=== PATIENT | male | born 1940 | race Caucasian/White ===

== ENCOUNTER → 2018-04-01 08:36 | Outpatient (CLI) | payer OTHER, SELFPAY ==
--- NOTE | 2018-04-01 | DI.ECHO.S_ITS ---
[facility]---------+ [facility] +---------+ : : [address] [place] : : : : [id number] : : : : Phone: [phone]+ Echocardiogram Report + + :Name: MARY ADAN Study Date: 04/01/2018 Height: 69 in : :[facility] Exam Location: [facility] Weight: 230 lb : : Gender: Male BSA: 2.2 m2 : :: 1940 Age: 78 yrs BP: 180/100 mmHg: :Reason For Study: SOB : :Ordering Physician: Madie : :Evan Performed By: Jessica Guevara : :Referring: MADIE PIERSON A : + + Interpretation Summary The left ventricle is normal in size. The ejection fraction is estimated to be 55-60%. The right ventricle is normal in size and function. Mitral valve leaflets appear thickened with moderate calcification of tip of the both leaflets. Posterior mitral leaflet has some restricted movement. There is mild mitral stenosis. The mitral valve mean gradient is 4 mmHg. MVA by PHT 1.8 cm square. There is mild mitral regurgitation. The aortic valve is moderately calcified. The aortic valve is not well visualized. The peak aortic velocity is 2.7 m/sec. The aortic valve mean gradient is 16 mmHg. There is mild aortic stenosis. The IVC is dilated (diameter is greater than 2.1 cm) yet it collapses greater than 50% with a sniff. This suggests a right atrial pressure of 8 mm Hg. Procedure: A two-dimensional transthoracic echocardiogram with color flow and Doppler was performed. The study quality was technically difficult, image quality was adequate. Patient's primary care doctor was notified of the high blood pressure as patient had a minor headache. There is no prior echocardiogram noted for this patient. The heart rate ranged between 53-61 bpm during the study. The patient had a bundle branch block rhythm during the exam. The patient was in normal sinus rhythm during the exam. Left Ventricle: There is moderate concentric left ventricular hypertrophy. The left ventricle is normal in size. There is no thrombus. The ejection fraction is estimated to be 55-60%. Septal motion is consistent with conduction abnormality. MV E/A: 0.63 Med Peak E' Mahendra: 3.3 cm/sec E/E' med: 28.8. Right Ventricle: The right ventricle is normal in size and function. Atria: The left atrium is borderline dilated. Right atrial size is normal. There is no Doppler evidence for an interatrial shunt. Mitral Valve: There is mild to moderate mitral annular calcification. Mitral valve leaflets appear thickened with moderate calcification of tip of the both leaflets. Posterior mitral leaflet has some restricted movement. The mitral valve mean gradient is 4 mmHg. There is mild mitral stenosis. MVA by PHT1.8 cm square. There is mild mitral regurgitation. Aortic Valve: Unable to determine number of cusps. The aortic valve is moderately calcified. The aortic valve is not well visualized. The peak aortic velocity is 2.7 m/sec. The aortic valve mean gradient is 16 mmHg. There is mild aortic stenosis. No aortic regurgitation is present. Tricuspid Valve: The tricuspid valve is normal. Pulmonary artery pressures cannot be estimated because of the lack of a measurable TR jet velocity. There is trace tricuspid regurgitation. Pulmonic Valve: The pulmonic valve is not well visualized. Great Vessels: The aortic root is normal size. The ascending aorta is mildly enlarged. The aortic arch is normal in size. The pulmonary artery is not well visualized, but is probably normal size. The IVC is dilated (diameter is greater than 2.1 cm) yet it collapses greater than 50% with a sniff. This suggests a right atrial pressure of 8 mm Hg. Pericardium/ Pleura There is no pericardial effusion. There is no pleural effusion. MMode/2D Measurements & Calculations LVIDd: 4.6 cm LVOT diam: 2.0 cm LVIDs: 2.7 cm Ao root diam: 3.5 cm FS: 42.3 % asc Aorta Diam: 3.7 cm EPSS: 1.5 cm Ao Arch Diam (Prox Trans): 2.5 cm IVSd: 1.5 cm LVPWd: 1.4 cm LV fletcher. diameter/BSA (cm/m^2): 2.1 LV sys. diameter/BSA (cm/m^2): 1.2 LA A2 area: 26.4 cm2 RA long axis: 6.8 cm LA A4 area: 20.8 cm2 RA area: 16.5 cm2 LA length (vol): 6.7 cm RA vol: 34.2 ml LA vol: 69.8 ml RA : 15.6 ml/m2 LA vol index: 31.9 ml/m2 IVC diam: 2.4 cm RVD1 (basal): 2.6 cm TAPSE: 2.2 cm Doppler Measurements & Calculations Ao V2 max: 272.0 cm/sec LVOT Max Mahendra: 89.8 cm/sec Ao V2 mean: 189.6 cm/sec LV V1 max P.2 mmHg Ao max P.6 mmHg LV V1 VTI: 21.0 cm Ao mean P.4 mmHg VALENTINA(I,D): 1.1 cm2 Ao V2 VTI: 61.0 cm VALENTINA(V,D): 1.0 cm2 sev ratio: 0.35 VALENTINA indexed to BSA (cm^2/m^2): 0.49 MV E max mahendra: 93.9 cm/sec MV V2 mean: 91.1 cm/sec MV A max mahendra: 148.7 cm/sec MV mean P.8 mmHg MV E/A: 0.63 MV V2 VTI: 50.0 cm Med Peak E' Mahendra: 3.3 cm/sec E/E' med: 28.8 Lat Peak E' Mahendra: 4.8 cm/sec E/E' lat: 19.4 E/e' average: 24.1 MV dec time: 0.43 sec MVA(VTI): 1.3 cm2 Reading Physician:PM
== END ==
PROVIDERS: PCP Family Medicine; Visit Provider Family Medicine
DX: I08.0 Rheumatic disorders of both mitral and aortic valves (principal); R06.02 Shortness of breath
CPT/HCPCS: 93306

== ENCOUNTER → 2018-07-19 08:50 | Outpatient (CLI) | payer OTHER, SELFPAY ==
--- NOTE | 2018-07-19 | DI.US.S_ITS ---
PROCEDURE: US SOFT TISSUE HEAD AND NECK INDICATIONS: BONE SOFT TISSUE AND SKIN NEOPLASM TECHNIQUE: Real-time scanning was performed of the neck region of interest, with image documentation. COMPARISON: None. FINDINGS: No mass or fluid collection seen within the subcutaneous soft tissues of the posterior neck in the region of prior redness and pain. IMPRESSION: No sonographic soft tissue abnormality. Dictated by: Rambo AKHTAR Interpreted: Nancy Ervin MD on 07/19/2018 at 11:01 Approved by: Nancy Ervin M.D. on 07/19/2018 at 16:23
== END ==
PROVIDERS: PCP Family Medicine; Visit Provider Family Medicine
DX: D49.2 Neoplasm of unspecified behavior of bone, soft tissue, and skin (principal)
CPT/HCPCS: 76536

== ENCOUNTER 2018-11-10 08:26 | Day surgery (SDC) | payer OTHER, SELFPAY ==
--- NOTE | 2018-11-06 12:30 | PM.PREOP ---
Pre-operative Note Interval Note History & Physical reviewed/Exam performed by Physician: Yes Changes to H&P: No H&P completed within 30 days and has changed as indicated here:: Fasting glucose within parameters prior to cataract surgery.
--- NOTE | 2018-11-06 12:31 | PM.OP.1 ---
Operative Date/Time/Diagnoses Date of procedure: 11/10/18 Time of procedure: 09:45 Procedure & Clinicians Procedure: Preoperative diagnoses: 1. Left nuclear sclerotic and cortical cataract. 2. Diabetes with mild retinopathy. 3. Left bundle branch 4. History of TIA. 5. Diabetic. 6. Aortic valve sclerosis. 7. Prostatic hypertrophy with denial of use sympathomemetics. 8. Reactive airway disease 9. Low back pain. 10. Hypertension. Postoperative diagnoses: 1. Cataract removed by phacoemulsification with placement of posterior chamber intraocular lens. Procedure: Phacoemulsification with posterior chamber intraocular lens implant Surgeon: Anca Mathis MD Complications: None Specimen: None Implant: ZCBOO+22.0 Blood loss: None Anesthesia: Retrobulbar with monitored standby Description of procedure: Patient has multiple medical problems and presents with a complaint of decreased vision due to cataract which is affecting activities of daily living. The patient wants surgery to improve vision. He has been cleared for surgery primary care. His significant diagnoses include glaucoma suspect and background diabetic retinopathy he also has a history of hypertrophic prostatic disease. The patient was taken to the operating room and given IV sedation. A retrobulbar block insert consisting of 6 cc of 2% xylocaine without epinephrine mixed half and half with 0.5% Marcaine with 1 cc of hyaluronidase added is placed between the medial and lateral 1/3 of the inferior orbital rim. Lid akinesia is obtain with 1% xylocaine with epinephrine infiltrated along the lid margin. The eye is manually massaged for 30 sec, prepped using Betadine solution, and draped in the usual sterile fashion. Temporal approach was made, a 1 mm side-port incision was made 90? from the proposed clear corneal incision position. Phenylephrine 1.5% mixed with 1% xylocaine 0.2 cc was placed into the anterior chamber. Viscoat followed by Josi was then placed. A 2.6 mm clear incision with a 2.6 mm blade was placed. A 360 degree capsulorrhexis style capsulotomy was then performed with a cystitome needle on a [employer]on. Hydrodelineation and hydrodissection were performed. The phacoemulsification unit is introduced, and sculpting notice used to groove the central lens. It is then removed in chopping mode. Epi nucleus is removed with epinuclear mode and irrigation aspiration was used to remove the peripheral cortex. The posterior capsule is polished. The intraocular lens is selected, inspected, power confirmed, and placed in the posterior chamber. The pupil was constricted with Miostat.. The wound was stromally hydrated and tested for leaks, there was none and it was left sutureless. Vigamox 0.1 cc was placed into the anterior chamber. Kenalog 0.2 cc was placed in the superior subconjunctival space. A drop of antibiotic and was placed and the eye was patched and shielded. The patient was stable and returned to the recovery room in excellent condition. Dictated by: Anca Mathis MD Copy to: [facility]
[2018-11-10] MEDS: PROPARACAINE 0.5% OPHTH SOL 2 DROPS EYE-OP (09:02)
[2018-11-10] MEDS: CATARACT EYE COMPOUND (10 DROPS/SYRINGE) 3 DROPS EYE-OP (09:04)
[2018-11-10 09:28] VITALS: BP 139/80; PULSE 53; RESP 15; TEMP 35.9; O2SAT 94; BMI 36.9
[2018-11-10] MEDS: PHENYLEPHRINE/LIDOCAINE VIAL (OR) 0.2 ML EYE-OP (10:20)
[2018-11-10] MEDS: TRIAMCINOLONE 50 MG/5 ML VIAL INJ (10:21)
[2018-11-10] MEDS: MOXIFLOXACIN OPHTH DROPS 3 ML BOTTLE 2 DROPS INJ (10:21)
[2018-11-10] MEDS: CHONDROIDTIN/SOD HYALURONATE 1.05 ML SYRINGE INTRAOCULA (10:21)
[2018-11-10] MEDS: HYALURONATE SODIUM 10 MG/ML SYRINGE INJ (10:22)
[2018-11-10] MEDS: BALANCED SALT IRRIG SOLN NO.2 15 ML IRR (10:22)
[2018-11-10] MEDS: NEOMYCIN/POLY/DEX OPHTH OINT 1 APPLIC EYE-LEFT (10:22)
[2018-11-10] MEDS: OFLOXACIN 0.3% OPHTH 5 ML 2 DROPS EYE-LEFT (10:23)
[2018-11-10] MEDS: BALANCED SALT IRRIG SOLN NO.2 500 ML, EPINEPHrine 1 MG IRR (10:23)
[2018-11-10] MEDS: LIDOCAINE 2% 4 ML, BUPIVACAINE 0.5% (PF) 4 ML, HYALURONIDASE 150 UNIT INJ (10:24)
[2018-11-10] MEDS: LIDOCAINE 1% W/EPI INJ 20 ML INJ (10:24)
[2018-11-10 10:51] VITALS: BP 122/78; PULSE 55; RESP 15; TEMP 36.2; O2SAT 96
== END 2018-11-10 11:27 | disposition home or self-care (01) ==
PROVIDERS: PCP Family Medicine; Visit Provider Ophthalmology
DX: H25.812 Combined forms of age-related cataract, left eye (principal); E11.3299 Type 2 diabetes mellitus with mild nonproliferative diabetic retinopathy without macular edema, unspecified eye; I10 Essential (primary) hypertension; I44.7 Left bundle-branch block, unspecified
CPT/HCPCS: J0171; J2704; J3301; J3470

== ENCOUNTER 2018-11-24 08:26 | Day surgery (SDC) | payer OTHER, SELFPAY ==
--- NOTE | 2018-11-20 10:15 | PM.PREOP ---
Pre-operative Note Interval Note History & Physical reviewed/Exam performed by Physician: Yes Changes to H&P: No H&P completed within 30 days and has changed as indicated here:: Glucose 152 fasting. Inhaler used in pre-op holding area.
--- NOTE | 2018-11-20 11:01 | PM.OP.1 ---
Operative Date/Time/Diagnoses Date of procedure: 11/24/18 Time of procedure: 09:45 Procedure & Clinicians Procedure: Preoperative diagnoses: 1. Right complex nuclear sclerotic and cortical cataract. 2. Diabetes with mild diabetic retinopathy without macular edema. 3. history of TIA 4. Aortic valvular sclerosis 5. Reactive airway 6. Hypertension. 7. Poorly dilating pupil. Postoperative diagnoses: 1. Complex Cataract removed by phacoemulsification with placement of posterior chamber intraocular lens and use of Malyguin ring. Procedure: Phacoemulsification with posterior chamber intraocular lens implant Surgeon: Anca Mathis MD Complications: None Specimen: None Implant: +ZCBOO+22.5 Blood loss: None Anesthesia: Retrobulbar with monitored standby Description of procedure: Patient with multiple chronic medical problems including mild diabetic retinopathy presents with a complaint of decreased vision due to cataract which is affecting activities of daily living. The patient wants surgery to improve vision. His glucose is stable prior to cataract surgery. He has a poorly dilating pupil after multiple drops and a Malyguin ring will be required for safety. The patient was taken to the operating room and given IV sedation. A retrobulbar block consisting of 6 cc of 2% xylocaine without epinephrine mixed half and half with 0.5% Marcaine with 1 cc of hyaluronidase added is placed between the medial and lateral 1/3 of the inferior orbital rim. Lid akinesia is obtain with 1% xylocaine with epinephrine infiltrated along the lid margin. The eye is manually massaged for 30 sec, prepped using Betadine solution, and draped in the usual sterile fashion. Temporal approach was made, a 1 mm side-port incision was made 90? from the proposed clear corneal incision position. Phenylephrine 1.5% mixed with 1% xylocaine 0.2 cc was placed into the anterior chamber. Viscoat followed by Josi was then placed. A 2.6 mm clear incision with a 2.6 mm blade was placed. A 7.0 mm Maluguin ring is inspected, placed into an folder, and opened into the anterior chamber.The iris was then captured in alll four quadrants allowing in an adequate pupillary opening. A 360 degree capsulorrhexis style capsulotomy was then performed with a cystitome needle on a [employer]. Hydrodelineation and hydrodissection were performed. The phacoemulsification unit is introduced, and sculpting notice used to groove the central lens. It is then removed in chopping mode. Epi nucleus is removed with epinuclear mode and irrigation aspiration was used to remove the peripheral cortex. The posterior capsule is polished. The intraocular lens is selected, inspected, power confirmed, and placed in the posterior chamber. The pupil was constricted with Miostat.. The wound was stromally hydrated and tested for leaks, there was none and it was left sutureless. Vigamox 0.1 cc was placed into the anterior chamber. Kenalog 0.2 cc was placed in the superior subconjunctival space. A drop of antibiotic and was placed and the eye was patched and shielded. The patient was stable and returned to the recovery room in excellent condition. Dictated by: Anca Mathis MD Copy to: [facility]
[2018-11-24 08:50] VITALS: BP 146/73; PULSE 65; RESP 20; TEMP 36.4; O2SAT 93; BMI 38.0
[2018-11-24] MEDS: PROPARACAINE 0.5% OPHTH SOL 2 DROPS EYE-OP (08:50)
[2018-11-24] MEDS: CATARACT EYE COMPOUND (10 DROPS/SYRINGE) 3 DROPS EYE-OP (08:55)
--- NOTE | 2018-11-24 10:00 | SUR.OPER ---
Supine on eye stretcher, head on extension cradle secured with tape. Arms tucked at sides with blanket. Pillow under knees.
[2018-11-24] MEDS: PHENYLEPHRINE/LIDOCAINE VIAL (OR) 0.2 ML EYE-OP (10:08)
[2018-11-24] MEDS: MOXIFLOXACIN OPHTH DROPS 3 ML BOTTLE 2 DROPS INJ (10:09)
[2018-11-24] MEDS: CHONDROIDTIN/SOD HYALURONATE 1.05 ML SYRINGE INTRAOCULA (10:10)
[2018-11-24] MEDS: TRIAMCINOLONE 50 MG/5 ML VIAL INJ (10:10)
[2018-11-24] MEDS: NEOMYCIN/POLY/DEX OPHTH OINT 1 APPLIC EYE-RIGHT (10:11)
[2018-11-24] MEDS: CARBACHOL 1.5 ML VIAL INJ (10:11)
[2018-11-24] MEDS: HYALURONATE SODIUM 10 MG/ML SYRINGE INJ (10:11)
[2018-11-24] MEDS: BALANCED SALT IRRIG SOLN NO.2 15 ML IRR (10:11)
[2018-11-24] MEDS: OFLOXACIN 0.3% OPHTH 5 ML 2 DROPS EYE-RIGHT (10:12)
[2018-11-24] MEDS: BALANCED SALT IRRIG SOLN NO.2 500 ML, EPINEPHrine 1 MG IRR (10:13)
[2018-11-24] MEDS: LIDOCAINE 1% W/EPI INJ 20 ML INJ (10:13)
[2018-11-24] MEDS: LIDOCAINE 2% 4 ML, BUPIVACAINE 0.5% (PF) 4 ML, HYALURONIDASE 150 UNIT INJ (10:14)
[2018-11-24 10:45] VITALS: BP 139/66; PULSE 53; RESP 17; TEMP 36.4; O2SAT 96
--- NOTE | 2018-11-24 10:56 | SUR.PHASEII ---
pt reported will go home and take insulin per his normal schedule for diabetes management.
== END 2018-11-24 10:57 | disposition home or self-care (01) ==
PROVIDERS: PCP Family Medicine; Visit Provider Ophthalmology
PROC: (CPT 66982; principal; 2018-11-24 09:45)
DX: H25.811 Combined forms of age-related cataract, right eye (principal); E11.3291 Type 2 diabetes mellitus with mild nonproliferative diabetic retinopathy without macular edema, right eye; Z86.73 Personal history of transient ischemic attack (TIA), and cerebral infarction without residual deficits; I10 Essential (primary) hypertension; E03.9 Hypothyroidism, unspecified; J45.909 Unspecified asthma, uncomplicated
CPT/HCPCS: 66982; J0171; J2704; J3301; J3470

== ENCOUNTER → 2019-04-28 06:51 | Outpatient (CLI) | payer OTHER, SELFPAY ==
--- NOTE | 2019-04-28 | DI.MRI.S_ITS ---
PROCEDURE: MR LUMBAR SPINE WO CON INDICATIONS: Unspecified urinary incontinence TECHNIQUE: Noncontrast sagittal T1 spin echo and T2 fast echo, sagittal STIR, axial T1 and T2 fast spin echo through the lumbar spine. In cases with scoliosis, additional coronal T2 fast spin echo may be performed. COMPARISON: [facility], , L-SPINE WITHOUT CONTRAST, 09/11/2016, 12:52. FINDINGS: Image quality: Excellent. Alignment and Curvature: There is trace retrolisthesis of L2 on L3, L5 on S1. Bone Marrow: Marrow is of normal overall signal. No acute vertebral body compression fractures. Spinal Cord: Conus medullaris terminates at the L1-L2 level. Visualized cord demonstrates normal signal and size. Paraspinous Soft Tissues: No paravertebral masses. Discs: Severe desiccation is present at L2-3, L5-S1, mild/moderate throughout the remainder of the lumbar spine. L1-L2: Mild disc bulge with mild spinal stenosis. Mild right foraminal narrowing with facet and ligamentum flavum hypertrophy. No interval change. L2-L3: Mild disc bulge with moderate to severe spinal stenosis. Increased T2 signal is present posteriorly suggestive of annular fissure. There is [id number] right and mild left foraminal narrowing, slightly progressive compared to prior exam. L3-L4: Mild disc bulge with mild spinal stenosis. Mild left foraminal narrowing with facet and ligamentum flavum hypertrophy. No interval change. L4-L5: Mild disc bulge with severe spinal stenosis. Moderate to severe left and moderate right foraminal narrowing demonstrating interval progression. Facet and ligamentum flavum hypertrophy are present. L5-S1: Mild disc bulge with moderate spinal stenosis. There is severe bilateral foraminal narrowing, left greater than right with nerve root flattening. Facet and ligamentum flavum hypertrophy are present. Stable appearance compared to prior exam. IMPRESSION: 1. Multilevel degenerative changes with areas of interval progression as noted above. 2. Multilevel spinal stenosis most severe at L2-3 and L4-5 secondary to disc bulge with contributing effect of facet/ligamentum flavum arthropathy. 3. Multilevel foraminal narrowing severe at L5-S1 with nerve root flattening secondary to facet arthropathy with contributing effect of retrolisthesis. Dictated by: Nancy Ervin M.D. on 04/28/2019 at 11:32 Approved by: Nancy Ervin M.D. on 04/28/2019 at 11:43
== END ==
PROVIDERS: PCP Family Medicine; Visit Provider Family Medicine
DX: R32 Unspecified urinary incontinence (principal); M47.816 Spondylosis without myelopathy or radiculopathy, lumbar region; M48.061 Spinal stenosis, lumbar region without neurogenic claudication; M48.07 Spinal stenosis, lumbosacral region; M51.26 Other intervertebral disc displacement, lumbar region; M51.27 Other intervertebral disc displacement, lumbosacral region
CPT/HCPCS: 72148

== ENCOUNTER 2019-05-26 03:12 | Emergency (ER) | payer OTHER, SELFPAY ==
[2019-05-26 03:14] VITALS: BP 96/58; PULSE 52; RESP 10; O2SAT 92
--- NOTE | 2019-05-26 03:14 | DI.CT.S_ITS ---
PROCEDURE: CT HEAD/BRAIN WO CON INDICATIONS: Unwitnessed fall and confusion TECHNIQUE: Noncontrast 4.5 mm thick angled axial sections acquired from the foramen magnum to the vertex, with coronal and sagittal reformats. For radiation dose reduction, the following was used: automated exposure control, adjustment of mA and/or kV according to patient size. COMPARISON: None. FINDINGS: Image quality: Excellent. CSF spaces: Basal cisterns are patent. No extra-axial fluid collections. The ventricles are symmetric in size and shape. Brain: No intracranial bleeds or masses. There is cerebral volume loss for age, with resultant ventricular and sulcal prominence. There are periventricular and deep white matter chronic small vessel ischemic changes. There is intracranial internal carotid artery atherosclerosis. Skull and face: Calvarium and visualized facial bones appear intact, without suspicious lesions. Sinuses: Visualized sinuses and mastoids are clear. IMPRESSION: No acute intracranial disease process. Dictated by: Daisy Lamb MD, PhD on 05/26/2019 at 7:33 Approved by: Daisy Lamb MD, PhD on 05/26/2019 at 7:34
--- NOTE | 2019-05-26 03:14 | DI.RAD.S_ITS ---
PROCEDURE: XR CHEST 1V INDICATIONS: Reported hypoxia by EMS TECHNIQUE: One view of the chest was acquired. COMPARISON: None. FINDINGS: Surgical changes and devices: None. Lungs and pleura: Lungs are clear. No pleural effusions or pneumothorax. Mediastinum: Mediastinal contours appear normal. Heart is enlarged. Bones and chest wall: No suspicious bony lesions. Overlying soft tissues appear unremarkable. IMPRESSION: No acute cardiopulmonary disease process. Dictated by: Daisy Lamb MD, PhD on 05/26/2019 at 9:28 Approved by: Daisy Lamb MD, PhD on 05/26/2019 at 9:29
--- NOTE | 2019-05-26 03:14 | DI.CT.S_ITS ---
PROCEDURE: CT CERVICAL SPINE WO CON INDICATIONS: Unwitnessed fall with midline neck pain TECHNIQUE: Noncontrast 3 mm thick sections acquired from the skull base to the T4 level. Sagittal and coronal reformats were then constructed. For radiation dose reduction, the following was used: automated exposure control, adjustment of mA and/or kV according to patient size. COMPARISON: None. FINDINGS: Image quality: Excellent. Bones: No fractures or dislocations. Visualized superior ribs are intact. Spine degenerative disc disease and facet arthropathy. Soft tissues: Prevertebral soft tissues are normal in thickness. No paravertebral hematomas. No apical pneumothoraces. Visualized heart is enlarged. Atherosclerotic calcifications noted in the visualized left coronary vasculature. Mitral annulus calcification is noted. IMPRESSION: No fracture. No acute osseous lesion. If symptoms and/or clinical suspicion for pathology persists, evaluation with MRI may be helpful for further assessment. Dictated by: Daisy Lamb MD, PhD on 05/26/2019 at 7:55 Approved by: Daisy Lamb MD, PhD on 05/26/2019 at 7:59
--- NOTE | 2019-05-26 03:16 | ED.GENADULT ---
HPI - General Adult General Chief complaint: Diabetic Problem Stated complaint: Low Blood Sugar, GLF Time Seen by Provider: 05/26/19 03:13 Source: patient and EMS Mode of arrival: EMS Limitations: no limitations History of Present Illness HPI narrative: Patient is a 79-year-old male. He is an insulin-dependent diabetic. He EMS was called to the patient's house with the patient's . His reported that he was getting out of bed and he fell. When EMS arrived they stated that he was lying on his face. They rolled him over. They checked a blood sugar was 35. They did give him 1 amp of D50. Repeat blood glucose is were greater than 170 and then a 2nd repeat was greater than 120. He did take his insulin last evening. EMS reported that he was somewhat confused upon arrival but this did seem to improve and arrived here to the emergency department. The patient had no reports of any injuries. He did not remember the events that led him to be brought here to the emergency department. At the time of evaluation patient reports no symptoms except for neck pain. Related Data Home Medications Medication Instructions Recorded Confirmed Asmanex HFA 11/10/18 albuterol sulfate [ProAir HFA] 1 puff INHALATION INTRA-OP 11/10/18 11/24/18 allopurinol 3 tab PO 4-6XD 11/10/18 11/10/18 aspirin 81 mg PO DAILY 11/10/18 11/24/18 carvedilol 12.5 mg PO BID 11/10/18 11/24/18 fluticasone 11/10/18 furosemide 11/10/18 gabapentin 11/10/18 insulin NPH and regular human 50 unit SUBCUT BID 11/10/18 11/10/18 [Humulin 70/30 U-100 Insulin] levothyroxine 100 mcg PO DAILY 11/10/18 11/24/18 lovastatin 11/10/18 montelukast 11/10/18 potassium chloride 11/10/18 valsartan 11/10/18 Allergies Allergy/AdvReac Type Severity Reaction Status Date / Time No Known Drug Allergies Allergy Verified 11/24/18 09:08 Review of Systems Constitutional Constitutional: Denies fever(s), Denies frequent falls and Denies headache(s) Eyes Eyes: Denies change in vision ENT Ears, Nose, Mouth, and Throat: Denies headache(s) and Reports neck pain Cardiovascular Cardiovascular: Denies chest pain and Denies dyspnea Respiratory Respiratory: Denies dyspnea Gastrointestinal Gastrointestinal: Denies abdominal pain, Denies nausea and Denies vomiting Musculoskeletal Musculoskeletal: Denies myalgias, Denies arthralgias and Reports neck pain Integumentary/Breasts Skin/Breast: Denies lesions and Denies rash Neurologic Neurologic: Denies behavioral changes, Denies frequent falls and Denies headache(s) Psychiatric Psychiatric: Denies behavioral changes Hematologic/Lymphatic Hematologic/Lymphatic: Denies easy bleeding and Denies easy bruising Allergic/Immunologic Allergic/Immunologic: Denies urticaria [facility] Medical History Allergic rhinitis (Acute) Anxiety (Acute) Aortic valve sclerosis (Acute) Bilateral carpal tunnel syndrome (Acute) Chronic back pain (Acute) DDD (degenerative disc disease), cervical (Acute) DDD (degenerative disc disease), lumbar (Acute) Diabetic peripheral neuropathy (Acute) DMII (diabetes mellitus, type 2) (Acute) Dyslipidemia (Acute) Edema (Acute) Erectile dysfunction (Acute) Gouty arthropathy (Acute) Hypertension (Acute) Hypertrophy of prostate (Acute) Hypothyroidism (Acute) LBBB (left bundle branch block) (Acute) Osteoarthritis involving multiple joints on both sides of body (Acute) Peripheral neuropathy (Acute) Reactive airway disease (Acute) Renal insufficiency (Acute) Sinus arrhythmia (Acute) TIA (transient ischemic attack) (Acute) Vertigo (Acute) Social History household members: spouse Smoking Status: Unknown if ever smoked Social History household members: spouse Smoking Status: Unknown if ever smoked Exam Initial Vital Signs Initial Vital Signs: Vital Signs Pulse Rate 52 L 05/26/19 03:14 Respiratory Rate 10 L 05/26/19 03:14 Blood Pressure 96/58 L 05/26/19 03:14 Pulse Oximetry 92 05/26/19 03:14 Const General: cooperative, healthy appearing, comfortable, well developed and well groomed Orientation: alert, awake and oriented x3 HENMT Head: normal to inspection and normocephalic Eyes Pupils: PERRL Resp Effort & Inspection: normal respiratory effort Auscultation: clear to auscultation bilaterally Cardio Rate: regular rate Rhythm: regular rhythm GI Inspection: non-distended Palpation: soft Back/Spine/Pelvis Cervical Spine: No collar present, cervical spinal tenderness and No step off deformity Skin Lesions: no lesions Rashes: no rashes Neuro General: alert and awake Cognition: normal cognition Speech: speech normal Extrem General: normal to inspection and capillary refill normal Psych Appearance: grossly normal and well kempt Scores GCS [place] coma scale eye opening: Spontaneous Ce coma scale verbal response: Orientated Ce coma scale motor response: Obey commands Ce coma scale total score: 15 Nexus Score for C-Spine Focal Neurologic deficit present: No Midline spinal tenderness present: Yes Altered level of conciousness present: No Intoxication present: No Distracting Injury Present: No Nexus Criteria for C-spine: 1 Course Orders Ordered: ED Orders 05/26/19 03:14 CT cervical spine wo con Stat CT head/brain wo con Stat XR chest 1V Stat 05/26/19 03:21 Basic Metabolic Panel Stat Complete Blood Count AUTO DIFF Stat 05/26/19 03:41 EKG-12 Lead Stat Discontinued Medications Sodium Chloride (Normal Saline 0.9%) 1,000 mls @ 1,000 mls/hr IV BOLUS ONE Stop: 05/26/19 04:12 Last Infusion: 05/26/19 04:50 Dose: 0 mls/hr Documented by: Admin: 05/26/19 03:39 Dose: 1,000 mls/hr [facility] Vital Signs Vital signs: Vital Signs - 8 hr 05/26/19 03:14 05/26/19 03:50 05/26/19 05:22 Temperature 97 F L Pulse Rate 52 L 47 L 45 L Respiratory Rate 10 L 16 16 Blood Pressure 96/58 L Blood Pressure [Right Arm] 90/51 L 143/80 H Pulse Oximetry 92 94 98 05/26/19 05:48 Temperature Pulse Rate 48 L Respiratory Rate 20 Blood Pressure Blood Pressure [Right Arm] 164/125 H Pulse Oximetry 97 Medical Decision Making Medical Records Medical records reviewed: Yes I reviewed the patient's medical records. Lab Data Lab results reviewed: Yes I reviewed the patient's lab results. Result diagrams: 05/26/19 03:21 05/26/19 03:21 Labs: Lab Results 05/26/19 05/26/19 Range/Units 03:21 03:21 WBC 9.2 (4.5-11.0) X10^3/uL RBC 4.88 (4.5-5.9) X10^6/uL Hgb 16.3 (13.5-17.5) g/dL Hct 47.0 (41-53) % MCV 96.5 (80-100) fL MCH 33.4 (26-34) PG MCHC 34.6 (30-36) % RDW 13.7 (11.6-14.8) % Plt Count 134 L (150-400) X10^3/uL Neut % (Auto) 80.2 H (50-75) % Lymph % (Auto) 11.1 L (25-40) % [place] % (Auto) 6.5 (3-14) % Eos % (Auto) 1.8 L (2-4) % Baso % (Auto) 0.4 (0-2) % Neut # (Auto) 7400 H (9297-7662) /uL Lymph # (Auto) 1000 L (1293-2486) /uL [place] # (Auto) 600 (0-900) /uL Eos # (Auto) 200 (0-450) /uL Baso # (Auto) 0 (0-100) /uL Sodium 138 (137-145) mmol/L Potassium 3.7 (3.4-5.1) mmol/L Chloride 102 (98-107) mmol/L Carbon Dioxide 28 (22-32) mmol/L BUN 39 H (9-20) mg/dL Creatinine 1.40 H (0.66-1.25) mg/dL Estimated GFR 49.0 L (>60) mL/min BUN/Creatinine Ratio 27.9 H (6-22) Glucose 100 (80-110) mg/dL Calcium 8.6 (8.4-10.2) mg/dL Point of Care Testing Glucose POC 108 Urine Dip Bedside Urine Glucose Negative Bedside Urine Bilirubin - Negative Bedside Urine Ketone - Negative Urine Specific [place] 1.015 Bedside Urine Occult Blood + Bedside Urine pH 5.5 Bedside Urine Protein +/- 15 Bedside Urine Urobilinogen - Negative Bedside Urine Nitrite - Negative Bedside Urine Leukocytes - Negative Esterase Point of care testing: Point of Care Testing Glucose POC 108 Urine Dip Bedside Urine Glucose Negative Bedside Urine Bilirubin - Negative Bedside Urine Ketone - Negative Urine Specific [place] 1.015 Bedside Urine Occult Blood + Bedside Urine pH 5.5 Bedside Urine Protein +/- 15 Bedside Urine Urobilinogen - Negative Bedside Urine Nitrite - Negative Bedside Urine Leukocytes - Negative Esterase Imaging Data Chest x-ray: Attestation: I personally reviewed and interpreted this imaging study as follows: My impression: No new with thorax, no acute processes, poor inspiratory effort CT scan - head: Radiologist's impression: Preliminary read No acute intracranial abnormality Generalized cerebral atrophy and periventricular hypodensities consistent with chronic small-vessel occlusive disease. CT cervical spine: Radiologist's impression: Preliminary read Multilevel spondylitic changes of the cervical spine as detailed without acute traumatic injury ECG Data Attestation: I personally reviewed and interpreted this ECG as follows: Prior ECG tracings: not available for review Interpretation: No prior EKGs for comparison Sinus bradycardia Ventricular rate of 44 First degree AV block with a as needed oval 252 milliseconds Left axis deviation QRS 126 milliseconds QTC [address] T wave changes MDM Narrative Medical decision making narrative: Patient's head and cervical spine CT were negative for acute pathology. His blood pressure improved after fluids. His heart rate still remained in the 40s and 50s and 60s however the patient seemed to asymptomatic from this. He ambulated to the bathroom 2 separate times with a walker which is his baseline. He states that he feels fine. He did eat food. He was observed for 1.5 hours after tolerating oral intake and was maintaining his blood sugar. I do suspect that his symptoms last evening were the result of his hypoglycemia. He was here with his . Patient is not on a sliding scale. He has a fixed dose of insulin in the morning and in the evenings. It does appear that he potentially has not been taking his blood sugars often is what he should. I did discuss that this is important because he could potentially be running low causing many of his other symptoms. He has a follow-up with his primary provider next week had a regularly scheduled appointment. Patient has no complaints consistent with ACS. No complaints consistent with TIA or CVA. He has no focal neurologic deficits. No other reported discomfort or other abnormalities found on exam that would warrant other radiologic studies. Patient and his were given return precautions and follow-up instructions. They expressed understanding and agreement with plan. Discharge Plan Departure Patient Disposition: Home Clinical Impression: Hypoglycemia Instructions: DI for Hypoglycemia Activity Restrictions/Additional Instructions: I recommend that today you contact your primary provider to discuss checking her blood sugars at home and how often she would like you to do this. This is important so that she can make adjustments to your insulin. Need to make sure that your eating a balanced diet. Continue all of her other medications as directed. Return to the emergency department for any new or worsening symptoms Prescriptions: No Action carvedilol 12.5 mg Tablet 12.5 mg PO BID RF: 0 Humulin 70/30 U-100 Insulin 100 unit/mL (70-30) Suspension 50 unit SUBCUT BID RF: 0 aspirin 81 mg Tablet,Delayed Release (Dr/Ec) 81 mg PO DAILY RF: 0 levothyroxine 100 mcg Tablet 100 mcg PO DAILY RF: 0 allopurinol 3 tab PO 4-6XD RF: 0 gabapentin RF: 0 lovastatin RF: 0 valsartan RF: 0 Asmanex HFA RF: 0 ProAir HFA 90 mcg/actuation Hfa Aerosol Inhaler 1 puff INHALATION INTRA-OP RF: 0 fluticasone RF: 0 furosemide RF: 0 montelukast RF: 0 potassium chloride RF: 0 Referrals: Anamaria Gordon DO [Primary Care Provider] -
[2019-05-26 03:29] LABS: Add Manual Diff / Slide Review NO; Basophils Absolute Auto 0 /uL (0-100); Basophils Percent Auto 0.4 % (0-2); Eosinophils Absolute Auto 200 /uL (0-450); Eosinophils Percent Auto 1.8 % (2-4); Hemoglobin 16.3 g/dL (13.5-17.5); Lymphocytes Absolute Auto 1000 /uL (1100-4500); Lymphocytes Percent Auto 11.1 % (25-40); Mean Corpuscular HGB Conc 34.6 % (30-36); Mean Corpuscular Hemoglobin 33.4 PG (26-34); Mean Corpuscular Volume 96.5 fL (80-100); Monocytes Absolute Auto 600 /uL (0-900); Monocytes Percent Auto 6.5 % (3-14); Neutrophils Absolute Auto 7400 /uL (1500-7000); Neutrophils Percent Auto 80.2 % (50-75); Platelet Count 134 X10^3/uL (150-400); Red Blood Cell Count 4.88 X10^6/uL (4.5-5.9); Red Cell Distribution Width 13.7 % (11.6-14.8); White Blood Cell Count 9.2 X10^3/uL (4.5-11.0)
[2019-05-26] MEDS: SODIUM CHLORIDE 0.9% 1,000 ML 1000 ML IV (03:39)
[2019-05-26 03:40] LABS: BUN Creatinine Ratio 27.9 (6-22); Blood Urea Nitrogen 39 mg/dL (9-20); Calcium 8.6 mg/dL (8.4-10.2); Carbon Dioxide 28 mmol/L (22-32); Chloride 102 mmol/L (98-107); Glucose 100 mg/dL (80-110); HEMOLYSIS 17 (0-50); Potassium 3.7 mmol/L (3.4-5.1); Sodium 138 mmol/L (137-145)
[2019-05-26 03:50] VITALS: BP 90/51; PULSE 47; RESP 16; TEMP 36.1; O2SAT 94
[2019-05-26 05:22] VITALS: BP 143/80; PULSE 45; RESP 16; O2SAT 98
--- NOTE | 2019-05-26 05:26 | PC.NURSE ---
pt ambulated to bathroom using a walker but was unable to produce any urine
[2019-05-26 05:48] VITALS: BP 164/125; PULSE 48; RESP 20; O2SAT 97
== END 2019-05-26 06:45 | disposition home or self-care (01) ==
PROVIDERS: Emergency Provider Emergency Medicine; PCP Family Medicine
DX: E11.649 Type 2 diabetes mellitus with hypoglycemia without coma (principal)
CPT/HCPCS: 70450; 71045; 72125; 80048; 81003; 82962; 85025; 93005; 93010; 96360; 99283; 99285

== ENCOUNTER → 2019-09-01 09:07 | Outpatient (CLI) | payer OTHER, SELFPAY ==
--- NOTE | 2019-09-01 | DI.MRI.S_ITS ---
PROCEDURE: MR HEAD/BRAIN WO CON INDICATIONS: Ataxia, unspecified TECHNIQUE: Non-contrast axial T1 spin echo, axial T2 fast spin echo, sagittal and axial FLAIR, coronal T2 fast spin echo, axial gradient echo, axial diffusion and ADC through the brain. COMPARISON: [facility], CT, CT HEAD/BRAIN WO CON, 05/26/2019, 3:17. FINDINGS: Image quality: Excellent. CSF spaces: Ventricles are dilated but symmetric in size and shape. Basal cisterns are patent. No extra-axial fluid collections. Brain: No intracranial bleeds or mass effects. There is moderate cerebral volume loss for age. There are moderate periventricular and deep white matter chronic small vessel ischemic changes. Brainstem appears normal. Diffusion-weighted images show no acute ischemic insults. No chronic ischemic insults. Normal intravascular flow voids are present. Skull and face: Calvarial bone marrow is normal in signal. Orbits are normal. Sinuses: Sinuses and mastoids are clear. IMPRESSION: 1. No acute intracranial abnormalities. 2. Cerebral volume loss and chronic microvascular ischemic changes. 3. Ventricular dilation may be secondary to prominent central atrophy. The differential diagnosis is normal pressure hydrocephalus. Dictated by: Nicki Monique M.D. on 09/01/2019 at 9:54 Approved by: Nicki Monique M.D. on 09/01/2019 at 10:04
== END ==
PROVIDERS: PCP Family Medicine; Visit Provider Psychiatry & Neurology Neurology
DX: R27.0 Ataxia, unspecified (principal)
CPT/HCPCS: 70551

== ENCOUNTER 2019-12-28 14:05 | Emergency (ER) | payer OTHER, SELFPAY ==
[2019-12-28] VITALS (7 sets, daily range): BP systolic 153–202; BP diastolic 81–97; PULSE 55–76; RESP 14–20; TEMP 36.6; O2SAT 93–98
--- NOTE | 2019-12-28 14:14 | ED_ITS ---
HPI - Trauma <Rosa Maria Louis PA-C - Last Filed: 12/28/19 20:33> General Chief Complaint: Trauma Stated Complaint: Fall < 10 feet Time Seen by Provider: 12/28/19 14:17 History of Present Illness HPI narrative: Mr. Rodríguez is a 79-year-old alert male presenting to the emergency department brought in by EMS, activated modified trauma as he is a fall from 10-12 feet. He is not on blood thinners, however he does take aspirin daily. He was in his shop today up on a 10 ft ladder getting parts for his car that he was working on, when he was coming down the ladder he fell, hitting the cement floor. He does not remember exactly what happened, but thinks it was ?a mechanical fall and he did not feel lightheaded or dizzy or palpitations prior to falling, however he does not remember the fall itself. He remembers waking up on the floor and feeling dizzy for about 5 minutes after falling?. He believes he was a few runs down from the top of the 10 ft ladder with his feet at about 6 ft high at the point when he fell. He has no complaint of pain at this time. Per his he was up on about a 12 ft high ledge in the shop, and he ?should not have gone up there because he has chronic issues with mobility she states she almost called 911 in order to get him down off a ledge, however he told her he was okay and would be able to come back down the ladder. She was watching him when he steps down on to 1 of the top 2 rungs and slipped and fell. She states she spoke with him immediately afterwards, he did not lose consciousness, and seemed that he was mentating normally to her at that time as well as currently in the emergency department. She also states that he has mild pressure hydrocephalus, which affects his mobility as well as his mentation slightly, he was due to get drainage done, however this has been postponed due to concerns related to coronavirus. Per EMS report he had some difficulty remembering the event. He is diabetic but denies any other medical history. He states he took all of his medicines today. He denies chest pain, shortness of breath, recent fevers, recent illness, head pain, neck pain, back pain, abdominal pain, or any other injury. Related Data Home Medications Medication Instructions Recorded Confirmed Vishnux HFA 11/10/18 albuterol sulfate [ProAir HFA] 1 puff INHALATION INTRA-OP 11/10/18 11/24/18 allopurinol 3 tab PO 4-6XD 11/10/18 11/10/18 aspirin 81 mg PO DAILY 11/10/18 11/24/18 carvedilol 12.5 mg PO BID 11/10/18 11/24/18 fluticasone 11/10/18 furosemide 11/10/18 gabapentin 11/10/18 insulin NPH and regular human 50 unit SUBCUT BID 11/10/18 11/10/18 [Humulin 70/30 U-100 Insulin] levothyroxine 100 mcg PO DAILY 11/10/18 11/24/18 lovastatin 11/10/18 montelukast 11/10/18 potassium chloride 11/10/18 valsartan 11/10/18 Allergies Allergy/AdvReac Type Severity Reaction Status Date / Time No Known Drug Allergies Allergy Verified 11/24/18 09:08 Review of Systems <Rosa Maria Louis PA-C - Last Filed: 12/28/19 20:33> Review of Systems Narrative: GENERAL: Denies chills, fatigue, malaise, fever, sweats. HEENT: Denies sinus pain, ear pain, sore throat, difficulty swallowing, dizziness. RESPIRATORY: Denies dyspnea, cough, wheezing, hemoptysis, sputum. CARDIOVASCULAR: Denies chest pain, palpitations, orthopnea, edema, GASTROINTESTINAL: Denies nausea, vomiting, abdominal pain, diarrhea, constipation, melena. : Denies dysuria, frequency, incontinence, hematuria, urinary retention. MUSCULOSKELETAL: denies weakness, joint pain, or bony pain SKIN: Denies rash, skin lesions, or other NEUROLOGIC: Denies weakness, headache, numbness, change in speech, confusion, seizures, has some chronic co. PSYCHIATRIC: No concerning psychosocial issues. 12 point review of systems is negative except for those stated above Patient History <Rosa Maria Louis PA-C - Last Filed: 12/28/19 20:33> Social History household members: spouse Smoking Status: Unknown if ever smoked Smoking Status: Unknown if ever smoked alcohol intake frequency: 0-2 drinks per day Substance Use Type: does not use Exam <TORRI Albert Last Filed: 12/28/19 20:33> Narrative Exam Narrative: GENERAL: 79 year old patient appears stated age. Obese, well- developed patient, in mild distress due to presence of C-collar. HEAD: Normocephalic. There are 2 less than 1 cm extremely superficial is EYES: Pupils equal round and reactive. Extraocular motions intact. No scleral icterus. No injection or drainage. ENT: Nose without bleeding, purulent drainage. Throat without erythema, tonsillar hypertrophy or exudate. Airway patent. NECK: Trachea midline. Non tender CARDIOVASCULAR: Regular rate and rhythm without murmurs, gallops, or rubs. RESPIRATORY: Clear to auscultation. Breath sounds equal bilaterally. No wheezes, rales, or rhonchi. GASTROINTESTINAL: Abdomen soft, non-tender, nondistended. EXTREMITIES: No edema or joint tenderness. On secondary exam after ambulation he has left ankle pain/pain at the dorsum of his foot. Severe diabetic neuropathy and reduced sensation of bilateral feet. BACK: Nontender without deformity or crepitance. No flank tenderness. NEURO: AOx3. SKIN: No rash or erythema of visible areas. There are multiple superficial abrasions of the right arm, including the right wrist and right elbow. Initial Vital Signs Initial Vital Signs: Vital Signs Temperature 97.9 F 12/28/19 14:11 Pulse Rate 76 12/28/19 14:11 Respiratory Rate 16 12/28/19 14:11 Blood Pressure 174/97 H 12/28/19 14:11 Pulse Oximetry 98 12/28/19 14:11 <Garrett Almeida DO - Last Filed: 01/03/20 19:01> Initial Vital Signs Initial Vital Signs: Vital Signs Temperature 97.9 F 12/28/19 14:11 Pulse Rate 76 12/28/19 14:11 Respiratory Rate 16 12/28/19 14:11 Blood Pressure 174/97 H 12/28/19 14:11 Pulse Oximetry 98 12/28/19 14:11 Course <TORRI Albert Last Filed: 12/28/19 20:33> Course Course Narrative: After reviewing C-spine CT, and reassessing the patient he is still pain-free and negative for fracture, removed cervical collar. Orders Ordered: Discontinued Medications Bacitracin (Bacitracin) 2 applic TOP NOW ONE Stop: 12/28/19 19:28 Last Admin: 12/28/19 19:34 Dose: 2 applic Documented by: PEYTON Bacitracin (Bacitracin) 1 applic TOP NOW ONE Stop: 12/28/19 19:29 Diphtheria/Tetanus/Acell Pertussis (Adacel) 0.5 ml IM .ONCE ONE Stop: 12/28/19 14:15 Last Admin: 12/28/19 16:20 Dose: 0.5 ml Documented by: DAILY Reevaluation(s) Reevaluation #1: Re-evaluated the patient and he still is not having any pain, updated him on the imaging we have back so far including chest x-ray and C-spine imaging, removed his cervical collar, no pain with ROM of c-spine. Time: 15:12 Reevaluation #2: Re-evaluated the patient and discussed his scalp. He is still feeling well has no pain or any other complaints. His scalp injury is extremely superficial and will not require suturing or Dermabond Time: 16:16 Reevaluation #3: Had planned to discharge patient after ambulation test, however initially he was having difficulty standing up straight and walking. Tried again a few minutes later and he was able to ambulate with a walker successfully, however then began complaining of left foot pain after ambulating to the bathroom and back about 30 ft distance. After re-examining him, decision was made to get x-rays of his left foot and ankle due to his neuropathy and reduced sensation he has difficulty isolating pain and it is possible he has an occult fracture. I also discussed this patient with Dr. Almeida, attending physician is concerned that initially he was not going to be able to ambulate well. Time: 17:18 Additional Reevaluation(s): And reviewed the x-rays of the left foot and ankle, and agree with the reads, there is no apparent fracture. Plan to have him follow-up with his PCP regarding his mild foot/ankle pain if it continues to persist. Vital Signs Vital signs: Vital Signs - 8 hr 12/28/19 14:11 12/28/19 14:38 12/28/19 14:41 Temperature 97.9 F Pulse Rate 76 55 L 72 Respiratory Rate 16 16 14 Blood Pressure 174/97 H 202/83 H Blood Pressure [Left Arm] 202/83 H Pulse Oximetry 98 94 12/28/19 15:18 12/28/19 16:45 12/28/19 18:22 Temperature Pulse Rate 55 L 62 57 L Respiratory Rate 15 18 20 Blood Pressure Blood Pressure [Left Arm] 153/92 H 176/81 H 177/82 H Pulse Oximetry 95 93 97 12/28/19 19:53 Temperature Pulse Rate 57 L Respiratory Rate Blood Pressure 170/82 H Blood Pressure [Left Arm] Pulse Oximetry 96 <Garrett Almeida DO - Last Filed: 01/03/20 19:01> Orders Ordered: Discontinued Medications Bacitracin (Bacitracin) 2 applic TOP NOW ONE Stop: 12/28/19 19:28 Last Admin: 12/28/19 19:34 Dose: 2 applic Documented by: PEYTON Bacitracin (Bacitracin) 1 applic TOP NOW ONE Stop: 12/28/19 19:29 Diphtheria/Tetanus/Acell Pertussis (Adacel) 0.5 ml IM .ONCE ONE Stop: 12/28/19 14:15 Last Admin: 12/28/19 16:20 Dose: 0.5 ml Documented by: DAILY Vital Signs Vital signs: Vital Signs - 8 hr 12/28/19 14:11 12/28/19 14:38 12/28/19 14:41 Temperature 97.9 F Pulse Rate 76 55 L 72 Respiratory Rate 16 16 14 Blood Pressure 174/97 H 202/83 H Blood Pressure [Left Arm] 202/83 H Pulse Oximetry 98 94 12/28/19 15:18 12/28/19 16:45 12/28/19 18:22 Temperature Pulse Rate 55 L 62 57 L Respiratory Rate 15 18 20 Blood Pressure Blood Pressure [Left Arm] 153/92 H 176/81 H 177/82 H Pulse Oximetry 95 93 97 12/28/19 19:53 Temperature Pulse Rate 57 L Respiratory Rate Blood Pressure 170/82 H Blood Pressure [Left Arm] Pulse Oximetry 96 MDM - Trauma <Rosa Maria Louis PA-C - Last Filed: 12/28/19 20:33> Differential Diagnosis Differential diagnosis: Likely other (fall, head injury, head bleed, ankle fracture, ankle sprain or strain, cardiac event, syncope, TIA) Medical Records Attestation: I reviewed the patient's medical records. Lab Data Result diagrams: 12/28/19 14:32 12/28/19 14:32 Labs: Lab Results 12/28/19 12/28/19 12/28/19 Range/Units 14:32 14:32 14:32 WBC 10.0 (4.5-11.0) X10^3/uL RBC 5.20 (4.5-5.9) X10^6/uL Hgb 17.2 (13.5-17.5) g/dL Hct 50.5 (41-53) % MCV 97.0 (80-100) fL MCH 33.1 (26-34) PG MCHC 34.1 (30-36) % RDW 14.2 (11.6-14.8) % Plt Count 145 L (150-400) X10^3/uL Neut % (Auto) 72.0 (50-75) % Lymph % (Auto) 15.2 L (25-40) % Lewis % (Auto) 8.2 (3-14) % Eos % (Auto) 3.8 (2-4) % Baso % (Auto) 0.8 (0-2) % Neut # (Auto) 7200 H (4259-4626) /uL Lymph # (Auto) 1500 (1673-7707) /uL Lewis # (Auto) 800 (0-900) /uL Eos # (Auto) 400 (0-450) /uL Baso # (Auto) 100 (0-100) /uL PT 14.1 H (10.1-12.7) SECONDS INR 1.2 (0.9-1.3) APTT 38 H (26.4-36.2) SECONDS Sodium 139 (137-145) mmol/L Potassium 4.0 (3.4-5.1) mmol/L Chloride 105 (98-107) mmol/L Carbon Dioxide 27 (22-32) mmol/L BUN 29 H (9-20) mg/dL Creatinine 1.15 (0.66-1.25) mg/dL Estimated GFR > 60.0 (>60) mL/min BUN/Creatinine Ratio 25.2 H (6-22) Glucose 116 H (80-110) mg/dL Calcium 9.3 (8.4-10.2) mg/dL Total Bilirubin 0.7 (0.2-1.3) mg/dL AST 26 (17-59) IU/L ALT 17 (<50) IU/L Alkaline Phosphatase 83 (38-126) U/L Total Creatine Kinase 69 (55-170) U/L CK-MB (CK-2) TNP CK-MB (CK-2) Rel Index TNP Troponin I < 0.012 (0.01-0.034) ng/mL Total Protein 7.9 (6.3-8.2) g/dL Albumin 4.1 (3.5-5.0) g/dL Globulin 3.8 (1.7-4.1) g/dL Albumin/Globulin Ratio 1.1 (1.0-2.8) Blood Type Antibody Screen 12/28/19 Range/Units 14:32 WBC (4.5-11.0) X10^3/uL RBC (4.5-5.9) X10^6/uL Hgb (13.5-17.5) g/dL Hct (41-53) % MCV (80-100) fL MCH (26-34) PG MCHC (30-36) % RDW (11.6-14.8) % Plt Count (150-400) X10^3/uL Neut % (Auto) (50-75) % Lymph % (Auto) (25-40) % Lewis % (Auto) (3-14) % Eos % (Auto) (2-4) % Baso % (Auto) (0-2) % Neut # (Auto) (3667-8334) /uL Lymph # (Auto) (6942-7452) /uL Lewis # (Auto) (0-900) /uL Eos # (Auto) (0-450) /uL Baso # (Auto) (0-100) /uL PT (10.1-12.7) SECONDS INR (0.9-1.3) APTT (26.4-36.2) SECONDS Sodium (137-145) mmol/L Potassium (3.4-5.1) mmol/L Chloride (98-107) mmol/L Carbon Dioxide (22-32) mmol/L BUN (9-20) mg/dL Creatinine (0.66-1.25) mg/dL Estimated GFR (>60) mL/min BUN/Creatinine Ratio (6-22) Glucose (80-110) mg/dL Calcium (8.4-10.2) mg/dL Total Bilirubin (0.2-1.3) mg/dL AST (17-59) IU/L ALT (<50) IU/L Alkaline Phosphatase (38-126) U/L Total Creatine Kinase (55-170) U/L CK-MB (CK-2) CK-MB (CK-2) Rel Index Troponin I (0.01-0.034) ng/mL Total Protein (6.3-8.2) g/dL Albumin (3.5-5.0) g/dL Globulin (1.7-4.1) g/dL Albumin/Globulin Ratio (1.0-2.8) Blood Type A Negative Antibody Screen Negative Point of Care Testing Glucose POC 77 Imaging Data xr ch: My Impression: I have reviewed the chest xray and agree with the interpretation Radiologist's Impression: Chart Viewer Diagnostics DATE TYPE STATUS AUTHOR Hx 12/28/19 14:26 Conner Sampson 12/28/19 14:14 12/28/19 14:14 09/01/19 00:00 Sharon Monique 05/26/19 03:14 Daisy Lamb 05/26/19 03:14 Daisy Lamb 05/26/19 03:14 Daisy Lamb 04/28/19 00:00 Nancy Ervin 07/19/18 00:00 Nancy Ervin 04/01/18 00:00 Abdon Slater Antwon Rodríguez Alec 79, M0 1940 [facility], [facility] ED R02 113kg Trauma Search Chart No Data to Display No Data to Display Today 14:38 MarcosAntwon Michael 79 M [address] [address] XRay Report Signed Patient: Antwon Rodríguez LMR#: [id number] : 1Acct:[id number] Age/Sex: 79 / MDate of Service: 12/28/19 Loc: ED Accession Number: [id number] Procedure: XR chest 1V Ordering Provider: Rosa Maria Louis P.A-C PROCEDURE: XR CHEST 1V INDICATIONS: fall 10-12 feet TECHNIQUE: One view of the chest was acquired. COMPARISON: [facility], CR, XR CHEST 1V, 05/26/2019, 3:47. FINDINGS: Surgical changes and devices: None. Lungs and pleura: Lungs are clear considering reduced inspiratory volume bilaterally. No pleural effusions or pneumothorax. Mediastinum: Mediastinal contours appear normal. Heart size is normal. Bones and chest wall: No suspicious bony lesions. Overlying soft tissues appear unremarkable. IMPRESSION: No trauma found. Reduced inspiratory volume. Dictated by: Conner Sampson M.D. on 12/28/2019 at 14:51 Approved by: Conner Sampson M.D. on 12/28/2019 at 14:52 CT scan neck: My Impression: I have reviewed the imaging in the impression and agree with the radiologist's impression. Radiologist's Impression: Chart Viewer Diagnostics DATE TYPE STATUS AUTHOR Hx 12/28/19 14:26 Conner Sampson 12/28/19 14:14 Call,Gilles 12/28/19 14:14 Call,Gilles 09/01/19 00:00 Sharon Monique 05/26/19 03:14 Daisy Lamb 05/26/19 03:14 Daisy Lamb 05/26/19 03:14 Daisy Lamb 04/28/19 00:00 Nancy Ervin 07/19/18 00:00 Nancy Ervin 04/01/18 00:00 Abdon Slater Antwon Rodríguez 79, M0 1940 [facility], [facility] ED R02 83.915kg Trauma Search Chart No Data to Display No Data to Display Today 15:18 Antwon Rodríguez 79 M 1940 Date Report Status Dictated By Dictated 12/28/19 14:14 Signed CallGilles 12/28/19 05/26/19 03:14 Signed Daisy Lamb 05/26/19 Antwon Rodríguez 79 M [address] [address] [address] Scan Report Signed Patient: Antwon Rodríguez LMR#: [id number] : 1940cct:[id number] Age/Sex: 79 / MDate of Service: 12/28/19 Loc: ED Accession Number: [id number] Procedure: CT cervical spine wo con Ordering Provider: Rosa Maria Louis P.A-C PROCEDURE: CT CERVICAL SPINE WO CON INDICATIONS: fall from 10-12 ft TECHNIQUE: Noncontrast 3 mm thick sections acquired from the skull base to the T4 level. Sagittal and coronal reformats were then constructed. For radiation dose reduction, the following was used: automated exposure control, adjustment of mA and/or kV according to patient size. COMPARISON: [facility], CT, CT CERVICAL SPINE WO CON, 05/26/2019, 3:17. FINDINGS: Image quality: Excellent. Bones: No fractures or dislocations. Visualized superior ribs are intact. Moderate degenerative change in the cervical spine, unchanged. Soft tissues: Prevertebral soft tissues are normal in thickness. No paravertebral hematomas. No apical pneumothoraces. IMPRESSION: No acute osseous abnormality. Moderate degenerative change in the cervical spine. If symptoms and/or clinical suspicion for pathology persists, evaluation with MRI may be helpful for further evaluation. Dictated by: Gilles Lindo M.D. on 12/28/2019 at 15:04 Approved by: Gilles Lindo M.D. on 12/28/2019 at 15:07 CT scan - head: My Impression: I have reviewed the imaging and agree with the radiologist's interpretation. Radiologist's Impression: Chart Viewer Diagnostics DATE TYPE STATUS AUTHOR Makayla 12/28/19 14:26 Conner Sampson 12/28/19 14:14 Gilles Lindo 12/28/19 14:14 Gilles Lindo 09/01/19 00:00 Sharon Monique 05/26/19 03:14 Daisy Lamb 05/26/19 03:14 Daisy Lamb 05/26/19 03:14 Daisy Lamb 04/28/19 00:00 Nancy Ervin 07/19/18 00:00 Nancy Ervin 04/01/18 00:00 Abdon Slater Larry L 79, M0 1940 [facility], [facility] ED R02 83.915kg Trauma Search Chart No Data to Display No Data to Display Today 15:18 Antwon Rodríguez M [address] [address] [address] Scan Report Signed Patient: Antwon Rodríguez LMR#: [id number] : 1940cct:[id number] Age/Sex: 79 / MDate of Service: 12/28/19 Loc: ED Accession Number: [id number] Procedure: CT head/brain wo con Ordering Provider: Rosa Maria Louis P.A-C PROCEDURE: CT HEAD/BRAIN WO CON INDICATIONS: fall 10-12 feet TECHNIQUE: Noncontrast 4.5 mm thick angled axial sections acquired from the foramen magnum to the vertex, with coronal and sagittal reformats. For radiation dose reduction, the following was used: automated exposure control, adjustment of mA and/or kV according to patient size. COMPARISON: [facility], CT, CT HEAD/BRAIN WO CON, 05/26/2019, 3:17. FINDINGS: Image quality: Excellent. CSF spaces: Basal cisterns are patent. No extra-axial fluid collections. Ventricles are unchanged. Ex vaco dilation of the left lateral ventricle posterior horn, unchanged. Brain: No midline shift. No intracranial masses or hemorrhage. Small area of hypodensity in the left basal ganglia, (2/). This could represent the sequelae of prior lacunar infarct. Otherwise, no area of hypodensity in a large vascular distribution to suggest acute infarction. Periventricular hypodensity consistent with chronic microvascular ischemic change. Skull and face: The small left scalp hematoma, (11/05). No underlying fracture. Sinuses: Visualized sinuses and mastoids are clear. IMPRESSION: 1. No acute intracranial hematoma. 2. Small left scalp hematoma. No fracture. 3. Prior left basal ganglia lacunar infarct. Chronic microvascular ischemic disease. Dictated by: Gilles Lindo M.D. on 12/28/2019 at 14:58 Approved by: Gilles Lindo M.D. on 12/28/2019 at 15:04 Extremity x-ray #1: My Impression: I personally reviewed this x-ray and agree with the radiologist's interpretation. Radiologist's Impression: Chart Viewer Diagnostics DATE TYPE STATUS AUTHOR Makayla 12/28/19 17:27 Ant Spencer 12/28/19 17:27 Ant Spencer 12/28/19 14:26 Conner Sampson 12/28/19 14:14 Call,Gilles 12/28/19 14:14 Call,Gilles 09/01/19 00:00 Sharon Monique 05/26/19 03:14 Zainab,Daisy 05/26/19 03:14 Zainab,Daisy 05/26/19 03:14 Zainab,Daisy 04/28/19 00:00 Ervin,Nancy 07/19/18 00:00 Ervin,Nancy 04/01/18 00:00 Abdon Slater Larry L 79, M0 1940 [facility], [facility] ED R02 83.915kg Trauma Search Chart No Data to Display ONSET Today 16:45 Antwon Rodríguez 79 M [address] [address] XRay Report Signed Patient: Antwon Rodríguez LMR#: [id number] : 1940cct:[id number] Age/Sex: 79 / MDate of Service: 12/28/19 Loc: ED Accession Number: [id number] Procedure: XR ankle LT 2V Ordering Provider: Rosa Maria Louis P.A-C PROCEDURE: XR ANKLE LT 2V INDICATIONS: fall, left foot pain w/ambulation TECHNIQUE: 2 views of the ankle were acquired. COMPARISON: [facility], , XR FOOT LT 2V, 12/28/2019, 17:26. FINDINGS: Bones: No definite fractures or dislocations. There is mild tibiotalar joint degeneration. Ankle mortise is normally aligned. No suspicious bony lesions. Soft tissues: There is a small tibiotalar joint effusion. Achilles tendon appears intact. IMPRESSION: 1. No definite fracture or dislocation. 2. Small tibiotalar joint effusion. Dictated by: Ant Spencer M.D. on 12/28/2019 at 17:43 Approved by: Ant Spencer M.D. on 12/28/2019 at 17:51 Extremity x-ray #2: My Impression: I personally reviewed this x-ray and agree with radiologist's interpretation. Radiologist's Impression: Chart Viewer Diagnostics DATE TYPE STATUS AUTHOR Hx 12/28/19 17:27 SpencerAnt 12/28/19 17:27 SpencerAnt 12/28/19 14:26 Adrián,Conner 12/28/19 14:14 Call,Gilles 12/28/19 14:14 Call,Gilles 09/01/19 00:00 Sharon Monique 05/26/19 03:14 Zainab,Daisy 05/26/19 03:14 Zainab,Daisy 05/26/19 03:14 Zainab,Daisy 04/28/19 00:00 Ervin,Nancy 07/19/18 00:00 Ervin,Nancy 04/01/18 00:00 Abdon Slater Larry L 79, M0 1940 [facility], [facility] ED R02 83.915kg Trauma Search Chart No Data to Display ONSET Today 16:45 Antwon Rodríguez 79 M 1940 [place] [address] XRay Report Signed Patient: Antwon Rodríguez LMR#: [id number] : 1940cct:[id number] Age/Sex: 79 / MDate of Service: 12/28/19 Loc: ED Accession Number: [id number] Procedure: XR foot LT 2V Ordering Provider: Rosa Maria Louis P.A-C PROCEDURE: XR FOOT LT 2V INDICATIONS: fall, left foot pain TECHNIQUE: 2 views of the foot were acquired. COMPARISON: [facility], , XR ANKLE LT 2V, 12/28/2019, 17:24. FINDINGS: Bones: No definite fractures or dislocations. There is mild to moderate degeneration of the 1st metatarsophalangeal joint. No suspicious bony lesions. Soft tissues: There is a small tibiotalar joint effusion. Achilles tendon appears intact. IMPRESSION: 1. No definite fracture or dislocation. Dictated by: Ant Spencer M.D. on 12/28/2019 at 17:52 Approved by: Ant Spencer M.D. on 12/28/2019 at 17:52 ECG Data Attestation: I personally reviewed and interpreted this ECG as follows: Interpretation: Sinus bradycardia 54 beats per minute P.r. interval 223 milliseconds QRS duration 112 milliseconds, left axis deviation EKG was reviewed by attending Dr. Almeida immediately after was obtained. MDM Narrative Medical decision making narrative: This is a well-appearing 79-year-old diabetic who presents to the emergency department via ambulance after sustaining an 8-10 foot fall from a ladder in his shop onto a concrete floor, hitting his right side, back and his head. Fall was witnessed by his . He did not lose con sciousness, did not have a change in mental status per his , and had no complaints of any injuries except some minor abrasions on his right arm as well as very superficial laceration to his scalp, and some left ankle and foot pain. Non-con CT of head and neck were obtained and were negative for acute process or fracture. Chest x-ray was also negative for acute pulmonary or cardiac process. X-rays of foot and ankle did not show evidence of an acute fracture. Labs as above. Though he has some mild cognitive difficulty, per his this is normal for him and there is no change to his mentation. He also has some chronic difficulty with mobility, and was able to ambulate well with a walker prior to discharge. While no significant injury was found on exam or by imaging, the patient is diabetic with chronic neuropathy and reduced sensation of his extremities particularly his lower legs. He also per his has a history of hydrocephalus, in the mechanism at least by height was significant of his fall today. The patient and were advised regarding emergency return precautions and careful at home monitoring for any new symptoms. They were advised to follow-up with his PCP in the next 2 days. I discussed this patient's case multiple times with Dr. Almeida, attending physician in the emergency department, prior to discharge. <Garrett Almeida, DO - Last Filed: 01/03/20 19:01> Lab Data Labs: Lab Results 12/28/19 12/28/19 12/28/19 Range/Units 14:32 14:32 14:32 WBC 10.0 (4.5-11.0) X10^3/uL RBC 5.20 (4.5-5.9) X10^6/uL Hgb 17.2 (13.5-17.5) g/dL Hct 50.5 (41-53) % MCV 97.0 (80-100) fL MCH 33.1 (26-34) PG MCHC 34.1 (30-36) % RDW 14.2 (11.6-14.8) % Plt Count 145 L (150-400) X10^3/uL Neut % (Auto) 72.0 (50-75) % Lymph % (Auto) 15.2 L (25-40) % Lewis % (Auto) 8.2 (3-14) % Eos % (Auto) 3.8 (2-4) % Baso % (Auto) 0.8 (0-2) % Neut # (Auto) 7200 H (9561-3399) /uL Lymph # (Auto) 1500 (2051-0927) /uL Lewis # (Auto) 800 (0-900) /uL Eos # (Auto) 400 (0-450) /uL Baso # (Auto) 100 (0-100) /uL PT 14.1 H (10.1-12.7) SECONDS INR 1.2 (0.9-1.3) APTT 38 H (26.4-36.2) SECONDS Sodium 139 (137-145) mmol/L Potassium 4.0 (3.4-5.1) mmol/L Chloride 105 (98-107) mmol/L Carbon Dioxide 27 (22-32) mmol/L BUN 29 H (9-20) mg/dL Creatinine 1.15 (0.66-1.25) mg/dL Estimated GFR > 60.0 (>60) mL/min BUN/Creatinine Ratio 25.2 H (6-22) Glucose 116 H (80-110) mg/dL Calcium 9.3 (8.4-10.2) mg/dL Total Bilirubin 0.7 (0.2-1.3) mg/dL AST 26 (17-59) IU/L ALT 17 (<50) IU/L Alkaline Phosphatase 83 (38-126) U/L Total Creatine Kinase 69 (55-170) U/L CK-MB (CK-2) TNP CK-MB (CK-2) Rel Index TNP Troponin I < 0.012 (0.01-0.034) ng/mL Total Protein 7.9 (6.3-8.2) g/dL Albumin 4.1 (3.5-5.0) g/dL Globulin 3.8 (1.7-4.1) g/dL Albumin/Globulin Ratio 1.1 (1.0-2.8) Blood Type Antibody Screen 12/28/19 Range/Units 14:32 WBC (4.5-11.0) X10^3/uL RBC (4.5-5.9) X10^6/uL Hgb (13.5-17.5) g/dL Hct (41-53) % MCV (80-100) fL MCH (26-34) PG MCHC (30-36) % RDW (11.6-14.8) % Plt Count (150-400) X10^3/uL Neut % (Auto) (50-75) % Lymph % (Auto) (25-40) % Lewis % (Auto) (3-14) % Eos % (Auto) (2-4) % Baso % (Auto) (0-2) % Neut # (Auto) (4268-6871) /uL Lymph # (Auto) (4143-9474) /uL Lewis # (Auto) (0-900) /uL Eos # (Auto) (0-450) /uL Baso # (Auto) (0-100) /uL PT (10.1-12.7) SECONDS INR (0.9-1.3) APTT (26.4-36.2) SECONDS Sodium (137-145) mmol/L Potassium (3.4-5.1) mmol/L Chloride (98-107) mmol/L Carbon Dioxide (22-32) mmol/L BUN (9-20) mg/dL Creatinine (0.66-1.25) mg/dL Estimated GFR (>60) mL/min BUN/Creatinine Ratio (6-22) Glucose (80-110) mg/dL Calcium (8.4-10.2) mg/dL Total Bilirubin (0.2-1.3) mg/dL AST (17-59) IU/L ALT (<50) IU/L Alkaline Phosphatase (38-126) U/L Total Creatine Kinase (55-170) U/L CK-MB (CK-2) CK-MB (CK-2) Rel Index Troponin I (0.01-0.034) ng/mL Total Protein (6.3-8.2) g/dL Albumin (3.5-5.0) g/dL Globulin (1.7-4.1) g/dL Albumin/Globulin Ratio (1.0-2.8) Blood Type A Negative Antibody Screen Negative Point of Care Testing Glucose POC 77 Discharge Plan Departure Patient Disposition: Home Clinical Impression: Fall (on) (from) other stairs and steps, initial encounter Superficial laceration of scalp Qualifiers: Encounter type: initial encounter Qualified Code(s): S01.01XA - Laceration without foreign body of scalp, initial encounter Left ankle pain Qualifiers: Chronicity: acute Qualified Code(s): M25.572 - Pain in left ankle and joints of left foot Abrasion of multiple sites of right upper arm Qualifiers: Encounter type: initial encounter Qualified Code(s): S40.811A - Abrasion of right upper arm, initial encounter Discharge Date/Time: 12/28/19 19:56 Instructions: DI for Trauma, How To Perform RICE (Rest, Ice, Compress, Elevate), How to Prevent Falls Activity Restrictions/Additional Instructions: There is no evidence of an emergent or life threatening illness at this time, but follow up with your doctor in 1-2 days is recommended nonetheless to continue to rule out serious underlying causes of your symptoms. Please call the office for an appointment. Please return to the Emergency Department for any worsening or persistent symptoms. Please take medications as directed. It is very important that you follow-up with your PCP in the next 2-3 days. While no acute injuries were found with imaging and on your exam today, and the labs that were checked where okay, you did sustain a significant fall, and sometimes injuries can present later. Please have your family monitor you for change in symptoms including change in your mental status, change in your ability to ambulate. The x-rays of your foot and ankle did not show evidence of an acute fracture, he may have a strain or sprain an you can rice that based on the instructions provided. Also pay close attention to whether you have any new symptoms that are unusual for you, including headaches, visual changes, shortness of breath, chest pain, increased difficulty ambulating or finding your thoughts, any abdominal pain, or anything else that is of concern to you, you should seek medical care immediately. A copy of this chart has been shared with your primary care provider, and they will be able to review your labs from today as well as your imaging. Please continue your home medications as prescribed. Prescriptions: No Action carvedilol 12.5 mg Tablet 12.5 mg PO BID RF: 0 Humulin 70/30 U-100 Insulin 100 unit/mL (70-30) Suspension 50 unit SUBCUT BID RF: 0 aspirin 81 mg Tablet,Delayed Release (Dr/Ec) 81 mg PO DAILY RF: 0 levothyroxine 100 mcg Tablet 100 mcg PO DAILY RF: 0 allopurinol 3 tab PO 4-6XD RF: 0 gabapentin RF: 0 lovastatin RF: 0 valsartan RF: 0 Asmanex HFA RF: 0 ProAir HFA 90 mcg/actuation Hfa Aerosol Inhaler 1 puff INHALATION INTRA-OP RF: 0 fluticasone RF: 0 furosemide RF: 0 montelukast RF: 0 potassium chloride RF: 0 Referrals: Anamaria Gordon DO [Primary Care Provider] - <Garrett Almeida DO - Last Filed: 01/03/20 19:01> Cosign ED Attending Cosignature Attestation: Dr Almeida Co-Sign Statement: I was available for consultation during this patient's emergency department visit. This chart is signed by myself for administrative purposes only. I did not have direct contact with this patient during this visit. They were seen independently by the APC.
--- NOTE | 2019-12-28 14:26 | DI.RAD.S_ITS ---
PROCEDURE: XR CHEST 1V INDICATIONS: fall 10-12 feet TECHNIQUE: One view of the chest was acquired. COMPARISON: [facility], CR, XR CHEST 1V, 05/26/2019, 3:47. FINDINGS: Surgical changes and devices: None. Lungs and pleura: Lungs are clear considering reduced inspiratory volume bilaterally. No pleural effusions or pneumothorax. Mediastinum: Mediastinal contours appear normal. Heart size is normal. Bones and chest wall: No suspicious bony lesions. Overlying soft tissues appear unremarkable. IMPRESSION: No trauma found. Reduced inspiratory volume. Dictated by: Conner Sampson M.D. on 12/28/2019 at 14:51 Approved by: Conner Sampson M.D. on 12/28/2019 at 14:52
[2019-12-28 14:36] LABS: Add Manual Diff / Slide Review NO; Basophils Absolute Auto 100 /uL (0-100); Basophils Percent Auto 0.8 % (0-2); Eosinophils Absolute Auto 400 /uL (0-450); Eosinophils Percent Auto 3.8 % (2-4); Hematocrit 50.5 % (41-53); Hemoglobin 17.2 g/dL (13.5-17.5); Lymphocytes Absolute Auto 1500 /uL (1100-4500); Lymphocytes Percent Auto 15.2 % (25-40); Mean Corpuscular HGB Conc 34.1 % (30-36); Mean Corpuscular Hemoglobin 33.1 PG (26-34); Monocytes Absolute Auto 800 /uL (0-900); Monocytes Percent Auto 8.2 % (3-14); Neutrophils Absolute Auto 7200 /uL (1500-7000); Platelet Count 145 X10^3/uL (150-400); Red Cell Distribution Width 14.2 % (11.6-14.8)
[2019-12-28 14:44] LABS: INR 1.2 (0.9-1.3); Prothrombin Time 14.1 SECONDS (10.1-12.7)
[2019-12-28 14:47] LABS: PTT Partial Thromboplastin Tim 38 SECONDS (26.4-36.2)
[2019-12-28 14:49] LABS: Alanine Aminotransferase 17 IU/L (<50); Albumin 4.1 g/dL (3.5-5.0); Albumin Globulin Ratio 1.1 (1.0-2.8); Alkaline Phosphatase 83 U/L (38-126); Aspartate Aminotransferase 26 IU/L (17-59); BUN Creatinine Ratio 25.2 (6-22); Bilirubin Total 0.7 mg/dL (0.2-1.3); Blood Urea Nitrogen 29 mg/dL (9-20); Calcium 9.3 mg/dL (8.4-10.2); Carbon Dioxide 27 mmol/L (22-32); Chloride 105 mmol/L (98-107); Creatine Kinase 69 U/L (55-170); Estimated Glomerular Filt Rate > 60.0 mL/min (>60); Globulin 3.8 g/dL (1.7-4.1); Glucose 116 mg/dL (80-110); HEMOLYSIS < 15 (0-50); Sodium 139 mmol/L (137-145); Total Protein 7.9 g/dL (6.3-8.2)
[2019-12-28 15:01] LABS: Troponin I < 0.012 ng/mL (0.01-0.034)
[2019-12-28] MEDS: TET,DIPH,PERTUSS(ACELL),VAC/PF 0.5 ML SYRINGE IM (16:20)
--- NOTE | 2019-12-28 17:27 | DI.RAD.S_ITS ---
PROCEDURE: XR FOOT LT 2V INDICATIONS: fall, left foot pain TECHNIQUE: 2 views of the foot were acquired. COMPARISON: [facility], CR, XR ANKLE LT 2V, 12/28/2019, 17:24. FINDINGS: Bones: No definite fractures or dislocations. There is mild to moderate degeneration of the 1st metatarsophalangeal joint. No suspicious bony lesions. Soft tissues: There is a small tibiotalar joint effusion. Achilles tendon appears intact. IMPRESSION: 1. No definite fracture or dislocation. Dictated by: Ant Spencer M.D. on 12/28/2019 at 17:52 Approved by: Ant Spencer M.D. on 12/28/2019 at 17:52
--- NOTE | 2019-12-28 17:27 | DI.RAD.S_ITS ---
PROCEDURE: XR ANKLE LT 2V INDICATIONS: fall, left foot pain w/ambulation TECHNIQUE: 2 views of the ankle were acquired. COMPARISON: [facility], CR, XR FOOT LT 2V, 12/28/2019, 17:26. FINDINGS: Bones: No definite fractures or dislocations. There is mild tibiotalar joint degeneration. Ankle mortise is normally aligned. No suspicious bony lesions. Soft tissues: There is a small tibiotalar joint effusion. Achilles tendon appears intact. IMPRESSION: 1. No definite fracture or dislocation. 2. Small tibiotalar joint effusion. Dictated by: Ant Spencer M.D. on 12/28/2019 at 17:43 Approved by: Ant Spencer M.D. on 12/28/2019 at 17:51
[2019-12-28] MEDS: BACITRACIN OINT 0.9 GM PCKT 2 APPLIC TOP (19:34)
== END 2019-12-28 19:56 | disposition home or self-care (01) ==
PROVIDERS: Emergency Provider Student in an Organized Health Care Education/Training Program; PCP Family Medicine
DX: S01.01XA Laceration without foreign body of scalp, initial encounter (principal); M25.572 Pain in left ankle and joints of left foot; S40.811A Abrasion of right upper arm, initial encounter; W11.XXXA Fall on and from ladder, initial encounter; W17.89XA Other fall from one level to another, initial encounter; Z23 Encounter for immunization; Z79.82 Long term (current) use of aspirin
CPT/HCPCS: 36415; 70450; 71045; 72125; 73600; 73620; 80053; 82550; 82962; 84484; 85025; 85610; 85730; 86850; 86900; 86901; 90471; 93005; 99284; 90715

== ENCOUNTER → 2020-07-03 08:00 | Outpatient (CLI) | payer OTHER, SELFPAY ==
--- NOTE | 2020-07-03 | DI.CT.S_ITS ---
PROCEDURE: CT HEAD/BRAIN WO CON INDICATIONS: (Idiopathic) normal pressure hydrocephalus TECHNIQUE: Noncontrast 4.5 mm thick angled axial sections acquired from the foramen magnum to the vertex, with coronal and sagittal reformats. For radiation dose reduction, the following was used: automated exposure control, adjustment of mA and/or kV according to patient size. COMPARISON: [facility], CT, CT HEAD/BRAIN WO CON, 12/28/2019, 14:36. [facility], CT, CT HEAD/BRAIN WO CON, 05/26/2019, 3:17. FINDINGS: Image quality: Excellent. CSF spaces: Basal cisterns are patent. No extra-axial fluid collections. The ventricles are symmetric in size and shape. Brain: No intracranial bleeds or masses. A newly positioned right frontal ventriculostomy catheter traverses to the midline at the foramen of [place] and the degree of ventriculomegaly previously present has slightly improved. There is cerebral volume loss for age, with resultant ventricular and sulcal prominence. There are periventricular and deep white matter chronic small vessel ischemic changes. There is intracranial internal carotid artery atherosclerosis. Skull and face: Calvarium and visualized facial bones appear intact, without suspicious lesions. Sinuses: Visualized sinuses and mastoids are clear. IMPRESSION: Ventriculostomy catheter in position, slight improvement in ventriculomegaly after catheter placement. No acute disease. Dictated by: Conner Sampson M.D. on 07/03/2020 at 9:00 Approved by: Conner Sampson M.D. on 07/03/2020 at 9:02
== END ==
PROVIDERS: PCP Family Medicine; Referring Provider Family Medicine; Visit Provider Family Medicine
DX: G91.2 (Idiopathic) normal pressure hydrocephalus (principal); I65.29 Occlusion and stenosis of unspecified carotid artery; Z98.2 Presence of cerebrospinal fluid drainage device
CPT/HCPCS: 70450

== ENCOUNTER → 2022-02-25 15:30 | Outpatient (CLI) | payer MEDICARE, SELFPAY ==
--- NOTE | 2022-02-25 | DI.CT.S_ITS ---
PROCEDURE: CT HEAD/BRAIN WO CON INDICATIONS: (Idiopathic) normal pressure hydrocephalus TECHNIQUE: Noncontrast 4.5 mm thick angled axial sections acquired from the foramen magnum to the vertex, with coronal and sagittal reformats. For radiation dose reduction, the following was used: automated exposure control, adjustment of mA and/or kV according to patient size. COMPARISON: [facility], CT, CT HEAD/BRAIN WO CON, 07/03/2020, 8:09. FINDINGS: Image quality: Excellent. CSF spaces: Basal cisterns are patent. No extra-axial fluid collections. Right frontal DISEASE [employer]OL INSPECTOR shunt catheter is stable compared to the prior exam. The ventricles are stable in size and shape. Brain: No intracranial bleeds or masses. There is cerebral volume loss for age, with resultant ventricular and sulcal prominence. There are periventricular and deep white matter chronic small vessel ischemic changes. There is intracranial internal carotid artery atherosclerosis. Skull and face: Calvarium and visualized facial bones appear intact, without suspicious lesions. Sinuses: Visualized sinuses and mastoids are clear. IMPRESSION: Stable examination compared to July 03, 2020. Right frontal DISEASE CONTROL INSPECTOR shunt catheter is stable in position. Dictated by: Daisy Lamb MD, PhD on 02/26/2022 at 12:33 Approved by: Daisy Lamb MD, PhD on 02/26/2022 at 12:34
== END ==
PROVIDERS: PCP Family Medicine; Referring Provider Neurological Surgery; Visit Provider Neurological Surgery
DX: G91.2 (Idiopathic) normal pressure hydrocephalus (principal)
CPT/HCPCS: 70450

== ENCOUNTER 2022-09-15 09:26 | Inpatient (IN) | payer OTHER, SELFPAY ==
[2022-09-15] VITALS (47 sets, daily range): BP systolic 121–194; BP diastolic 64–119; PULSE 48–98; RESP 10–28; TEMP 36.9; O2SAT 88–99; BMI 34.0
--- NOTE | 2022-09-15 09:31 | DI.RAD.S_ITS ---
PROCEDURE: XR ANKLE LT 2V INDICATIONS: Fall/injury/deformity TECHNIQUE: 3 views of the ankle were acquired. COMPARISON: [facility], CR, XR ANKLE LT 2V, 12/28/2019, 17:24. FINDINGS/IMPRESSION: 1. Complete fracture-dislocation of the ankle with fractures of the medial and lateral malleoli with suspected posterior malleolus fracture also. 2. Complete medial dislocation of the tibia on the talus. 3. No definite talar dome fracture. Dictated by: Herberth Banerjee M.D. on 09/15/2022 at 10:16 Approved by: Herberth Banerjee M.D. on 09/15/2022 at 10:17
--- NOTE | 2022-09-15 09:31 | ED.LOWEXIN ---
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 Patient was on a walker and was turning and lost his balance, has pain to the left ankle with deformity. EMS states patient received 100 mcg of fentanyl prior to arrival. He is awake alert oriented x4. Currently patient is awake alert oriented self and date of and event. Pain is controlled. Pillow splint removed. There is tenting of the skin at the medial malleolus.. Pedal pulse is palpable in the left foot. Light touch intact to foot and toes. NPO since last night Related Data Home Medications Medication Instructions Recorded Confirmed allopurinol 100 mg tablet 200 mg PO DAILY 09/16/22 09/16/22 carvedilol 6.25 mg tablet 6.25 mg PO BID 09/16/22 09/16/22 furosemide 40 mg tablet 80 mg PO DAILY 09/16/22 09/16/22 gabapentin 300 mg capsule 300 mg PO TID 09/16/22 09/16/22 insulin human U-100 NPH-regulr See Rx Instructions .Route .COMPLEX 09/16/22 09/20/22 70-30 mix 100 unit/mL subcutaneous susp (Humulin 70/30 U-100 Insulin) levothyroxine 100 mcg tablet 100 mcg PO DAILY 09/16/22 09/16/22 loperamide 2 mg tablet 2 mg PO QID PRN Diarrhea 09/16/22 09/16/22 lovastatin 20 mg tablet 20 mg PO QPM 09/16/22 09/16/22 montelukast 10 mg tablet 10 mg PO DAILY 09/16/22 09/16/22 potassium chloride 10 mEq 10 meq PO DAILY 09/16/22 09/16/22 tablet,extended release telmisartan 80 mg tablet 80 mg PO DAILY 09/16/22 09/16/22 Previous Rx's Medication Instructions Recorded acetaminophen 325 mg tablet 650 mg PO Q6H PRN Fever/Mild Pain 09/23/22 (1-3) #60 tabs aspirin 81 mg tablet,delayed 81 mg PO BID #60 tabs 09/23/22 release Allergies Allergy/AdvReac Type Severity Reaction Status Date / Time No Known Drug Allergies Allergy Verified 11/24/18 09:08 Review of Systems <Kingsley Garrison MD - Last Filed: 09/24/22 22:16> Review of Systems Narrative: GENERAL: negative chills, fatigue, malaise, fever, sweats. HEENT: negative sinus pain, ear pain, sore throat RESPIRATORY: negative dyspnea, cough CARDIOVASCULAR: negative chest pain, palpitations GASTROINTESTINAL: negative nausea, vomiting, abdominal pain : negative dysuria, frequency, hematuria MUSCULOSKELETAL: Positive muscle or bony pain SKIN: negative rash, skin lesions NEUROLOGIC: negative weakness, numbness ROS Unobtainable: All systems reviewed & are unremarkable except as noted in HPI and below Patient History <Kingsley Garrison MD - Last Filed: 09/24/22 22:16> Medical History Allergic rhinitis Anxiety Aortic valve sclerosis Bilateral carpal tunnel syndrome Chronic back pain DDD (degenerative disc disease), cervical DDD (degenerative disc disease), lumbar DMII (diabetes mellitus, type 2) Dyslipidemia Erectile dysfunction Gouty arthropathy Hypertension Hypertrophy of prostate Hypothyroidism LBBB (left bundle branch block) Normal pressure hydrocephalus Osteoarthritis involving multiple joints on both sides of body Reactive airway disease Renal insufficiency Sinus arrhythmia TIA (transient ischemic attack) Vertigo Surgical History S/P ESCAPEMENT MATCHER shunt Social History household members: spouse Smoking Status: Unknown if ever smoked Smoking Status: Unknown if ever smoked alcohol intake frequency: 0-2 drinks per day Substance Use Type: does not use Exam <Kingsley Garrison MD - Last Filed: 09/24/22 22:16> Narrative Exam Narrative: GENERAL: in no distress, not toxic not dyspneic HEAD: Normocephalic. Nontender head and scalp and face. No skin injury seen. EYES: Pupils equal round No scleral icterus. ENT: Mucous membranes moist. NECK: Trachea midline. CARDIOVASCULAR: Regular rate and rhythm without murmurs RESPIRATORY: Clear to auscultation. Breath sounds equal bilaterally. No wheezes, rales, or rhonchi. GASTROINTESTINAL: Abdomen soft, non-tender EXTREMITIES: Examination left lower extremity. Nontender proximal tib-fib. Foot is warm and soft and pink with palpable pedal pulse. Brisk cap refills. There is limited range of motion at the left ankle due to pain and swelling. There is bruising/tenting the skin at the medial malleolus. Otherwise skin is intact. NEURO: AOx4. SKIN: Warm and dry PSYCH: Not anxious, is cooperative Initial Vital Signs Initial Vital Signs: Vital Signs Pulse Rate 56 L 09/15/22 09:29 Blood Pressure 172/79 H 09/15/22 09:29 Pulse Oximetry 94 09/15/22 09:29 <Sallie Cervantes DO - Last Filed: 09/16/22 06:30> Initial Vital Signs Initial Vital Signs: Vital Signs Pulse Rate 56 L 09/15/22 09:29 Blood Pressure 172/79 H 09/15/22 09:29 Pulse Oximetry 94 09/15/22 09:29 <Radha Diaz MD - Last Filed: 09/21/22 18:50> Initial Vital Signs Initial Vital Signs: Vital Signs Pulse Rate 56 L 09/15/22 09:29 Blood Pressure 172/79 H 09/15/22 09:29 Pulse Oximetry 94 09/15/22 09:29 <Garrett Almeida DO - Last Filed: 09/17/22 21:53> Initial Vital Signs Initial Vital Signs: Vital Signs Pulse Rate 56 L 09/15/22 09:29 Blood Pressure 172/79 H 09/15/22 09:29 Pulse Oximetry 94 09/15/22 09:29 <Roly Llanos MD - Last Filed: 09/17/22 09:00> Initial Vital Signs Initial Vital Signs: Vital Signs Pulse Rate 56 L 09/15/22 09:29 Blood Pressure 172/79 H 09/15/22 09:29 Pulse Oximetry 94 09/15/22 09:29 Procedures <Kingsley Garrison MD - Last Filed: 09/24/22 22:16> Orthopedic Splinting/Casting Injury #1: Time of procedure: 11:31 Side: left Lower Extremity Injury Location: ankle Lower Extremity Immobilizer: posterior splint and stirrup splint Other Orthopedic Equipment: crutches Post splinting neuro exam: no change and other (Patient has baseline neuropathy which is not new. Does have some sensation still, is able to wiggle his toes) Post splinting vascular exam: other (Has baseline chronic perfusion problems. This is not new. Foot color is not new. Slightly cyanotic appearing which is similar to the right foot.) Placed by: Provider Course <Kingsley Garrison MD - Last Filed: 09/24/22 22:16> Orders Ordered: Discontinued Medications Acetaminophen (Acetaminophen 325 Mg Tablet) 650 mg PO Q6H PRN PRN Reason: Fever/Mild Pain (1-3) Last Admin: 09/21/22 12:44 Dose: 650 mg Documented By: GARY Hydrocodone Bitart/Acetaminophen (Hydrocodone/Acet 5/325 Tablet) 1 tab PO NOW ONE Stop: 09/15/22 12:46 Last Admin: 09/15/22 13:08 Dose: 1 tab Documented By: TERRIE Hydrocodone Bitart/Acetaminophen (Hydrocodone/Acet 5/325 Tablet) 1 tab PO Q4HR PRN PRN Reason: Pain, Moderate (4-6) Last Admin: 09/20/22 20:55 Dose: 1 tab Documented By: Admin: 09/17/22 14:25 Dose: 1 tab Documented By: HAL Hydrocodone Bitart/Acetaminophen (Hydrocodone/Acet 5/325 Tablet) 1 tab PO PACUNOW PRN PRN Reason: Mild or moderate pain Albuterol/Ipratropium (Albuterol/Ipratropium 3 Ml Ampul) 3 ml INH [id number] [facility] Last Admin: 09/23/22 07:29 Dose: 3 ml Documented By: Admin: 09/23/22 03:49 Dose: Not Given Documented By: Admin: 09/22/22 12:56 Dose: 3 ml Documented By: Admin: 09/22/22 07:33 Dose: Not Given Documented By: Admin: 09/21/22 19:20 Dose: Not Given Documented By: Admin: 09/21/22 13:13 Dose: Not Given Documented By: Admin: 09/21/22 07:45 Dose: 3 ml Documented By: Admin: 09/20/22 22:21 Dose: Not Given Documented By: Admin: 09/20/22 13:53 Dose: Not Given Documented By: Admin: 09/20/22 08:08 Dose: Not Given Documented By: Admin: 09/20/22 06:31 Dose: Not Given Documented By: Admin: 09/19/22 13:00 Dose: Not Given Documented By: Admin: 09/19/22 07:45 Dose: 3 ml Documented By: Admin: 09/18/22 20:32 Dose: 3 ml Documented By: Admin: 09/18/22 13:47 Dose: 3 ml Documented By: Admin: 09/18/22 08:32 Dose: 3 ml Documented By: Admin: 09/17/22 19:24 Dose: 3 ml Documented By: Admin: 09/17/22 14:13 Dose: Not Given Documented By: Admin: 09/17/22 07:53 Dose: 3 ml Documented By: Admin: 09/16/22 19:22 Dose: Not Given Documented By: BELLA(2) Admin: 09/16/22 13:18 Dose: Not Given Documented By: BELLA(2) Admin: 09/16/22 08:21 Dose: 3 ml Documented By: BELLA(2) Allopurinol (Allopurinol 100 Mg Tablet) 200 mg PO DAILY [facility] Last Admin: 09/17/22 07:59 Dose: 200 mg Documented By: Admin: 09/16/22 08:34 Dose: 200 mg Documented By: OMAYRA Allopurinol (Allopurinol 100 Mg Tablet) 200 mg PO DAILY [facility] Last Admin: 09/23/22 09:42 Dose: 200 mg Documented By: Admin: 09/22/22 08:47 Dose: 200 mg Documented By: Admin: 09/21/22 08:44 Dose: 200 mg Documented By: Admin: 09/20/22 09:23 Dose: 200 mg Documented By: EPI Aspirin (Aspirin Ec 81 Mg Tablet) 81 mg PO BID [facility] Last Admin: 09/23/22 09:42 Dose: 81 mg Documented By: Admin: 09/22/22 20:19 Dose: 81 mg Documented By: (2) Admin: 09/22/22 08:47 Dose: 81 mg Documented By: Admin: 09/21/22 23:05 Dose: 81 mg Documented By: Admin: 09/21/22 08:44 Dose: 81 mg Documented By: Admin: 09/20/22 20:56 Dose: 81 mg Documented By: Admin: 09/20/22 10:41 Dose: 81 mg Documented By: EPI Atorvastatin Calcium (Atorvastatin 20 Mg Tablet) 20 mg PO BEDTIME [facility] Last Admin: 09/18/22 21:17 Dose: 20 mg Documented By: Admin: 09/17/22 22:23 Dose: 20 mg Documented By: Admin: 09/16/22 21:02 Dose: 20 mg Documented By: DEVORA Atorvastatin Calcium (Atorvastatin 20 Mg Tablet) 10 mg PO BEDTIME [facility] Last Admin: 09/22/22 20:19 Dose: 10 mg Documented By: (2) Admin: 09/21/22 23:05 Dose: 10 mg Documented By: Admin: 09/20/22 20:56 Dose: 10 mg Documented By: Admin: 09/19/22 20:53 Dose: 10 mg Documented By: Bupivacaine HCl/Epinephrine Bitart (Bupivacaine 0.5% W/ Epi (Pf) 30 Ml Vial) 30 ml INJ NOW ONE Stop: 09/19/22 15:45 Last Admin: 09/19/22 15:44 Dose: 30 ml Documented By: BRIANNA Carvedilol (Carvedilol 3.125 Mg Tablet) 6.25 mg PO BID [facility] Last Admin: 09/17/22 07:59 Dose: 6.25 mg Documented By: Admin: 09/16/22 21:01 Dose: 6.25 mg Documented By: Admin: 09/16/22 08:35 Dose: 6.25 mg Documented By: OMAYRA Carvedilol (Carvedilol 3.125 Mg Tablet) 6.25 mg PO BID [facility] Last Admin: 09/23/22 09:41 Dose: 6.25 mg Documented By: Admin: 09/22/22 20:18 Dose: 6.25 mg Documented By: (2) Admin: 09/22/22 08:59 Dose: 6.25 mg Documented By: Admin: 09/21/22 23:05 Dose: 6.25 mg Documented By: Admin: 09/21/22 08:44 Dose: 6.25 mg Documented By: Admin: 09/20/22 20:56 Dose: 6.25 mg Documented By: Admin: 09/20/22 09:24 Dose: 6.25 mg Documented By: Admin: 09/19/22 20:54 Dose: 6.25 mg Documented By: Dextrose (Dextrose 50 % In Water 25 Gm/50 Ml Syringe) 25 gm IV PRN PRN PRN Reason: Hypoglycemia Diazepam (Diazepam 5 Mg Tablet) 5 mg PO NOW ONE Stop: 09/15/22 13:43 Last Admin: 09/15/22 13:47 Dose: 5 mg Documented By: TERRIE Enoxaparin Sodium (Enoxaparin 40 Mg/0.4 Ml Syringe) 40 mg SUBCUT DAILY [facility] Last Admin: 09/23/22 09:37 Dose: 40 mg Documented By: Admin: 09/22/22 12:17 Dose: 40 mg Documented By: SHAHAB Fentanyl (Fentanyl 100 Mcg/2 Ml Inj) 50 mcg IV NOW ONE Stop: 09/15/22 10:45 Last Admin: 09/15/22 11:01 Dose: 50 mcg Documented By: TERRIE Fentanyl (Fentanyl 100 Mcg/2 Ml Inj) 0 mcg IV Q5MIN PRN PRN Reason: Pain, Severe (7-10) Fentanyl (Fentanyl 100 Mcg/2 Ml Inj) 0 mcg IV Q5M PRN PRN Reason: Pain, Moderate (4-6) Fentanyl (Fentanyl 100 Mcg/2 Ml Inj) 0 mcg IV Q5M PRN PRN Reason: Pain, Severe (7-10) Furosemide (Furosemide 40 Mg Tablet) 80 mg PO DAILY [facility] Last Admin: 09/17/22 07:59 Dose: 80 mg Documented By: Admin: 09/16/22 08:37 Dose: 80 mg Documented By: OMAYRA Furosemide (Furosemide 40 Mg Tablet) 80 mg PO DAILY [facility] Last Admin: 09/23/22 09:42 Dose: 80 mg Documented By: Admin: 09/22/22 08:47 Dose: 80 mg Documented By: Admin: 09/21/22 08:45 Dose: 80 mg Documented By: Admin: 09/20/22 09:24 Dose: 80 mg Documented By: EPI Gabapentin (Gabapentin 300 Mg Capsule) 300 mg PO TID [facility] Last Admin: 09/17/22 14:25 Dose: 300 mg Documented By: Admin: 09/17/22 07:59 Dose: 300 mg Documented By: Admin: 09/16/22 21:01 Dose: 300 mg Documented By: Admin: 09/16/22 14:33 Dose: 300 mg Documented By: Admin: 09/16/22 08:40 Dose: 300 mg Documented By: OMAYRA Gabapentin (Gabapentin 300 Mg Capsule) 300 mg PO TID [facility] Last Admin: 09/23/22 09:42 Dose: 300 mg Documented By: Admin: 09/22/22 20:19 Dose: 300 mg Documented By: (2) Admin: 09/22/22 15:55 Dose: 300 mg Documented By: Admin: 09/22/22 08:47 Dose: 300 mg Documented By: Admin: 09/21/22 23:05 Dose: 300 mg Documented By: Admin: 09/21/22 14:14 Dose: 300 mg Documented By: Admin: 09/21/22 08:44 Dose: 300 mg Documented By: Admin: 09/20/22 20:56 Dose: 300 mg Documented By: Admin: 09/20/22 14:34 Dose: 300 mg Documented By: Admin: 09/20/22 09:24 Dose: 300 mg Documented By: Admin: 09/19/22 20:54 Dose: 300 mg Documented By: Heparin Sodium (Porcine) (Heparin 5,000 Unit/Ml Vial) 5,000 unit SUBCUT BID [facility] Last Admin: 09/18/22 11:00 Dose: 5,000 unit Documented By: Admin: 09/18/22 01:41 Dose: 5,000 unit Documented By: Hydromorphone HCl (Hydromorphone 0.5 Mg Inj) 0.5 mg IV Q4H PRN PRN Reason: Pain, Moderate (4-6) Last Admin: 09/20/22 05:43 Dose: 0.5 mg Documented By: Admin: 09/20/22 00:28 Dose: 0.5 mg Documented By: Admin: 09/19/22 10:00 Dose: 0.5 mg Documented By: Admin: 09/18/22 21:17 Dose: 0.5 mg Documented By: Admin: 09/18/22 13:25 Dose: 0.5 mg Documented By: Admin: 09/18/22 09:04 Dose: 0.5 mg Documented By: Admin: 09/18/22 02:15 Dose: 0.5 mg Documented By: Sodium Chloride (Normal Saline 0.9%) 1,000 mls @ 1,000 mls/hr IV BOLUS ONE Stop: 09/17/22 13:51 Last Infusion: 09/17/22 15:54 Dose: 0 mls/hr Documented By: Infusion: 09/17/22 14:15 Dose: 125 mls/hr Documented By: Admin: 09/17/22 13:17 Dose: 1,000 mls/hr Documented By: HAL Sodium Chloride (Normal Saline 0.9%) 1,000 mls @ 1,000 mls/hr IV BOLUS ONE Stop: 09/17/22 13:52 Last Admin: 09/17/22 14:17 Dose: Not Given Documented By: HAL Ceftriaxone Sodium 1,000 mg/ (Sodium Chloride) 100 mls @ 200 mls/hr IV NOW ONE Stop: 09/17/22 14:57 Last Infusion: 09/17/22 16:16 Dose: 0 mls/hr Documented By: Admin: 09/17/22 15:38 Dose: 200 mls/hr Documented By: HAL Lactated Ringer's (Lactated Ringers) 1,000 mls @ 1,000 mls/hr IV BOLUS ONE Stop: 09/17/22 16:43 Last Infusion: 09/17/22 17:27 Dose: 0 mls/hr Documented By: Admin: 09/17/22 15:54 Dose: 1,000 mls/hr Documented By: HAL Piperacillin Sod/Tazobactam (Sod 4.5 gm/ Sodium Chloride) 100 mls @ 200 mls/hr IV NOW ONE Stop: 09/17/22 18:48 Last Infusion: 09/17/22 19:55 Dose: 0 mls/hr Documented By: Admin: 09/17/22 19:22 Dose: 200 mls/hr Documented By: HAL Piperacillin Sod/Tazobactam (Sod 3.375 gm/ Sodium Chloride) 100 mls @ 25 mls/hr IV Q8H [facility] Last Infusion: 09/20/22 08:09 Dose: 25 mls/hr Documented By: Admin: 09/20/22 03:12 Dose: 25 mls/hr Documented By: Infusion: 09/19/22 22:46 Dose: 25 mls/hr Documented By: Admin: 09/19/22 18:46 Dose: 25 mls/hr Documented By: Infusion: 09/19/22 14:29 Dose: 25 mls/hr Documented By: Admin: 09/19/22 10:29 Dose: 25 mls/hr Documented By: Infusion: 09/19/22 07:34 Dose: 25 mls/hr Documented By: Admin: 09/19/22 03:34 Dose: 25 mls/hr Documented By: Infusion: 09/18/22 22:33 Dose: 25 mls/hr Documented By: Admin: 09/18/22 18:33 Dose: 25 mls/hr Documented By: Infusion: 09/18/22 16:00 Dose: 25 mls/hr Documented By: Admin: 09/18/22 12:00 Dose: 25 mls/hr Documented By: Infusion: 09/18/22 06:57 Dose: 25 mls/hr Documented By: Admin: 09/18/22 02:57 Dose: 25 mls/hr Documented By: Tranexamic Acid 1,000 mg/ (Sodium Chloride) 100 mls @ 200 mls/hr IV NOW ONE Stop: 09/19/22 15:47 Last Admin: 09/19/22 15:18 Dose: 200 mls/hr Documented By: ARNULFO Insulin Glargine (Insulin Glargine 100 Unit/Ml 3ml Pen) 10 unit SUBCUT BID [facility] Last Admin: 09/18/22 09:17 Dose: 10 unit Documented By: ADELE Co-signed By: JAVI Admin: 09/17/22 22:19 Dose: 10 unit Documented By: GC Co-signed By: OW Admin: 09/17/22 08:15 Dose: 10 unit Documented By: KM Co-signed By: RLS Admin: 09/16/22 20:53 Dose: 10 unit Documented By: OW Co-signed By: SB Insulin Glargine (Insulin Glargine 100 Unit/Ml 3ml Pen) 15 unit SUBCUT BID [facility] Last Admin: 09/19/22 10:00 Dose: Not Given Documented By: Admin: 09/18/22 21:22 Dose: 15 unit Documented By: Co-signed By: CB Insulin Glargine (Insulin Glargine 100 Unit/Ml 3ml Pen) 20 unit SUBCUT BID [facility] Last Admin: 09/23/22 09:49 Dose: 20 unit Documented By: EM Co-signed By: ADELE Admin: 09/22/22 20:22 Dose: 20 unit Documented By: (2) Co-signed By: LOU Admin: 09/22/22 08:45 Dose: 20 unit Documented By: BR Co-signed By: CLP Admin: 09/21/22 23:05 Dose: 20 unit Documented By: MEDHAT Co-signed By: GABRIEL Admin: 09/21/22 08:35 Dose: 20 unit Documented By: GARY Co-signed By: JORGE Admin: 09/20/22 20:59 Dose: 20 unit Documented By: Co-signed By: THERON Admin: 09/20/22 09:21 Dose: 20 unit Documented By: EPI Co-signed By: GARY Admin: 09/19/22 21:01 Dose: 20 unit Documented By: Co-signed By: ISRAEL Admin: 09/19/22 11:52 Dose: 20 unit Documented By: ADELE Co-signed By: VIDYA Insulin Human Isoph/Insulin Regular (Insulin Nph/Reg 70-30 100 Unit/Ml 3ml Vial) 10 unit SUBCUT BID TITUS Last Admin: 09/19/22 22:35 Dose: Not Given Documented By: Insulin Human Lispro (Insulin Lispro 100 Unit/Ml 3ml Vial) 0 unit SUBCUT ACHS [facility]; Protocol Last Admin: 09/19/22 11:45 Dose: Not Given Documented By: Admin: 09/19/22 08:41 Dose: 3 unit Documented By: ADELE Co-signed By: JAVI Admin: 09/18/22 21:22 Dose: 3 unit Documented By: Co-signed By: UDAY Admin: 09/18/22 18:29 Dose: 7 unit Documented By: ADELE Co-signed By: JAVI Admin: 09/18/22 12:12 Dose: 3 unit Documented By: ADELE Co-signed By: JAVI Admin: 09/18/22 09:17 Dose: 3 unit Documented By: ADELE Co-signed By: JAVI Admin: 09/17/22 21:26 Dose: 5 unit Documented By: GC Co-signed By: RB Admin: 09/17/22 16:39 Dose: 3 unit Documented By: HAL Co-signed By: CESAR Admin: 09/17/22 12:15 Dose: 5 unit Documented By: HAL Co-signed By: KB Admin: 09/17/22 08:16 Dose: 3 unit Documented By: KM Co-signed By: OMAYRA Admin: 09/16/22 20:49 Dose: 3 unit Documented By: OW Co-signed By: FÉLIX Admin: 09/16/22 16:51 Dose: 8 unit Documented By: RB Co-signed By: JULIETH Admin: 09/16/22 12:29 Dose: 8 unit Documented By: ZE Co-signed By: JULIETH Admin: 09/16/22 08:23 Dose: 5 unit Documented By: OMAYRA Co-signed By: MLM Insulin Human Lispro (Insulin Lispro 100 Unit/Ml 3ml Vial) 0 unit SUBCUT ACHS [facility]; Protocol Last Admin: 09/23/22 09:50 Dose: 4 unit Documented By: EM Co-signed By: ADELE Admin: 09/22/22 20:20 Dose: 2 unit Documented By: (2) Co-signed By: LOU Admin: 09/22/22 17:27 Dose: 4 unit Documented By: SHAHAB Co-signed By: CLP Admin: 09/22/22 12:17 Dose: 2 unit Documented By: BR Co-signed By: CLP Admin: 09/22/22 08:41 Dose: 2 unit Documented By: BR Co-signed By: CLP Admin: 09/21/22 23:05 Dose: 2 unit Documented By: MEDHAT Co-signed By: GABRIEL Admin: 09/21/22 16:35 Dose: 2 unit Documented By: GARY Co-signed By: (3) Admin: 09/21/22 11:22 Dose: 2 unit Documented By: GARY Co-signed By: JORGE Admin: 09/21/22 08:37 Dose: 2 unit Documented By: GARY Co-signed By: JORGE Admin: 09/20/22 20:58 Dose: 2 unit Documented By: Co-signed By: THERON Admin: 09/20/22 17:27 Dose: 4 unit Documented By: EPI Co-signed By: GARY Admin: 09/20/22 12:54 Dose: 10 unit Documented By: BT Co-signed By: BRANT Admin: 09/20/22 08:54 Dose: 7 unit Documented By: BT Co-signed By: GARY Admin: 09/19/22 21:00 Dose: 5 unit Documented By: Co-signed By: JT Admin: 09/19/22 18:44 Dose: 7 unit Documented By: ADELE Co-signed By: JAVI Insulin Human Lispro (Insulin Lispro 100 Unit/Ml 3ml Vial) 5 unit SUBCUT AC [facility] Last Admin: 09/23/22 09:50 Dose: 5 unit Documented By: EM Co-signed By: ADELE Admin: 09/22/22 17:27 Dose: 5 unit Documented By: SHAHAB Co-signed By: CLP Admin: 09/22/22 12:17 Dose: 5 unit Documented By: BR Co-signed By: CLP Admin: 09/22/22 08:41 Dose: 5 unit Documented By: SHAHAB Co-signed By: CLP Admin: 09/21/22 16:35 Dose: 5 unit Documented By: GARY Co-signed By: (3) Admin: 09/21/22 11:22 Dose: 5 unit Documented By: GARY Co-signed By: JORGE Admin: 09/21/22 08:37 Dose: 5 unit Documented By: GARY Co-signed By: JORGE Admin: 09/20/22 17:27 Dose: 5 unit Documented By: PEI Co-signed By: GARY Admin: 09/20/22 12:54 Dose: 5 unit Documented By: EPI Co-signed By: BRANT Levothyroxine Sodium (Levothyroxine 100 Mcg Tablet) 100 mcg PO DAILY@0600 [facility] Last Admin: 09/19/22 05:40 Dose: 100 mcg Documented By: Admin: 09/18/22 06:15 Dose: Not Given Documented By: Admin: 09/17/22 05:45 Dose: 100 mcg Documented By: FÉLIX Levothyroxine Sodium (Levothyroxine 100 Mcg Tablet) 100 mcg PO DAILY@0600 [facility] Last Admin: 09/23/22 09:43 Dose: Not Given Documented By: Admin: 09/22/22 06:45 Dose: Not Given Documented By: Admin: 09/21/22 05:07 Dose: 100 mcg Documented By: Admin: 09/20/22 05:58 Dose: 100 mcg Documented By: Lisinopril (Lisinopril 20 Mg Tablet) 40 mg PO DAILY [facility] Last Admin: 09/17/22 08:00 Dose: 40 mg Documented By: HAL Loperamide HCl (Loperamide 2 Mg Capsule) 2 mg PO QID PRN PRN Reason: Diarrhea Losartan Potassium (Losartan 50 Mg Tablet) 100 mg PO DAILY [facility] Last Admin: 09/23/22 09:38 Dose: 100 mg Documented By: Admin: 09/22/22 08:59 Dose: 100 mg Documented By: Admin: 09/21/22 08:44 Dose: 100 mg Documented By: Admin: 09/20/22 09:23 Dose: 100 mg Documented By: BT Montelukast Sodium (Montelukast 10 Mg Tablet) 10 mg PO DAILY [facility] Last Admin: 09/23/22 09:41 Dose: 10 mg Documented By: Admin: 09/22/22 08:47 Dose: 10 mg Documented By: Admin: 09/21/22 08:44 Dose: 10 mg Documented By: Admin: 09/20/22 09:24 Dose: 10 mg Documented By: Admin: 09/19/22 08:43 Dose: 10 mg Documented By: Admin: 09/18/22 09:05 Dose: 10 mg Documented By: ADELE Morphine Sulfate (Morphine 4 Mg/Ml Inj) 4 mg IV Q4HR [facility] Last Admin: 09/15/22 17:58 Dose: Not Given Documented By: FLMary Ann Morphine Sulfate (Morphine 4 Mg/Ml Inj) 4 mg IV Q4H PRN PRN Reason: Pain, Moderate (4-6) Last Admin: 09/16/22 16:33 Dose: 4 mg Documented By: Admin: 09/15/22 18:02 Dose: 4 mg Documented By: TERRIE Naloxone HCl (Naloxone 0.4 Mg/Ml Vial) 0.2 mg IV Q2MIN PRN PRN Reason: Opiate Reversal Naloxone HCl (Naloxone 0.4 Mg/Ml Vial) 0.2 mg IV Q2MIN PRN PRN Reason: Opiate Reversal Ondansetron HCl (Ondansetron 4 Mg/2 Ml Inj) 4 mg IV Q8HR PRN PRN Reason: Nausea And Vomiting Last Admin: 09/20/22 20:56 Dose: 4 mg Documented By: Admin: 09/20/22 00:28 Dose: 4 mg Documented By: Pantoprazole Sodium (Pantoprazole 40 Mg Vial) 40 mg IV NOW ONE Stop: 09/16/22 05:38 Last Admin: 09/16/22 05:47 Dose: 40 mg Documented By: FÉLIX Potassium Chloride ([facility]assium Chlor[facility] 10 Meq Tab) [facility] Admin: 09/17/22 07:58 Dose: 10 meq Documented By: Admin: 09/16/22 08:34 Dose: 10 meq Documented By: OMAYRA Potassium Chloride (Potassium Chloride 10 Meq Tab) 10 meq PO DAILY [facility] Last Admin: 09/23/22 09:41 Dose: 10 meq Documented By: Admin: 09/22/22 08:47 Dose: 10 meq Documented By: Admin: 09/21/22 08:44 Dose: 10 meq Documented By: Admin: 09/20/22 09:24 Dose: 10 meq Documented By: BT Vital Signs Vital signs: Vital Signs - 8 hr 09/17/22 14:00 09/17/22 14:00 09/17/22 14:15 Pulse Rate 71 70 Respiratory Rate 27 H 21 Blood Pressure 111/55 L Pulse Oximetry 98 96 Oxygen Delivery Method Oxygen Flow Rate Fraction of Inspired Oxygen 09/17/22 14:30 09/17/22 14:38 09/17/22 14:38 Pulse Rate 78 74 Respiratory Rate 20 22 Blood Pressure 100/70 Pulse Oximetry 94 94 Oxygen Delivery Method Oxygen Flow Rate Fraction of Inspired Oxygen 09/17/22 14:45 09/17/22 15:00 09/17/22 15:01 Pulse Rate 73 71 Respiratory Rate 28 H 21 Blood Pressure 92/56 L Pulse Oximetry 93 92 Oxygen Delivery Method Oxygen Flow Rate Fraction of Inspired Oxygen 09/17/22 15:01 09/17/22 15:15 09/17/22 15:30 Pulse Rate 72 70 Respiratory Rate 21 21 Blood Pressure 88/49 L Pulse Oximetry 91 92 Oxygen Delivery Method Nasal Cannula Oxygen Flow Rate 2 Fraction of Inspired Oxygen 09/17/22 15:30 09/17/22 15:33 09/17/22 15:33 Pulse Rate 68 69 Respiratory Rate 20 22 Blood Pressure 89/53 L Pulse Oximetry 91 92 Oxygen Delivery Method Nasal Cannula Oxygen Flow Rate 2 Fraction of Inspired Oxygen 09/17/22 15:40 09/17/22 15:40 09/17/22 15:45 Pulse Rate 67 68 Respiratory Rate 19 18 Blood Pressure 100/56 L Pulse Oximetry 93 95 Oxygen Delivery Method Oxygen Flow Rate Fraction of Inspired Oxygen 09/17/22 15:50 09/17/22 15:50 09/17/22 16:00 Pulse Rate 68 68 Respiratory Rate 35 H 21 Blood Pressure 93/55 L Pulse Oximetry 93 96 Oxygen Delivery Method Oxygen Flow Rate Fraction of Inspired Oxygen 09/17/22 16:01 09/17/22 16:01 09/17/22 16:10 Pulse Rate 68 Respiratory Rate 21 Blood Pressure 109/57 L 116/66 Pulse Oximetry 96 Oxygen Delivery Method Oxygen Flow Rate Fraction of Inspired Oxygen 09/17/22 16:10 09/17/22 16:15 09/17/22 16:20 Pulse Rate 69 69 71 Respiratory Rate 22 18 21 Blood Pressure Pulse Oximetry 96 97 97 Oxygen Delivery Method Oxygen Flow Rate Fraction of Inspired Oxygen 09/17/22 16:20 09/17/22 16:30 09/17/22 16:30 Pulse Rate 70 Respiratory Rate 20 Blood Pressure 128/77 123/59 L Pulse Oximetry 97 Oxygen Delivery Method Oxygen Flow Rate Fraction of Inspired Oxygen 09/17/22 16:40 09/17/22 16:40 09/17/22 16:45 Pulse Rate 70 69 Respiratory Rate 26 H 34 H Blood Pressure 118/61 Pulse Oximetry 99 97 Oxygen Delivery Method Oxygen Flow Rate Fraction of Inspired Oxygen 09/17/22 16:50 09/17/22 16:50 09/17/22 17:00 Pulse Rate 70 Respiratory Rate 32 H Blood Pressure 115/55 L 118/58 L Pulse Oximetry 96 Oxygen Delivery Method Oxygen Flow Rate Fraction of Inspired Oxygen 09/17/22 17:00 09/17/22 17:10 09/17/22 17:10 Pulse Rate 71 72 Respiratory Rate 30 H 26 H Blood Pressure 121/58 L Pulse Oximetry 91 96 Oxygen Delivery Method Oxygen Flow Rate Fraction of Inspired Oxygen 09/17/22 17:15 09/17/22 17:20 09/17/22 17:20 Pulse Rate 71 72 Respiratory Rate 27 H 33 H Blood Pressure 107/55 L Pulse Oximetry 96 95 Oxygen Delivery Method Oxygen Flow Rate Fraction of Inspired Oxygen 09/17/22 17:30 09/17/22 17:30 09/17/22 17:40 Pulse Rate 72 Respiratory Rate 35 H Blood Pressure 95/54 L 104/54 L Pulse Oximetry 93 Oxygen Delivery Method Oxygen Flow Rate Fraction of Inspired Oxygen 09/17/22 17:40 09/17/22 17:45 09/17/22 17:50 Pulse Rate 70 71 75 Respiratory Rate 22 24 17 Blood Pressure Pulse Oximetry 96 94 96 Oxygen Delivery Method Nasal Cannula Oxygen Flow Rate 2 Fraction of Inspired Oxygen 09/17/22 17:50 09/17/22 18:00 09/17/22 18:01 Pulse Rate 74 Respiratory Rate 21 Blood Pressure 115/62 134/66 Pulse Oximetry 96 Oxygen Delivery Method Oxygen Flow Rate Fraction of Inspired Oxygen 09/17/22 18:01 09/17/22 18:10 09/17/22 18:10 Pulse Rate 73 72 Respiratory Rate 17 17 Blood Pressure 123/59 L Pulse Oximetry 97 98 Oxygen Delivery Method Oxygen Flow Rate Fraction of Inspired Oxygen 09/17/22 18:15 09/17/22 18:21 09/17/22 18:21 Pulse Rate 71 73 Respiratory Rate 17 22 Blood Pressure 118/69 Pulse Oximetry 97 96 Oxygen Delivery Method Oxygen Flow Rate Fraction of Inspired Oxygen 09/17/22 18:30 09/17/22 18:31 09/17/22 18:31 Pulse Rate 73 73 Respiratory Rate 20 27 H Blood Pressure 120/78 Pulse Oximetry 95 95 Oxygen Delivery Method Oxygen Flow Rate Fraction of Inspired Oxygen 09/17/22 18:40 09/17/22 18:40 09/17/22 18:45 Pulse Rate 69 70 Respiratory Rate 19 18 Blood Pressure 121/60 Pulse Oximetry 95 96 Oxygen Delivery Method Oxygen Flow Rate Fraction of Inspired Oxygen 09/17/22 19:24 09/17/22 18:50 09/17/22 18:50 Pulse Rate 78 70 Respiratory Rate 16 20 Blood Pressure 109/54 L Pulse Oximetry 95 96 Oxygen Delivery Method Oxygen Flow Rate 2 Fraction of Inspired Oxygen 28 09/17/22 19:00 09/17/22 19:01 09/17/22 19:01 Pulse Rate 71 69 Respiratory Rate 18 17 Blood Pressure 132/58 L Pulse Oximetry 97 97 Oxygen Delivery Method Oxygen Flow Rate Fraction of Inspired Oxygen 09/17/22 19:10 09/17/22 19:10 09/17/22 19:15 Pulse Rate 71 73 Respiratory Rate 18 18 Blood Pressure 102/42 L Pulse Oximetry 95 95 Oxygen Delivery Method Oxygen Flow Rate Fraction of Inspired Oxygen 09/17/22 19:20 09/17/22 19:20 Pulse Rate 69 Respiratory Rate 19 Blood Pressure 106/55 L Pulse Oximetry 95 Oxygen Delivery Method Oxygen Flow Rate Fraction of Inspired Oxygen <Sallie Cervantes, DO - Last Filed: 09/16/22 06:30> Orders Ordered: Discontinued Medications Acetaminophen (Acetaminophen 325 Mg Tablet) 650 mg PO Q6H PRN PRN Reason: Fever/Mild Pain (1-3) Last Admin: 09/21/22 12:44 Dose: 650 mg Documented By: GARY Hydrocodone Bitart/Acetaminophen (Hydrocodone/Acet 5/325 Tablet) 1 tab PO NOW ONE Stop: 09/15/22 12:46 Last Admin: 09/15/22 13:08 Dose: 1 tab Documented By: TERRIE Hydrocodone Bitart/Acetaminophen (Hydrocodone/Acet 5/325 Tablet) 1 tab PO Q4HR PRN PRN Reason: Pain, Moderate (4-6) Last Admin: 09/20/22 20:55 Dose: 1 tab Documented By: Admin: 09/17/22 14:25 Dose: 1 tab Documented By: HAL Hydrocodone Bitart/Acetaminophen (Hydrocodone/Acet 5/325 Tablet) 1 tab PO PACUNOW PRN PRN Reason: Mild or moderate pain Albuterol/Ipratropium (Albuterol/Ipratropium 3 Ml Ampul) 3 ml INH [id number] [facility] Last Admin: 09/23/22 07:29 Dose: 3 ml Documented By: Admin: 09/23/22 03:49 Dose: Not Given Documented By: Admin: 09/22/22 12:56 Dose: 3 ml Documented By: Admin: 09/22/22 07:33 Dose: Not Given Documented By: Admin: 09/21/22 19:20 Dose: Not Given Documented By: Admin: 09/21/22 13:13 Dose: Not Given Documented By: Admin: 09/21/22 07:45 Dose: 3 ml Documented By: Admin: 09/20/22 22:21 Dose: Not Given Documented By: Admin: 09/20/22 13:53 Dose: Not Given Documented By: Admin: 09/20/22 08:08 Dose: Not Given Documented By: Admin: 09/20/22 06:31 Dose: Not Given Documented By: Admin: 09/19/22 13:00 Dose: Not Given Documented By: Admin: 09/19/22 07:45 Dose: 3 ml Documented By: Admin: 09/18/22 20:32 Dose: 3 ml Documented By: Admin: 09/18/22 13:47 Dose: 3 ml Documented By: Admin: 09/18/22 08:32 Dose: 3 ml Documented By: Admin: 09/17/22 19:24 Dose: 3 ml Documented By: Admin: 09/17/22 14:13 Dose: Not Given Documented By: Admin: 09/17/22 07:53 Dose: 3 ml Documented By: Admin: 09/16/22 19:22 Dose: Not Given Documented By: BELLA(2) Admin: 09/16/22 13:18 Dose: Not Given Documented By: BELLA(2) Admin: 09/16/22 08:21 Dose: 3 ml Documented By: BELLA(2) Allopurinol (Allopurinol 100 Mg Tablet) 200 mg PO DAILY [facility] Last Admin: 09/17/22 07:59 Dose: 200 mg Documented By: Admin: 09/16/22 08:34 Dose: 200 mg Documented By: OMAYRA Allopurinol (Allopurinol 100 Mg Tablet) 200 mg PO DAILY [facility] Last Admin: 09/23/22 09:42 Dose: 200 mg Documented By: Admin: 09/22/22 08:47 Dose: 200 mg Documented By: Admin: 09/21/22 08:44 Dose: 200 mg Documented By: Admin: 09/20/22 09:23 Dose: 200 mg Documented By: EPI Aspirin (Aspirin Ec 81 Mg Tablet) 81 mg PO BID [facility] Last Admin: 09/23/22 09:42 Dose: 81 mg Documented By: Admin: 09/22/22 20:19 Dose: 81 mg Documented By: (2) Admin: 09/22/22 08:47 Dose: 81 mg Documented By: Admin: 09/21/22 23:05 Dose: 81 mg Documented By: Admin: 09/21/22 08:44 Dose: 81 mg Documented By: Admin: 09/20/22 20:56 Dose: 81 mg Documented By: Admin: 09/20/22 10:41 Dose: 81 mg Documented By: EPI Atorvastatin Calcium (Atorvastatin 20 Mg Tablet) 20 mg PO BEDTIME [facility] Last Admin: 09/18/22 21:17 Dose: 20 mg Documented By: Admin: 09/17/22 22:23 Dose: 20 mg Documented By: Admin: 09/16/22 21:02 Dose: 20 mg Documented By: DEVORA Atorvastatin Calcium (Atorvastatin 20 Mg Tablet) 10 mg PO BEDTIME [facility] Last Admin: 09/22/22 20:19 Dose: 10 mg Documented By: (2) Admin: 09/21/22 23:05 Dose: 10 mg Documented By: Admin: 09/20/22 20:56 Dose: 10 mg Documented By: Admin: 09/19/22 20:53 Dose: 10 mg Documented By: Bupivacaine HCl/Epinephrine Bitart (Bupivacaine 0.5% W/ Epi (Pf) 30 Ml Vial) 30 ml INJ NOW ONE Stop: 09/19/22 15:45 Last Admin: 09/19/22 15:44 Dose: 30 ml Documented By: BRIANNA Carvedilol (Carvedilol 3.125 Mg Tablet) 6.25 mg PO BID [facility] Last Admin: 09/17/22 07:59 Dose: 6.25 mg Documented By: Admin: 09/16/22 21:01 Dose: 6.25 mg Documented By: Admin: 09/16/22 08:35 Dose: 6.25 mg Documented By: OMAYRA Carvedilol (Carvedilol 3.125 Mg Tablet) 6.25 mg PO BID [facility] Last Admin: 09/23/22 09:41 Dose: 6.25 mg Documented By: Admin: 09/22/22 20:18 Dose: 6.25 mg Documented By: (2) Admin: 09/22/22 08:59 Dose: 6.25 mg Documented By: Admin: 09/21/22 23:05 Dose: 6.25 mg Documented By: Admin: 09/21/22 08:44 Dose: 6.25 mg Documented By: Admin: 09/20/22 20:56 Dose: 6.25 mg Documented By: Admin: 09/20/22 09:24 Dose: 6.25 mg Documented By: Admin: 09/19/22 20:54 Dose: 6.25 mg Documented By: Dextrose (Dextrose 50 % In Water 25 Gm/50 Ml Syringe) 25 gm IV PRN PRN PRN Reason: Hypoglycemia Diazepam (Diazepam 5 Mg Tablet) 5 mg PO NOW ONE Stop: 09/15/22 13:43 Last Admin: 09/15/22 13:47 Dose: 5 mg Documented By: TERRIE Enoxaparin Sodium (Enoxaparin 40 Mg/0.4 Ml Syringe) 40 mg SUBCUT DAILY [facility] Last Admin: 09/23/22 09:37 Dose: 40 mg Documented By: Admin: 09/22/22 12:17 Dose: 40 mg Documented By: SHAHAB Fentanyl (Fentanyl 100 Mcg/2 Ml Inj) 50 mcg IV NOW ONE Stop: 09/15/22 10:45 Last Admin: 09/15/22 11:01 Dose: 50 mcg Documented By: TERRIE Fentanyl (Fentanyl 100 Mcg/2 Ml Inj) 0 mcg IV Q5MIN PRN PRN Reason: Pain, Severe (7-10) Fentanyl (Fentanyl 100 Mcg/2 Ml Inj) 0 mcg IV Q5M PRN PRN Reason: Pain, Moderate (4-6) Fentanyl (Fentanyl 100 Mcg/2 Ml Inj) 0 mcg IV Q5M PRN PRN Reason: Pain, Severe (7-10) Furosemide (Furosemide 40 Mg Tablet) 80 mg PO DAILY [facility] Last Admin: 09/17/22 07:59 Dose: 80 mg Documented By: Admin: 09/16/22 08:37 Dose: 80 mg Documented By: OMAYRA Furosemide (Furosemide 40 Mg Tablet) 80 mg PO DAILY [facility] Last Admin: 09/23/22 09:42 Dose: 80 mg Documented By: Admin: 09/22/22 08:47 Dose: 80 mg Documented By: Admin: 09/21/22 08:45 Dose: 80 mg Documented By: Admin: 09/20/22 09:24 Dose: 80 mg Documented By: EPI Gabapentin (Gabapentin 300 Mg Capsule) 300 mg PO TID [facility] Last Admin: 09/17/22 14:25 Dose: 300 mg Documented By: Admin: 09/17/22 07:59 Dose: 300 mg Documented By: Admin: 09/16/22 21:01 Dose: 300 mg Documented By: Admin: 09/16/22 14:33 Dose: 300 mg Documented By: Admin: 09/16/22 08:40 Dose: 300 mg Documented By: OMAYRA Gabapentin (Gabapentin 300 Mg Capsule) 300 mg PO TID [facility] Last Admin: 09/23/22 09:42 Dose: 300 mg Documented By: Admin: 09/22/22 20:19 Dose: 300 mg Documented By: MS(2) Admin: 09/22/22 15:55 Dose: 300 mg Documented By: Admin: 09/22/22 08:47 Dose: 300 mg Documented By: Admin: 09/21/22 23:05 Dose: 300 mg Documented By: Admin: 09/21/22 14:14 Dose: 300 mg Documented By: Admin: 09/21/22 08:44 Dose: 300 mg Documented By: Admin: 09/20/22 20:56 Dose: 300 mg Documented By: Admin: 09/20/22 14:34 Dose: 300 mg Documented By: Admin: 09/20/22 09:24 Dose: 300 mg Documented By: Admin: 09/19/22 20:54 Dose: 300 mg Documented By: Heparin Sodium (Porcine) (Heparin 5,000 Unit/Ml Vial) 5,000 unit SUBCUT BID [facility] Last Admin: 09/18/22 11:00 Dose: 5,000 unit Documented By: Admin: 09/18/22 01:41 Dose: 5,000 unit Documented By: Hydromorphone HCl (Hydromorphone 0.5 Mg Inj) 0.5 mg IV Q4H PRN PRN Reason: Pain, Moderate (4-6) Last Admin: 09/20/22 05:43 Dose: 0.5 mg Documented By: Admin: 09/20/22 00:28 Dose: 0.5 mg Documented By: Admin: 09/19/22 10:00 Dose: 0.5 mg Documented By: Admin: 09/18/22 21:17 Dose: 0.5 mg Documented By: Admin: 09/18/22 13:25 Dose: 0.5 mg Documented By: Admin: 09/18/22 09:04 Dose: 0.5 mg Documented By: Admin: 09/18/22 02:15 Dose: 0.5 mg Documented By: Sodium Chloride (Normal Saline 0.9%) 1,000 mls @ 1,000 mls/hr IV BOLUS ONE Stop: 09/17/22 13:51 Last Infusion: 09/17/22 15:54 Dose: 0 mls/hr Documented By: Infusion: 09/17/22 14:15 Dose: 125 mls/hr Documented By: Admin: 09/17/22 13:17 Dose: 1,000 mls/hr Documented By: HAL Sodium Chloride (Normal Saline 0.9%) 1,000 mls @ 1,000 mls/hr IV BOLUS ONE Stop: 09/17/22 13:52 Last Admin: 09/17/22 14:17 Dose: Not Given Documented By: HAL Ceftriaxone Sodium 1,000 mg/ (Sodium Chloride) 100 mls @ 200 mls/hr IV NOW ONE Stop: 09/17/22 14:57 Last Infusion: 09/17/22 16:16 Dose: 0 mls/hr Documented By: Admin: 09/17/22 15:38 Dose: 200 mls/hr Documented By: HAL Lactated Ringer's (Lactated Ringers) 1,000 mls @ 1,000 mls/hr IV BOLUS ONE Stop: 09/17/22 16:43 Last Infusion: 09/17/22 17:27 Dose: 0 mls/hr Documented By: Admin: 09/17/22 15:54 Dose: 1,000 mls/hr Documented By: HAL Piperacillin Sod/Tazobactam (Sod 4.5 gm/ Sodium Chloride) 100 mls @ 200 mls/hr IV NOW ONE Stop: 09/17/22 18:48 Last Infusion: 09/17/22 19:55 Dose: 0 mls/hr Documented By: Admin: 09/17/22 19:22 Dose: 200 mls/hr Documented By: HAL Piperacillin Sod/Tazobactam (Sod 3.375 gm/ Sodium Chloride) 100 mls @ 25 mls/hr IV Q8H [facility] Last Infusion: 09/20/22 08:09 Dose: 25 mls/hr Documented By: Admin: 09/20/22 03:12 Dose: 25 mls/hr Documented By: Infusion: 09/19/22 22:46 Dose: 25 mls/hr Documented By: Admin: 09/19/22 18:46 Dose: 25 mls/hr Documented By: Infusion: 09/19/22 14:29 Dose: 25 mls/hr Documented By: Admin: 09/19/22 10:29 Dose: 25 mls/hr Documented By: Infusion: 09/19/22 07:34 Dose: 25 mls/hr Documented By: Admin: 09/19/22 03:34 Dose: 25 mls/hr Documented By: Infusion: 09/18/22 22:33 Dose: 25 mls/hr Documented By: Admin: 09/18/22 18:33 Dose: 25 mls/hr Documented By: Infusion: 09/18/22 16:00 Dose: 25 mls/hr Documented By: Admin: 09/18/22 12:00 Dose: 25 mls/hr Documented By: Infusion: 09/18/22 06:57 Dose: 25 mls/hr Documented By: Admin: 09/18/22 02:57 Dose: 25 mls/hr Documented By: Tranexamic Acid 1,000 mg/ (Sodium Chloride) 100 mls @ 200 mls/hr IV NOW ONE Stop: 09/19/22 15:47 Last Admin: 09/19/22 15:18 Dose: 200 mls/hr Documented By: ARNULFO Insulin Glargine (Insulin Glargine 100 Unit/Ml 3ml Pen) 10 unit SUBCUT BID [facility] Last Admin: 09/18/22 09:17 Dose: 10 unit Documented By: ADELE Co-signed By: JAVI Admin: 09/17/22 22:19 Dose: 10 unit Documented By: GC Co-signed By: OW Admin: 09/17/22 08:15 Dose: 10 unit Documented By: KM Co-signed By: RLS Admin: 09/16/22 20:53 Dose: 10 unit Documented By: OW Co-signed By: SB Insulin Glargine (Insulin Glargine 100 Unit/Ml 3ml Pen) 15 unit SUBCUT BID [facility] Last Admin: 09/19/22 10:00 Dose: Not Given Documented By: Admin: 09/18/22 21:22 Dose: 15 unit Documented By: Co-signed By: CB Insulin Glargine (Insulin Glargine 100 Unit/Ml 3ml Pen) 20 unit SUBCUT BID [facility] Last Admin: 09/23/22 09:49 Dose: 20 unit Documented By: EM Co-signed By: ADELE Admin: 09/22/22 20:22 Dose: 20 unit Documented By: (2) Co-signed By: TLS Admin: 09/22/22 08:45 Dose: 20 unit Documented By: BR Co-signed By: CLP Admin: 09/21/22 23:05 Dose: 20 unit Documented By: MEDHAT Co-signed By: LM Admin: 09/21/22 08:35 Dose: 20 unit Documented By: GARY Co-signed By: JORGE Admin: 09/20/22 20:59 Dose: 20 unit Documented By: Co-signed By: THERON Admin: 09/20/22 09:21 Dose: 20 unit Documented By: EPI Co-signed By: GARY Admin: 09/19/22 21:01 Dose: 20 unit Documented By: Co-signed By: ISRAEL Admin: 09/19/22 11:52 Dose: 20 unit Documented By: ADELE Co-signed By: VIDYA Insulin Human Isoph/Insulin Regular (Insulin Nph/Reg 70-30 100 Unit/Ml 3ml Vial) 10 unit SUBCUT BID TITUS Last Admin: 09/19/22 22:35 Dose: Not Given Documented By: Insulin Human Lispro (Insulin Lispro 100 Unit/Ml 3ml Vial) 0 unit SUBCUT ACHS [facility]; Protocol Last Admin: 09/19/22 11:45 Dose: Not Given Documented By: Admin: 09/19/22 08:41 Dose: 3 unit Documented By: ADELE Co-signed By: JAVI Admin: 09/18/22 21:22 Dose: 3 unit Documented By: Co-signed By: UDAY Admin: 09/18/22 18:29 Dose: 7 unit Documented By: ADELE Co-signed By: JAVI Admin: 09/18/22 12:12 Dose: 3 unit Documented By: ADELE Co-signed By: JAVI Admin: 09/18/22 09:17 Dose: 3 unit Documented By: ADELE Co-signed By: JAVI Admin: 09/17/22 21:26 Dose: 5 unit Documented By: VASU Co-signed By: RB Admin: 09/17/22 16:39 Dose: 3 unit Documented By: HAL Co-signed By: CESAR Admin: 09/17/22 12:15 Dose: 5 unit Documented By: HAL Co-signed By: SOSA Admin: 09/17/22 08:16 Dose: 3 unit Documented By: HAL Co-signed By: OMAYRA Admin: 09/16/22 20:49 Dose: 3 unit Documented By: BRYCE Co-signed By: FÉLIX Admin: 09/16/22 16:51 Dose: 8 unit Documented By: RB Co-signed By: JULIETH Admin: 09/16/22 12:29 Dose: 8 unit Documented By: ZE Co-signed By: JULIETH Admin: 09/16/22 08:23 Dose: 5 unit Documented By: RLS Co-signed By: MLM Insulin Human Lispro (Insulin Lispro 100 Unit/Ml 3ml Vial) 0 unit SUBCUT ACHS TITUS; Protocol Last Admin: 09/23/22 09:50 Dose: 4 unit Documented By: EM Co-signed By: ADELE Admin: 09/22/22 20:20 Dose: 2 unit Documented By: (2) Co-signed By: LOU Admin: 09/22/22 17:27 Dose: 4 unit Documented By: SHAHAB Co-signed By: CLP Admin: 09/22/22 12:17 Dose: 2 unit Documented By: BR Co-signed By: CLP Admin: 09/22/22 08:41 Dose: 2 unit Documented By: SHAHAB Co-signed By: CLP Admin: 09/21/22 23:05 Dose: 2 unit Documented By: MEDHAT Co-signed By: GABRIEL Admin: 09/21/22 16:35 Dose: 2 unit Documented By: GARY Co-signed By: (3) Admin: 09/21/22 11:22 Dose: 2 unit Documented By: GARY Co-signed By: JORGE Admin: 09/21/22 08:37 Dose: 2 unit Documented By: GARY Co-signed By: JORGE Admin: 09/20/22 20:58 Dose: 2 unit Documented By: Co-signed By: THERON Admin: 09/20/22 17:27 Dose: 4 unit Documented By: EPI Co-signed By: GARY Admin: 09/20/22 12:54 Dose: 10 unit Documented By: BT Co-signed By: CLL Admin: 09/20/22 08:54 Dose: 7 unit Documented By: EPI Co-signed By: GARY Admin: 09/19/22 21:00 Dose: 5 unit Documented By: MS Co-signed By: ISRAEL Admin: 09/19/22 18:44 Dose: 7 unit Documented By: ADELE Co-signed By: JAVI Insulin Human Lispro (Insulin Lispro 100 Unit/Ml 3ml Vial) 5 unit SUBCUT AC [facility] Last Admin: 09/23/22 09:50 Dose: 5 unit Documented By: EM Co-signed By: ADELE Admin: 09/22/22 17:27 Dose: 5 unit Documented By: SHAHAB Co-signed By: CLP Admin: 09/22/22 12:17 Dose: 5 unit Documented By: SHAHAB Co-signed By: BRANDI Admin: 09/22/22 08:41 Dose: 5 unit Documented By: SHAHAB Co-signed By: BRANDI Admin: 09/21/22 16:35 Dose: 5 unit Documented By: GARY Co-signed By: (3) Admin: 09/21/22 11:22 Dose: 5 unit Documented By: GARY Co-signed By: JORGE Admin: 09/21/22 08:37 Dose: 5 unit Documented By: GARY Co-signed By: JORGE Admin: 09/20/22 17:27 Dose: 5 unit Documented By: EPI Co-signed By: GARY Admin: 09/20/22 12:54 Dose: 5 unit Documented By: EPI Co-signed By: BRANT Levothyroxine Sodium (Levothyroxine 100 Mcg Tablet) 100 mcg PO DAILY@0600 [facility] Last Admin: 09/19/22 05:40 Dose: 100 mcg Documented By: Admin: 09/18/22 06:15 Dose: Not Given Documented By: Admin: 09/17/22 05:45 Dose: 100 mcg Documented By: FÉLIX Levothyroxine Sodium (Levothyroxine 100 Mcg Tablet) 100 mcg PO DAILY@0600 [facility] Last Admin: 09/23/22 09:43 Dose: Not Given Documented By: Admin: 09/22/22 06:45 Dose: Not Given Documented By: Admin: 09/21/22 05:07 Dose: 100 mcg Documented By: Admin: 09/20/22 05:58 Dose: 100 mcg Documented By: Lisinopril (Lisinopril 20 Mg Tablet) 40 mg PO DAILY [facility] Last Admin: 09/17/22 08:00 Dose: 40 mg Documented By: HAL Loperamide HCl (Loperamide 2 Mg Capsule) 2 mg PO QID PRN PRN Reason: Diarrhea Losartan Potassium (Losartan 50 Mg Tablet) 100 mg PO DAILY [facility] Last Admin: 09/23/22 09:38 Dose: 100 mg Documented By: Admin: 09/22/22 08:59 Dose: 100 mg Documented By: Admin: 09/21/22 08:44 Dose: 100 mg Documented By: Admin: 09/20/22 09:23 Dose: 100 mg Documented By: BT Montelukast Sodium (Montelukast 10 Mg Tablet) 10 mg PO DAILY [facility] Last Admin: 09/23/22 09:41 Dose: 10 mg Documented By: Admin: 09/22/22 08:47 Dose: 10 mg Documented By: Admin: 09/21/22 08:44 Dose: 10 mg Documented By: Admin: 09/20/22 09:24 Dose: 10 mg Documented By: Admin: 09/19/22 08:43 Dose: 10 mg Documented By: Admin: 09/18/22 09:05 Dose: 10 mg Documented By: ADELE Morphine Sulfate (Morphine 4 Mg/Ml Inj) 4 mg IV Q4HR [facility] Last Admin: 09/15/22 17:58 Dose: Not Given Documented By: FLMary Ann Morphine Sulfate (Morphine 4 Mg/Ml Inj) 4 mg IV Q4H PRN PRN Reason: Pain, Moderate (4-6) Last Admin: 09/16/22 16:33 Dose: 4 mg Documented By: Admin: 09/15/22 18:02 Dose: 4 mg Documented By: TERRIE Naloxone HCl (Naloxone 0.4 Mg/Ml Vial) 0.2 mg IV Q2MIN PRN PRN Reason: Opiate Reversal Naloxone HCl (Naloxone 0.4 Mg/Ml Vial) 0.2 mg IV Q2MIN PRN PRN Reason: Opiate Reversal Ondansetron HCl (Ondansetron 4 Mg/2 Ml Inj) 4 mg IV Q8HR PRN PRN Reason: Nausea And Vomiting Last Admin: 09/20/22 20:56 Dose: 4 mg Documented By: Admin: 09/20/22 00:28 Dose: 4 mg Documented By: Pantoprazole Sodium (Pantoprazole 40 Mg Vial) 40 mg IV NOW ONE Stop: 09/16/22 05:38 Last Admin: 09/16/22 05:47 Dose: 40 mg Documented By: FÉLIX Potassium Chlor[facility] ([facility] 10 [facility]eq Tab[facility] Admin: 09/17/22 07:58 Dose: 10 meq Documented By: Admin: 09/16/22 08:34 Dose: 10 meq Documented By: OMAYRA Potassium Chloride (Potassium Chloride 10 Meq Tab) 10 meq PO DAILY [facility] Last Admin: 09/23/22 09:41 Dose: 10 meq Documented By: Admin: 09/22/22 08:47 Dose: 10 meq Documented By: Admin: 09/21/22 08:44 Dose: 10 meq Documented By: Admin: 09/20/22 09:24 Dose: 10 meq Documented By: BT Vital Signs Vital signs: Vital Signs - 8 hr 09/17/22 14:00 09/17/22 14:00 09/17/22 14:15 Pulse Rate 71 70 Respiratory Rate 27 H 21 Blood Pressure 111/55 L Pulse Oximetry 98 96 Oxygen Delivery Method Oxygen Flow Rate Fraction of Inspired Oxygen 09/17/22 14:30 09/17/22 14:38 09/17/22 14:38 Pulse Rate 78 74 Respiratory Rate 20 22 Blood Pressure 100/70 Pulse Oximetry 94 94 Oxygen Delivery Method Oxygen Flow Rate Fraction of Inspired Oxygen 09/17/22 14:45 09/17/22 15:00 09/17/22 15:01 Pulse Rate 73 71 Respiratory Rate 28 H 21 Blood Pressure 92/56 L Pulse Oximetry 93 92 Oxygen Delivery Method Oxygen Flow Rate Fraction of Inspired Oxygen 09/17/22 15:01 09/17/22 15:15 09/17/22 15:30 Pulse Rate 72 70 Respiratory Rate 21 21 Blood Pressure 88/49 L Pulse Oximetry 91 92 Oxygen Delivery Method Nasal Cannula Oxygen Flow Rate 2 Fraction of Inspired Oxygen 09/17/22 15:30 09/17/22 15:33 09/17/22 15:33 Pulse Rate 68 69 Respiratory Rate 20 22 Blood Pressure 89/53 L Pulse Oximetry 91 92 Oxygen Delivery Method Nasal Cannula Oxygen Flow Rate 2 Fraction of Inspired Oxygen 09/17/22 15:40 09/17/22 15:40 09/17/22 15:45 Pulse Rate 67 68 Respiratory Rate 19 18 Blood Pressure 100/56 L Pulse Oximetry 93 95 Oxygen Delivery Method Oxygen Flow Rate Fraction of Inspired Oxygen 09/17/22 15:50 09/17/22 15:50 09/17/22 16:00 Pulse Rate 68 68 Respiratory Rate 35 H 21 Blood Pressure 93/55 L Pulse Oximetry 93 96 Oxygen Delivery Method Oxygen Flow Rate Fraction of Inspired Oxygen 09/17/22 16:01 09/17/22 16:01 09/17/22 16:10 Pulse Rate 68 Respiratory Rate 21 Blood Pressure 109/57 L 116/66 Pulse Oximetry 96 Oxygen Delivery Method Oxygen Flow Rate Fraction of Inspired Oxygen 09/17/22 16:10 09/17/22 16:15 09/17/22 16:20 Pulse Rate 69 69 71 Respiratory Rate 22 18 21 Blood Pressure Pulse Oximetry 96 97 97 Oxygen Delivery Method Oxygen Flow Rate Fraction of Inspired Oxygen 09/17/22 16:20 09/17/22 16:30 09/17/22 16:30 Pulse Rate 70 Respiratory Rate 20 Blood Pressure 128/77 123/59 L Pulse Oximetry 97 Oxygen Delivery Method Oxygen Flow Rate Fraction of Inspired Oxygen 09/17/22 16:40 09/17/22 16:40 09/17/22 16:45 Pulse Rate 70 69 Respiratory Rate 26 H 34 H Blood Pressure 118/61 Pulse Oximetry 99 97 Oxygen Delivery Method Oxygen Flow Rate Fraction of Inspired Oxygen 09/17/22 16:50 09/17/22 16:50 09/17/22 17:00 Pulse Rate 70 Respiratory Rate 32 H Blood Pressure 115/55 L 118/58 L Pulse Oximetry 96 Oxygen Delivery Method Oxygen Flow Rate Fraction of Inspired Oxygen 09/17/22 17:00 09/17/22 17:10 09/17/22 17:10 Pulse Rate 71 72 Respiratory Rate 30 H 26 H Blood Pressure 121/58 L Pulse Oximetry 91 96 Oxygen Delivery Method Oxygen Flow Rate Fraction of Inspired Oxygen 09/17/22 17:15 09/17/22 17:20 09/17/22 17:20 Pulse Rate 71 72 Respiratory Rate 27 H 33 H Blood Pressure 107/55 L Pulse Oximetry 96 95 Oxygen Delivery Method Oxygen Flow Rate Fraction of Inspired Oxygen 09/17/22 17:30 09/17/22 17:30 09/17/22 17:40 Pulse Rate 72 Respiratory Rate 35 H Blood Pressure 95/54 L 104/54 L Pulse Oximetry 93 Oxygen Delivery Method Oxygen Flow Rate Fraction of Inspired Oxygen 09/17/22 17:40 09/17/22 17:45 09/17/22 17:50 Pulse Rate 70 71 75 Respiratory Rate 22 24 17 Blood Pressure Pulse Oximetry 96 94 96 Oxygen Delivery Method Nasal Cannula Oxygen Flow Rate 2 Fraction of Inspired Oxygen 09/17/22 17:50 09/17/22 18:00 09/17/22 18:01 Pulse Rate 74 Respiratory Rate 21 Blood Pressure 115/62 134/66 Pulse Oximetry 96 Oxygen Delivery Method Oxygen Flow Rate Fraction of Inspired Oxygen 09/17/22 18:01 09/17/22 18:10 09/17/22 18:10 Pulse Rate 73 72 Respiratory Rate 17 17 Blood Pressure 123/59 L Pulse Oximetry 97 98 Oxygen Delivery Method Oxygen Flow Rate Fraction of Inspired Oxygen 09/17/22 18:15 09/17/22 18:21 09/17/22 18:21 Pulse Rate 71 73 Respiratory Rate 17 22 Blood Pressure 118/69 Pulse Oximetry 97 96 Oxygen Delivery Method Oxygen Flow Rate Fraction of Inspired Oxygen 09/17/22 18:30 09/17/22 18:31 09/17/22 18:31 Pulse Rate 73 73 Respiratory Rate 20 27 H Blood Pressure 120/78 Pulse Oximetry 95 95 Oxygen Delivery Method Oxygen Flow Rate Fraction of Inspired Oxygen 09/17/22 18:40 09/17/22 18:40 09/17/22 18:45 Pulse Rate 69 70 Respiratory Rate 19 18 Blood Pressure 121/60 Pulse Oximetry 95 96 Oxygen Delivery Method Oxygen Flow Rate Fraction of Inspired Oxygen 09/17/22 19:24 09/17/22 18:50 09/17/22 18:50 Pulse Rate 78 70 Respiratory Rate 16 20 Blood Pressure 109/54 L Pulse Oximetry 95 96 Oxygen Delivery Method Oxygen Flow Rate 2 Fraction of Inspired Oxygen 28 09/17/22 19:00 09/17/22 19:01 09/17/22 19:01 Pulse Rate 71 69 Respiratory Rate 18 17 Blood Pressure 132/58 L Pulse Oximetry 97 97 Oxygen Delivery Method Oxygen Flow Rate Fraction of Inspired Oxygen 09/17/22 19:10 09/17/22 19:10 09/17/22 19:15 Pulse Rate 71 73 Respiratory Rate 18 18 Blood Pressure 102/42 L Pulse Oximetry 95 95 Oxygen Delivery Method Oxygen Flow Rate Fraction of Inspired Oxygen 09/17/22 19:20 09/17/22 19:20 Pulse Rate 69 Respiratory Rate 19 Blood Pressure 106/55 L Pulse Oximetry 95 Oxygen Delivery Method Oxygen Flow Rate Fraction of Inspired Oxygen <Radha Diaz MD - Last Filed: 09/21/22 18:50> Orders Ordered: Discontinued Medications Acetaminophen (Acetaminophen 325 Mg Tablet) 650 mg PO Q6H PRN PRN Reason: Fever/Mild Pain (1-3) Last Admin: 09/21/22 12:44 Dose: 650 mg Documented By: GARY Hydrocodone Bitart/Acetaminophen (Hydrocodone/Acet 5/325 Tablet) 1 tab PO NOW ONE Stop: 09/15/22 12:46 Last Admin: 09/15/22 13:08 Dose: 1 tab Documented By: TERRIE Hydrocodone Bitart/Acetaminophen (Hydrocodone/Acet 5/325 Tablet) 1 tab PO Q4HR PRN PRN Reason: Pain, Moderate (4-6) Last Admin: 09/20/22 20:55 Dose: 1 tab Documented By: Admin: 09/17/22 14:25 Dose: 1 tab Documented By: HAL Hydrocodone Bitart/Acetaminophen (Hydrocodone/Acet 5/325 Tablet) 1 tab PO PACUNOW PRN PRN Reason: Mild or moderate pain Albuterol/Ipratropium (Albuterol/Ipratropium 3 Ml Ampul) 3 ml INH [id number] TITUS Last Admin: 09/23/22 07:29 Dose: 3 ml Documented By: Admin: 09/23/22 03:49 Dose: Not Given Documented By: Admin: 09/22/22 12:56 Dose: 3 ml Documented By: Admin: 09/22/22 07:33 Dose: Not Given Documented By: Admin: 09/21/22 19:20 Dose: Not Given Documented By: Admin: 09/21/22 13:13 Dose: Not Given Documented By: Admin: 09/21/22 07:45 Dose: 3 ml Documented By: Admin: 09/20/22 22:21 Dose: Not Given Documented By: Admin: 09/20/22 13:53 Dose: Not Given Documented By: Admin: 09/20/22 08:08 Dose: Not Given Documented By: Admin: 09/20/22 06:31 Dose: Not Given Documented By: Admin: 09/19/22 13:00 Dose: Not Given Documented By: Admin: 09/19/22 07:45 Dose: 3 ml Documented By: Admin: 09/18/22 20:32 Dose: 3 ml Documented By: Admin: 09/18/22 13:47 Dose: 3 ml Documented By: Admin: 09/18/22 08:32 Dose: 3 ml Documented By: Admin: 09/17/22 19:24 Dose: 3 ml Documented By: Admin: 09/17/22 14:13 Dose: Not Given Documented By: Admin: 09/17/22 07:53 Dose: 3 ml Documented By: Admin: 09/16/22 19:22 Dose: Not Given Documented By: BELLA(2) Admin: 09/16/22 13:18 Dose: Not Given Documented By: BELLA(2) Admin: 09/16/22 08:21 Dose: 3 ml Documented By: BELLA(2) Allopurinol (Allopurinol 100 Mg Tablet) 200 mg PO DAILY [facility] Last Admin: 09/17/22 07:59 Dose: 200 mg Documented By: Admin: 09/16/22 08:34 Dose: 200 mg Documented By: OMAYRA Allopurinol (Allopurinol 100 Mg Tablet) 200 mg PO DAILY [facility] Last Admin: 09/23/22 09:42 Dose: 200 mg Documented By: Admin: 09/22/22 08:47 Dose: 200 mg Documented By: Admin: 09/21/22 08:44 Dose: 200 mg Documented By: Admin: 09/20/22 09:23 Dose: 200 mg Documented By: EPI Aspirin (Aspirin Ec 81 Mg Tablet) 81 mg PO BID [facility] Last Admin: 09/23/22 09:42 Dose: 81 mg Documented By: Admin: 09/22/22 20:19 Dose: 81 mg Documented By: BERTIN2) Admin: 09/22/22 08:47 Dose: 81 mg Documented By: Admin: 09/21/22 23:05 Dose: 81 mg Documented By: Admin: 09/21/22 08:44 Dose: 81 mg Documented By: Admin: 09/20/22 20:56 Dose: 81 mg Documented By: Admin: 09/20/22 10:41 Dose: 81 mg Documented By: EPI Atorvastatin Calcium (Atorvastatin 20 Mg Tablet) 20 mg PO BEDTIME [facility] Last Admin: 09/18/22 21:17 Dose: 20 mg Documented By: Admin: 09/17/22 22:23 Dose: 20 mg Documented By: Admin: 09/16/22 21:02 Dose: 20 mg Documented By: DEVORA Atorvastatin Calcium (Atorvastatin 20 Mg Tablet) 10 mg PO BEDTIME [facility] Last Admin: 09/22/22 20:19 Dose: 10 mg Documented By: (2) Admin: 09/21/22 23:05 Dose: 10 mg Documented By: Admin: 09/20/22 20:56 Dose: 10 mg Documented By: Admin: 09/19/22 20:53 Dose: 10 mg Documented By: Bupivacaine HCl/Epinephrine Bitart (Bupivacaine 0.5% W/ Epi (Pf) 30 Ml Vial) 30 ml INJ NOW ONE Stop: 09/19/22 15:45 Last Admin: 09/19/22 15:44 Dose: 30 ml Documented By: BRIANNA Carvedilol (Carvedilol 3.125 Mg Tablet) 6.25 mg PO BID [facility] Last Admin: 09/17/22 07:59 Dose: 6.25 mg Documented By: Admin: 09/16/22 21:01 Dose: 6.25 mg Documented By: Admin: 09/16/22 08:35 Dose: 6.25 mg Documented By: OMAYRA Carvedilol (Carvedilol 3.125 Mg Tablet) 6.25 mg PO BID [facility] Last Admin: 09/23/22 09:41 Dose: 6.25 mg Documented By: Admin: 09/22/22 20:18 Dose: 6.25 mg Documented By: (2) Admin: 09/22/22 08:59 Dose: 6.25 mg Documented By: Admin: 09/21/22 23:05 Dose: 6.25 mg Documented By: Admin: 09/21/22 08:44 Dose: 6.25 mg Documented By: Admin: 09/20/22 20:56 Dose: 6.25 mg Documented By: Admin: 09/20/22 09:24 Dose: 6.25 mg Documented By: Admin: 09/19/22 20:54 Dose: 6.25 mg Documented By: Dextrose (Dextrose 50 % In Water 25 Gm/50 Ml Syringe) 25 gm IV PRN PRN PRN Reason: Hypoglycemia Diazepam (Diazepam 5 Mg Tablet) 5 mg PO NOW ONE Stop: 09/15/22 13:43 Last Admin: 09/15/22 13:47 Dose: 5 mg Documented By: TERRIE Enoxaparin Sodium (Enoxaparin 40 Mg/0.4 Ml Syringe) 40 mg SUBCUT DAILY [facility] Last Admin: 09/23/22 09:37 Dose: 40 mg Documented By: Admin: 09/22/22 12:17 Dose: 40 mg Documented By: SHAHAB Fentanyl (Fentanyl 100 Mcg/2 Ml Inj) 50 mcg IV NOW ONE Stop: 09/15/22 10:45 Last Admin: 09/15/22 11:01 Dose: 50 mcg Documented By: TERRIE Fentanyl (Fentanyl 100 Mcg/2 Ml Inj) 0 mcg IV Q5MIN PRN PRN Reason: Pain, Severe (7-10) Fentanyl (Fentanyl 100 Mcg/2 Ml Inj) 0 mcg IV Q5M PRN PRN Reason: Pain, Moderate (4-6) Fentanyl (Fentanyl 100 Mcg/2 Ml Inj) 0 mcg IV Q5M PRN PRN Reason: Pain, Severe (7-10) Furosemide (Furosemide 40 Mg Tablet) 80 mg PO DAILY [facility] Last Admin: 09/17/22 07:59 Dose: 80 mg Documented By: Admin: 09/16/22 08:37 Dose: 80 mg Documented By: OMAYRA Furosemide (Furosemide 40 Mg Tablet) 80 mg PO DAILY [facility] Last Admin: 09/23/22 09:42 Dose: 80 mg Documented By: Admin: 09/22/22 08:47 Dose: 80 mg Documented By: Admin: 09/21/22 08:45 Dose: 80 mg Documented By: Admin: 09/20/22 09:24 Dose: 80 mg Documented By: EPI Gabapentin (Gabapentin 300 Mg Capsule) 300 mg PO TID [facility] Last Admin: 09/17/22 14:25 Dose: 300 mg Documented By: Admin: 09/17/22 07:59 Dose: 300 mg Documented By: Admin: 09/16/22 21:01 Dose: 300 mg Documented By: Admin: 09/16/22 14:33 Dose: 300 mg Documented By: Admin: 09/16/22 08:40 Dose: 300 mg Documented By: OMAYRA Gabapentin (Gabapentin 300 Mg Capsule) 300 mg PO TID [facility] Last Admin: 09/23/22 09:42 Dose: 300 mg Documented By: Admin: 09/22/22 20:19 Dose: 300 mg Documented By: (2) Admin: 09/22/22 15:55 Dose: 300 mg Documented By: Admin: 09/22/22 08:47 Dose: 300 mg Documented By: Admin: 09/21/22 23:05 Dose: 300 mg Documented By: Admin: 09/21/22 14:14 Dose: 300 mg Documented By: Admin: 09/21/22 08:44 Dose: 300 mg Documented By: Admin: 09/20/22 20:56 Dose: 300 mg Documented By: Admin: 09/20/22 14:34 Dose: 300 mg Documented By: Admin: 09/20/22 09:24 Dose: 300 mg Documented By: Admin: 09/19/22 20:54 Dose: 300 mg Documented By: Heparin Sodium (Porcine) (Heparin 5,000 Unit/Ml Vial) 5,000 unit SUBCUT BID TITUS Last Admin: 09/18/22 11:00 Dose: 5,000 unit Documented By: Admin: 09/18/22 01:41 Dose: 5,000 unit Documented By: Hydromorphone HCl (Hydromorphone 0.5 Mg Inj) 0.5 mg IV Q4H PRN PRN Reason: Pain, Moderate (4-6) Last Admin: 09/20/22 05:43 Dose: 0.5 mg Documented By: Admin: 09/20/22 00:28 Dose: 0.5 mg Documented By: Admin: 09/19/22 10:00 Dose: 0.5 mg Documented By: Admin: 09/18/22 21:17 Dose: 0.5 mg Documented By: Admin: 09/18/22 13:25 Dose: 0.5 mg Documented By: Admin: 09/18/22 09:04 Dose: 0.5 mg Documented By: Admin: 09/18/22 02:15 Dose: 0.5 mg Documented By: Sodium Chloride (Normal Saline 0.9%) 1,000 mls @ 1,000 mls/hr IV BOLUS ONE Stop: 09/17/22 13:51 Last Infusion: 09/17/22 15:54 Dose: 0 mls/hr Documented By: Infusion: 09/17/22 14:15 Dose: 125 mls/hr Documented By: Admin: 09/17/22 13:17 Dose: 1,000 mls/hr Documented By: HAL Sodium Chloride (Normal Saline 0.9%) 1,000 mls @ 1,000 mls/hr IV BOLUS ONE Stop: 09/17/22 13:52 Last Admin: 09/17/22 14:17 Dose: Not Given Documented By: HAL Ceftriaxone Sodium 1,000 mg/ (Sodium Chloride) 100 mls @ 200 mls/hr IV NOW ONE Stop: 09/17/22 14:57 Last Infusion: 09/17/22 16:16 Dose: 0 mls/hr Documented By: Admin: 09/17/22 15:38 Dose: 200 mls/hr Documented By: HAL Lactated Ringer's (Lactated Ringers) 1,000 mls @ 1,000 mls/hr IV BOLUS ONE Stop: 09/17/22 16:43 Last Infusion: 09/17/22 17:27 Dose: 0 mls/hr Documented By: Admin: 09/17/22 15:54 Dose: 1,000 mls/hr Documented By: HAL Piperacillin Sod/Tazobactam (Sod 4.5 gm/ Sodium Chloride) 100 mls @ 200 mls/hr IV NOW ONE Stop: 09/17/22 18:48 Last Infusion: 09/17/22 19:55 Dose: 0 mls/hr Documented By: Admin: 09/17/22 19:22 Dose: 200 mls/hr Documented By: HAL Piperacillin Sod/Tazobactam (Sod 3.375 gm/ Sodium Chloride) 100 mls @ 25 mls/hr IV Q8H TITUS Last Infusion: 09/20/22 08:09 Dose: 25 mls/hr Documented By: Admin: 09/20/22 03:12 Dose: 25 mls/hr Documented By: Infusion: 09/19/22 22:46 Dose: 25 mls/hr Documented By: Admin: 09/19/22 18:46 Dose: 25 mls/hr Documented By: Infusion: 09/19/22 14:29 Dose: 25 mls/hr Documented By: Admin: 09/19/22 10:29 Dose: 25 mls/hr Documented By: Infusion: 09/19/22 07:34 Dose: 25 mls/hr Documented By: Admin: 09/19/22 03:34 Dose: 25 mls/hr Documented By: Infusion: 09/18/22 22:33 Dose: 25 mls/hr Documented By: Admin: 09/18/22 18:33 Dose: 25 mls/hr Documented By: Infusion: 09/18/22 16:00 Dose: 25 mls/hr Documented By: Admin: 09/18/22 12:00 Dose: 25 mls/hr Documented By: Infusion: 09/18/22 06:57 Dose: 25 mls/hr Documented By: Admin: 09/18/22 02:57 Dose: 25 mls/hr Documented By: Tranexamic Acid 1,000 mg/ (Sodium Chloride) 100 mls @ 200 mls/hr IV NOW ONE Stop: 09/19/22 15:47 Last Admin: 09/19/22 15:18 Dose: 200 mls/hr Documented By: ARNULFO Insulin Glargine (Insulin Glargine 100 Unit/Ml 3ml Pen) 10 unit SUBCUT BID [facility] Last Admin: 09/18/22 09:17 Dose: 10 unit Documented By: ADELE Co-signed By: JAVI Admin: 09/17/22 22:19 Dose: 10 unit Documented By: GC Co-signed By: OW Admin: 09/17/22 08:15 Dose: 10 unit Documented By: KM Co-signed By: OMAYRA Admin: 09/16/22 20:53 Dose: 10 unit Documented By: OW Co-signed By: SB Insulin Glargine (Insulin Glargine 100 Unit/Ml 3ml Pen) 15 unit SUBCUT BID [facility] Last Admin: 09/19/22 10:00 Dose: Not Given Documented By: Admin: 09/18/22 21:22 Dose: 15 unit Documented By: MS Co-signed By: CB Insulin Glargine (Insulin Glargine 100 Unit/Ml 3ml Pen) 20 unit SUBCUT BID [facility] Admin: 09/23/22 09:49 Dose: 20 unit Documented By: EM Co-signed By: ADELE Admin: 09/22/22 20:22 Dose: 20 unit Documented By: MS(2) Co-signed By: TLS Admin: 09/22/22 08:45 Dose: 20 unit Documented By: BR Co-signed By: CLP Admin: 09/21/22 23:05 Dose: 20 unit Documented By: MEDHAT Co-signed By: GABRIEL Admin: 09/21/22 08:35 Dose: 20 unit Documented By: GARY Co-signed By: JORGE Admin: 09/20/22 20:59 Dose: 20 unit Documented By: MS Co-signed By: THERON Admin: 09/20/22 09:21 Dose: 20 unit Documented By: BT Co-signed By: GARY Admin: 09/19/22 21:01 Dose: 20 unit Documented By: Co-signed By: ISRAEL Admin: 09/19/22 11:52 Dose: 20 unit Documented By: ADELE Co-signed By: VIDYA Insulin Human Isoph/Insulin Regular (Insulin Nph/Reg 70-30 100 Unit/Ml 3ml Vial) 10 unit SUBCUT BID [facility] Last Admin: 09/19/22 22:35 Dose: Not Given Documented By: MS Insulin Human Lispro (Insulin Lispro 100 Unit/Ml 3ml Vial) 0 unit SUBCUT ACHS [facility]; Protocol Last Admin: 09/19/22 11:45 Dose: Not Given Documented By: Admin: 09/19/22 08:41 Dose: 3 unit Documented By: ADELE Co-signed By: JAVI Admin: 09/18/22 21:22 Dose: 3 unit Documented By: Co-signed By: UDAY Admin: 09/18/22 18:29 Dose: 7 unit Documented By: ADELE Co-signed By: JAVI Admin: 09/18/22 12:12 Dose: 3 unit Documented By: ADELE Co-signed By: JAVI Admin: 09/18/22 09:17 Dose: 3 unit Documented By: ADELE Co-signed By: JAVI Admin: 09/17/22 21:26 Dose: 5 unit Documented By: GC Co-signed By: RB Admin: 09/17/22 16:39 Dose: 3 unit Documented By: HAL Co-signed By: CESAR Admin: 09/17/22 12:15 Dose: 5 unit Documented By: KM Co-signed By: KB Admin: 09/17/22 08:16 Dose: 3 unit Documented By: KM Co-signed By: OMAYRA Admin: 09/16/22 20:49 Dose: 3 unit Documented By: OW Co-signed By: FÉLIX Admin: 09/16/22 16:51 Dose: 8 unit Documented By: RB Co-signed By: JULIETH Admin: 09/16/22 12:29 Dose: 8 unit Documented By: ZE Co-signed By: JULIETH Admin: 09/16/22 08:23 Dose: 5 unit Documented By: OMAYRA Co-signed By: MLM Insulin Human Lispro (Insulin Lispro 100 Unit/Ml 3ml Vial) 0 unit SUBCUT ACHS TITUS; Protocol Last Admin: 09/23/22 09:50 Dose: 4 unit Documented By: EM Co-signed By: ADELE Admin: 09/22/22 20:20 Dose: 2 unit Documented By: MS(2) Co-signed By: TLS Admin: 09/22/22 17:27 Dose: 4 unit Documented By: SHAHAB Co-signed By: CLP Admin: 09/22/22 12:17 Dose: 2 unit Documented By: BR Co-signed By: CLP Admin: 09/22/22 08:41 Dose: 2 unit Documented By: BR Co-signed By: CLP Admin: 09/21/22 23:05 Dose: 2 unit Documented By: MEDHAT Co-signed By: GABRIEL Admin: 09/21/22 16:35 Dose: 2 unit Documented By: GARY Co-signed By: (3) Admin: 09/21/22 11:22 Dose: 2 unit Documented By: GARY Co-signed By: JORGE Admin: 09/21/22 08:37 Dose: 2 unit Documented By: GARY Co-signed By: LDFrances Admin: 09/20/22 20:58 Dose: 2 unit Documented By: Co-signed By: THERON Admin: 09/20/22 17:27 Dose: 4 unit Documented By: EPI Co-signed By: GARY Admin: 09/20/22 12:54 Dose: 10 unit Documented By: BT Co-signed By: BRANT Admin: 09/20/22 08:54 Dose: 7 unit Documented By: EPI Co-signed By: GARY Admin: 09/19/22 21:00 Dose: 5 unit Documented By: MS Co-signed By: ISRAEL Admin: 09/19/22 18:44 Dose: 7 unit Documented By: ADELE Co-signed By: JAVI Insulin Human Lispro (Insulin Lispro 100 Unit/Ml 3ml Vial) 5 unit SUBCUT AC TITUS Last Admin: 09/23/22 09:50 Dose: 5 unit Documented By: EM Co-signed By: EJ Admin: 09/22/22 17:27 Dose: 5 unit Documented By: SHAHAB Co-signed By: CLP Admin: 09/22/22 12:17 Dose: 5 unit Documented By: SHAHAB Co-signed By: CLP Admin: 09/22/22 08:41 Dose: 5 unit Documented By: SHAHAB Co-signed By: CLP Admin: 09/21/22 16:35 Dose: 5 unit Documented By: GARY Co-signed By: (3) Admin: 09/21/22 11:22 Dose: 5 unit Documented By: GARY Co-signed By: JORGE Admin: 09/21/22 08:37 Dose: 5 unit Documented By: GARY Co-signed By: JORGE Admin: 09/20/22 17:27 Dose: 5 unit Documented By: EPI Co-signed By: GARY Admin: 09/20/22 12:54 Dose: 5 unit Documented By: EPI Co-signed By: CLL Levothyroxine Sodium (Levothyroxine 100 Mcg Tablet) 100 mcg PO DAILY@0600 [facility] Last Admin: 09/19/22 05:40 Dose: 100 mcg Documented By: Admin: 09/18/22 06:15 Dose: Not Given Documented By: Admin: 09/17/22 05:45 Dose: 100 mcg Documented By: FÉLIX Levothyroxine Sodium (Levothyroxine 100 Mcg Tablet) 100 mcg PO DAILY@0600 [facility] Last Admin: 09/23/22 09:43 Dose: Not Given Documented By: Admin: 09/22/22 06:45 Dose: Not Given Documented By: Admin: 09/21/22 05:07 Dose: 100 mcg Documented By: Admin: 09/20/22 05:58 Dose: 100 mcg Documented By: Lisinopril (Lisinopril 20 Mg Tablet) 40 mg PO DAILY [facility] Last Admin: 09/17/22 08:00 Dose: 40 mg Documented By: HAL Loperamide HCl (Loperamide 2 Mg Capsule) 2 mg PO QID PRN PRN Reason: Diarrhea Losartan Potassium (Losartan 50 Mg Tablet) 100 mg PO DAILY [facility] Last Admin: 09/23/22 09:38 Dose: 100 mg Documented By: Admin: 09/22/22 08:59 Dose: 100 mg Documented By: Admin: 09/21/22 08:44 Dose: 100 mg Documented By: Admin: 09/20/22 09:23 Dose: 100 mg Documented By: EPI Montelukast Sodium (Montelukast 10 Mg Tablet) 10 mg PO DAILY [facility] Last Admin: 09/23/22 09:41 Dose: 10 mg Documented By: Admin: 09/22/22 08:47 Dose: 10 mg Documented By: Admin: 09/21/22 08:44 Dose: 10 mg Documented By: Admin: 09/20/22 09:24 Dose: 10 mg Documented By: Admin: 09/19/22 08:43 Dose: 10 mg Documented By: Admin: 09/18/22 09:05 Dose: 10 mg Documented By: ADELE Morphine Sulfate (Morphine 4 Mg/Ml Inj) 4 mg IV Q4HR [facility] Last Admin: 09/15/22 17:58 Dose: Not Given Documented By: FLH Morphine Sulfate (Morphine 4 Mg/Ml Inj) 4 mg IV Q4H PRN PRN Reason: Pain, Moderate (4-6) Last Admin: 09/16/22 16:33 Dose: 4 mg Documented By: Admin: 09/15/22 18:02 Dose: 4 mg Documented By: TERRIE Naloxone HCl (Naloxone 0.4 Mg/Ml Vial) 0.2 mg IV Q2MIN PRN PRN Reason: Opiate Reversal Naloxone HCl (Naloxone 0.4 Mg/Ml Vial) 0.2 mg IV Q2MIN PRN PRN Reason: Opiate Reversal Ondansetron HCl (Ondansetron 4 Mg/2 Ml Inj) 4 mg IV Q8HR PRN PRN Reason: Nausea And Vomiting Last Admin: 09/20/22 20:56 Dose: 4 mg Documented By: Admin: 09/20/22 00:28 Dose: 4 mg Documented By: Pantoprazole Sodium (Pantoprazole 40 Mg Vial) 40 mg IV NOW ONE Stop: 09/16/22 05:38 Last Admin: 09/16/22 05:47 Dose: 40 mg Documented By: FÉLIX Potassium Chloride (Potassium Chloride 10 Meq Tab) [facility] Admin: 09/17/22 07:58 Dose: 10 meq Documented By: Admin: 09/16/22 08:34 Dose: 10 meq Documented By: OMAYRA Potassium Chloride (Potassium Chloride 10 Meq Tab) 10 meq PO DAILY [facility] Last Admin: 09/23/22 09:41 Dose: 10 meq Documented By: Admin: 09/22/22 08:47 Dose: 10 meq Documented By: Admin: 09/21/22 08:44 Dose: 10 meq Documented By: Admin: 09/20/22 09:24 Dose: 10 meq Documented By: EPI Vital Signs Vital signs: Vital Signs - 8 hr 09/17/22 14:00 09/17/22 14:00 09/17/22 14:15 Pulse Rate 71 70 Respiratory Rate 27 H 21 Blood Pressure 111/55 L Pulse Oximetry 98 96 Oxygen Delivery Method Oxygen Flow Rate Fraction of Inspired Oxygen 09/17/22 14:30 09/17/22 14:38 09/17/22 14:38 Pulse Rate 78 74 Respiratory Rate 20 22 Blood Pressure 100/70 Pulse Oximetry 94 94 Oxygen Delivery Method Oxygen Flow Rate Fraction of Inspired Oxygen 09/17/22 14:45 09/17/22 15:00 09/17/22 15:01 Pulse Rate 73 71 Respiratory Rate 28 H 21 Blood Pressure 92/56 L Pulse Oximetry 93 92 Oxygen Delivery Method Oxygen Flow Rate Fraction of Inspired Oxygen 09/17/22 15:01 09/17/22 15:15 09/17/22 15:30 Pulse Rate 72 70 Respiratory Rate 21 21 Blood Pressure 88/49 L Pulse Oximetry 91 92 Oxygen Delivery Method Nasal Cannula Oxygen Flow Rate 2 Fraction of Inspired Oxygen 09/17/22 15:30 09/17/22 15:33 09/17/22 15:33 Pulse Rate 68 69 Respiratory Rate 20 22 Blood Pressure 89/53 L Pulse Oximetry 91 92 Oxygen Delivery Method Nasal Cannula Oxygen Flow Rate 2 Fraction of Inspired Oxygen 09/17/22 15:40 09/17/22 15:40 09/17/22 15:45 Pulse Rate 67 68 Respiratory Rate 19 18 Blood Pressure 100/56 L Pulse Oximetry 93 95 Oxygen Delivery Method Oxygen Flow Rate Fraction of Inspired Oxygen 09/17/22 15:50 09/17/22 15:50 09/17/22 16:00 Pulse Rate 68 68 Respiratory Rate 35 H 21 Blood Pressure 93/55 L Pulse Oximetry 93 96 Oxygen Delivery Method Oxygen Flow Rate Fraction of Inspired Oxygen 09/17/22 16:01 09/17/22 16:01 09/17/22 16:10 Pulse Rate 68 Respiratory Rate 21 Blood Pressure 109/57 L 116/66 Pulse Oximetry 96 Oxygen Delivery Method Oxygen Flow Rate Fraction of Inspired Oxygen 09/17/22 16:10 09/17/22 16:15 09/17/22 16:20 Pulse Rate 69 69 71 Respiratory Rate 22 18 21 Blood Pressure Pulse Oximetry 96 97 97 Oxygen Delivery Method Oxygen Flow Rate Fraction of Inspired Oxygen 09/17/22 16:20 09/17/22 16:30 09/17/22 16:30 Pulse Rate 70 Respiratory Rate 20 Blood Pressure 128/77 123/59 L Pulse Oximetry 97 Oxygen Delivery Method Oxygen Flow Rate Fraction of Inspired Oxygen 09/17/22 16:40 09/17/22 16:40 09/17/22 16:45 Pulse Rate 70 69 Respiratory Rate 26 H 34 H Blood Pressure 118/61 Pulse Oximetry 99 97 Oxygen Delivery Method Oxygen Flow Rate Fraction of Inspired Oxygen 09/17/22 16:50 09/17/22 16:50 09/17/22 17:00 Pulse Rate 70 Respiratory Rate 32 H Blood Pressure 115/55 L 118/58 L Pulse Oximetry 96 Oxygen Delivery Method Oxygen Flow Rate Fraction of Inspired Oxygen 09/17/22 17:00 09/17/22 17:10 09/17/22 17:10 Pulse Rate 71 72 Respiratory Rate 30 H 26 H Blood Pressure 121/58 L Pulse Oximetry 91 96 Oxygen Delivery Method Oxygen Flow Rate Fraction of Inspired Oxygen 09/17/22 17:15 09/17/22 17:20 09/17/22 17:20 Pulse Rate 71 72 Respiratory Rate 27 H 33 H Blood Pressure 107/55 L Pulse Oximetry 96 95 Oxygen Delivery Method Oxygen Flow Rate Fraction of Inspired Oxygen 09/17/22 17:30 09/17/22 17:30 09/17/22 17:40 Pulse Rate 72 Respiratory Rate 35 H Blood Pressure 95/54 L 104/54 L Pulse Oximetry 93 Oxygen Delivery Method Oxygen Flow Rate Fraction of Inspired Oxygen 09/17/22 17:40 09/17/22 17:45 09/17/22 17:50 Pulse Rate 70 71 75 Respiratory Rate 22 24 17 Blood Pressure Pulse Oximetry 96 94 96 Oxygen Delivery Method Nasal Cannula Oxygen Flow Rate 2 Fraction of Inspired Oxygen 09/17/22 17:50 09/17/22 18:00 09/17/22 18:01 Pulse Rate 74 Respiratory Rate 21 Blood Pressure 115/62 134/66 Pulse Oximetry 96 Oxygen Delivery Method Oxygen Flow Rate Fraction of Inspired Oxygen 09/17/22 18:01 09/17/22 18:10 09/17/22 18:10 Pulse Rate 73 72 Respiratory Rate 17 17 Blood Pressure 123/59 L Pulse Oximetry 97 98 Oxygen Delivery Method Oxygen Flow Rate Fraction of Inspired Oxygen 09/17/22 18:15 09/17/22 18:21 09/17/22 18:21 Pulse Rate 71 73 Respiratory Rate 17 22 Blood Pressure 118/69 Pulse Oximetry 97 96 Oxygen Delivery Method Oxygen Flow Rate Fraction of Inspired Oxygen 09/17/22 18:30 09/17/22 18:31 09/17/22 18:31 Pulse Rate 73 73 Respiratory Rate 20 27 H Blood Pressure 120/78 Pulse Oximetry 95 95 Oxygen Delivery Method Oxygen Flow Rate Fraction of Inspired Oxygen 09/17/22 18:40 09/17/22 18:40 09/17/22 18:45 Pulse Rate 69 70 Respiratory Rate 19 18 Blood Pressure 121/60 Pulse Oximetry 95 96 Oxygen Delivery Method Oxygen Flow Rate Fraction of Inspired Oxygen 09/17/22 19:24 09/17/22 18:50 09/17/22 18:50 Pulse Rate 78 70 Respiratory Rate 16 20 Blood Pressure 109/54 L Pulse Oximetry 95 96 Oxygen Delivery Method Oxygen Flow Rate 2 Fraction of Inspired Oxygen 28 09/17/22 19:00 09/17/22 19:01 09/17/22 19:01 Pulse Rate 71 69 Respiratory Rate 18 17 Blood Pressure 132/58 L Pulse Oximetry 97 97 Oxygen Delivery Method Oxygen Flow Rate Fraction of Inspired Oxygen 09/17/22 19:10 09/17/22 19:10 09/17/22 19:15 Pulse Rate 71 73 Respiratory Rate 18 18 Blood Pressure 102/42 L Pulse Oximetry 95 95 Oxygen Delivery Method Oxygen Flow Rate Fraction of Inspired Oxygen 09/17/22 19:20 09/17/22 19:20 Pulse Rate 69 Respiratory Rate 19 Blood Pressure 106/55 L Pulse Oximetry 95 Oxygen Delivery Method Oxygen Flow Rate Fraction of Inspired Oxygen <Garrett Almeida DO - Last Filed: 09/17/22 21:53> Orders Ordered: Discontinued Medications Acetaminophen (Acetaminophen 325 Mg Tablet) 650 mg PO Q6H PRN PRN Reason: Fever/Mild Pain (1-3) Last Admin: 09/21/22 12:44 Dose: 650 mg Documented By: GARY Hydrocodone Bitart/Acetaminophen (Hydrocodone/Acet 5/325 Tablet) 1 tab PO NOW ONE Stop: 09/15/22 12:46 Last Admin: 09/15/22 13:08 Dose: 1 tab Documented By: TERRIE Hydrocodone Bitart/Acetaminophen (Hydrocodone/Acet 5/325 Tablet) 1 tab PO Q4HR PRN PRN Reason: Pain, Moderate (4-6) Last Admin: 09/20/22 20:55 Dose: 1 tab Documented By: Admin: 09/17/22 14:25 Dose: 1 tab Documented By: HAL Hydrocodone Bitart/Acetaminophen (Hydrocodone/Acet 5/325 Tablet) 1 tab PO PACUNOW PRN PRN Reason: Mild or moderate pain Albuterol/Ipratropium (Albuterol/Ipratropium 3 Ml Ampul) 3 ml INH [id number] [facility] Last Admin: 09/23/22 07:29 Dose: 3 ml Documented By: Admin: 09/23/22 03:49 Dose: Not Given Documented By: Admin: 09/22/22 12:56 Dose: 3 ml Documented By: Admin: 09/22/22 07:33 Dose: Not Given Documented By: Admin: 09/21/22 19:20 Dose: Not Given Documented By: Admin: 09/21/22 13:13 Dose: Not Given Documented By: Admin: 09/21/22 07:45 Dose: 3 ml Documented By: Admin: 09/20/22 22:21 Dose: Not Given Documented By: Admin: 09/20/22 13:53 Dose: Not Given Documented By: Admin: 09/20/22 08:08 Dose: Not Given Documented By: Admin: 09/20/22 06:31 Dose: Not Given Documented By: Admin: 09/19/22 13:00 Dose: Not Given Documented By: Admin: 09/19/22 07:45 Dose: 3 ml Documented By: Admin: 09/18/22 20:32 Dose: 3 ml Documented By: Admin: 09/18/22 13:47 Dose: 3 ml Documented By: Admin: 09/18/22 08:32 Dose: 3 ml Documented By: Admin: 09/17/22 19:24 Dose: 3 ml Documented By: Admin: 09/17/22 14:13 Dose: Not Given Documented By: Admin: 09/17/22 07:53 Dose: 3 ml Documented By: Admin: 09/16/22 19:22 Dose: Not Given Documented By: BELLA(2) Admin: 09/16/22 13:18 Dose: Not Given Documented By: BELLA(2) Admin: 09/16/22 08:21 Dose: 3 ml Documented By: BELLA(2) Allopurinol (Allopurinol 100 Mg Tablet) 200 mg PO DAILY [facility] Admin: 09/17/22 07:59 Dose: 200 mg Documented By: Admin: 09/16/22 08:34 Dose: 200 mg Documented By: OMAYRA Allopurinol (Allopurinol 100 Mg Tablet) 200 mg PO DAILY [facility] Last Admin: 09/23/22 09:42 Dose: 200 mg Documented By: Admin: 09/22/22 08:47 Dose: 200 mg Documented By: Admin: 09/21/22 08:44 Dose: 200 mg Documented By: Admin: 09/20/22 09:23 Dose: 200 mg Documented By: EPI Aspirin (Aspirin Ec 81 Mg Tablet) 81 mg PO BID [facility] Last Admin: 09/23/22 09:42 Dose: 81 mg Documented By: Admin: 09/22/22 20:19 Dose: 81 mg Documented By: BERTIN2) Admin: 09/22/22 08:47 Dose: 81 mg Documented By: Admin: 09/21/22 23:05 Dose: 81 mg Documented By: Admin: 09/21/22 08:44 Dose: 81 mg Documented By: Admin: 09/20/22 20:56 Dose: 81 mg Documented By: Admin: 09/20/22 10:41 Dose: 81 mg Documented By: EPI Atorvastatin Calcium (Atorvastatin 20 Mg Tablet) 20 mg PO BEDTIME [facility] Last Admin: 09/18/22 21:17 Dose: 20 mg Documented By: Admin: 09/17/22 22:23 Dose: 20 mg Documented By: Admin: 09/16/22 21:02 Dose: 20 mg Documented By: DEVORA Atorvastatin Calcium (Atorvastatin 20 Mg Tablet) 10 mg PO BEDTIME [facility] Last Admin: 09/22/22 20:19 Dose: 10 mg Documented By: (2) Admin: 09/21/22 23:05 Dose: 10 mg Documented By: Admin: 09/20/22 20:56 Dose: 10 mg Documented By: Admin: 09/19/22 20:53 Dose: 10 mg Documented By: Bupivacaine HCl/Epinephrine Bitart (Bupivacaine 0.5% W/ Epi (Pf) 30 Ml Vial) 30 ml INJ NOW ONE Stop: 09/19/22 15:45 Last Admin: 09/19/22 15:44 Dose: 30 ml Documented By: BRIANNA Carvedilol (Carvedilol 3.125 Mg Tablet) 6.25 mg PO BID [facility] Last Admin: 09/17/22 07:59 Dose: 6.25 mg Documented By: Admin: 09/16/22 21:01 Dose: 6.25 mg Documented By: Admin: 09/16/22 08:35 Dose: 6.25 mg Documented By: OMAYRA Carvedilol (Carvedilol 3.125 Mg Tablet) 6.25 mg PO BID [facility] Last Admin: 09/23/22 09:41 Dose: 6.25 mg Documented By: Admin: 09/22/22 20:18 Dose: 6.25 mg Documented By: (2) Admin: 09/22/22 08:59 Dose: 6.25 mg Documented By: Admin: 09/21/22 23:05 Dose: 6.25 mg Documented By: Admin: 09/21/22 08:44 Dose: 6.25 mg Documented By: Admin: 09/20/22 20:56 Dose: 6.25 mg Documented By: Admin: 09/20/22 09:24 Dose: 6.25 mg Documented By: Admin: 09/19/22 20:54 Dose: 6.25 mg Documented By: Dextrose (Dextrose 50 % In Water 25 Gm/50 Ml Syringe) 25 gm IV PRN PRN PRN Reason: Hypoglycemia Diazepam (Diazepam 5 Mg Tablet) 5 mg PO NOW ONE Stop: 09/15/22 13:43 Last Admin: 09/15/22 13:47 Dose: 5 mg Documented By: TERRIE Enoxaparin Sodium (Enoxaparin 40 Mg/0.4 Ml Syringe) 40 mg SUBCUT DAILY [facility] Last Admin: 09/23/22 09:37 Dose: 40 mg Documented By: Admin: 09/22/22 12:17 Dose: 40 mg Documented By: SHAHAB Fentanyl (Fentanyl 100 Mcg/2 Ml Inj) 50 mcg IV NOW ONE Stop: 09/15/22 10:45 Last Admin: 09/15/22 11:01 Dose: 50 mcg Documented By: TERRIE Fentanyl (Fentanyl 100 Mcg/2 Ml Inj) 0 mcg IV Q5MIN PRN PRN Reason: Pain, Severe (7-10) Fentanyl (Fentanyl 100 Mcg/2 Ml Inj) 0 mcg IV Q5M PRN PRN Reason: Pain, Moderate (4-6) Fentanyl (Fentanyl 100 Mcg/2 Ml Inj) 0 mcg IV Q5M PRN PRN Reason: Pain, Severe (7-10) Furosemide (Furosemide 40 Mg Tablet) 80 mg PO DAILY [facility] Last Admin: 09/17/22 07:59 Dose: 80 mg Documented By: Admin: 09/16/22 08:37 Dose: 80 mg Documented By: OMAYRA Furosemide (Furosemide 40 Mg Tablet) 80 mg PO DAILY [facility] Last Admin: 09/23/22 09:42 Dose: 80 mg Documented By: Admin: 09/22/22 08:47 Dose: 80 mg Documented By: Admin: 09/21/22 08:45 Dose: 80 mg Documented By: Admin: 09/20/22 09:24 Dose: 80 mg Documented By: EPI Gabapentin (Gabapentin 300 Mg Capsule) 300 mg PO TID [facility] Last Admin: 09/17/22 14:25 Dose: 300 mg Documented By: Admin: 09/17/22 07:59 Dose: 300 mg Documented By: Admin: 09/16/22 21:01 Dose: 300 mg Documented By: Admin: 09/16/22 14:33 Dose: 300 mg Documented By: Admin: 09/16/22 08:40 Dose: 300 mg Documented By: OMAYRA Gabapentin (Gabapentin 300 Mg Capsule) 300 mg PO TID [facility] Last Admin: 09/23/22 09:42 Dose: 300 mg Documented By: Admin: 09/22/22 20:19 Dose: 300 mg Documented By: (2) Admin: 09/22/22 15:55 Dose: 300 mg Documented By: Admin: 09/22/22 08:47 Dose: 300 mg Documented By: Admin: 09/21/22 23:05 Dose: 300 mg Documented By: Admin: 09/21/22 14:14 Dose: 300 mg Documented By: Admin: 09/21/22 08:44 Dose: 300 mg Documented By: Admin: 09/20/22 20:56 Dose: 300 mg Documented By: Admin: 09/20/22 14:34 Dose: 300 mg Documented By: Admin: 09/20/22 09:24 Dose: 300 mg Documented By: Admin: 09/19/22 20:54 Dose: 300 mg Documented By: Heparin Sodium (Porcine) (Heparin 5,000 Unit/Ml Vial) 5,000 unit SUBCUT BID [facility] Last Admin: 09/18/22 11:00 Dose: 5,000 unit Documented By: Admin: 09/18/22 01:41 Dose: 5,000 unit Documented By: Hydromorphone HCl (Hydromorphone 0.5 Mg Inj) 0.5 mg IV Q4H PRN PRN Reason: Pain, Moderate (4-6) Last Admin: 09/20/22 05:43 Dose: 0.5 mg Documented By: Admin: 09/20/22 00:28 Dose: 0.5 mg Documented By: Admin: 09/19/22 10:00 Dose: 0.5 mg Documented By: Admin: 09/18/22 21:17 Dose: 0.5 mg Documented By: Admin: 09/18/22 13:25 Dose: 0.5 mg Documented By: Admin: 09/18/22 09:04 Dose: 0.5 mg Documented By: Admin: 09/18/22 02:15 Dose: 0.5 mg Documented By: Sodium Chloride (Normal Saline 0.9%) 1,000 mls @ 1,000 mls/hr IV BOLUS ONE Stop: 09/17/22 13:51 Last Infusion: 09/17/22 15:54 Dose: 0 mls/hr Documented By: Infusion: 09/17/22 14:15 Dose: 125 mls/hr Documented By: Admin: 09/17/22 13:17 Dose: 1,000 mls/hr Documented By: HAL Sodium Chloride (Normal Saline 0.9%) 1,000 mls @ 1,000 mls/hr IV BOLUS ONE Stop: 09/17/22 13:52 Last Admin: 09/17/22 14:17 Dose: Not Given Documented By: HAL Ceftriaxone Sodium 1,000 mg/ (Sodium Chloride) 100 mls @ 200 mls/hr IV NOW ONE Stop: 09/17/22 14:57 Last Infusion: 09/17/22 16:16 Dose: 0 mls/hr Documented By: Admin: 09/17/22 15:38 Dose: 200 mls/hr Documented By: HAL Lactated Ringer's (Lactated Ringers) 1,000 mls @ 1,000 mls/hr IV BOLUS ONE Stop: 09/17/22 16:43 Last Infusion: 09/17/22 17:27 Dose: 0 mls/hr Documented By: Admin: 09/17/22 15:54 Dose: 1,000 mls/hr Documented By: HAL Piperacillin Sod/Tazobactam (Sod 4.5 gm/ Sodium Chloride) 100 mls @ 200 mls/hr IV NOW ONE Stop: 09/17/22 18:48 Last Infusion: 09/17/22 19:55 Dose: 0 mls/hr Documented By: Admin: 09/17/22 19:22 Dose: 200 mls/hr Documented By: HAL Piperacillin Sod/Tazobactam (Sod 3.375 gm/ Sodium Chloride) 100 mls @ 25 mls/hr IV Q8H TITUS Last Infusion: 09/20/22 08:09 Dose: 25 mls/hr Documented By: Admin: 09/20/22 03:12 Dose: 25 mls/hr Documented By: Infusion: 09/19/22 22:46 Dose: 25 mls/hr Documented By: Admin: 09/19/22 18:46 Dose: 25 mls/hr Documented By: Infusion: 09/19/22 14:29 Dose: 25 mls/hr Documented By: Admin: 09/19/22 10:29 Dose: 25 mls/hr Documented By: Infusion: 09/19/22 07:34 Dose: 25 mls/hr Documented By: Admin: 09/19/22 03:34 Dose: 25 mls/hr Documented By: Infusion: 09/18/22 22:33 Dose: 25 mls/hr Documented By: Admin: 09/18/22 18:33 Dose: 25 mls/hr Documented By: Infusion: 09/18/22 16:00 Dose: 25 mls/hr Documented By: Admin: 09/18/22 12:00 Dose: 25 mls/hr Documented By: Infusion: 09/18/22 06:57 Dose: 25 mls/hr Documented By: Admin: 09/18/22 02:57 Dose: 25 mls/hr Documented By: Tranexamic Acid 1,000 mg/ (Sodium Chloride) 100 mls @ 200 mls/hr IV NOW ONE Stop: 09/19/22 15:47 Last Admin: 09/19/22 15:18 Dose: 200 mls/hr Documented By: ARNULFO Insulin Glargine (Insulin Glargine 100 Unit/Ml 3ml Pen) 10 unit SUBCUT BID [facility] Last Admin: 09/18/22 09:17 Dose: 10 unit Documented By: ADELE Co-signed By: JAVI Admin: 09/17/22 22:19 Dose: 10 unit Documented By: GC Co-signed By: OW Admin: 09/17/22 08:15 Dose: 10 unit Documented By: KM Co-signed By: OMAYRA Admin: 09/16/22 20:53 Dose: 10 unit Documented By: OW Co-signed By: SB Insulin Glargine (Insulin Glargine 100 Unit/Ml 3ml Pen) 15 unit SUBCUT BID [facility] Last Admin: 09/19/22 10:00 Dose: Not Given Documented By: Admin: 09/18/22 21:22 Dose: 15 unit Documented By: MS Co-signed By: CB Insulin Glargine (Insulin Glargine 100 Unit/Ml 3ml Pen) 20 unit SUBCUT BID [facility] Last Admin: 09/23/22 09:49 Dose: 20 unit Documented By: EM Co-signed By: ADELE Admin: 09/22/22 20:22 Dose: 20 unit Documented By: MS(2) Co-signed By: TLS Admin: 09/22/22 08:45 Dose: 20 unit Documented By: BR Co-signed By: BRANDI Admin: 09/21/22 23:05 Dose: 20 unit Documented By: MEDHAT Co-signed By: GABRIEL Admin: 09/21/22 08:35 Dose: 20 unit Documented By: GARY Co-signed By: JORGE Admin: 09/20/22 20:59 Dose: 20 unit Documented By: Co-signed By: THERON Admin: 09/20/22 09:21 Dose: 20 unit Documented By: BT Co-signed By: GARY Admin: 09/19/22 21:01 Dose: 20 unit Documented By: Co-signed By: ISRAEL Admin: 09/19/22 11:52 Dose: 20 unit Documented By: ADELE Co-signed By: VIDYA Insulin Human Isoph/Insulin Regular (Insulin Nph/Reg 70-30 100 Unit/Ml 3ml Vial) 10 unit SUBCUT BID [facility] Last Admin: 09/19/22 22:35 Dose: Not Given Documented By: Insulin Human Lispro (Insulin Lispro 100 Unit/Ml 3ml Vial) 0 unit SUBCUT ACHS [facility]; Protocol Last Admin: 09/19/22 11:45 Dose: Not Given Documented By: Admin: 09/19/22 08:41 Dose: 3 unit Documented By: ADELE Co-signed By: JAVI Admin: 09/18/22 21:22 Dose: 3 unit Documented By: MS Co-signed By: UDAY Admin: 09/18/22 18:29 Dose: 7 unit Documented By: ADELE Co-signed By: JAVI Admin: 09/18/22 12:12 Dose: 3 unit Documented By: ADELE Co-signed By: JAVI Admin: 09/18/22 09:17 Dose: 3 unit Documented By: ADELE Co-signed By: JAVI Admin: 09/17/22 21:26 Dose: 5 unit Documented By: GC Co-signed By: DEVORA Admin: 09/17/22 16:39 Dose: 3 unit Documented By: HAL Co-signed By: CESAR Admin: 09/17/22 12:15 Dose: 5 unit Documented By: KM Co-signed By: SOSA Admin: 09/17/22 08:16 Dose: 3 unit Documented By: HAL Co-signed By: OMAYRA Admin: 09/16/22 20:49 Dose: 3 unit Documented By: OW Co-signed By: FÉLIX Admin: 09/16/22 16:51 Dose: 8 unit Documented By: RB Co-signed By: JULIETH Admin: 09/16/22 12:29 Dose: 8 unit Documented By: ZE Co-signed By: JULIETH Admin: 09/16/22 08:23 Dose: 5 unit Documented By: OMAYRA Co-signed By: MLM Insulin Human Lispro (Insulin Lispro 100 Unit/Ml 3ml Vial) 0 unit SUBCUT [facility]; Protocol Last Admin: 09/23/22 09:50 Dose: 4 unit Documented By: EM Co-signed By: ADELE Admin: 09/22/22 20:20 Dose: 2 unit Documented By: MS(2) Co-signed By: TLS Admin: 09/22/22 17:27 Dose: 4 unit Documented By: SHAHAB Co-signed By: CLP Admin: 09/22/22 12:17 Dose: 2 unit Documented By: BR Co-signed By: CLP Admin: 09/22/22 08:41 Dose: 2 unit Documented By: BR Co-signed By: CLP Admin: 09/21/22 23:05 Dose: 2 unit Documented By: MEDHAT Co-signed By: GABRIEL Admin: 09/21/22 16:35 Dose: 2 unit Documented By: GARY Co-signed By: MS(3) Admin: 09/21/22 11:22 Dose: 2 unit Documented By: GARY Co-signed By: JORGE Admin: 09/21/22 08:37 Dose: 2 unit Documented By: GARY Co-signed By: JORGE Admin: 09/20/22 20:58 Dose: 2 unit Documented By: Co-signed By: THERON Admin: 09/20/22 17:27 Dose: 4 unit Documented By: EPI Co-signed By: GARY Admin: 09/20/22 12:54 Dose: 10 unit Documented By: EPI Co-signed By: BRANT Admin: 09/20/22 08:54 Dose: 7 unit Documented By: EPI Co-signed By: GARY Admin: 09/19/22 21:00 Dose: 5 unit Documented By: Co-signed By: ISRAEL Admin: 09/19/22 18:44 Dose: 7 unit Documented By: ADELE Co-signed By: JAVI Insulin Human Lispro (Insulin Lispro 100 Unit/Ml 3ml Vial) 5 unit SUBCUT AC TITUS Last Admin: 09/23/22 09:50 Dose: 5 unit Documented By: EM Co-signed By: ADELE Admin: 09/22/22 17:27 Dose: 5 unit Documented By: SHAHAB Co-signed By: BRANDI Admin: 09/22/22 12:17 Dose: 5 unit Documented By: SHAHAB Co-signed By: BRANDI Admin: 09/22/22 08:41 Dose: 5 unit Documented By: SHAHAB Co-signed By: BRANDI Admin: 09/21/22 16:35 Dose: 5 unit Documented By: GARY Co-signed By: (3) Admin: 09/21/22 11:22 Dose: 5 unit Documented By: GARY Co-signed By: JORGE Admin: 09/21/22 08:37 Dose: 5 unit Documented By: GARY Co-signed By: JORGE Admin: 09/20/22 17:27 Dose: 5 unit Documented By: EPI Co-signed By: GARY Admin: 09/20/22 12:54 Dose: 5 unit Documented By: EPI Co-signed By: BRANT Levothyroxine Sodium (Levothyroxine 100 Mcg Tablet) 100 mcg PO DAILY@0600 [facility] Last Admin: 09/19/22 05:40 Dose: 100 mcg Documented By: Admin: 09/18/22 06:15 Dose: Not Given Documented By: Admin: 09/17/22 05:45 Dose: 100 mcg Documented By: FÉLIX Levothyroxine Sodium (Levothyroxine 100 Mcg Tablet) 100 mcg PO DAILY@0600 [facility] Last Admin: 09/23/22 09:43 Dose: Not Given Documented By: Admin: 09/22/22 06:45 Dose: Not Given Documented By: Admin: 09/21/22 05:07 Dose: 100 mcg Documented By: Admin: 09/20/22 05:58 Dose: 100 mcg Documented By: Lisinopril (Lisinopril 20 Mg Tablet) 40 mg PO DAILY [facility] Last Admin: 09/17/22 08:00 Dose: 40 mg Documented By: HAL Loperamide HCl (Loperamide 2 Mg Capsule) 2 mg PO QID PRN PRN Reason: Diarrhea Losartan Potassium (Losartan 50 Mg Tablet) 100 mg PO DAILY [facility] Last Admin: 09/23/22 09:38 Dose: 100 mg Documented By: Admin: 09/22/22 08:59 Dose: 100 mg Documented By: Admin: 09/21/22 08:44 Dose: 100 mg Documented By: Admin: 09/20/22 09:23 Dose: 100 mg Documented By: EPI Montelukast Sodium (Montelukast 10 Mg Tablet) 10 mg PO DAILY [facility] Last Admin: 09/23/22 09:41 Dose: 10 mg Documented By: Admin: 09/22/22 08:47 Dose: 10 mg Documented By: Admin: 09/21/22 08:44 Dose: 10 mg Documented By: Admin: 09/20/22 09:24 Dose: 10 mg Documented By: Admin: 09/19/22 08:43 Dose: 10 mg Documented By: Admin: 09/18/22 09:05 Dose: 10 mg Documented By: ADELE Morphine Sulfate (Morphine 4 Mg/Ml Inj) 4 mg IV Q4HR [facility] Last Admin: 09/15/22 17:58 Dose: Not Given Documented By: FLMary Ann Morphine Sulfate (Morphine 4 Mg/Ml Inj) 4 mg IV Q4H PRN PRN Reason: Pain, Moderate (4-6) Last Admin: 09/16/22 16:33 Dose: 4 mg Documented By: Admin: 09/15/22 18:02 Dose: 4 mg Documented By: TERRIE Naloxone HCl (Naloxone 0.4 Mg/Ml Vial) 0.2 mg IV Q2MIN PRN PRN Reason: Opiate Reversal Naloxone HCl (Naloxone 0.4 Mg/Ml Vial) 0.2 mg IV Q2MIN PRN PRN Reason: Opiate Reversal Ondansetron HCl (Ondansetron 4 Mg/2 Ml Inj) 4 mg IV Q8HR PRN PRN Reason: Nausea And Vomiting Last Admin: 09/20/22 20:56 Dose: 4 mg Documented By: Admin: 09/20/22 00:28 Dose: 4 mg Documented By: Pantoprazole Sodium (Pantoprazole 40 Mg Vial) 40 mg IV NOW ONE Stop: 09/16/22 05:38 Last Admin: 09/16/22 05:47 Dose: 40 mg Documented By: FÉLIX Pot[facility] ([facility] 10 [facility]eq Tab) [facility] Admin: 09/17/22 07:58 Dose: 10 meq Documented By: Admin: 09/16/22 08:34 Dose: 10 meq Documented By: OMAYRA Potassium Chloride (Potassium Chloride 10 Meq Tab) 10 meq PO DAILY [facility] Last Admin: 09/23/22 09:41 Dose: 10 meq Documented By: Admin: 09/22/22 08:47 Dose: 10 meq Documented By: Admin: 09/21/22 08:44 Dose: 10 meq Documented By: Admin: 09/20/22 09:24 Dose: 10 meq Documented By: BT Vital Signs Vital signs: Vital Signs - 8 hr 09/17/22 14:00 09/17/22 14:00 09/17/22 14:15 Pulse Rate 71 70 Respiratory Rate 27 H 21 Blood Pressure 111/55 L Pulse Oximetry 98 96 Oxygen Delivery Method Oxygen Flow Rate Fraction of Inspired Oxygen 09/17/22 14:30 09/17/22 14:38 09/17/22 14:38 Pulse Rate 78 74 Respiratory Rate 20 22 Blood Pressure 100/70 Pulse Oximetry 94 94 Oxygen Delivery Method Oxygen Flow Rate Fraction of Inspired Oxygen 09/17/22 14:45 09/17/22 15:00 09/17/22 15:01 Pulse Rate 73 71 Respiratory Rate 28 H 21 Blood Pressure 92/56 L Pulse Oximetry 93 92 Oxygen Delivery Method Oxygen Flow Rate Fraction of Inspired Oxygen 09/17/22 15:01 09/17/22 15:15 09/17/22 15:30 Pulse Rate 72 70 Respiratory Rate 21 21 Blood Pressure 88/49 L Pulse Oximetry 91 92 Oxygen Delivery Method Nasal Cannula Oxygen Flow Rate 2 Fraction of Inspired Oxygen 09/17/22 15:30 09/17/22 15:33 09/17/22 15:33 Pulse Rate 68 69 Respiratory Rate 20 22 Blood Pressure 89/53 L Pulse Oximetry 91 92 Oxygen Delivery Method Nasal Cannula Oxygen Flow Rate 2 Fraction of Inspired Oxygen 09/17/22 15:40 09/17/22 15:40 09/17/22 15:45 Pulse Rate 67 68 Respiratory Rate 19 18 Blood Pressure 100/56 L Pulse Oximetry 93 95 Oxygen Delivery Method Oxygen Flow Rate Fraction of Inspired Oxygen 09/17/22 15:50 09/17/22 15:50 09/17/22 16:00 Pulse Rate 68 68 Respiratory Rate 35 H 21 Blood Pressure 93/55 L Pulse Oximetry 93 96 Oxygen Delivery Method Oxygen Flow Rate Fraction of Inspired Oxygen 09/17/22 16:01 09/17/22 16:01 09/17/22 16:10 Pulse Rate 68 Respiratory Rate 21 Blood Pressure 109/57 L 116/66 Pulse Oximetry 96 Oxygen Delivery Method Oxygen Flow Rate Fraction of Inspired Oxygen 09/17/22 16:10 09/17/22 16:15 09/17/22 16:20 Pulse Rate 69 69 71 Respiratory Rate 22 18 21 Blood Pressure Pulse Oximetry 96 97 97 Oxygen Delivery Method Oxygen Flow Rate Fraction of Inspired Oxygen 09/17/22 16:20 09/17/22 16:30 09/17/22 16:30 Pulse Rate 70 Respiratory Rate 20 Blood Pressure 128/77 123/59 L Pulse Oximetry 97 Oxygen Delivery Method Oxygen Flow Rate Fraction of Inspired Oxygen 09/17/22 16:40 09/17/22 16:40 09/17/22 16:45 Pulse Rate 70 69 Respiratory Rate 26 H 34 H Blood Pressure 118/61 Pulse Oximetry 99 97 Oxygen Delivery Method Oxygen Flow Rate Fraction of Inspired Oxygen 09/17/22 16:50 09/17/22 16:50 09/17/22 17:00 Pulse Rate 70 Respiratory Rate 32 H Blood Pressure 115/55 L 118/58 L Pulse Oximetry 96 Oxygen Delivery Method Oxygen Flow Rate Fraction of Inspired Oxygen 09/17/22 17:00 09/17/22 17:10 09/17/22 17:10 Pulse Rate 71 72 Respiratory Rate 30 H 26 H Blood Pressure 121/58 L Pulse Oximetry 91 96 Oxygen Delivery Method Oxygen Flow Rate Fraction of Inspired Oxygen 09/17/22 17:15 09/17/22 17:20 09/17/22 17:20 Pulse Rate 71 72 Respiratory Rate 27 H 33 H Blood Pressure 107/55 L Pulse Oximetry 96 95 Oxygen Delivery Method Oxygen Flow Rate Fraction of Inspired Oxygen 09/17/22 17:30 09/17/22 17:30 09/17/22 17:40 Pulse Rate 72 Respiratory Rate 35 H Blood Pressure 95/54 L 104/54 L Pulse Oximetry 93 Oxygen Delivery Method Oxygen Flow Rate Fraction of Inspired Oxygen 09/17/22 17:40 09/17/22 17:45 09/17/22 17:50 Pulse Rate 70 71 75 Respiratory Rate 22 24 17 Blood Pressure Pulse Oximetry 96 94 96 Oxygen Delivery Method Nasal Cannula Oxygen Flow Rate 2 Fraction of Inspired Oxygen 09/17/22 17:50 09/17/22 18:00 09/17/22 18:01 Pulse Rate 74 Respiratory Rate 21 Blood Pressure 115/62 134/66 Pulse Oximetry 96 Oxygen Delivery Method Oxygen Flow Rate Fraction of Inspired Oxygen 09/17/22 18:01 09/17/22 18:10 09/17/22 18:10 Pulse Rate 73 72 Respiratory Rate 17 17 Blood Pressure 123/59 L Pulse Oximetry 97 98 Oxygen Delivery Method Oxygen Flow Rate Fraction of Inspired Oxygen 09/17/22 18:15 09/17/22 18:21 09/17/22 18:21 Pulse Rate 71 73 Respiratory Rate 17 22 Blood Pressure 118/69 Pulse Oximetry 97 96 Oxygen Delivery Method Oxygen Flow Rate Fraction of Inspired Oxygen 09/17/22 18:30 09/17/22 18:31 09/17/22 18:31 Pulse Rate 73 73 Respiratory Rate 20 27 H Blood Pressure 120/78 Pulse Oximetry 95 95 Oxygen Delivery Method Oxygen Flow Rate Fraction of Inspired Oxygen 09/17/22 18:40 09/17/22 18:40 09/17/22 18:45 Pulse Rate 69 70 Respiratory Rate 19 18 Blood Pressure 121/60 Pulse Oximetry 95 96 Oxygen Delivery Method Oxygen Flow Rate Fraction of Inspired Oxygen 09/17/22 19:24 09/17/22 18:50 01/04/23 18:50 Pulse Rate 78 70 Respiratory Rate 16 20 Blood Pressure 109/54 L Pulse Oximetry 95 96 Oxygen Delivery Method Oxygen Flow Rate 2 Fraction of Inspired Oxygen 28 09/17/22 19:00 09/17/22 19:01 09/17/22 19:01 Pulse Rate 71 69 Respiratory Rate 18 17 Blood Pressure 132/58 L Pulse Oximetry 97 97 Oxygen Delivery Method Oxygen Flow Rate Fraction of Inspired Oxygen 09/17/22 19:10 09/17/22 19:10 09/17/22 19:15 Pulse Rate 71 73 Respiratory Rate 18 18 Blood Pressure 102/42 L Pulse Oximetry 95 95 Oxygen Delivery Method Oxygen Flow Rate Fraction of Inspired Oxygen 09/17/22 19:20 09/17/22 19:20 Pulse Rate 69 Respiratory Rate 19 Blood Pressure 106/55 L Pulse Oximetry 95 Oxygen Delivery Method Oxygen Flow Rate Fraction of Inspired Oxygen <Roly Llanos MD - Last Filed: 09/17/22 09:00> Orders Ordered: Discontinued Medications Acetaminophen (Acetaminophen 325 Mg Tablet) 650 mg PO Q6H PRN PRN Reason: Fever/Mild Pain (1-3) Last Admin: 09/21/22 12:44 Dose: 650 mg Documented By: GARY Hydrocodone Bitart/Acetaminophen (Hydrocodone/Acet 5/325 Tablet) 1 tab PO NOW ONE Stop: 09/15/22 12:46 Last Admin: 09/15/22 13:08 Dose: 1 tab Documented By: TERRIE Hydrocodone Bitart/Acetaminophen (Hydrocodone/Acet 5/325 Tablet) 1 tab PO Q4HR PRN PRN Reason: Pain, Moderate (4-6) Last Admin: 09/20/22 20:55 Dose: 1 tab Documented By: Admin: 09/17/22 14:25 Dose: 1 tab Documented By: HAL Hydrocodone Bitart/Acetaminophen (Hydrocodone/Acet 5/325 Tablet) 1 tab PO PACUNOW PRN PRN Reason: Mild or moderate pain Albuterol/Ipratropium (Albuterol/Ipratropium 3 Ml Ampul) 3 ml INH [id number] TITUS Last Admin: 09/23/22 07:29 Dose: 3 ml Documented By: Admin: 09/23/22 03:49 Dose: Not Given Documented By: ZReginaldo Admin: 09/22/22 12:56 Dose: 3 ml Documented By: Admin: 09/22/22 07:33 Dose: Not Given Documented By: Admin: 09/21/22 19:20 Dose: Not Given Documented By: Admin: 09/21/22 13:13 Dose: Not Given Documented By: Admin: 09/21/22 07:45 Dose: 3 ml Documented By: Admin: 09/20/22 22:21 Dose: Not Given Documented By: Admin: 09/20/22 13:53 Dose: Not Given Documented By: Admin: 09/20/22 08:08 Dose: Not Given Documented By: Admin: 09/20/22 06:31 Dose: Not Given Documented By: Admin: 09/19/22 13:00 Dose: Not Given Documented By: Admin: 09/19/22 07:45 Dose: 3 ml Documented By: Admin: 09/18/22 20:32 Dose: 3 ml Documented By: Admin: 09/18/22 13:47 Dose: 3 ml Documented By: Admin: 09/18/22 08:32 Dose: 3 ml Documented By: Admin: 09/17/22 19:24 Dose: 3 ml Documented By: Admin: 09/17/22 14:13 Dose: Not Given Documented By: Admin: 09/17/22 07:53 Dose: 3 ml Documented By: Admin: 09/16/22 19:22 Dose: Not Given Documented By: BELLA(2) Admin: 09/16/22 13:18 Dose: Not Given Documented By: BELLA(2) Admin: 09/16/22 08:21 Dose: 3 ml Documented By: BELLA(2) Allopurinol (Allopurinol 100 Mg Tablet) 200 mg PO DAILY [facility] Last Admin: 09/17/22 07:59 Dose: 200 mg Documented By: Admin: 09/16/22 08:34 Dose: 200 mg Documented By: OMAYRA Allopurinol (Allopurinol 100 Mg Tablet) 200 mg PO DAILY [facility] Last Admin: 09/23/22 09:42 Dose: 200 mg Documented By: Admin: 09/22/22 08:47 Dose: 200 mg Documented By: Admin: 09/21/22 08:44 Dose: 200 mg Documented By: Admin: 09/20/22 09:23 Dose: 200 mg Documented By: EPI Aspirin (Aspirin Ec 81 Mg Tablet) 81 mg PO BID [facility] Last Admin: 09/23/22 09:42 Dose: 81 mg Documented By: Admin: 09/22/22 20:19 Dose: 81 mg Documented By: (2) Admin: 09/22/22 08:47 Dose: 81 mg Documented By: Admin: 09/21/22 23:05 Dose: 81 mg Documented By: Admin: 09/21/22 08:44 Dose: 81 mg Documented By: Admin: 09/20/22 20:56 Dose: 81 mg Documented By: Admin: 09/20/22 10:41 Dose: 81 mg Documented By: EPI Atorvastatin Calcium (Atorvastatin 20 Mg Tablet) 20 mg PO BEDTIME [facility] Last Admin: 09/18/22 21:17 Dose: 20 mg Documented By: Admin: 09/17/22 22:23 Dose: 20 mg Documented By: Admin: 09/16/22 21:02 Dose: 20 mg Documented By: RB Atorvastatin Calcium (Atorvastatin 20 Mg Tablet) 10 mg PO BEDTIME [facility] Last Admin: 09/22/22 20:19 Dose: 10 mg Documented By: (2) Admin: 09/21/22 23:05 Dose: 10 mg Documented By: Admin: 09/20/22 20:56 Dose: 10 mg Documented By: Admin: 09/19/22 20:53 Dose: 10 mg Documented By: Bupivacaine HCl/Epinephrine Bitart (Bupivacaine 0.5% W/ Epi (Pf) 30 Ml Vial) 30 ml INJ NOW ONE Stop: 09/19/22 15:45 Last Admin: 09/19/22 15:44 Dose: 30 ml Documented By: BRIANNA Carvedilol (Carvedilol 3.125 Mg Tablet) 6.25 mg PO BID [facility] Last Admin: 09/17/22 07:59 Dose: 6.25 mg Documented By: Admin: 09/16/22 21:01 Dose: 6.25 mg Documented By: Admin: 09/16/22 08:35 Dose: 6.25 mg Documented By: OMAYRA Carvedilol (Carvedilol 3.125 Mg Tablet) 6.25 mg PO BID [facility] Last Admin: 09/23/22 09:41 Dose: 6.25 mg Documented By: Admin: 09/22/22 20:18 Dose: 6.25 mg Documented By: (2) Admin: 09/22/22 08:59 Dose: 6.25 mg Documented By: Admin: 09/21/22 23:05 Dose: 6.25 mg Documented By: Admin: 09/21/22 08:44 Dose: 6.25 mg Documented By: Admin: 09/20/22 20:56 Dose: 6.25 mg Documented By: Admin: 09/20/22 09:24 Dose: 6.25 mg Documented By: Admin: 09/19/22 20:54 Dose: 6.25 mg Documented By: Dextrose (Dextrose 50 % In Water 25 Gm/50 Ml Syringe) 25 gm IV PRN PRN PRN Reason: Hypoglycemia Diazepam (Diazepam 5 Mg Tablet) 5 mg PO NOW ONE Stop: 09/15/22 13:43 Last Admin: 09/15/22 13:47 Dose: 5 mg Documented By: TERRIE Enoxaparin Sodium (Enoxaparin 40 Mg/0.4 Ml Syringe) 40 mg SUBCUT DAILY [facility] Last Admin: 09/23/22 09:37 Dose: 40 mg Documented By: Admin: 09/22/22 12:17 Dose: 40 mg Documented By: SHAHAB Fentanyl (Fentanyl 100 Mcg/2 Ml Inj) 50 mcg IV NOW ONE Stop: 09/15/22 10:45 Last Admin: 09/15/22 11:01 Dose: 50 mcg Documented By: TERRIE Fentanyl (Fentanyl 100 Mcg/2 Ml Inj) 0 mcg IV Q5MIN PRN PRN Reason: Pain, Severe (7-10) Fentanyl (Fentanyl 100 Mcg/2 Ml Inj) 0 mcg IV Q5M PRN PRN Reason: Pain, Moderate (4-6) Fentanyl (Fentanyl 100 Mcg/2 Ml Inj) 0 mcg IV Q5M PRN PRN Reason: Pain, Severe (7-10) Furosemide (Furosemide 40 Mg Tablet) 80 mg PO DAILY [facility] Last Admin: 09/17/22 07:59 Dose: 80 mg Documented By: Admin: 09/16/22 08:37 Dose: 80 mg Documented By: OMAYRA Furosemide (Furosemide 40 Mg Tablet) 80 mg PO DAILY [facility] Last Admin: 09/23/22 09:42 Dose: 80 mg Documented By: Admin: 09/22/22 08:47 Dose: 80 mg Documented By: Admin: 09/21/22 08:45 Dose: 80 mg Documented By: Admin: 09/20/22 09:24 Dose: 80 mg Documented By: EPI Gabapentin (Gabapentin 300 Mg Capsule) 300 mg PO TID [facility] Last Admin: 09/17/22 14:25 Dose: 300 mg Documented By: Admin: 09/17/22 07:59 Dose: 300 mg Documented By: Admin: 09/16/22 21:01 Dose: 300 mg Documented By: Admin: 09/16/22 14:33 Dose: 300 mg Documented By: Admin: 09/16/22 08:40 Dose: 300 mg Documented By: OMAYRA Gabapentin (Gabapentin 300 Mg Capsule) 300 mg PO TID [facility] Last Admin: 09/23/22 09:42 Dose: 300 mg Documented By: Admin: 09/22/22 20:19 Dose: 300 mg Documented By: (2) Admin: 09/22/22 15:55 Dose: 300 mg Documented By: Admin: 09/22/22 08:47 Dose: 300 mg Documented By: Admin: 09/21/22 23:05 Dose: 300 mg Documented By: Admin: 09/21/22 14:14 Dose: 300 mg Documented By: Admin: 09/21/22 08:44 Dose: 300 mg Documented By: Admin: 09/20/22 20:56 Dose: 300 mg Documented By: Admin: 09/20/22 14:34 Dose: 300 mg Documented By: Admin: 09/20/22 09:24 Dose: 300 mg Documented By: Admin: 09/19/22 20:54 Dose: 300 mg Documented By: Heparin Sodium (Porcine) (Heparin 5,000 Unit/Ml Vial) 5,000 unit SUBCUT BID [facility] Last Admin: 09/18/22 11:00 Dose: 5,000 unit Documented By: Admin: 09/18/22 01:41 Dose: 5,000 unit Documented By: Hydromorphone HCl (Hydromorphone 0.5 Mg Inj) 0.5 mg IV Q4H PRN PRN Reason: Pain, Moderate (4-6) Last Admin: 09/20/22 05:43 Dose: 0.5 mg Documented By: Admin: 09/20/22 00:28 Dose: 0.5 mg Documented By: Admin: 09/19/22 10:00 Dose: 0.5 mg Documented By: Admin: 09/18/22 21:17 Dose: 0.5 mg Documented By: Admin: 09/18/22 13:25 Dose: 0.5 mg Documented By: Admin: 09/18/22 09:04 Dose: 0.5 mg Documented By: Admin: 09/18/22 02:15 Dose: 0.5 mg Documented By: Sodium Chloride (Normal Saline 0.9%) 1,000 mls @ 1,000 mls/hr IV BOLUS ONE Stop: 09/17/22 13:51 Last Infusion: 09/17/22 15:54 Dose: 0 mls/hr Documented By: Infusion: 09/17/22 14:15 Dose: 125 mls/hr Documented By: Admin: 09/17/22 13:17 Dose: 1,000 mls/hr Documented By: HAL Sodium Chloride (Normal Saline 0.9%) 1,000 mls @ 1,000 mls/hr IV BOLUS ONE Stop: 09/17/22 13:52 Last Admin: 09/17/22 14:17 Dose: Not Given Documented By: HAL Ceftriaxone Sodium 1,000 mg/ (Sodium Chloride) 100 mls @ 200 mls/hr IV NOW ONE Stop: 09/17/22 14:57 Last Infusion: 09/17/22 16:16 Dose: 0 mls/hr Documented By: Admin: 09/17/22 15:38 Dose: 200 mls/hr Documented By: HAL Lactated Ringer's (Lactated Ringers) 1,000 mls @ 1,000 mls/hr IV BOLUS ONE Stop: 09/17/22 16:43 Last Infusion: 09/17/22 17:27 Dose: 0 mls/hr Documented By: Admin: 09/17/22 15:54 Dose: 1,000 mls/hr Documented By: HAL Piperacillin Sod/Tazobactam (Sod 4.5 gm/ Sodium Chloride) 100 mls @ 200 mls/hr IV NOW ONE Stop: 09/17/22 18:48 Last Infusion: 09/17/22 19:55 Dose: 0 mls/hr Documented By: Admin: 09/17/22 19:22 Dose: 200 mls/hr Documented By: HAL Piperacillin Sod/Tazobactam (Sod 3.375 gm/ Sodium Chloride) 100 mls @ 25 mls/hr IV Q8H [facility] Last Infusion: 09/20/22 08:09 Dose: 25 mls/hr Documented By: Admin: 09/20/22 03:12 Dose: 25 mls/hr Documented By: Infusion: 09/19/22 22:46 Dose: 25 mls/hr Documented By: Admin: 09/19/22 18:46 Dose: 25 mls/hr Documented By: Infusion: 09/19/22 14:29 Dose: 25 mls/hr Documented By: Admin: 09/19/22 10:29 Dose: 25 mls/hr Documented By: Infusion: 09/19/22 07:34 Dose: 25 mls/hr Documented By: Admin: 09/19/22 03:34 Dose: 25 mls/hr Documented By: Infusion: 09/18/22 22:33 Dose: 25 mls/hr Documented By: Admin: 09/18/22 18:33 Dose: 25 mls/hr Documented By: Infusion: 09/18/22 16:00 Dose: 25 mls/hr Documented By: Admin: 09/18/22 12:00 Dose: 25 mls/hr Documented By: Infusion: 09/18/22 06:57 Dose: 25 mls/hr Documented By: Admin: 09/18/22 02:57 Dose: 25 mls/hr Documented By: Tranexamic Acid 1,000 mg/ (Sodium Chloride) 100 mls @ 200 mls/hr IV NOW ONE Stop: 09/19/22 15:47 Last Admin: 09/19/22 15:18 Dose: 200 mls/hr Documented By: ARNULFO Insulin Glargine (Insulin Glargine 100 Unit/Ml 3ml Pen) 10 unit SUBCUT BID [facility] Last Admin: 09/18/22 09:17 Dose: 10 unit Documented By: ADELE Co-signed By: JAVI Admin: 09/17/22 22:19 Dose: 10 unit Documented By: VASU Co-signed By: OW Admin: 09/17/22 08:15 Dose: 10 unit Documented By: HAL Co-signed By: OMAYRA Admin: 09/16/22 20:53 Dose: 10 unit Documented By: OW Co-signed By: SB Insulin Glargine (Insulin Glargine 100 Unit/Ml 3ml Pen) 15 unit SUBCUT BID [facility] Last Admin: 09/19/22 10:00 Dose: Not Given Documented By: Admin: 09/18/22 21:22 Dose: 15 unit Documented By: MS Co-signed By: UDAY Insulin Glargine (Insulin Glargine 100 Unit/Ml 3ml Pen) 20 unit SUBCUT BID [facility] Last Admin: 09/23/22 09:49 Dose: 20 unit Documented By: EM Co-signed By: ADELE Admin: 09/22/22 20:22 Dose: 20 unit Documented By: (2) Co-signed By: TLS Admin: 09/22/22 08:45 Dose: 20 unit Documented By: BR Co-signed By: CLP Admin: 09/21/22 23:05 Dose: 20 unit Documented By: MEDHAT Co-signed By: GABRIEL Admin: 09/21/22 08:35 Dose: 20 unit Documented By: GARY Co-signed By: JORGE Admin: 09/20/22 20:59 Dose: 20 unit Documented By: Co-signed By: THERON Admin: 09/20/22 09:21 Dose: 20 unit Documented By: BT Co-signed By: GARY Admin: 09/19/22 21:01 Dose: 20 unit Documented By: MS Co-signed By: ISRAEL Admin: 09/19/22 11:52 Dose: 20 unit Documented By: ADELE Co-signed By: VIDYA Insulin Human Isoph/Insulin Regular (Insulin Nph/Reg 70-30 100 Unit/Ml 3ml Vial) 10 unit SUBCUT BID [facility] Last Admin: 09/19/22 22:35 Dose: Not Given Documented By: Insulin Human Lispro (Insulin Lispro 100 Unit/Ml 3ml Vial) 0 unit SUBCUT ACHS [facility]; Protocol Last Admin: 09/19/22 11:45 Dose: Not Given Documented By: Admin: 09/19/22 08:41 Dose: 3 unit Documented By: ADELE Co-signed By: JAVI Admin: 09/18/22 21:22 Dose: 3 unit Documented By: Co-signed By: UDAY Admin: 09/18/22 18:29 Dose: 7 unit Documented By: ADELE Co-signed By: JAVI Admin: 09/18/22 12:12 Dose: 3 unit Documented By: ADELE Co-signed By: JAVI Admin: 09/18/22 09:17 Dose: 3 unit Documented By: ADELE Co-signed By: JAVI Admin: 09/17/22 21:26 Dose: 5 unit Documented By: VASU Co-signed By: RB Admin: 09/17/22 16:39 Dose: 3 unit Documented By: HAL Co-signed By: CESAR Admin: 09/17/22 12:15 Dose: 5 unit Documented By: HAL Co-signed By: SOSA Admin: 09/17/22 08:16 Dose: 3 unit Documented By: HAL Co-signed By: OMAYRA Admin: 09/16/22 20:49 Dose: 3 unit Documented By: BRYCE Co-signed By: FÉLIX Admin: 09/16/22 16:51 Dose: 8 unit Documented By: RB Co-signed By: JULIETH Admin: 09/16/22 12:29 Dose: 8 unit Documented By: ZE Co-signed By: JULIETH Admin: 09/16/22 08:23 Dose: 5 unit Documented By: OMAYRA Co-signed By: MLM Insulin Human Lispro (Insulin Lispro 100 Unit/Ml 3ml Vial) 0 unit SUBCUT [facility]; Protocol Last Admin: 09/23/22 09:50 Dose: 4 unit Documented By: EM Co-signed By: ADELE Admin: 09/22/22 20:20 Dose: 2 unit Documented By: MS(2) Co-signed By: TLS Admin: 09/22/22 17:27 Dose: 4 unit Documented By: SHAHAB Co-signed By: CLP Admin: 09/22/22 12:17 Dose: 2 unit Documented By: BR Co-signed By: CLP Admin: 09/22/22 08:41 Dose: 2 unit Documented By: BR Co-signed By: CLP Admin: 09/21/22 23:05 Dose: 2 unit Documented By: MEDHAT Co-signed By: GABRIEL Admin: 09/21/22 16:35 Dose: 2 unit Documented By: GARY Co-signed By: (3) Admin: 09/21/22 11:22 Dose: 2 unit Documented By: GARY Co-signed By: LDFrances Admin: 09/21/22 08:37 Dose: 2 unit Documented By: GARY Co-signed By: LDV Admin: 09/20/22 20:58 Dose: 2 unit Documented By: Co-signed By: THERON Admin: 09/20/22 17:27 Dose: 4 unit Documented By: EPI Co-signed By: GARY Admin: 09/20/22 12:54 Dose: 10 unit Documented By: EPI Co-signed By: BRANT Admin: 09/20/22 08:54 Dose: 7 unit Documented By: EPI Co-signed By: GARY Admin: 09/19/22 21:00 Dose: 5 unit Documented By: Co-signed By: ISRAEL Admin: 09/19/22 18:44 Dose: 7 unit Documented By: ADELE Co-signed By: JAVI Insulin Human Lispro (Insulin Lispro 100 Unit/Ml 3ml Vial) 5 unit SUBCUT [facility] Last Admin: 09/23/22 09:50 Dose: 5 unit Documented By: EM Co-signed By: ADELE Admin: 09/22/22 17:27 Dose: 5 unit Documented By: SHAHAB Co-signed By: BRANDI Admin: 09/22/22 12:17 Dose: 5 unit Documented By: SHAHAB Co-signed By: CLP Admin: 09/22/22 08:41 Dose: 5 unit Documented By: SHAHAB Co-signed By: CLP Admin: 09/21/22 16:35 Dose: 5 unit Documented By: GARY Co-signed By: (3) Admin: 09/21/22 11:22 Dose: 5 unit Documented By: GARY Co-signed By: JORGE Admin: 09/21/22 08:37 Dose: 5 unit Documented By: GARY Co-signed By: JORGE Admin: 09/20/22 17:27 Dose: 5 unit Documented By: EPI Co-signed By: GARY Admin: 09/20/22 12:54 Dose: 5 unit Documented By: EPI Co-signed By: BRANT Levothyroxine Sodium (Levothyroxine 100 Mcg Tablet) 100 mcg PO DAILY@0600 [facility] Last Admin: 09/19/22 05:40 Dose: 100 mcg Documented By: Admin: 09/18/22 06:15 Dose: Not Given Documented By: Admin: 09/17/22 05:45 Dose: 100 mcg Documented By: FÉLIX Levothyroxine Sodium (Levothyroxine 100 Mcg Tablet) 100 mcg PO DAILY@0600 [facility] Last Admin: 09/23/22 09:43 Dose: Not Given Documented By: Admin: 09/22/22 06:45 Dose: Not Given Documented By: Admin: 09/21/22 05:07 Dose: 100 mcg Documented By: Admin: 09/20/22 05:58 Dose: 100 mcg Documented By: Lisinopril (Lisinopril 20 Mg Tablet) 40 mg PO DAILY [facility] Last Admin: 09/17/22 08:00 Dose: 40 mg Documented By: HAL Loperamide HCl (Loperamide 2 Mg Capsule) 2 mg PO QID PRN PRN Reason: Diarrhea Losartan Potassium (Losartan 50 Mg Tablet) 100 mg PO DAILY [facility] Last Admin: 09/23/22 09:38 Dose: 100 mg Documented By: Admin: 09/22/22 08:59 Dose: 100 mg Documented By: Admin: 09/21/22 08:44 Dose: 100 mg Documented By: Admin: 09/20/22 09:23 Dose: 100 mg Documented By: EPI Montelukast Sodium (Montelukast 10 Mg Tablet) 10 mg PO DAILY [facility] Last Admin: 09/23/22 09:41 Dose: 10 mg Documented By: Admin: 09/22/22 08:47 Dose: 10 mg Documented By: Admin: 09/21/22 08:44 Dose: 10 mg Documented By: Admin: 09/20/22 09:24 Dose: 10 mg Documented By: Admin: 09/19/22 08:43 Dose: 10 mg Documented By: Admin: 09/18/22 09:05 Dose: 10 mg Documented By: ADELE Morphine Sulfate (Morphine 4 Mg/Ml Inj) 4 mg IV Q4HR [facility] Last Admin: 09/15/22 17:58 Dose: Not Given Documented By: SARI Morphine Sulfate (Morphine 4 Mg/Ml Inj) 4 mg IV Q4H PRN PRN Reason: Pain, Moderate (4-6) Last Admin: 09/16/22 16:33 Dose: 4 mg Documented By: Admin: 09/15/22 18:02 Dose: 4 mg Documented By: TERRIE Naloxone HCl (Naloxone 0.4 Mg/Ml Vial) 0.2 mg IV Q2MIN PRN PRN Reason: Opiate Reversal Naloxone HCl (Naloxone 0.4 Mg/Ml Vial) 0.2 mg IV Q2MIN PRN PRN Reason: Opiate Reversal Ondansetron HCl (Ondansetron 4 Mg/2 Ml Inj) 4 mg IV Q8HR PRN PRN Reason: Nausea And Vomiting Last Admin: 09/20/22 20:56 Dose: 4 mg Documented By: Admin: 09/20/22 00:28 Dose: 4 mg Documented By: Pantoprazole Sodium (Pantoprazole 40 Mg Vial) 40 mg IV NOW ONE Stop: 09/16/22 05:38 Last Admin: 09/16/22 05:47 Dose: 40 mg Documented By: FÉILX Pot[facility] ([facility] 10 [facility]eq [facility] Admin: 09/17/22 07:58 Dose: 10 meq Documented By: Admin: 09/16/22 08:34 Dose: 10 meq Documented By: OMAYRA Potassium Chloride (Potassium Chloride 10 Meq Tab) 10 meq PO DAILY [facility] Last Admin: 09/23/22 09:41 Dose: 10 meq Documented By: Admin: 09/22/22 08:47 Dose: 10 meq Documented By: Admin: 09/21/22 08:44 Dose: 10 meq Documented By: Admin: 09/20/22 09:24 Dose: 10 meq Documented By: BT Vital Signs Vital signs: Vital Signs - 8 hr 09/17/22 14:00 09/17/22 14:00 09/17/22 14:15 Pulse Rate 71 70 Respiratory Rate 27 H 21 Blood Pressure 111/55 L Pulse Oximetry 98 96 Oxygen Delivery Method Oxygen Flow Rate Fraction of Inspired Oxygen 09/17/22 14:30 09/17/22 14:38 09/17/22 14:38 Pulse Rate 78 74 Respiratory Rate 20 22 Blood Pressure 100/70 Pulse Oximetry 94 94 Oxygen Delivery Method Oxygen Flow Rate Fraction of Inspired Oxygen 09/17/22 14:45 09/17/22 15:00 09/17/22 15:01 Pulse Rate 73 71 Respiratory Rate 28 H 21 Blood Pressure 92/56 L Pulse Oximetry 93 92 Oxygen Delivery Method Oxygen Flow Rate Fraction of Inspired Oxygen 09/17/22 15:01 09/17/22 15:15 09/17/22 15:30 Pulse Rate 72 70 Respiratory Rate 21 21 Blood Pressure 88/49 L Pulse Oximetry 91 92 Oxygen Delivery Method Nasal Cannula Oxygen Flow Rate 2 Fraction of Inspired Oxygen 09/17/22 15:30 09/17/22 15:33 09/17/22 15:33 Pulse Rate 68 69 Respiratory Rate 20 22 Blood Pressure 89/53 L Pulse Oximetry 91 92 Oxygen Delivery Method Nasal Cannula Oxygen Flow Rate 2 Fraction of Inspired Oxygen 09/17/22 15:40 09/17/22 15:40 09/17/22 15:45 Pulse Rate 67 68 Respiratory Rate 19 18 Blood Pressure 100/56 L Pulse Oximetry 93 95 Oxygen Delivery Method Oxygen Flow Rate Fraction of Inspired Oxygen 09/17/22 15:50 09/17/22 15:50 09/17/22 16:00 Pulse Rate 68 68 Respiratory Rate 35 H 21 Blood Pressure 93/55 L Pulse Oximetry 93 96 Oxygen Delivery Method Oxygen Flow Rate Fraction of Inspired Oxygen 09/17/22 16:01 09/17/22 16:01 09/17/22 16:10 Pulse Rate 68 Respiratory Rate 21 Blood Pressure 109/57 L 116/66 Pulse Oximetry 96 Oxygen Delivery Method Oxygen Flow Rate Fraction of Inspired Oxygen 09/17/22 16:10 09/17/22 16:15 09/17/22 16:20 Pulse Rate 69 69 71 Respiratory Rate 22 18 21 Blood Pressure Pulse Oximetry 96 97 97 Oxygen Delivery Method Oxygen Flow Rate Fraction of Inspired Oxygen 09/17/22 16:20 09/17/22 16:30 09/17/22 16:30 Pulse Rate 70 Respiratory Rate 20 Blood Pressure 128/77 123/59 L Pulse Oximetry 97 Oxygen Delivery Method Oxygen Flow Rate Fraction of Inspired Oxygen 09/17/22 16:40 09/17/22 16:40 09/17/22 16:45 Pulse Rate 70 69 Respiratory Rate 26 H 34 H Blood Pressure 118/61 Pulse Oximetry 99 97 Oxygen Delivery Method Oxygen Flow Rate Fraction of Inspired Oxygen 09/17/22 16:50 09/17/22 16:50 09/17/22 17:00 Pulse Rate 70 Respiratory Rate 32 H Blood Pressure 115/55 L 118/58 L Pulse Oximetry 96 Oxygen Delivery Method Oxygen Flow Rate Fraction of Inspired Oxygen 09/17/22 17:00 09/17/22 17:10 09/17/22 17:10 Pulse Rate 71 72 Respiratory Rate 30 H 26 H Blood Pressure 121/58 L Pulse Oximetry 91 96 Oxygen Delivery Method Oxygen Flow Rate Fraction of Inspired Oxygen 09/17/22 17:15 09/17/22 17:20 09/17/22 17:20 Pulse Rate 71 72 Respiratory Rate 27 H 33 H Blood Pressure 107/55 L Pulse Oximetry 96 95 Oxygen Delivery Method Oxygen Flow Rate Fraction of Inspired Oxygen 09/17/22 17:30 09/17/22 17:30 09/17/22 17:40 Pulse Rate 72 Respiratory Rate 35 H Blood Pressure 95/54 L 104/54 L Pulse Oximetry 93 Oxygen Delivery Method Oxygen Flow Rate Fraction of Inspired Oxygen 09/17/22 17:40 09/17/22 17:45 09/17/22 17:50 Pulse Rate 70 71 75 Respiratory Rate 22 24 17 Blood Pressure Pulse Oximetry 96 94 96 Oxygen Delivery Method Nasal Cannula Oxygen Flow Rate 2 Fraction of Inspired Oxygen 09/17/22 17:50 09/17/22 18:00 09/17/22 18:01 Pulse Rate 74 Respiratory Rate 21 Blood Pressure 115/62 134/66 Pulse Oximetry 96 Oxygen Delivery Method Oxygen Flow Rate Fraction of Inspired Oxygen 09/17/22 18:01 09/17/22 18:10 09/17/22 18:10 Pulse Rate 73 72 Respiratory Rate 17 17 Blood Pressure 123/59 L Pulse Oximetry 97 98 Oxygen Delivery Method Oxygen Flow Rate Fraction of Inspired Oxygen 09/17/22 18:15 09/17/22 18:21 09/17/22 18:21 Pulse Rate 71 73 Respiratory Rate 17 22 Blood Pressure 118/69 Pulse Oximetry 97 96 Oxygen Delivery Method Oxygen Flow Rate Fraction of Inspired Oxygen 09/17/22 18:30 09/17/22 18:31 09/17/22 18:31 Pulse Rate 73 73 Respiratory Rate 20 27 H Blood Pressure 120/78 Pulse Oximetry 95 95 Oxygen Delivery Method Oxygen Flow Rate Fraction of Inspired Oxygen 09/17/22 18:40 09/17/22 18:40 09/17/22 18:45 Pulse Rate 69 70 Respiratory Rate 19 18 Blood Pressure 121/60 Pulse Oximetry 95 96 Oxygen Delivery Method Oxygen Flow Rate Fraction of Inspired Oxygen 09/17/22 19:24 09/17/22 18:50 09/17/22 18:50 Pulse Rate 78 70 Respiratory Rate 16 20 Blood Pressure 109/54 L Pulse Oximetry 95 96 Oxygen Delivery Method Oxygen Flow Rate 2 Fraction of Inspired Oxygen 28 09/17/22 19:00 09/17/22 19:01 09/17/22 19:01 Pulse Rate 71 69 Respiratory Rate 18 17 Blood Pressure 132/58 L Pulse Oximetry 97 97 Oxygen Delivery Method Oxygen Flow Rate Fraction of Inspired Oxygen 09/17/22 19:10 09/17/22 19:10 09/17/22 19:15 Pulse Rate 71 73 Respiratory Rate 18 18 Blood Pressure 102/42 L Pulse Oximetry 95 95 Oxygen Delivery Method Oxygen Flow Rate Fraction of Inspired Oxygen 09/17/22 19:20 09/17/22 19:20 Pulse Rate 69 Respiratory Rate 19 Blood Pressure 106/55 L Pulse Oximetry 95 Oxygen Delivery Method Oxygen Flow Rate Fraction of Inspired Oxygen MDM - Extremity Injury (Lower) <Kingsley Garrison MD - Last Filed: 09/24/22 22:16> Differential Diagnosis Differential diagnosis: Likely ankle sprain and strain and ankle fracture Lab Data Result diagrams: 09/21/22 07:02 09/21/22 06:40 Labs: Lab Results 09/15/22 09/15/22 09/15/22 Range/Units 09:33 10:20 10:20 WBC 10.4 (4.5-11.0) X10^3/uL RBC 4.78 (4.5-5.9) X10^6/uL Hgb 15.6 (13.5-17.5) g/dL Hct 47.0 (41-53) % MCV 98.3 (80-100) fL MCH 32.7 (26-34) PG MCHC 33.2 (30-36) % RDW 14.2 (11.6-14.8) % Plt Count 126 L (150-400) X10^3/uL Neut % (Auto) 72.7 (50-75) % Lymph % (Auto) 14.2 L (25-40) % Ward % (Auto) 7.6 (3-14) % Eos % (Auto) 5.0 H (2-4) % Baso % (Auto) 0.5 (0-2) % Neut # (Auto) 7500 H (8940-2267) /uL Lymph # (Auto) 1500 (5618-3590) /uL Ward # (Auto) 800 (0-900) /uL Eos # (Auto) 500 H (0-450) /uL Baso # (Auto) 100 (0-100) /uL PT 13.1 H (10.1-12.7) SECONDS INR 1.1 (0.9-1.3) APTT 36 (26-36) SECONDS Sodium (137-145) mmol/L Potassium (3.4-5.1) mmol/L Chloride (98-107) mmol/L Carbon Dioxide (22-32) mmol/L BUN (9-20) mg/dL Creatinine (0.66-1.25) mg/dL Estimated GFR (>60) mL/min BUN/Creatinine Ratio (6-22) Glucose (80-110) mg/dL Hemoglobin A1c (4.0-6.0) % Lactate (0.7-2.1) mmol/L Calcium (8.4-10.2) mg/dL Total Bilirubin (0.2-1.3) mg/dL AST (17-59) IU/L ALT (<50) IU/L Alkaline Phosphatase (38-126) U/L Total Creatine Kinase (55-170) U/L CK-MB (CK-2) (<2.37) ng/mL CK-MB (CK-2) Rel Index (1.5-5.0) % Troponin I (0.01-0.034) ng/mL NT-Pro-B Natriuret Pep (<450) pg/mL Total Protein (6.3-8.2) g/dL Albumin (3.5-5.0) g/dL Globulin (1.7-4.1) g/dL Albumin/Globulin Ratio (1.0-2.8) Lipase (23-300) U/L Procalcitonin (<0.5) ng/mL TSH (0.47-4.68) uIU/mL Urine Color Urine Appearance Urine pH (4.5-8.0) Ur Specific [place] (1.000-1.035) Urine Protein (Negative) Urine Glucose (UA) (Negative) g/dL Urine Ketones (NEGATIVE) Urine Occult Blood (Negative) Urine Nitrate (Negative) Urine Bilirubin (NEGATIVE) Urine Urobilinogen (0.2) E.U./dL Ur Leukocyte Esterase (NEGATIVE) Urine RBC (0-5/HPF) Urine WBC (0-5/HPF) Ur Squamous Epith Cells (0-5/HPF) Urine Bacteria (None) Hyaline Casts (None) Ur Culture Indicated? A. baumannii (PCR) (Not Detect) Lindsey albicans (PCR) (Not Detect) C. glabrata (PCR) (Not Detect) C. krusei (PCR) (Not Detect) C. parapsilosis (PCR) (Not Detect) C. tropicalis (PCR) (Not Detect) SARS-CoV-2 (PCR) Negative (Negative) Enterobacteriac sp PCR (Not Detect) E. cloacae complex PCR (Not Detect) Enterococcus sp PCR (Not Detect) E. coli (PCR) (Not Detect) H. influenzae (PCR) (Not Detect) Influenza A (RT-PCR) (NEGATIVE) Influenza B (RT-PCR) (NEGATIVE) Klebsiella oxytoca PCR (Not Detect) Klebsiella pneumoniae (Not Detect) List. monocytogenes PCR (Not Detect) N. meningitidis (PCR) (Not Detect) Proteus species (PCR) (Not Detect) RSV (PCR) (Negative) Serratia marcescens PCR (Not Detect) Staphylococcus sp PCR (Not Detect) Staph aureus (PCR) (Not Detect) mecA-Methicil Res Gene Streptococcus sp PCR (Not Detect) Group A Strep (PCR) (Not Detect) Strep agalactiae (PCR) (Not Detect) Strep pneumoniae (PCR) (Not Detect) P. aeruginosa (PCR) (Not Detect) John Paul/B-Vanco Res Genes KPC-Carbap Res Gene PCR 09/15/22 09/15/22 09/15/22 Range/Units 10:20 10:20 10:20 WBC (4.5-11.0) X10^3/uL RBC (4.5-5.9) X10^6/uL Hgb (13.5-17.5) g/dL Hct (41-53) % MCV (80-100) fL MCH (26-34) PG MCHC (30-36) % RDW (11.6-14.8) % Plt Count (150-400) X10^3/uL Neut % (Auto) (50-75) % Lymph % (Auto) (25-40) % Ward % (Auto) (3-14) % Eos % (Auto) (2-4) % Baso % (Auto) (0-2) % Neut # (Auto) (2357-3774) /uL Lymph # (Auto) (9236-6004) /uL Ward # (Auto) (0-900) /uL Eos # (Auto) (0-450) /uL Baso # (Auto) (0-100) /uL PT (10.1-12.7) SECONDS INR (0.9-1.3) APTT (26-36) SECONDS Sodium 139 (137-145) mmol/L Potassium 4.7 (3.4-5.1) mmol/L Chloride 100 (98-107) mmol/L Carbon Dioxide 32 (22-32) mmol/L BUN 46 H (9-20) mg/dL Creatinine 1.37 H (0.66-1.25) mg/dL Estimated GFR 52 L (>60) mL/min BUN/Creatinine Ratio 33.6 H (6-22) Glucose 204 H (80-110) mg/dL Hemoglobin A1c 8.3 H (4.0-6.0) % Lactate (0.7-2.1) mmol/L Calcium 8.8 (8.4-10.2) mg/dL Total Bilirubin 1.0 (0.2-1.3) mg/dL AST 24 (17-59) IU/L ALT 22 (<50) IU/L Alkaline Phosphatase 94 (38-126) U/L Total Creatine Kinase (55-170) U/L CK-MB (CK-2) (<2.37) ng/mL CK-MB (CK-2) Rel Index (1.5-5.0) % Troponin I (0.01-0.034) ng/mL NT-Pro-B Natriuret Pep (<450) pg/mL Total Protein 7.9 (6.3-8.2) g/dL Albumin 3.7 (3.5-5.0) g/dL Globulin 4.2 H (1.7-4.1) g/dL Albumin/Globulin Ratio 0.9 L (1.0-2.8) Lipase (23-300) U/L Procalcitonin (<0.5) ng/mL TSH 4.49 (0.47-4.68) uIU/mL Urine Color Urine Appearance Urine pH (4.5-8.0) Ur Specific [place] (1.000-1.035) Urine Protein (Negative) Urine Glucose (UA) (Negative) g/dL Urine Ketones (NEGATIVE) Urine Occult Blood (Negative) Urine Nitrate (Negative) Urine Bilirubin (NEGATIVE) Urine Urobilinogen (0.2) E.U./dL Ur Leukocyte Esterase (NEGATIVE) Urine RBC (0-5/HPF) Urine WBC (0-5/HPF) Ur Squamous Epith Cells (0-5/HPF) Urine Bacteria (None) Hyaline Casts (None) Ur Culture Indicated? A. baumannii (PCR) (Not Detect) Lindsey albicans (PCR) (Not Detect) C. glabrata (PCR) (Not Detect) C. krusei (PCR) (Not Detect) C. parapsilosis (PCR) (Not Detect) C. tropicalis (PCR) (Not Detect) SARS-CoV-2 (PCR) (Negative) Enterobacteriac sp PCR (Not Detect) E. cloacae complex PCR (Not Detect) Enterococcus sp PCR (Not Detect) E. coli (PCR) (Not Detect) H. influenzae (PCR) (Not Detect) Influenza A (RT-PCR) (NEGATIVE) Influenza B (RT-PCR) (NEGATIVE) Klebsiella oxytoca PCR (Not Detect) Klebsiella pneumoniae (Not Detect) List. monocytogenes PCR (Not Detect) N. meningitidis (PCR) (Not Detect) Proteus species (PCR) (Not Detect) RSV (PCR) (Negative) Serratia marcescens PCR (Not Detect) Staphylococcus sp PCR (Not Detect) Staph aureus (PCR) (Not Detect) mecA-Methicil Res Gene Streptococcus sp PCR (Not Detect) Group A Strep (PCR) (Not Detect) Strep agalactiae (PCR) (Not Detect) Strep pneumoniae (PCR) (Not Detect) P. aeruginosa (PCR) (Not Detect) John [place]/B-Vanco Res Genes KPC-Carbap Res Gene PCR 09/17/22 09/17/22 09/17/22 Range/Units 12:53 13:00 13:35 WBC 13.3 H (4.5-11.0) X10^3/uL RBC 4.16 L (4.5-5.9) X10^6/uL Hgb 13.6 (13.5-17.5) g/dL Hct 41.4 (41-53) % MCV 99.6 (80-100) fL MCH 32.7 (26-34) PG MCHC 32.8 (30-36) % RDW 14.4 (11.6-14.8) % Plt Count 119 L (150-400) X10^3/uL Neut % (Auto) 75.2 H (50-75) % Lymph % (Auto) 14.3 L (25-40) % Ward % (Auto) 9.1 (3-14) % Eos % (Auto) 0.9 L (2-4) % Baso % (Auto) 0.5 (0-2) % Neut # (Auto) 28570 H (3928-3900) /uL Lymph # (Auto) 1900 (5301-3961) /uL Ward # (Auto) 1200 H (0-900) /uL Eos # (Auto) 100 (0-450) /uL Baso # (Auto) 100 (0-100) /uL PT (10.1-12.7) SECONDS INR (0.9-1.3) APTT (26-36) SECONDS Sodium (137-145) mmol/L Potassium (3.4-5.1) mmol/L Chloride (98-107) mmol/L Carbon Dioxide (22-32) mmol/L BUN (9-20) mg/dL Creatinine (0.66-1.25) mg/dL Estimated GFR (>60) mL/min BUN/Creatinine Ratio (6-22) Glucose (80-110) mg/dL Hemoglobin A1c (4.0-6.0) % Lactate (0.7-2.1) mmol/L Calcium (8.4-10.2) mg/dL Total Bilirubin (0.2-1.3) mg/dL AST (17-59) IU/L ALT (<50) IU/L Alkaline Phosphatase (38-126) U/L Total Creatine Kinase 289 H (55-170) U/L CK-MB (CK-2) 0.63 (<2.37) ng/mL CK-MB (CK-2) Rel Index 0.2 L (1.5-5.0) % Troponin I < 0.012 (0.01-0.034) ng/mL NT-Pro-B Natriuret Pep 284 (<450) pg/mL Total Protein (6.3-8.2) g/dL Albumin (3.5-5.0) g/dL Globulin (1.7-4.1) g/dL Albumin/Globulin Ratio (1.0-2.8) Lipase (23-300) U/L Procalcitonin (<0.5) ng/mL TSH (0.47-4.68) uIU/mL Urine Color Urine Appearance Urine pH (4.5-8.0) Ur Specific [place] (1.000-1.035) Urine Protein (Negative) Urine Glucose (UA) (Negative) g/dL Urine Ketones (NEGATIVE) Urine Occult Blood (Negative) Urine Nitrate (Negative) Urine Bilirubin (NEGATIVE) Urine Urobilinogen (0.2) E.U./dL Ur Leukocyte Esterase (NEGATIVE) Urine RBC (0-5/HPF) Urine WBC (0-5/HPF) Ur Squamous Epith Cells (0-5/HPF) Urine Bacteria (None) Hyaline Casts (None) Ur Culture Indicated? A. baumannii (PCR) (Not Detect) Lindsey albicans (PCR) (Not Detect) C. glabrata (PCR) (Not Detect) C. krusei (PCR) (Not Detect) C. parapsilosis (PCR) (Not Detect) C. tropicalis (PCR) (Not Detect) SARS-CoV-2 (PCR) Negative (Negative) Enterobacteriac sp PCR (Not Detect) E. cloacae complex PCR (Not Detect) Enterococcus sp PCR (Not Detect) E. coli (PCR) (Not Detect) H. influenzae (PCR) (Not Detect) Influenza A (RT-PCR) Flu a negative (NEGATIVE) Influenza B (RT-PCR) Flu b negative (NEGATIVE) Klebsiella oxytoca PCR (Not Detect) Klebsiella pneumoniae (Not Detect) List. monocytogenes PCR (Not Detect) N. meningitidis (PCR) (Not Detect) Proteus species (PCR) (Not Detect) RSV (PCR) Negative (Negative) Serratia marcescens PCR (Not Detect) Staphylococcus sp PCR (Not Detect) Staph aureus (PCR) (Not Detect) mecA-Methicil Res Gene Streptococcus sp PCR (Not Detect) Group A Strep (PCR) (Not Detect) Strep agalactiae (PCR) (Not Detect) Strep pneumoniae (PCR) (Not Detect) P. aeruginosa (PCR) (Not Detect) John [place]/B-Vanco Res Genes KPC-Carbap Res Gene PCR 09/17/22 09/17/22 09/17/22 Range/Units 13:35 13:35 13:35 WBC (4.5-11.0) X10^3/uL RBC (4.5-5.9) X10^6/uL Hgb (13.5-17.5) g/dL Hct (41-53) % MCV (80-100) fL MCH (26-34) PG MCHC (30-36) % RDW (11.6-14.8) % Plt Count (150-400) X10^3/uL Neut % (Auto) (50-75) % Lymph % (Auto) (25-40) % Ward % (Auto) (3-14) % Eos % (Auto) (2-4) % Baso % (Auto) (0-2) % Neut # (Auto) (9211-8403) /uL Lymph # (Auto) (3144-6907) /uL Ward # (Auto) (0-900) /uL Eos # (Auto) (0-450) /uL Baso # (Auto) (0-100) /uL PT 15.4 H (10.1-12.7) SECONDS INR 1.3 (0.9-1.3) APTT 34 (26-36) SECONDS Sodium 139 (137-145) mmol/L Potassium 4.5 (3.4-5.1) mmol/L Chloride 101 (98-107) mmol/L Carbon Dioxide 30 (22-32) mmol/L BUN 59 H (9-20) mg/dL Creatinine 2.49 H (0.66-1.25) mg/dL Estimated GFR 25 L (>60) mL/min BUN/Creatinine Ratio 23.7 H (6-22) Glucose 250 H (80-110) mg/dL Hemoglobin A1c (4.0-6.0) % Lactate 2.1 (0.7-2.1) mmol/L Calcium 8.4 (8.4-10.2) mg/dL Total Bilirubin 1.2 (0.2-1.3) mg/dL AST 22 (17-59) IU/L ALT 19 (<50) IU/L Alkaline Phosphatase 73 (38-126) U/L Total Creatine Kinase (55-170) U/L CK-MB (CK-2) (<2.37) ng/mL CK-MB (CK-2) Rel Index (1.5-5.0) % Troponin I (0.01-0.034) ng/mL NT-Pro-B Natriuret Pep (<450) pg/mL Total Protein 7.2 (6.3-8.2) g/dL Albumin 3.4 L (3.5-5.0) g/dL Globulin 3.8 (1.7-4.1) g/dL Albumin/Globulin Ratio 0.9 L (1.0-2.8) Lipase 31 (23-300) U/L Procalcitonin 0.58 H (<0.5) ng/mL TSH (0.47-4.68) uIU/mL Urine Color Urine Appearance Urine pH (4.5-8.0) Ur Specific [place] (1.000-1.035) Urine Protein (Negative) Urine Glucose (UA) (Negative) g/dL Urine Ketones (NEGATIVE) Urine Occult Blood (Negative) Urine Nitrate (Negative) Urine Bilirubin (NEGATIVE) Urine Urobilinogen (0.2) E.U./dL Ur Leukocyte Esterase (NEGATIVE) Urine RBC (0-5/HPF) Urine WBC (0-5/HPF) Ur Squamous Epith Cells (0-5/HPF) Urine Bacteria (None) Hyaline Casts (None) Ur Culture Indicated? A. baumannii (PCR) (Not Detect) Lindsey albicans (PCR) (Not Detect) C. glabrata (PCR) (Not Detect) C. krusei (PCR) (Not Detect) C. parapsilosis (PCR) (Not Detect) C. tropicalis (PCR) (Not Detect) SARS-CoV-2 (PCR) (Negative) Enterobacteriac sp PCR (Not Detect) E. cloacae complex PCR (Not Detect) Enterococcus sp PCR (Not Detect) E. coli (PCR) (Not Detect) H. influenzae (PCR) (Not Detect) Influenza A (RT-PCR) (NEGATIVE) Influenza B (RT-PCR) (NEGATIVE) Klebsiella oxytoca PCR (Not Detect) Klebsiella pneumoniae (Not Detect) List. monocytogenes PCR (Not Detect) N. meningitidis (PCR) (Not Detect) Proteus species (PCR) (Not Detect) RSV (PCR) (Negative) Serratia marcescens PCR (Not Detect) Staphylococcus sp PCR (Not Detect) Staph aureus (PCR) (Not Detect) mecA-Methicil Res Gene Streptococcus sp PCR (Not Detect) Group A Strep (PCR) (Not Detect) Strep agalactiae (PCR) (Not Detect) Strep pneumoniae (PCR) (Not Detect) P. aeruginosa (PCR) (Not Detect) John [place]/B-Vanco Res Genes KPC-Carbap Res Gene PCR 09/17/22 09/17/22 09/17/22 Range/Units 14:16 14:53 18:00 WBC (4.5-11.0) X10^3/uL RBC (4.5-5.9) X10^6/uL Hgb (13.5-17.5) g/dL Hct (41-53) % MCV (80-100) fL MCH (26-34) PG MCHC (30-36) % RDW (11.6-14.8) % Plt Count (150-400) X10^3/uL Neut % (Auto) (50-75) % Lymph % (Auto) (25-40) % Ward % (Auto) (3-14) % Eos % (Auto) (2-4) % Baso % (Auto) (0-2) % Neut # (Auto) (3750-8261) /uL Lymph # (Auto) (2124-2818) /uL Ward # (Auto) (0-900) /uL Eos # (Auto) (0-450) /uL Baso # (Auto) (0-100) /uL PT (10.1-12.7) SECONDS INR (0.9-1.3) APTT (26-36) SECONDS Sodium (137-145) mmol/L Potassium (3.4-5.1) mmol/L Chloride (98-107) mmol/L Carbon Dioxide (22-32) mmol/L BUN (9-20) mg/dL Creatinine (0.66-1.25) mg/dL Estimated GFR (>60) mL/min BUN/Creatinine Ratio (6-22) Glucose (80-110) mg/dL Hemoglobin A1c (4.0-6.0) % Lactate 1.5 (0.7-2.1) mmol/L Calcium (8.4-10.2) mg/dL Total Bilirubin (0.2-1.3) mg/dL AST (17-59) IU/L ALT (<50) IU/L Alkaline Phosphatase (38-126) U/L Total Creatine Kinase (55-170) U/L CK-MB (CK-2) (<2.37) ng/mL CK-MB (CK-2) Rel Index (1.5-5.0) % Troponin I (0.01-0.034) ng/mL NT-Pro-B Natriuret Pep (<450) pg/mL Total Protein (6.3-8.2) g/dL Albumin (3.5-5.0) g/dL Globulin (1.7-4.1) g/dL Albumin/Globulin Ratio (1.0-2.8) Lipase (23-300) U/L Procalcitonin (<0.5) ng/mL TSH (0.47-4.68) uIU/mL Urine Color Yellow Urine Appearance Clear Urine pH 5.0 (4.5-8.0) Ur Specific [place] 1.020 (1.000-1.035) Urine Protein Negative (Negative) Urine Glucose (UA) Negative (Negative) g/dL Urine Ketones Negative (NEGATIVE) Urine Occult Blood 3+ H (Negative) Urine Nitrate Negative (Negative) Urine Bilirubin Negative (NEGATIVE) Urine Urobilinogen 0.2 (0.2) E.U./dL Ur Leukocyte Esterase 1+ H (NEGATIVE) Urine RBC 5-10/hpf H (0-5/HPF) Urine WBC 1-5/hpf (0-5/HPF) Ur Squamous Epith Cells 1-5 /hpf (0-5/HPF) Urine Bacteria None seen (None) Hyaline Casts 5-10/lpf (None) Ur Culture Indicated? Specimen cultured A. baumannii (PCR) Not detected (Not Detect) Lindsey albicans (PCR) Not detected (Not Detect) C. glabrata (PCR) Not detected (Not Detect) C. krusei (PCR) Not detected (Not Detect) C. parapsilosis (PCR) Not detected (Not Detect) C. tropicalis (PCR) Not detected (Not Detect) SARS-CoV-2 (PCR) (Negative) Enterobacteriac sp PCR Not detected (Not Detect) E. cloacae complex PCR Not detected (Not Detect) Enterococcus sp PCR Not detected (Not Detect) E. coli (PCR) Not detected (Not Detect) H. influenzae (PCR) Not detected (Not Detect) Influenza A (RT-PCR) (NEGATIVE) Influenza B (RT-PCR) (NEGATIVE) Klebsiella oxytoca PCR Not detected (Not Detect) Klebsiella pneumoniae Not detected (Not Detect) List. monocytogenes PCR Not detected (Not Detect) N. meningitidis (PCR) Not detected (Not Detect) Proteus species (PCR) Not detected (Not Detect) RSV (PCR) (Negative) Serratia marcescens PCR Not detected (Not Detect) Staphylococcus sp PCR Not detected (Not Detect) Staph aureus (PCR) Not detected (Not Detect) mecA-Methicil Res Gene TNP Streptococcus sp PCR Not detected (Not Detect) Group A Strep (PCR) Not detected (Not Detect) Strep agalactiae (PCR) Not detected (Not Detect) Strep pneumoniae (PCR) Not detected (Not Detect) P. aeruginosa (PCR) Not detected (Not Detect) John [place]/B-Vanco Res Genes TNP KPC-Carbap Res Gene PCR TNP Point of Care Testing Glucose POC 193 Urine Dip Bedside Urine Glucose 1000 mg/dl Bedside Urine Bilirubin - Negative Bedside Urine Ketone - Negative Urine Specific [place] 1.015 Bedside Urine Occult Blood +++ Bedside Urine pH 5.5 Bedside Urine Protein - Negative Bedside Urine Urobilinogen - Negative Bedside Urine Nitrite - Negative Bedside Urine Leukocytes - Negative Esterase Imaging Data Extremity x-ray #1: Radiologist's Impression: [address] [address] XRay Report Signed Patient: Antwon Rodríguez MR#: [id number] : 1940 Acct:[id number] Age/Sex: 82 / M Date of Service: 09/15/22 Loc: ED Accession Number: [id number] ?? Procedure: XR ankle LT 2V Ordering Provider: Kingsley Garrison MD PROCEDURE:? XR ANKLE LT 2V ? INDICATIONS:? Fall/injury/deformity ? TECHNIQUE:? 3 views of the ankle were acquired.? ? COMPARISON:? [facility], CR, XR ANKLE LT 2V, 12/28/2019, 17:24. ? FINDINGS/IMPRESSION:? ? 1. Complete fracture-dislocation of the ankle with fractures of the medial and lateral malleoli with suspected posterior malleolus fracture also. 2. Complete medial dislocation of the tibia on the talus.? 3. No definite talar dome fracture. ? Dictated by: Herberth Banerjee M.D. on 09/15/2022 at 10:16 ? ? Approved by: Herberth Banerjee M.D. on 09/15/2022 at 10:17 ? Extremity x-ray #2: Radiologist's Impression: [address] [address] XRay Report Signed Patient: Antwon Rodríguez MR#: [id number] : 1940 Acct:[id number] Age/Sex: 82 / M Date of Service: 09/15/22 Loc: ED Accession Number: [id number] ?? Procedure: XR ankle LT 2V Ordering Provider: Kingsley Garrison MD PROCEDURE:? XR ANKLE LT 2V ? INDICATIONS:? post reduction ? TECHNIQUE:? 3 views of the ankle were acquired.? ? COMPARISON:? [facility], CR, XR ANKLE LT 2V, 09/15/2022, 9:45. ? FINDINGS/IMPRESSION:? ? 1. Successful interval tibiotalar reduction. 2. Trimalleolar fractures. ? ? Dictated by: Herberth Banerjee M.D. on 09/15/2022 at 11:29 ? ? Approved by: Herberth Banerjee M.D. on 09/15/2022 at 11:30 ? 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 Patient was on a walker and was turning and lost his balance, has pain to the left ankle with deformity. EMS states patient received 100 mcg of fentanyl prior to arrival. He is awake alert oriented x4. Currently patient is awake alert oriented self and date of and event. Pain is controlled. Pillow splint removed. There is tenting of the skin at the medial malleolus.. Pedal pulse is palpable in the left foot. Light touch intact to foot and toes. NPO since last night Patient does have concerning presentation of left ankle injury/pain. Differential diagnosis includes but not limited to ankle fracture/ankle dislocation/vascular compromise. There is tenting of the medial malleolus. Stat x-ray ordered the ankle ordered, may need immediate reduction of the ankle, however pedal pulse is palpable and brisk cap refills is reassuring. Patient may need immediate procedural sedation with closed reduction. 10:27 a.m.. I spoke with , she is on her way here. He does have history of dementia. Uses a walker however she states he was not using his walker this morning, he turned the corner around the bedroom and twisted his ankle and fell. Is not on blood thinners other than baby aspirin. She does give verbal consent over the phone for procedural sedation and closed reduction of the right ankle. Patient is groggy from the fentanyl that was given to him this morning. Risks and benefits reviewed with . Urgently needed due to dislocation at presentation. However we do have respiratory therapy and equipment and monitoring and medications at bedside for procedure. Risk but not limited of airway compromise/vascular compromise reviewed with . Benefits of proper reduction for neurovascular protection of the foot and ankle. 10:36 a.m.. Patient being transferred into room 2 in order to have more space, respiratory therapy has been contacted. Orthopedics has been contacted as well. 10:[address] Vicente, orthopedics. He does not feel the x-ray shows dislocation but angulation, he instructs patient to be properly reduced and then placed in a posterior splint and discharge home and follow up in the office this week. 11:06 a.m.. Patient did not require procedural sedation. Patient tolerated reduction very well with 50 mcg of fentanyl IV. Patient has severe neuropathy but still had pain after EMS 100 mcg had worn off. Splint applied and post reduction films done. 12:[address] Vicente, he has reviewed postreduction film and patient can be discharged home and follow up in the office. Appropriate for discharge home. I have reviewed imaging, blood work was for possible preop if patient required surgery. I have reviewed with patient and family/ and agree for follow up with Dr. Vicente whom I spoke with as well for continued care and follow-up. Pain is controlled at time of discharge. At this time I do not feel patient needs opiate pain medication as splint has reduced patient's pain significantly. Patient has neuropathy as well. The toes were exposed for review with regarding any discoloration worsening to return. Return precautions reviewed with her and patient. They desire discharge home. 12:45 p.m.. Spoke with . We will need social work in physical therapy evaluation now. Patient requires transferring in and out of bed and to the bathroom at home even before injury today. Patient is nonweightbearing. Patient may need home health care versus senior living facility/rehabilitation Patient has failed physical therapy evaluation, unable to bear weight as to unstable as well for discharge home to be on a walker or crutches. Social work also involved in patient care to find rehab/sniff placement. 6:[address] Cervantes, social work will continue looking for placement tomorrow. Otherwise at this time orthopedics has indicated no surgery at this time. Pain medication schedule has been placed. <Sallie Cervantes, DO - Last Filed: 09/16/22 06:30> Lab Data Labs: Lab Results 09/15/22 09/15/22 09/15/22 Range/Units 09:33 10:20 10:20 WBC 10.4 (4.5-11.0) X10^3/uL RBC 4.78 (4.5-5.9) X10^6/uL Hgb 15.6 (13.5-17.5) g/dL Hct 47.0 (41-53) % MCV 98.3 (80-100) fL MCH 32.7 (26-34) PG MCHC 33.2 (30-36) % RDW 14.2 (11.6-14.8) % Plt Count 126 L (150-400) X10^3/uL Neut % (Auto) 72.7 (50-75) % Lymph % (Auto) 14.2 L (25-40) % Ward % (Auto) 7.6 (3-14) % Eos % (Auto) 5.0 H (2-4) % Baso % (Auto) 0.5 (0-2) % Neut # (Auto) 7500 H (4165-7340) /uL Lymph # (Auto) 1500 (2197-6879) /uL Ward # (Auto) 800 (0-900) /uL Eos # (Auto) 500 H (0-450) /uL Baso # (Auto) 100 (0-100) /uL PT 13.1 H (10.1-12.7) SECONDS INR 1.1 (0.9-1.3) APTT 36 (26-36) SECONDS Sodium (137-145) mmol/L Potassium (3.4-5.1) mmol/L Chloride (98-107) mmol/L Carbon Dioxide (22-32) mmol/L BUN (9-20) mg/dL Creatinine (0.66-1.25) mg/dL Estimated GFR (>60) mL/min BUN/Creatinine Ratio (6-22) Glucose (80-110) mg/dL Hemoglobin A1c (4.0-6.0) % Lactate (0.7-2.1) mmol/L Calcium (8.4-10.2) mg/dL Total Bilirubin (0.2-1.3) mg/dL AST (17-59) IU/L ALT (<50) IU/L Alkaline Phosphatase (38-126) U/L Total Creatine Kinase (55-170) U/L CK-MB (CK-2) (<2.37) ng/mL CK-MB (CK-2) Rel Index (1.5-5.0) % Troponin I (0.01-0.034) ng/mL NT-Pro-B Natriuret Pep (<450) pg/mL Total Protein (6.3-8.2) g/dL Albumin (3.5-5.0) g/dL Globulin (1.7-4.1) g/dL Albumin/Globulin Ratio (1.0-2.8) Lipase (23-300) U/L Procalcitonin (<0.5) ng/mL TSH (0.47-4.68) uIU/mL Urine Color Urine Appearance Urine pH (4.5-8.0) Ur Specific [place] (1.000-1.035) Urine Protein (Negative) Urine Glucose (UA) (Negative) g/dL Urine Ketones (NEGATIVE) Urine Occult Blood (Negative) Urine Nitrate (Negative) Urine Bilirubin (NEGATIVE) Urine Urobilinogen (0.2) E.U./dL Ur Leukocyte Esterase (NEGATIVE) Urine RBC (0-5/HPF) Urine WBC (0-5/HPF) Ur Squamous Epith Cells (0-5/HPF) Urine Bacteria (None) Hyaline Casts (None) Ur Culture Indicated? A. baumannii (PCR) (Not Detect) Lindsey albicans (PCR) (Not Detect) C. glabrata (PCR) (Not Detect) C. krusei (PCR) (Not Detect) C. parapsilosis (PCR) (Not Detect) C. tropicalis (PCR) (Not Detect) SARS-CoV-2 (PCR) Negative (Negative) Enterobacteriac sp PCR (Not Detect) E. cloacae complex PCR (Not Detect) Enterococcus sp PCR (Not Detect) E. coli (PCR) (Not Detect) H. influenzae (PCR) (Not Detect) Influenza A (RT-PCR) (NEGATIVE) Influenza B (RT-PCR) (NEGATIVE) Klebsiella oxytoca PCR (Not Detect) Klebsiella pneumoniae (Not Detect) List. monocytogenes PCR (Not Detect) N. meningitidis (PCR) (Not Detect) Proteus species (PCR) (Not Detect) RSV (PCR) (Negative) Serratia marcescens PCR (Not Detect) Staphylococcus sp PCR (Not Detect) Staph aureus (PCR) (Not Detect) mecA-Methicil Res Gene Streptococcus sp PCR (Not Detect) Group A Strep (PCR) (Not Detect) Strep agalactiae (PCR) (Not Detect) Strep pneumoniae (PCR) (Not Detect) P. aeruginosa (PCR) (Not Detect) John Paul/B-Vanco Res Genes KPC-Carbap Res Gene PCR 09/15/22 09/15/22 09/15/22 Range/Units 10:20 10:20 10:20 WBC (4.5-11.0) X10^3/uL RBC (4.5-5.9) X10^6/uL Hgb (13.5-17.5) g/dL Hct (41-53) % MCV (80-100) fL MCH (26-34) PG MCHC (30-36) % RDW (11.6-14.8) % Plt Count (150-400) X10^3/uL Neut % (Auto) (50-75) % Lymph % (Auto) (25-40) % Ward % (Auto) (3-14) % Eos % (Auto) (2-4) % Baso % (Auto) (0-2) % Neut # (Auto) (7004-0403) /uL Lymph # (Auto) (3690-4680) /uL Ward # (Auto) (0-900) /uL Eos # (Auto) (0-450) /uL Baso # (Auto) (0-100) /uL PT (10.1-12.7) SECONDS INR (0.9-1.3) APTT (26-36) SECONDS Sodium 139 (137-145) mmol/L Potassium 4.7 (3.4-5.1) mmol/L Chloride 100 (98-107) mmol/L Carbon Dioxide 32 (22-32) mmol/L BUN 46 H (9-20) mg/dL Creatinine 1.37 H (0.66-1.25) mg/dL Estimated GFR 52 L (>60) mL/min BUN/Creatinine Ratio 33.6 H (6-22) Glucose 204 H (80-110) mg/dL Hemoglobin A1c 8.3 H (4.0-6.0) % Lactate (0.7-2.1) mmol/L Calcium 8.8 (8.4-10.2) mg/dL Total Bilirubin 1.0 (0.2-1.3) mg/dL AST 24 (17-59) IU/L ALT 22 (<50) IU/L Alkaline Phosphatase 94 (38-126) U/L Total Creatine Kinase (55-170) U/L CK-MB (CK-2) (<2.37) ng/mL CK-MB (CK-2) Rel Index (1.5-5.0) % Troponin I (0.01-0.034) ng/mL NT-Pro-B Natriuret Pep (<450) pg/mL Total Protein 7.9 (6.3-8.2) g/dL Albumin 3.7 (3.5-5.0) g/dL Globulin 4.2 H (1.7-4.1) g/dL Albumin/Globulin Ratio 0.9 L (1.0-2.8) Lipase (23-300) U/L Procalcitonin (<0.5) ng/mL TSH 4.49 (0.47-4.68) uIU/mL Urine Color Urine Appearance Urine pH (4.5-8.0) Ur Specific [place] (1.000-1.035) Urine Protein (Negative) Urine Glucose (UA) (Negative) g/dL Urine Ketones (NEGATIVE) Urine Occult Blood (Negative) Urine Nitrate (Negative) Urine Bilirubin (NEGATIVE) Urine Urobilinogen (0.2) E.U./dL Ur Leukocyte Esterase (NEGATIVE) Urine RBC (0-5/HPF) Urine WBC (0-5/HPF) Ur Squamous Epith Cells (0-5/HPF) Urine Bacteria (None) Hyaline Casts (None) Ur Culture Indicated? A. baumannii (PCR) (Not Detect) Lindsey albicans (PCR) (Not Detect) C. glabrata (PCR) (Not Detect) C. krusei (PCR) (Not Detect) C. parapsilosis (PCR) (Not Detect) C. tropicalis (PCR) (Not Detect) SARS-CoV-2 (PCR) (Negative) Enterobacteriac sp PCR (Not Detect) E. cloacae complex PCR (Not Detect) Enterococcus sp PCR (Not Detect) E. coli (PCR) (Not Detect) H. influenzae (PCR) (Not Detect) Influenza A (RT-PCR) (NEGATIVE) Influenza B (RT-PCR) (NEGATIVE) Klebsiella oxytoca PCR (Not Detect) Klebsiella pneumoniae (Not Detect) List. monocytogenes PCR (Not Detect) N. meningitidis (PCR) (Not Detect) Proteus species (PCR) (Not Detect) RSV (PCR) (Negative) Serratia marcescens PCR (Not Detect) Staphylococcus sp PCR (Not Detect) Staph aureus (PCR) (Not Detect) mecA-Methicil Res Gene Streptococcus sp PCR (Not Detect) Group A Strep (PCR) (Not Detect) Strep agalactiae (PCR) (Not Detect) Strep pneumoniae (PCR) (Not Detect) P. aeruginosa (PCR) (Not Detect) John Paul/B-Vanco Res Genes KPC-Carbap Res Gene PCR 09/17/22 09/17/22 09/17/22 Range/Units 12:53 13:00 13:35 WBC 13.3 H (4.5-11.0) X10^3/uL RBC 4.16 L (4.5-5.9) X10^6/uL Hgb 13.6 (13.5-17.5) g/dL Hct 41.4 (41-53) % MCV 99.6 (80-100) fL MCH 32.7 (26-34) PG MCHC 32.8 (30-36) % RDW 14.4 (11.6-14.8) % Plt Count 119 L (150-400) X10^3/uL Neut % (Auto) 75.2 H (50-75) % Lymph % (Auto) 14.3 L (25-40) % Ward % (Auto) 9.1 (3-14) % Eos % (Auto) 0.9 L (2-4) % Baso % (Auto) 0.5 (0-2) % Neut # (Auto) 98863 H (0928-7308) /uL Lymph # (Auto) 1900 (6800-6280) /uL Ward # (Auto) 1200 H (0-900) /uL Eos # (Auto) 100 (0-450) /uL Baso # (Auto) 100 (0-100) /uL PT (10.1-12.7) SECONDS INR (0.9-1.3) APTT (26-36) SECONDS Sodium (137-145) mmol/L Potassium (3.4-5.1) mmol/L Chloride (98-107) mmol/L Carbon Dioxide (22-32) mmol/L BUN (9-20) mg/dL Creatinine (0.66-1.25) mg/dL Estimated GFR (>60) mL/min BUN/Creatinine Ratio (6-22) Glucose (80-110) mg/dL Hemoglobin A1c (4.0-6.0) % Lactate (0.7-2.1) mmol/L Calcium (8.4-10.2) mg/dL Total Bilirubin (0.2-1.3) mg/dL AST (17-59) IU/L ALT (<50) IU/L Alkaline Phosphatase (38-126) U/L Total Creatine Kinase 289 H (55-170) U/L CK-MB (CK-2) 0.63 (<2.37) ng/mL CK-MB (CK-2) Rel Index 0.2 L (1.5-5.0) % Troponin I < 0.012 (0.01-0.034) ng/mL NT-Pro-B Natriuret Pep 284 (<450) pg/mL Total Protein (6.3-8.2) g/dL Albumin (3.5-5.0) g/dL Globulin (1.7-4.1) g/dL Albumin/Globulin Ratio (1.0-2.8) Lipase (23-300) U/L Procalcitonin (<0.5) ng/mL TSH (0.47-4.68) uIU/mL Urine Color Urine Appearance Urine pH (4.5-8.0) Ur Specific [place] (1.000-1.035) Urine Protein (Negative) Urine Glucose (UA) (Negative) g/dL Urine Ketones (NEGATIVE) Urine Occult Blood (Negative) Urine Nitrate (Negative) Urine Bilirubin (NEGATIVE) Urine Urobilinogen (0.2) E.U./dL Ur Leukocyte Esterase (NEGATIVE) Urine RBC (0-5/HPF) Urine WBC (0-5/HPF) Ur Squamous Epith Cells (0-5/HPF) Urine Bacteria (None) Hyaline Casts (None) Ur Culture Indicated? A. baumannii (PCR) (Not Detect) Lindsey albicans (PCR) (Not Detect) C. glabrata (PCR) (Not Detect) C. krusei (PCR) (Not Detect) C. parapsilosis (PCR) (Not Detect) C. tropicalis (PCR) (Not Detect) SARS-CoV-2 (PCR) Negative (Negative) Enterobacteriac sp PCR (Not Detect) E. cloacae complex PCR (Not Detect) Enterococcus sp PCR (Not Detect) E. coli (PCR) (Not Detect) H. influenzae (PCR) (Not Detect) Influenza A (RT-PCR) Flu a negative (NEGATIVE) Influenza B (RT-PCR) Flu b negative (NEGATIVE) Klebsiella oxytoca PCR (Not Detect) Klebsiella pneumoniae (Not Detect) List. monocytogenes PCR (Not Detect) N. meningitidis (PCR) (Not Detect) Proteus species (PCR) (Not Detect) RSV (PCR) Negative (Negative) Serratia marcescens PCR (Not Detect) Staphylococcus sp PCR (Not Detect) Staph aureus (PCR) (Not Detect) mecA-Methicil Res Gene Streptococcus sp PCR (Not Detect) Group A Strep (PCR) (Not Detect) Strep agalactiae (PCR) (Not Detect) Strep pneumoniae (PCR) (Not Detect) P. aeruginosa (PCR) (Not Detect) John Paul/B-Vanco Res Genes KPC-Carbap Res Gene PCR 09/17/22 09/17/22 09/17/22 Range/Units 13:35 13:35 13:35 WBC (4.5-11.0) X10^3/uL RBC (4.5-5.9) X10^6/uL Hgb (13.5-17.5) g/dL Hct (41-53) % MCV (80-100) fL MCH (26-34) PG MCHC (30-36) % RDW (11.6-14.8) % Plt Count (150-400) X10^3/uL Neut % (Auto) (50-75) % Lymph % (Auto) (25-40) % Ward % (Auto) (3-14) % Eos % (Auto) (2-4) % Baso % (Auto) (0-2) % Neut # (Auto) (5729-2257) /uL Lymph # (Auto) (0172-5708) /uL Ward # (Auto) (0-900) /uL Eos # (Auto) (0-450) /uL Baso # (Auto) (0-100) /uL PT 15.4 H (10.1-12.7) SECONDS INR 1.3 (0.9-1.3) APTT 34 (26-36) SECONDS Sodium 139 (137-145) mmol/L Potassium 4.5 (3.4-5.1) mmol/L Chloride 101 (98-107) mmol/L Carbon Dioxide 30 (22-32) mmol/L BUN 59 H (9-20) mg/dL Creatinine 2.49 H (0.66-1.25) mg/dL Estimated GFR 25 L (>60) mL/min BUN/Creatinine Ratio 23.7 H (6-22) Glucose 250 H (80-110) mg/dL Hemoglobin A1c (4.0-6.0) % Lactate 2.1 (0.7-2.1) mmol/L Calcium 8.4 (8.4-10.2) mg/dL Total Bilirubin 1.2 (0.2-1.3) mg/dL AST 22 (17-59) IU/L ALT 19 (<50) IU/L Alkaline Phosphatase 73 (38-126) U/L Total Creatine Kinase (55-170) U/L CK-MB (CK-2) (<2.37) ng/mL CK-MB (CK-2) Rel Index (1.5-5.0) % Troponin I (0.01-0.034) ng/mL NT-Pro-B Natriuret Pep (<450) pg/mL Total Protein 7.2 (6.3-8.2) g/dL Albumin 3.4 L (3.5-5.0) g/dL Globulin 3.8 (1.7-4.1) g/dL Albumin/Globulin Ratio 0.9 L (1.0-2.8) Lipase 31 (23-300) U/L Procalcitonin 0.58 H (<0.5) ng/mL TSH (0.47-4.68) uIU/mL Urine Color Urine Appearance Urine pH (4.5-8.0) Ur Specific [place] (1.000-1.035) Urine Protein (Negative) Urine Glucose (UA) (Negative) g/dL Urine Ketones (NEGATIVE) Urine Occult Blood (Negative) Urine Nitrate (Negative) Urine Bilirubin (NEGATIVE) Urine Urobilinogen (0.2) E.U./dL Ur Leukocyte Esterase (NEGATIVE) Urine RBC (0-5/HPF) Urine WBC (0-5/HPF) Ur Squamous Epith Cells (0-5/HPF) Urine Bacteria (None) Hyaline Casts (None) Ur Culture Indicated? A. baumannii (PCR) (Not Detect) Lindsey albicans (PCR) (Not Detect) C. glabrata (PCR) (Not Detect) C. krusei (PCR) (Not Detect) C. parapsilosis (PCR) (Not Detect) C. tropicalis (PCR) (Not Detect) SARS-CoV-2 (PCR) (Negative) Enterobacteriac sp PCR (Not Detect) E. cloacae complex PCR (Not Detect) Enterococcus sp PCR (Not Detect) E. coli (PCR) (Not Detect) H. influenzae (PCR) (Not Detect) Influenza A (RT-PCR) (NEGATIVE) Influenza B (RT-PCR) (NEGATIVE) Klebsiella oxytoca PCR (Not Detect) Klebsiella pneumoniae (Not Detect) List. monocytogenes PCR (Not Detect) N. meningitidis (PCR) (Not Detect) Proteus species (PCR) (Not Detect) RSV (PCR) (Negative) Serratia marcescens PCR (Not Detect) Staphylococcus sp PCR (Not Detect) Staph aureus (PCR) (Not Detect) mecA-Methicil Res Gene Streptococcus sp PCR (Not Detect) Group A Strep (PCR) (Not Detect) Strep agalactiae (PCR) (Not Detect) Strep pneumoniae (PCR) (Not Detect) P. aeruginosa (PCR) (Not Detect) John Paul/B-Vanco Res Genes KPC-Carbap Res Gene PCR 09/17/22 09/17/22 09/17/22 Range/Units 14:16 14:53 18:00 WBC (4.5-11.0) X10^3/uL RBC (4.5-5.9) X10^6/uL Hgb (13.5-17.5) g/dL Hct (41-53) % MCV (80-100) fL MCH (26-34) PG MCHC (30-36) % RDW (11.6-14.8) % Plt Count (150-400) X10^3/uL Neut % (Auto) (50-75) % Lymph % (Auto) (25-40) % Ward % (Auto) (3-14) % Eos % (Auto) (2-4) % Baso % (Auto) (0-2) % Neut # (Auto) (7506-4461) /uL Lymph # (Auto) (2042-3360) /uL Ward # (Auto) (0-900) /uL Eos # (Auto) (0-450) /uL Baso # (Auto) (0-100) /uL PT (10.1-12.7) SECONDS INR (0.9-1.3) APTT (26-36) SECONDS Sodium (137-145) mmol/L Potassium (3.4-5.1) mmol/L Chloride (98-107) mmol/L Carbon Dioxide (22-32) mmol/L BUN (9-20) mg/dL Creatinine (0.66-1.25) mg/dL Estimated GFR (>60) mL/min BUN/Creatinine Ratio (6-22) Glucose (80-110) mg/dL Hemoglobin A1c (4.0-6.0) % Lactate 1.5 (0.7-2.1) mmol/L Calcium (8.4-10.2) mg/dL Total Bilirubin (0.2-1.3) mg/dL AST (17-59) IU/L ALT (<50) IU/L Alkaline Phosphatase (38-126) U/L Total Creatine Kinase (55-170) U/L CK-MB (CK-2) (<2.37) ng/mL CK-MB (CK-2) Rel Index (1.5-5.0) % Troponin I (0.01-0.034) ng/mL NT-Pro-B Natriuret Pep (<450) pg/mL Total Protein (6.3-8.2) g/dL Albumin (3.5-5.0) g/dL Globulin (1.7-4.1) g/dL Albumin/Globulin Ratio (1.0-2.8) Lipase (23-300) U/L Procalcitonin (<0.5) ng/mL TSH (0.47-4.68) uIU/mL Urine Color Yellow Urine Appearance Clear Urine pH 5.0 (4.5-8.0) Ur Specific [place] 1.020 (1.000-1.035) Urine Protein Negative (Negative) Urine Glucose (UA) Negative (Negative) g/dL Urine Ketones Negative (NEGATIVE) Urine Occult Blood 3+ H (Negative) Urine Nitrate Negative (Negative) Urine Bilirubin Negative (NEGATIVE) Urine Urobilinogen 0.2 (0.2) E.U./dL Ur Leukocyte Esterase 1+ H (NEGATIVE) Urine RBC 5-10/hpf H (0-5/HPF) Urine WBC 1-5/hpf (0-5/HPF) Ur Squamous Epith Cells 1-5 /hpf (0-5/HPF) Urine Bacteria None seen (None) Hyaline Casts 5-10/lpf (None) Ur Culture Indicated? Specimen cultured A. baumannii (PCR) Not detected (Not Detect) Lindsey albicans (PCR) Not detected (Not Detect) C. glabrata (PCR) Not detected (Not Detect) C. krusei (PCR) Not detected (Not Detect) C. parapsilosis (PCR) Not detected (Not Detect) C. tropicalis (PCR) Not detected (Not Detect) SARS-CoV-2 (PCR) (Negative) Enterobacteriac sp PCR Not detected (Not Detect) E. cloacae complex PCR Not detected (Not Detect) Enterococcus sp PCR Not detected (Not Detect) E. coli (PCR) Not detected (Not Detect) H. influenzae (PCR) Not detected (Not Detect) Influenza A (RT-PCR) (NEGATIVE) Influenza B (RT-PCR) (NEGATIVE) Klebsiella oxytoca PCR Not detected (Not Detect) Klebsiella pneumoniae Not detected (Not Detect) List. monocytogenes PCR Not detected (Not Detect) N. meningitidis (PCR) Not detected (Not Detect) Proteus species (PCR) Not detected (Not Detect) RSV (PCR) (Negative) Serratia marcescens PCR Not detected (Not Detect) Staphylococcus sp PCR Not detected (Not Detect) Staph aureus (PCR) Not detected (Not Detect) mecA-Methicil Res Gene TNP Streptococcus sp PCR Not detected (Not Detect) Group A Strep (PCR) Not detected (Not Detect) Strep agalactiae (PCR) Not detected (Not Detect) Strep pneumoniae (PCR) Not detected (Not Detect) P. 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 Patient was on a walker and was turning and lost his balance, has pain to the left ankle with deformity. EMS states patient received 100 mcg of fentanyl prior to arrival. He is awake alert oriented x4. Currently patient is awake alert oriented self and date of and event. Pain is controlled. Pillow splint removed. There is tenting of the skin at the medial malleolus.. Pedal pulse is palpable in the left foot. Light touch intact to foot and toes. NPO since last night Patient does have concerning presentation of left ankle injury/pain. Differential diagnosis includes but not limited to ankle fracture/ankle dislocation/vascular compromise. There is tenting of the medial malleolus. Stat x-ray ordered the ankle ordered, may need immediate reduction of the ankle, however pedal pulse is palpable and brisk cap refills is reassuring. Patient may need immediate procedural sedation with closed reduction. 10:27 a.m.. I spoke with , she is on her way here. He does have history of dementia. Uses a walker however she states he was not using his walker this morning, he turned the corner around the bedroom and twisted his ankle and fell. Is not on blood thinners other than baby aspirin. She does give verbal consent over the phone for procedural sedation and closed reduction of the right ankle. Patient is groggy from the fentanyl that was given to him this morning. Risks and benefits reviewed with . Urgently needed due to dislocation at presentation. However we do have respiratory therapy and equipment and monitoring and medications at bedside for procedure. Risk but not limited of airway compromise/vascular compromise reviewed with . Benefits of proper reduction for neurovascular protection of the foot and ankle. 10:36 a.m.. Patient being transferred into room 2 in order to have more space, respiratory therapy has been contacted. Orthopedics has been contacted as well. 10:[address] Vicente, orthopedics. He does not feel the x-ray shows dislocation but angulation, he instructs patient to be properly reduced and then placed in a posterior splint and discharge home and follow up in the office this week. 11:06 a.m.. Patient did not require procedural sedation. Patient tolerated reduction very well with 50 mcg of fentanyl IV. Patient has severe neuropathy but still had pain after EMS 100 mcg had worn off. Splint applied and post reduction films done. 12:[address] Vicente, he has reviewed postreduction film and patient can be discharged home and follow up in the office. Appropriate for discharge home. I have reviewed imaging, blood work was for possible preop if patient required surgery. I have reviewed with patient and family/ and agree for follow up with Dr. Vicente whom I spoke with as well for continued care and follow-up. Pain is controlled at time of discharge. At this time I do not feel patient needs opiate pain medication as splint has reduced patient's pain significantly. Patient has neuropathy as well. The toes were exposed for review with regarding any discoloration worsening to return. Return precautions reviewed with her and patient. They desire discharge home. 12:45 p.m.. Spoke with . We will need social work in physical therapy evaluation now. Patient requires transferring in and out of bed and to the bathroom at home even before injury today. Patient is nonweightbearing. Patient may need home health care versus senior living facility/rehabilitation Patient has failed physical therapy evaluation, unable to bear weight as to unstable as well for discharge home to be on a walker or crutches. Social work also involved in patient care to find rehab/sniff placement. 6:[address] Cervantes, social work will continue looking for placement tomorrow. Otherwise at this time orthopedics has indicated no surgery at this time. Pain medication schedule has been placed. 09/16/21 Helen: Patient signed out to myself by Dr. Garrison, ankle fracture possibly requiring surgical repair but not plan to emergently in the next 24 hours. Patient case was discussed with social work as they are seeking home health care versus senior living facility. Patient has appears to be baseline renal function, glucose was 204 initially was elevated 300 range did not have his evening medications will cover with sliding scale. Platelets are 126, otherwise normal hemoglobin. Patient is COVID negative. Patient had reduction by Dr. Garrison in the department. Attempting to obtain home med list with doses to order home meds. Patient signed out to Dr. Diaz while awaiting possible placement. <Radha Diaz MD - Last Filed: 09/21/22 18:50> Lab Data Labs: Lab Results 09/15/22 09/15/22 09/15/22 Range/Units 09:33 10:20 10:20 WBC 10.4 (4.5-11.0) X10^3/uL RBC 4.78 (4.5-5.9) X10^6/uL Hgb 15.6 (13.5-17.5) g/dL Hct 47.0 (41-53) % MCV 98.3 (80-100) fL MCH 32.7 (26-34) PG MCHC 33.2 (30-36) % RDW 14.2 (11.6-14.8) % Plt Count 126 L (150-400) X10^3/uL Neut % (Auto) 72.7 (50-75) % Lymph % (Auto) 14.2 L (25-40) % Ward % (Auto) 7.6 (3-14) % Eos % (Auto) 5.0 H (2-4) % Baso % (Auto) 0.5 (0-2) % Neut # (Auto) 7500 H (8393-9942) /uL Lymph # (Auto) 1500 (0599-9636) /uL Ward # (Auto) 800 (0-900) /uL Eos # (Auto) 500 H (0-450) /uL Baso # (Auto) 100 (0-100) /uL PT 13.1 H (10.1-12.7) SECONDS INR 1.1 (0.9-1.3) APTT 36 (26-36) SECONDS Sodium (137-145) mmol/L Potassium (3.4-5.1) mmol/L Chloride (98-107) mmol/L Carbon Dioxide (22-32) mmol/L BUN (9-20) mg/dL Creatinine (0.66-1.25) mg/dL Estimated GFR (>60) mL/min BUN/Creatinine Ratio (6-22) Glucose (80-110) mg/dL Hemoglobin A1c (4.0-6.0) % Lactate (0.7-2.1) mmol/L Calcium (8.4-10.2) mg/dL Total Bilirubin (0.2-1.3) mg/dL AST (17-59) IU/L ALT (<50) IU/L Alkaline Phosphatase (38-126) U/L Total Creatine Kinase (55-170) U/L CK-MB (CK-2) (<2.37) ng/mL CK-MB (CK-2) Rel Index (1.5-5.0) % Troponin I (0.01-0.034) ng/mL NT-Pro-B Natriuret Pep (<450) pg/mL Total Protein (6.3-8.2) g/dL Albumin (3.5-5.0) g/dL Globulin (1.7-4.1) g/dL Albumin/Globulin Ratio (1.0-2.8) Lipase (23-300) U/L Procalcitonin (<0.5) ng/mL TSH (0.47-4.68) uIU/mL Urine Color Urine Appearance Urine pH (4.5-8.0) Ur Specific [place] (1.000-1.035) Urine Protein (Negative) Urine Glucose (UA) (Negative) g/dL Urine Ketones (NEGATIVE) Urine Occult Blood (Negative) Urine Nitrate (Negative) Urine Bilirubin (NEGATIVE) Urine Urobilinogen (0.2) E.U./dL Ur Leukocyte Esterase (NEGATIVE) Urine RBC (0-5/HPF) Urine WBC (0-5/HPF) Ur Squamous Epith Cells (0-5/HPF) Urine Bacteria (None) Hyaline Casts (None) Ur Culture Indicated? A. baumannii (PCR) (Not Detect) Lindsey albicans (PCR) (Not Detect) C. glabrata (PCR) (Not Detect) C. krusei (PCR) (Not Detect) C. parapsilosis (PCR) (Not Detect) C. tropicalis (PCR) (Not Detect) SARS-CoV-2 (PCR) Negative (Negative) Enterobacteriac sp PCR (Not Detect) E. cloacae complex PCR (Not Detect) Enterococcus sp PCR (Not Detect) E. coli (PCR) (Not Detect) H. influenzae (PCR) (Not Detect) Influenza A (RT-PCR) (NEGATIVE) Influenza B (RT-PCR) (NEGATIVE) Klebsiella oxytoca PCR (Not Detect) Klebsiella pneumoniae (Not Detect) List. monocytogenes PCR (Not Detect) N. meningitidis (PCR) (Not Detect) Proteus species (PCR) (Not Detect) RSV (PCR) (Negative) Serratia marcescens PCR (Not Detect) Staphylococcus sp PCR (Not Detect) Staph aureus (PCR) (Not Detect) mecA-Methicil Res Gene Streptococcus sp PCR (Not Detect) Group A Strep (PCR) (Not Detect) Strep agalactiae (PCR) (Not Detect) Strep pneumoniae (PCR) (Not Detect) P. aeruginosa (PCR) (Not Detect) John [place]/B-Vanco Res Genes KPC-Carbap Res Gene PCR 09/15/22 09/15/22 09/15/22 Range/Units 10:20 10:20 10:20 WBC (4.5-11.0) X10^3/uL RBC (4.5-5.9) X10^6/uL Hgb (13.5-17.5) g/dL Hct (41-53) % MCV (80-100) fL MCH (26-34) PG MCHC (30-36) % RDW (11.6-14.8) % Plt Count (150-400) X10^3/uL Neut % (Auto) (50-75) % Lymph % (Auto) (25-40) % Ward % (Auto) (3-14) % Eos % (Auto) (2-4) % Baso % (Auto) (0-2) % Neut # (Auto) (6041-9379) /uL Lymph # (Auto) (6107-1693) /uL Ward # (Auto) (0-900) /uL Eos # (Auto) (0-450) /uL Baso # (Auto) (0-100) /uL PT (10.1-12.7) SECONDS INR (0.9-1.3) APTT (26-36) SECONDS Sodium 139 (137-145) mmol/L Potassium 4.7 (3.4-5.1) mmol/L Chloride 100 (98-107) mmol/L Carbon Dioxide 32 (22-32) mmol/L BUN 46 H (9-20) mg/dL Creatinine 1.37 H (0.66-1.25) mg/dL Estimated GFR 52 L (>60) mL/min BUN/Creatinine Ratio 33.6 H (6-22) Glucose 204 H (80-110) mg/dL Hemoglobin A1c 8.3 H (4.0-6.0) % Lactate (0.7-2.1) mmol/L Calcium 8.8 (8.4-10.2) mg/dL Total Bilirubin 1.0 (0.2-1.3) mg/dL AST 24 (17-59) IU/L ALT 22 (<50) IU/L Alkaline Phosphatase 94 (38-126) U/L Total Creatine Kinase (55-170) U/L CK-MB (CK-2) (<2.37) ng/mL CK-MB (CK-2) Rel Index (1.5-5.0) % Troponin I (0.01-0.034) ng/mL NT-Pro-B Natriuret Pep (<450) pg/mL Total Protein 7.9 (6.3-8.2) g/dL Albumin 3.7 (3.5-5.0) g/dL Globulin 4.2 H (1.7-4.1) g/dL Albumin/Globulin Ratio 0.9 L (1.0-2.8) Lipase (23-300) U/L Procalcitonin (<0.5) ng/mL TSH 4.49 (0.47-4.68) uIU/mL Urine Color Urine Appearance Urine pH (4.5-8.0) Ur Specific [place] (1.000-1.035) Urine Protein (Negative) Urine Glucose (UA) (Negative) g/dL Urine Ketones (NEGATIVE) Urine Occult Blood (Negative) Urine Nitrate (Negative) Urine Bilirubin (NEGATIVE) Urine Urobilinogen (0.2) E.U./dL Ur Leukocyte Esterase (NEGATIVE) Urine RBC (0-5/HPF) Urine WBC (0-5/HPF) Ur Squamous Epith Cells (0-5/HPF) Urine Bacteria (None) Hyaline Casts (None) Ur Culture Indicated? A. baumannii (PCR) (Not Detect) Lindsey albicans (PCR) (Not Detect) C. glabrata (PCR) (Not Detect) C. krusei (PCR) (Not Detect) C. parapsilosis (PCR) (Not Detect) C. tropicalis (PCR) (Not Detect) SARS-CoV-2 (PCR) (Negative) Enterobacteriac sp PCR (Not Detect) E. cloacae complex PCR (Not Detect) Enterococcus sp PCR (Not Detect) E. coli (PCR) (Not Detect) H. influenzae (PCR) (Not Detect) Influenza A (RT-PCR) (NEGATIVE) Influenza B (RT-PCR) (NEGATIVE) Klebsiella oxytoca PCR (Not Detect) Klebsiella pneumoniae (Not Detect) List. monocytogenes PCR (Not Detect) N. meningitidis (PCR) (Not Detect) Proteus species (PCR) (Not Detect) RSV (PCR) (Negative) Serratia marcescens PCR (Not Detect) Staphylococcus sp PCR (Not Detect) Staph aureus (PCR) (Not Detect) mecA-Methicil Res Gene Streptococcus sp PCR (Not Detect) Group A Strep (PCR) (Not Detect) Strep agalactiae (PCR) (Not Detect) Strep pneumoniae (PCR) (Not Detect) P. aeruginosa (PCR) (Not Detect) [place]/B-Vanco Res Genes KPC-Carbap Res Gene PCR 09/17/22 09/17/22 09/17/22 Range/Units 12:53 13:00 13:35 WBC 13.3 H (4.5-11.0) X10^3/uL RBC 4.16 L (4.5-5.9) X10^6/uL Hgb 13.6 (13.5-17.5) g/dL Hct 41.4 (41-53) % MCV 99.6 (80-100) fL MCH 32.7 (26-34) PG MCHC 32.8 (30-36) % RDW 14.4 (11.6-14.8) % Plt Count 119 L (150-400) X10^3/uL Neut % (Auto) 75.2 H (50-75) % Lymph % (Auto) 14.3 L (25-40) % Ward % (Auto) 9.1 (3-14) % Eos % (Auto) 0.9 L (2-4) % Baso % (Auto) 0.5 (0-2) % Neut # (Auto) 15077 H (9846-4416) /uL Lymph # (Auto) 1900 (5572-9677) /uL Ward # (Auto) 1200 H (0-900) /uL Eos # (Auto) 100 (0-450) /uL Baso # (Auto) 100 (0-100) /uL PT (10.1-12.7) SECONDS INR (0.9-1.3) APTT (26-36) SECONDS Sodium (137-145) mmol/L Potassium (3.4-5.1) mmol/L Chloride (98-107) mmol/L Carbon Dioxide (22-32) mmol/L BUN (9-20) mg/dL Creatinine (0.66-1.25) mg/dL Estimated GFR (>60) mL/min BUN/Creatinine Ratio (6-22) Glucose (80-110) mg/dL Hemoglobin A1c (4.0-6.0) % Lactate (0.7-2.1) mmol/L Calcium (8.4-10.2) mg/dL Total Bilirubin (0.2-1.3) mg/dL AST (17-59) IU/L ALT (<50) IU/L Alkaline Phosphatase (38-126) U/L Total Creatine Kinase 289 H (55-170) U/L CK-MB (CK-2) 0.63 (<2.37) ng/mL CK-MB (CK-2) Rel Index 0.2 L (1.5-5.0) % Troponin I < 0.012 (0.01-0.034) ng/mL NT-Pro-B Natriuret Pep 284 (<450) pg/mL Total Protein (6.3-8.2) g/dL Albumin (3.5-5.0) g/dL Globulin (1.7-4.1) g/dL Albumin/Globulin Ratio (1.0-2.8) Lipase (23-300) U/L Procalcitonin (<0.5) ng/mL TSH (0.47-4.68) uIU/mL Urine Color Urine Appearance Urine pH (4.5-8.0) Ur Specific [place] (1.000-1.035) Urine Protein (Negative) Urine Glucose (UA) (Negative) g/dL Urine Ketones (NEGATIVE) Urine Occult Blood (Negative) Urine Nitrate (Negative) Urine Bilirubin (NEGATIVE) Urine Urobilinogen (0.2) E.U./dL Ur Leukocyte Esterase (NEGATIVE) Urine RBC (0-5/HPF) Urine WBC (0-5/HPF) Ur Squamous Epith Cells (0-5/HPF) Urine Bacteria (None) Hyaline Casts (None) Ur Culture Indicated? A. baumannii (PCR) (Not Detect) Lindsey albicans (PCR) (Not Detect) C. glabrata (PCR) (Not Detect) C. krusei (PCR) (Not Detect) C. parapsilosis (PCR) (Not Detect) C. tropicalis (PCR) (Not Detect) SARS-CoV-2 (PCR) Negative (Negative) Enterobacteriac sp PCR (Not Detect) E. cloacae complex PCR (Not Detect) Enterococcus sp PCR (Not Detect) E. coli (PCR) (Not Detect) H. influenzae (PCR) (Not Detect) Influenza A (RT-PCR) Flu a negative (NEGATIVE) Influenza B (RT-PCR) Flu b negative (NEGATIVE) Klebsiella oxytoca PCR (Not Detect) Klebsiella pneumoniae (Not Detect) List. monocytogenes PCR (Not Detect) N. meningitidis (PCR) (Not Detect) Proteus species (PCR) (Not Detect) RSV (PCR) Negative (Negative) Serratia marcescens PCR (Not Detect) Staphylococcus sp PCR (Not Detect) Staph aureus (PCR) (Not Detect) mecA-Methicil Res Gene Streptococcus sp PCR (Not Detect) Group A Strep (PCR) (Not Detect) Strep agalactiae (PCR) (Not Detect) Strep pneumoniae (PCR) (Not Detect) P. aeruginosa (PCR) (Not Detect) John Paul/B-Vanco Res Genes KPC-Carbap Res Gene PCR 09/17/22 09/17/22 09/17/22 Range/Units 13:35 13:35 13:35 WBC (4.5-11.0) X10^3/uL RBC (4.5-5.9) X10^6/uL Hgb (13.5-17.5) g/dL Hct (41-53) % MCV (80-100) fL MCH (26-34) PG MCHC (30-36) % RDW (11.6-14.8) % Plt Count (150-400) X10^3/uL Neut % (Auto) (50-75) % Lymph % (Auto) (25-40) % Ward % (Auto) (3-14) % Eos % (Auto) (2-4) % Baso % (Auto) (0-2) % Neut # (Auto) (5593-4714) /uL Lymph # (Auto) (7617-4882) /uL Ward # (Auto) (0-900) /uL Eos # (Auto) (0-450) /uL Baso # (Auto) (0-100) /uL PT 15.4 H (10.1-12.7) SECONDS INR 1.3 (0.9-1.3) APTT 34 (26-36) SECONDS Sodium 139 (137-145) mmol/L Potassium 4.5 (3.4-5.1) mmol/L Chloride 101 (98-107) mmol/L Carbon Dioxide 30 (22-32) mmol/L BUN 59 H (9-20) mg/dL Creatinine 2.49 H (0.66-1.25) mg/dL Estimated GFR 25 L (>60) mL/min BUN/Creatinine Ratio 23.7 H (6-22) Glucose 250 H (80-110) mg/dL Hemoglobin A1c (4.0-6.0) % Lactate 2.1 (0.7-2.1) mmol/L Calcium 8.4 (8.4-10.2) mg/dL Total Bilirubin 1.2 (0.2-1.3) mg/dL AST 22 (17-59) IU/L ALT 19 (<50) IU/L Alkaline Phosphatase 73 (38-126) U/L Total Creatine Kinase (55-170) U/L CK-MB (CK-2) (<2.37) ng/mL CK-MB (CK-2) Rel Index (1.5-5.0) % Troponin I (0.01-0.034) ng/mL NT-Pro-B Natriuret Pep (<450) pg/mL Total Protein 7.2 (6.3-8.2) g/dL Albumin 3.4 L (3.5-5.0) g/dL Globulin 3.8 (1.7-4.1) g/dL Albumin/Globulin Ratio 0.9 L (1.0-2.8) Lipase 31 (23-300) U/L Procalcitonin 0.58 H (<0.5) ng/mL TSH (0.47-4.68) uIU/mL Urine Color Urine Appearance Urine pH (4.5-8.0) Ur Specific [place] (1.000-1.035) Urine Protein (Negative) Urine Glucose (UA) (Negative) g/dL Urine Ketones (NEGATIVE) Urine Occult Blood (Negative) Urine Nitrate (Negative) Urine Bilirubin (NEGATIVE) Urine Urobilinogen (0.2) E.U./dL Ur Leukocyte Esterase (NEGATIVE) Urine RBC (0-5/HPF) Urine WBC (0-5/HPF) Ur Squamous Epith Cells (0-5/HPF) Urine Bacteria (None) Hyaline Casts (None) Ur Culture Indicated? A. baumannii (PCR) (Not Detect) Lindsey albicans (PCR) (Not Detect) C. glabrata (PCR) (Not Detect) C. krusei (PCR) (Not Detect) C. parapsilosis (PCR) (Not Detect) C. tropicalis (PCR) (Not Detect) SARS-CoV-2 (PCR) (Negative) Enterobacteriac sp PCR (Not Detect) E. cloacae complex PCR (Not Detect) Enterococcus sp PCR (Not Detect) E. coli (PCR) (Not Detect) H. influenzae (PCR) (Not Detect) Influenza A (RT-PCR) (NEGATIVE) Influenza B (RT-PCR) (NEGATIVE) Klebsiella oxytoca PCR (Not Detect) Klebsiella pneumoniae (Not Detect) List. monocytogenes PCR (Not Detect) N. meningitidis (PCR) (Not Detect) Proteus species (PCR) (Not Detect) RSV (PCR) (Negative) Serratia marcescens PCR (Not Detect) Staphylococcus sp PCR (Not Detect) Staph aureus (PCR) (Not Detect) mecA-Methicil Res Gene Streptococcus sp PCR (Not Detect) Group A Strep (PCR) (Not Detect) Strep agalactiae (PCR) (Not Detect) Strep pneumoniae (PCR) (Not Detect) P. aeruginosa (PCR) (Not Detect) John [place]/B-Vanco Res Genes KPC-Carbap Res Gene PCR 09/17/22 09/17/22 09/17/22 Range/Units 14:16 14:53 18:00 WBC (4.5-11.0) X10^3/uL RBC (4.5-5.9) X10^6/uL Hgb (13.5-17.5) g/dL Hct (41-53) % MCV (80-100) fL MCH (26-34) PG MCHC (30-36) % RDW (11.6-14.8) % Plt Count (150-400) X10^3/uL Neut % (Auto) (50-75) % Lymph % (Auto) (25-40) % Ward % (Auto) (3-14) % Eos % (Auto) (2-4) % Baso % (Auto) (0-2) % Neut # (Auto) (2267-3918) /uL Lymph # (Auto) (4836-7605) /uL Ward # (Auto) (0-900) /uL Eos # (Auto) (0-450) /uL Baso # (Auto) (0-100) /uL PT (10.1-12.7) SECONDS INR (0.9-1.3) APTT (26-36) SECONDS Sodium (137-145) mmol/L Potassium (3.4-5.1) mmol/L Chloride (98-107) mmol/L Carbon Dioxide (22-32) mmol/L BUN (9-20) mg/dL Creatinine (0.66-1.25) mg/dL Estimated GFR (>60) mL/min BUN/Creatinine Ratio (6-22) Glucose (80-110) mg/dL Hemoglobin A1c (4.0-6.0) % Lactate 1.5 (0.7-2.1) mmol/L Calcium (8.4-10.2) mg/dL Total Bilirubin (0.2-1.3) mg/dL AST (17-59) IU/L ALT (<50) IU/L Alkaline Phosphatase (38-126) U/L Total Creatine Kinase (55-170) U/L CK-MB (CK-2) (<2.37) ng/mL CK-MB (CK-2) Rel Index (1.5-5.0) % Troponin I (0.01-0.034) ng/mL NT-Pro-B Natriuret Pep (<450) pg/mL Total Protein (6.3-8.2) g/dL Albumin (3.5-5.0) g/dL Globulin (1.7-4.1) g/dL Albumin/Globulin Ratio (1.0-2.8) Lipase (23-300) U/L Procalcitonin (<0.5) ng/mL TSH (0.47-4.68) uIU/mL Urine Color Yellow Urine Appearance Clear Urine pH 5.0 (4.5-8.0) Ur Specific [place] 1.020 (1.000-1.035) Urine Protein Negative (Negative) Urine Glucose (UA) Negative (Negative) g/dL Urine Ketones Negative (NEGATIVE) Urine Occult Blood 3+ H (Negative) Urine Nitrate Negative (Negative) Urine Bilirubin Negative (NEGATIVE) Urine Urobilinogen 0.2 (0.2) E.U./dL Ur Leukocyte Esterase 1+ H (NEGATIVE) Urine RBC 5-10/hpf H (0-5/HPF) Urine WBC 1-5/hpf (0-5/HPF) Ur Squamous Epith Cells 1-5 /hpf (0-5/HPF) Urine Bacteria None seen (None) Hyaline Casts 5-10/lpf (None) Ur Culture Indicated? Specimen cultured A. baumannii (PCR) Not detected (Not Detect) Lindsey albicans (PCR) Not detected (Not Detect) C. glabrata (PCR) Not detected (Not Detect) C. krusei (PCR) Not detected (Not Detect) C. parapsilosis (PCR) Not detected (Not Detect) C. tropicalis (PCR) Not detected (Not Detect) SARS-CoV-2 (PCR) (Negative) Enterobacteriac sp PCR Not detected (Not Detect) E. cloacae complex PCR Not detected (Not Detect) Enterococcus sp PCR Not detected (Not Detect) E. coli (PCR) Not detected (Not Detect) H. influenzae (PCR) Not detected (Not Detect) Influenza A (RT-PCR) (NEGATIVE) Influenza B (RT-PCR) (NEGATIVE) Klebsiella oxytoca PCR Not detected (Not Detect) Klebsiella pneumoniae Not detected (Not Detect) List. monocytogenes PCR Not detected (Not Detect) N. meningitidis (PCR) Not detected (Not Detect) Proteus species (PCR) Not detected (Not Detect) RSV (PCR) (Negative) Serratia marcescens PCR Not detected (Not Detect) Staphylococcus sp PCR Not detected (Not Detect) Staph aureus (PCR) Not detected (Not Detect) mecA-Methicil Res Gene TNP Streptococcus sp PCR Not detected (Not Detect) Group A Strep (PCR) Not detected (Not Detect) Strep agalactiae (PCR) Not detected (Not Detect) Strep pneumoniae (PCR) Not detected (Not Detect) P. aeruginosa (PCR) Not detected (Not Detect) John [place]/B-Vanco Res Genes TNP KPC-Carbap Res Gene PCR TNP Point of Care Testing Glucose POC 193 Urine Dip Bedside Urine Glucose 1000 mg/dl Bedside Urine Bilirubin - Negative Bedside Urine Ketone - Negative Urine Specific [place] 1.015 Bedside Urine Occult Blood +++ Bedside Urine pH 5.5 Bedside Urine Protein - Negative Bedside Urine Urobilinogen - Negative Bedside Urine Nitrite - Negative Bedside Urine Leukocytes - Negative Esterase ECG Data Interpretation: Independently reviewed, Dr. 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 Patient was on a walker and was turning and lost his balance, has pain to the left ankle with deformity. EMS states patient received 100 mcg of fentanyl prior to arrival. He is awake alert oriented x4. Currently patient is awake alert oriented self and date of and event. Pain is controlled. Pillow splint removed. There is tenting of the skin at the medial malleolus.. Pedal pulse is palpable in the left foot. Light touch intact to foot and toes. NPO since last night Patient does have concerning presentation of left ankle injury/pain. Differential diagnosis includes but not limited to ankle fracture/ankle dislocation/vascular compromise. There is tenting of the medial malleolus. Stat x-ray ordered the ankle ordered, may need immediate reduction of the ankle, however pedal pulse is palpable and brisk cap refills is reassuring. Patient may need immediate procedural sedation with closed reduction. 10:27 a.m.. I spoke with , she is on her way here. He does have history of dementia. Uses a walker however she states he was not using his walker this morning, he turned the corner around the bedroom and twisted his ankle and fell. Is not on blood thinners other than baby aspirin. She does give verbal consent over the phone for procedural sedation and closed reduction of the right ankle. Patient is groggy from the fentanyl that was given to him this morning. Risks and benefits reviewed with . Urgently needed due to dislocation at presentation. However we do have respiratory therapy and equipment and monitoring and medications at bedside for procedure. Risk but not limited of airway compromise/vascular compromise reviewed with . Benefits of proper reduction for neurovascular protection of the foot and ankle. 10:36 a.m.. Patient being transferred into room 2 in order to have more space, respiratory therapy has been contacted. Orthopedics has been contacted as well. 10:[address] Vicente, orthopedics. He does not feel the x-ray shows dislocation but angulation, he instructs patient to be properly reduced and then placed in a posterior splint and discharge home and follow up in the office this week. 11:06 a.m.. Patient did not require procedural sedation. Patient tolerated reduction very well with 50 mcg of fentanyl IV. Patient has severe neuropathy but still had pain after EMS 100 mcg had worn off. Splint applied and post reduction films done. 12:[address] Vicente, he has reviewed postreduction film and patient can be discharged home and follow up in the office. Appropriate for discharge home. I have reviewed imaging, blood work was for possible preop if patient required surgery. I have reviewed with patient and family/ and agree for follow up with Dr. Vicente whom I spoke with as well for continued care and follow-up. Pain is controlled at time of discharge. At this time I do not feel patient needs opiate pain medication as splint has reduced patient's pain significantly. Patient has neuropathy as well. The toes were exposed for review with regarding any discoloration worsening to return. Return precautions reviewed with her and patient. They desire discharge home. 12:45 p.m.. Spoke with . We will need social work in physical therapy evaluation now. Patient requires transferring in and out of bed and to the bathroom at home even before injury today. Patient is nonweightbearing. Patient may need home health care versus senior living facility/rehabilitation Patient has failed physical therapy evaluation, unable to bear weight as to unstable as well for discharge home to be on a walker or crutches. Social work also involved in patient care to find rehab/sniff placement. 6:[address] Cervantes, social work will continue looking for placement tomorrow. Otherwise at this time orthopedics has indicated no surgery at this time. Pain medication schedule has been placed. 09/16/21 Helen: Patient signed out to myself by Dr. Garrison, ankle fracture possibly requiring surgical repair but not plan to emergently in the next 24 hours. Patient case was discussed with social work as they are seeking home health care versus senior living facility. Patient has appears to be baseline renal function, glucose was 204 initially was elevated 300 range did not have his evening medications will cover with sliding scale. Platelets are 126, otherwise normal hemoglobin. Patient is COVID negative. Patient had reduction by Dr. Garrison in the department. Attempting to obtain home med list with doses to order home meds. Patient signed out to Dr. Diaz while awaiting possible placement. + Dr Diaz 09/16/22? 7:28 ED observation/progress note 82-year-old gentleman with history of dementia, mobility impaired in use a walker at home, had a mechanical fall on the morning of September 15.? Presented to the emergency department diagnosed with a trimalleolar fracture that was reduced in the emergency department.? Discussed with orthopedist, Dr. Vicente who recommended discharge and outpatient follow-up in about a week.? Unfortunately patient is not able to physically manage with the broken ankle. ?He is failed a physical therapy evaluation and is currently 2 person assist with inadequate support at home.? Social work has contacted multiple senior living facilities please see note from September 15 at 2:19 in the afternoon. Has been voiding in the emergency department. ?Home meds have been ordered. Objective Vital signs are stable. Chest:? No wheezes or rhonchi Cardiovascular:? Regular rate and rhythm, no murmurs Abdomen:? Soft nondistended Extremity:? Left leg in a posterior splint with sugar-tong.? Poor perfusion to the toes and complaining of pain.? The splint is removed to the level of the padding with significant pressure released.? It is replaced, now with much better toe perfusion and decrease pain Cognitive: ?Not quite sure why he is here, what happened or where he will be going. Assessment and plan 1.? Trimalleolar fracture left ankle. ?Ankle films pre and post reduction are independently reviewed. ?Currently unable to be discharge 2nd dairy to immobility.? Working on senior living facilities.? Will contact Orthopedic surgery again today to see if we might simply fix the ankle all were continuing to work on postoperative discharge and senior living facilities 2.? Comorbid medical problems with home meds restarted Diabetes, hypothyroidism, hypertension, chronic lower extremity edema, 3.? Minor bump in creatinine, we will recheck basic metabolic panel today. 4.? Chemistries are unremarkable.? No evidence of infection.? We will recheck H&H 5.? Aguilera catheter in place, patient is currently declining any pain medications. 6. Normal pressure hydrocephalus makes mobility difficult, no diagnosis of dementia at this time 7:[address] Maradiaga, orthopedist. Reviewed inability to discharge home and he is agreed to operate on the ankle today. With the multiple medical comorbidities patient will be admitted to the medicine service with anticipation of OR later this evening. Will continue to keep him NPO at this time. 1030 OR will apparently not be able to accommodate this ankle surgery until 09/18. Currently in discussion with hospitalist. Patient will either remain in the emergency department and does need a hospitalist consult or will be admitted to the floor preoperatively. We will continue to look at SNF options however nursing facility admit for 36 hours prior to surgery is likely going to be challenging. 230pm Discussed with hospitalist, Dr Galarza. Initial note from the emergency department indicates that he is awake and oriented x4. He currently is significantly confused, believes it is March, that he injured himself skiing and he is not sure which town or hospital he is currently in. Dr. Galarza is going to contact his to see what baseline actually is, has done an ED consult and recommended additional long-acting insulin. We will talked with care management to see what other options we have with hospital admission prior to surgery. In the setting of acute delirium is were appreciating now may make the decision to admit a bit easier. Together we discussed labs, decided no additional lab work was required today. 310 will remain ER patient with medicine consult and anticipation of surgery . Medicine and care management will reveiw again tomorrow. <Garrett Almeida, DO - Last Filed: 09/17/22 21:53> Lab Data Labs: Lab Results 09/15/22 09/15/22 09/15/22 Range/Units 09:33 10:20 10:20 WBC 10.4 (4.5-11.0) X10^3/uL RBC 4.78 (4.5-5.9) X10^6/uL Hgb 15.6 (13.5-17.5) g/dL Hct 47.0 (41-53) % MCV 98.3 (80-100) fL MCH 32.7 (26-34) PG MCHC 33.2 (30-36) % RDW 14.2 (11.6-14.8) % Plt Count 126 L (150-400) X10^3/uL Neut % (Auto) 72.7 (50-75) % Lymph % (Auto) 14.2 L (25-40) % Ward % (Auto) 7.6 (3-14) % Eos % (Auto) 5.0 H (2-4) % Baso % (Auto) 0.5 (0-2) % Neut # (Auto) 7500 H (4424-1615) /uL Lymph # (Auto) 1500 (3494-0968) /uL Ward # (Auto) 800 (0-900) /uL Eos # (Auto) 500 H (0-450) /uL Baso # (Auto) 100 (0-100) /uL PT 13.1 H (10.1-12.7) SECONDS INR 1.1 (0.9-1.3) APTT 36 (26-36) SECONDS Sodium (137-145) mmol/L Potassium (3.4-5.1) mmol/L Chloride (98-107) mmol/L Carbon Dioxide (22-32) mmol/L BUN (9-20) mg/dL Creatinine (0.66-1.25) mg/dL Estimated GFR (>60) mL/min BUN/Creatinine Ratio (6-22) Glucose (80-110) mg/dL Hemoglobin A1c (4.0-6.0) % Lactate (0.7-2.1) mmol/L Calcium (8.4-10.2) mg/dL Total Bilirubin (0.2-1.3) mg/dL AST (17-59) IU/L ALT (<50) IU/L Alkaline Phosphatase (38-126) U/L Total Creatine Kinase (55-170) U/L CK-MB (CK-2) (<2.37) ng/mL CK-MB (CK-2) Rel Index (1.5-5.0) % Troponin I (0.01-0.034) ng/mL NT-Pro-B Natriuret Pep (<450) pg/mL Total Protein (6.3-8.2) g/dL Albumin (3.5-5.0) g/dL Globulin (1.7-4.1) g/dL Albumin/Globulin Ratio (1.0-2.8) Lipase (23-300) U/L Procalcitonin (<0.5) ng/mL TSH (0.47-4.68) uIU/mL Urine Color Urine Appearance Urine pH (4.5-8.0) Ur Specific [place] (1.000-1.035) Urine Protein (Negative) Urine Glucose (UA) (Negative) g/dL Urine Ketones (NEGATIVE) Urine Occult Blood (Negative) Urine Nitrate (Negative) Urine Bilirubin (NEGATIVE) Urine Urobilinogen (0.2) E.U./dL Ur Leukocyte Esterase (NEGATIVE) Urine RBC (0-5/HPF) Urine WBC (0-5/HPF) Ur Squamous Epith Cells (0-5/HPF) Urine Bacteria (None) Hyaline Casts (None) Ur Culture Indicated? A. baumannii (PCR) (Not Detect) Lindsey albicans (PCR) (Not Detect) C. glabrata (PCR) (Not Detect) C. krusei (PCR) (Not Detect) C. parapsilosis (PCR) (Not Detect) C. tropicalis (PCR) (Not Detect) SARS-CoV-2 (PCR) Negative (Negative) Enterobacteriac sp PCR (Not Detect) E. cloacae complex PCR (Not Detect) Enterococcus sp PCR (Not Detect) E. coli (PCR) (Not Detect) H. influenzae (PCR) (Not Detect) Influenza A (RT-PCR) (NEGATIVE) Influenza B (RT-PCR) (NEGATIVE) Klebsiella oxytoca PCR (Not Detect) Klebsiella pneumoniae (Not Detect) List. monocytogenes PCR (Not Detect) N. meningitidis (PCR) (Not Detect) Proteus species (PCR) (Not Detect) RSV (PCR) (Negative) Serratia marcescens PCR (Not Detect) Staphylococcus sp PCR (Not Detect) Staph aureus (PCR) (Not Detect) mecA-Methicil Res Gene Streptococcus sp PCR (Not Detect) Group A Strep (PCR) (Not Detect) Strep agalactiae (PCR) (Not Detect) Strep pneumoniae (PCR) (Not Detect) P. aeruginosa (PCR) (Not Detect) John [place]/B-Vanco Res Genes KPC-Carbap Res Gene PCR 09/15/22 09/15/22 09/15/22 Range/Units 10:20 10:20 10:20 WBC (4.5-11.0) X10^3/uL RBC (4.5-5.9) X10^6/uL Hgb (13.5-17.5) g/dL Hct (41-53) % MCV (80-100) fL MCH (26-34) PG MCHC (30-36) % RDW (11.6-14.8) % Plt Count (150-400) X10^3/uL Neut % (Auto) (50-75) % Lymph % (Auto) (25-40) % Ward % (Auto) (3-14) % Eos % (Auto) (2-4) % Baso % (Auto) (0-2) % Neut # (Auto) (9297-8805) /uL Lymph # (Auto) (8118-6357) /uL Ward # (Auto) (0-900) /uL Eos # (Auto) (0-450) /uL Baso # (Auto) (0-100) /uL PT (10.1-12.7) SECONDS INR (0.9-1.3) APTT (26-36) SECONDS Sodium 139 (137-145) mmol/L Potassium 4.7 (3.4-5.1) mmol/L Chloride 100 (98-107) mmol/L Carbon Dioxide 32 (22-32) mmol/L BUN 46 H (9-20) mg/dL Creatinine 1.37 H (0.66-1.25) mg/dL Estimated GFR 52 L (>60) mL/min BUN/Creatinine Ratio 33.6 H (6-22) Glucose 204 H (80-110) mg/dL Hemoglobin A1c 8.3 H (4.0-6.0) % Lactate (0.7-2.1) mmol/L Calcium 8.8 (8.4-10.2) mg/dL Total Bilirubin 1.0 (0.2-1.3) mg/dL AST 24 (17-59) IU/L ALT 22 (<50) IU/L Alkaline Phosphatase 94 (38-126) U/L Total Creatine Kinase (55-170) U/L CK-MB (CK-2) (<2.37) ng/mL CK-MB (CK-2) Rel Index (1.5-5.0) % Troponin I (0.01-0.034) ng/mL NT-Pro-B Natriuret Pep (<450) pg/mL Total Protein 7.9 (6.3-8.2) g/dL Albumin 3.7 (3.5-5.0) g/dL Globulin 4.2 H (1.7-4.1) g/dL Albumin/Globulin Ratio 0.9 L (1.0-2.8) Lipase (23-300) U/L Procalcitonin (<0.5) ng/mL TSH 4.49 (0.47-4.68) uIU/mL Urine Color Urine Appearance Urine pH (4.5-8.0) Ur Specific [place] (1.000-1.035) Urine Protein (Negative) Urine Glucose (UA) (Negative) g/dL Urine Ketones (NEGATIVE) Urine Occult Blood (Negative) Urine Nitrate (Negative) Urine Bilirubin (NEGATIVE) Urine Urobilinogen (0.2) E.U./dL Ur Leukocyte Esterase (NEGATIVE) Urine RBC (0-5/HPF) Urine WBC (0-5/HPF) Ur Squamous Epith Cells (0-5/HPF) Urine Bacteria (None) Hyaline Casts (None) Ur Culture Indicated? A. baumannii (PCR) (Not Detect) Lindsey albicans (PCR) (Not Detect) C. glabrata (PCR) (Not Detect) C. krusei (PCR) (Not Detect) C. parapsilosis (PCR) (Not Detect) C. tropicalis (PCR) (Not Detect) SARS-CoV-2 (PCR) (Negative) Enterobacteriac sp PCR (Not Detect) E. cloacae complex PCR (Not Detect) Enterococcus sp PCR (Not Detect) E. coli (PCR) (Not Detect) H. influenzae (PCR) (Not Detect) Influenza A (RT-PCR) (NEGATIVE) Influenza B (RT-PCR) (NEGATIVE) Klebsiella oxytoca PCR (Not Detect) Klebsiella pneumoniae (Not Detect) List. monocytogenes PCR (Not Detect) N. meningitidis (PCR) (Not Detect) Proteus species (PCR) (Not Detect) RSV (PCR) (Negative) Serratia marcescens PCR (Not Detect) Staphylococcus sp PCR (Not Detect) Staph aureus (PCR) (Not Detect) mecA-Methicil Res Gene Streptococcus sp PCR (Not Detect) Group A Strep (PCR) (Not Detect) Strep agalactiae (PCR) (Not Detect) Strep pneumoniae (PCR) (Not Detect) P. aeruginosa (PCR) (Not Detect) [place]/B-Vanco Res Genes KPC-Carbap Res Gene PCR 09/17/22 09/17/22 09/17/22 Range/Units 12:53 13:00 13:35 WBC 13.3 H (4.5-11.0) X10^3/uL RBC 4.16 L (4.5-5.9) X10^6/uL Hgb 13.6 (13.5-17.5) g/dL Hct 41.4 (41-53) % MCV 99.6 (80-100) fL MCH 32.7 (26-34) PG MCHC 32.8 (30-36) % RDW 14.4 (11.6-14.8) % Plt Count 119 L (150-400) X10^3/uL Neut % (Auto) 75.2 H (50-75) % Lymph % (Auto) 14.3 L (25-40) % Ward % (Auto) 9.1 (3-14) % Eos % (Auto) 0.9 L (2-4) % Baso % (Auto) 0.5 (0-2) % Neut # (Auto) 99790 H (5296-4322) /uL Lymph # (Auto) 1900 (7350-7174) /uL Ward # (Auto) 1200 H (0-900) /uL Eos # (Auto) 100 (0-450) /uL Baso # (Auto) 100 (0-100) /uL PT (10.1-12.7) SECONDS INR (0.9-1.3) APTT (26-36) SECONDS Sodium (137-145) mmol/L Potassium (3.4-5.1) mmol/L Chloride (98-107) mmol/L Carbon Dioxide (22-32) mmol/L BUN (9-20) mg/dL Creatinine (0.66-1.25) mg/dL Estimated GFR (>60) mL/min BUN/Creatinine Ratio (6-22) Glucose (80-110) mg/dL Hemoglobin A1c (4.0-6.0) % Lactate (0.7-2.1) mmol/L Calcium (8.4-10.2) mg/dL Total Bilirubin (0.2-1.3) mg/dL AST (17-59) IU/L ALT (<50) IU/L Alkaline Phosphatase (38-126) U/L Total Creatine Kinase 289 H (55-170) U/L CK-MB (CK-2) 0.63 (<2.37) ng/mL CK-MB (CK-2) Rel Index 0.2 L (1.5-5.0) % Troponin I < 0.012 (0.01-0.034) ng/mL NT-Pro-B Natriuret Pep 284 (<450) pg/mL Total Protein (6.3-8.2) g/dL Albumin (3.5-5.0) g/dL Globulin (1.7-4.1) g/dL Albumin/Globulin Ratio (1.0-2.8) Lipase (23-300) U/L Procalcitonin (<0.5) ng/mL TSH (0.47-4.68) uIU/mL Urine Color Urine Appearance Urine pH (4.5-8.0) Ur Specific [place] (1.000-1.035) Urine Protein (Negative) Urine Glucose (UA) (Negative) g/dL Urine Ketones (NEGATIVE) Urine Occult Blood (Negative) Urine Nitrate (Negative) Urine Bilirubin (NEGATIVE) Urine Urobilinogen (0.2) E.U./dL Ur Leukocyte Esterase (NEGATIVE) Urine RBC (0-5/HPF) Urine WBC (0-5/HPF) Ur Squamous Epith Cells (0-5/HPF) Urine Bacteria (None) Hyaline Casts (None) Ur Culture Indicated? A. baumannii (PCR) (Not Detect) Lindsey albicans (PCR) (Not Detect) C. glabrata (PCR) (Not Detect) C. krusei (PCR) (Not Detect) C. parapsilosis (PCR) (Not Detect) C. tropicalis (PCR) (Not Detect) SARS-CoV-2 (PCR) Negative (Negative) Enterobacteriac sp PCR (Not Detect) E. cloacae complex PCR (Not Detect) Enterococcus sp PCR (Not Detect) E. coli (PCR) (Not Detect) H. influenzae (PCR) (Not Detect) Influenza A (RT-PCR) Flu a negative (NEGATIVE) Influenza B (RT-PCR) Flu b negative (NEGATIVE) Klebsiella oxytoca PCR (Not Detect) Klebsiella pneumoniae (Not Detect) List. monocytogenes PCR (Not Detect) N. meningitidis (PCR) (Not Detect) Proteus species (PCR) (Not Detect) RSV (PCR) Negative (Negative) Serratia marcescens PCR (Not Detect) Staphylococcus sp PCR (Not Detect) Staph aureus (PCR) (Not Detect) mecA-Methicil Res Gene Streptococcus sp PCR (Not Detect) Group A Strep (PCR) (Not Detect) Strep agalactiae (PCR) (Not Detect) Strep pneumoniae (PCR) (Not Detect) P. aeruginosa (PCR) (Not Detect) John Paul/B-Vanco Res Genes KPC-Carbap Res Gene PCR 09/17/22 09/17/22 09/17/22 Range/Units 13:35 13:35 13:35 WBC (4.5-11.0) X10^3/uL RBC (4.5-5.9) X10^6/uL Hgb (13.5-17.5) g/dL Hct (41-53) % MCV (80-100) fL MCH (26-34) PG MCHC (30-36) % RDW (11.6-14.8) % Plt Count (150-400) X10^3/uL Neut % (Auto) (50-75) % Lymph % (Auto) (25-40) % Ward % (Auto) (3-14) % Eos % (Auto) (2-4) % Baso % (Auto) (0-2) % Neut # (Auto) (8264-7841) /uL Lymph # (Auto) (5234-8071) /uL Ward # (Auto) (0-900) /uL Eos # (Auto) (0-450) /uL Baso # (Auto) (0-100) /uL PT 15.4 H (10.1-12.7) SECONDS INR 1.3 (0.9-1.3) APTT 34 (26-36) SECONDS Sodium 139 (137-145) mmol/L Potassium 4.5 (3.4-5.1) mmol/L Chloride 101 (98-107) mmol/L Carbon Dioxide 30 (22-32) mmol/L BUN 59 H (9-20) mg/dL Creatinine 2.49 H (0.66-1.25) mg/dL Estimated GFR 25 L (>60) mL/min BUN/Creatinine Ratio 23.7 H (6-22) Glucose 250 H (80-110) mg/dL Hemoglobin A1c (4.0-6.0) % Lactate 2.1 (0.7-2.1) mmol/L Calcium 8.4 (8.4-10.2) mg/dL Total Bilirubin 1.2 (0.2-1.3) mg/dL AST 22 (17-59) IU/L ALT 19 (<50) IU/L Alkaline Phosphatase 73 (38-126) U/L Total Creatine Kinase (55-170) U/L CK-MB (CK-2) (<2.37) ng/mL CK-MB (CK-2) Rel Index (1.5-5.0) % Troponin I (0.01-0.034) ng/mL NT-Pro-B Natriuret Pep (<450) pg/mL Total Protein 7.2 (6.3-8.2) g/dL Albumin 3.4 L (3.5-5.0) g/dL Globulin 3.8 (1.7-4.1) g/dL Albumin/Globulin Ratio 0.9 L (1.0-2.8) Lipase 31 (23-300) U/L Procalcitonin 0.58 H (<0.5) ng/mL TSH (0.47-4.68) uIU/mL Urine Color Urine Appearance Urine pH (4.5-8.0) Ur Specific [place] (1.000-1.035) Urine Protein (Negative) Urine Glucose (UA) (Negative) g/dL Urine Ketones (NEGATIVE) Urine Occult Blood (Negative) Urine Nitrate (Negative) Urine Bilirubin (NEGATIVE) Urine Urobilinogen (0.2) E.U./dL Ur Leukocyte Esterase (NEGATIVE) Urine RBC (0-5/HPF) Urine WBC (0-5/HPF) Ur Squamous Epith Cells (0-5/HPF) Urine Bacteria (None) Hyaline Casts (None) Ur Culture Indicated? A. baumannii (PCR) (Not Detect) Lindsey albicans (PCR) (Not Detect) C. glabrata (PCR) (Not Detect) C. krusei (PCR) (Not Detect) C. parapsilosis (PCR) (Not Detect) C. tropicalis (PCR) (Not Detect) SARS-CoV-2 (PCR) (Negative) Enterobacteriac sp PCR (Not Detect) E. cloacae complex PCR (Not Detect) Enterococcus sp PCR (Not Detect) E. coli (PCR) (Not Detect) H. influenzae (PCR) (Not Detect) Influenza A (RT-PCR) (NEGATIVE) Influenza B (RT-PCR) (NEGATIVE) Klebsiella oxytoca PCR (Not Detect) Klebsiella pneumoniae (Not Detect) List. monocytogenes PCR (Not Detect) N. meningitidis (PCR) (Not Detect) Proteus species (PCR) (Not Detect) RSV (PCR) (Negative) Serratia marcescens PCR (Not Detect) Staphylococcus sp PCR (Not Detect) Staph aureus (PCR) (Not Detect) mecA-Methicil Res Gene Streptococcus sp PCR (Not Detect) Group A Strep (PCR) (Not Detect) Strep agalactiae (PCR) (Not Detect) Strep pneumoniae (PCR) (Not Detect) P. aeruginosa (PCR) (Not Detect) John Paul/B-Vanco Res Genes KPC-Carbap Res Gene PCR 09/17/22 09/17/22 09/17/22 Range/Units 14:16 14:53 18:00 WBC (4.5-11.0) X10^3/uL RBC (4.5-5.9) X10^6/uL Hgb (13.5-17.5) g/dL Hct (41-53) % MCV (80-100) fL MCH (26-34) PG MCHC (30-36) % RDW (11.6-14.8) % Plt Count (150-400) X10^3/uL Neut % (Auto) (50-75) % Lymph % (Auto) (25-40) % Ward % (Auto) (3-14) % Eos % (Auto) (2-4) % Baso % (Auto) (0-2) % Neut # (Auto) (5347-8934) /uL Lymph # (Auto) (0223-7884) /uL Ward # (Auto) (0-900) /uL Eos # (Auto) (0-450) /uL Baso # (Auto) (0-100) /uL PT (10.1-12.7) SECONDS INR (0.9-1.3) APTT (26-36) SECONDS Sodium (137-145) mmol/L Potassium (3.4-5.1) mmol/L Chloride (98-107) mmol/L Carbon Dioxide (22-32) mmol/L BUN (9-20) mg/dL Creatinine (0.66-1.25) mg/dL Estimated GFR (>60) mL/min BUN/Creatinine Ratio (6-22) Glucose (80-110) mg/dL Hemoglobin A1c (4.0-6.0) % Lactate 1.5 (0.7-2.1) mmol/L Calcium (8.4-10.2) mg/dL Total Bilirubin (0.2-1.3) mg/dL AST (17-59) IU/L ALT (<50) IU/L Alkaline Phosphatase (38-126) U/L Total Creatine Kinase (55-170) U/L CK-MB (CK-2) (<2.37) ng/mL CK-MB (CK-2) Rel Index (1.5-5.0) % Troponin I (0.01-0.034) ng/mL NT-Pro-B Natriuret Pep (<450) pg/mL Total Protein (6.3-8.2) g/dL Albumin (3.5-5.0) g/dL Globulin (1.7-4.1) g/dL Albumin/Globulin Ratio (1.0-2.8) Lipase (23-300) U/L Procalcitonin (<0.5) ng/mL TSH (0.47-4.68) uIU/mL Urine Color Yellow Urine Appearance Clear Urine pH 5.0 (4.5-8.0) Ur Specific [place] 1.020 (1.000-1.035) Urine Protein Negative (Negative) Urine Glucose (UA) Negative (Negative) g/dL Urine Ketones Negative (NEGATIVE) Urine Occult Blood 3+ H (Negative) Urine Nitrate Negative (Negative) Urine Bilirubin Negative (NEGATIVE) Urine Urobilinogen 0.2 (0.2) E.U./dL Ur Leukocyte Esterase 1+ H (NEGATIVE) Urine RBC 5-10/hpf H (0-5/HPF) Urine WBC 1-5/hpf (0-5/HPF) Ur Squamous Epith Cells 1-5 /hpf (0-5/HPF) Urine Bacteria None seen (None) Hyaline Casts 5-10/lpf (None) Ur Culture Indicated? Specimen cultured A. baumannii (PCR) Not detected (Not Detect) Lindsey albicans (PCR) Not detected (Not Detect) C. glabrata (PCR) Not detected (Not Detect) C. krusei (PCR) Not detected (Not Detect) C. parapsilosis (PCR) Not detected (Not Detect) C. tropicalis (PCR) Not detected (Not Detect) SARS-CoV-2 (PCR) (Negative) Enterobacteriac sp PCR Not detected (Not Detect) E. cloacae complex PCR Not detected (Not Detect) Enterococcus sp PCR Not detected (Not Detect) E. coli (PCR) Not detected (Not Detect) H. influenzae (PCR) Not detected (Not Detect) Influenza A (RT-PCR) (NEGATIVE) Influenza B (RT-PCR) (NEGATIVE) Klebsiella oxytoca PCR Not detected (Not Detect) Klebsiella pneumoniae Not detected (Not Detect) List. monocytogenes PCR Not detected (Not Detect) N. meningitidis (PCR) Not detected (Not Detect) Proteus species (PCR) Not detected (Not Detect) RSV (PCR) (Negative) Serratia marcescens PCR Not detected (Not Detect) Staphylococcus sp PCR Not detected (Not Detect) Staph aureus (PCR) Not detected (Not Detect) mecA-Methicil Res Gene TNP Streptococcus sp PCR Not detected (Not Detect) Group A Strep (PCR) Not detected (Not Detect) Strep agalactiae (PCR) Not detected (Not Detect) Strep pneumoniae (PCR) Not detected (Not Detect) P. 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 Patient was on a walker and was turning and lost his balance, has pain to the left ankle with deformity. EMS states patient received 100 mcg of fentanyl prior to arrival. He is awake alert oriented x4. Currently patient is awake alert oriented self and date of and event. Pain is controlled. Pillow splint removed. There is tenting of the skin at the medial malleolus.. Pedal pulse is palpable in the left foot. Light touch intact to foot and toes. NPO since last night Patient does have concerning presentation of left ankle injury/pain. Differential diagnosis includes but not limited to ankle fracture/ankle dislocation/vascular compromise. There is tenting of the medial malleolus. Stat x-ray ordered the ankle ordered, may need immediate reduction of the ankle, however pedal pulse is palpable and brisk cap refills is reassuring. Patient may need immediate procedural sedation with closed reduction. 10:27 a.m.. I spoke with , she is on her way here. He does have history of dementia. Uses a walker however she states he was not using his walker this morning, he turned the corner around the bedroom and twisted his ankle and fell. Is not on blood thinners other than baby aspirin. She does give verbal consent over the phone for procedural sedation and closed reduction of the right ankle. Patient is groggy from the fentanyl that was given to him this morning. Risks and benefits reviewed with . Urgently needed due to dislocation at presentation. However we do have respiratory therapy and equipment and monitoring and medications at bedside for procedure. Risk but not limited of airway compromise/vascular compromise reviewed with . Benefits of proper reduction for neurovascular protection of the foot and ankle. 10:36 a.m.. Patient being transferred into room 2 in order to have more space, respiratory therapy has been contacted. Orthopedics has been contacted as well. 10:[address] Vicente, orthopedics. He does not feel the x-ray shows dislocation but angulation, he instructs patient to be properly reduced and then placed in a posterior splint and discharge home and follow up in the office this week. 11:06 a.m.. Patient did not require procedural sedation. Patient tolerated reduction very well with 50 mcg of fentanyl IV. Patient has severe neuropathy but still had pain after EMS 100 mcg had worn off. Splint applied and post reduction films done. 12:[address] Vicente, he has reviewed postreduction film and patient can be discharged home and follow up in the office. Appropriate for discharge home. I have reviewed imaging, blood work was for possible preop if patient required surgery. I have reviewed with patient and family/ and agree for follow up with Dr. Vicente whom I spoke with as well for continued care and follow-up. Pain is controlled at time of discharge. At this time I do not feel patient needs opiate pain medication as splint has reduced patient's pain significantly. Patient has neuropathy as well. The toes were exposed for review with regarding any discoloration worsening to return. Return precautions reviewed with her and patient. They desire discharge home. 12:45 p.m.. Spoke with . We will need social work in physical therapy evaluation now. Patient requires transferring in and out of bed and to the bathroom at home even before injury today. Patient is nonweightbearing. Patient may need home health care versus senior living facility/rehabilitation Patient has failed physical therapy evaluation, unable to bear weight as to unstable as well for discharge home to be on a walker or crutches. Social work also involved in patient care to find rehab/sniff placement. 6:[address] Cervantes, social work will continue looking for placement tomorrow. Otherwise at this time orthopedics has indicated no surgery at this time. Pain medication schedule has been placed. 09/16/21 Helen: Patient signed out to myself by Dr. Garrison, ankle fracture possibly requiring surgical repair but not plan to emergently in the next 24 hours. Patient case was discussed with social work as they are seeking home health care versus senior living facility. Patient has appears to be baseline renal function, glucose was 204 initially was elevated 300 range did not have his evening medications will cover with sliding scale. Platelets are 126, otherwise normal hemoglobin. Patient is COVID negative. Patient had reduction by Dr. Garrison in the department. Attempting to obtain home med list with doses to order home meds. Patient signed out to Dr. Diaz while awaiting possible placement. + Dr Diaz 09/16/22? 7:28 ED observation/progress note 82-year-old gentleman with history of dementia, mobility impaired in use a walker at home, had a mechanical fall on the morning of September 15.? Presented to the emergency department diagnosed with a trimalleolar fracture that was reduced in the emergency department.? Discussed with orthopedist, Dr. Vicente who recommended discharge and outpatient follow-up in about a week.? Unfortunately patient is not able to physically manage with the broken ankle. ?He is failed a physical therapy evaluation and is currently 2 person assist with inadequate support at home.? Social work has contacted multiple senior living facilities please see note from September 15 at 2:19 in the afternoon. Has been voiding in the emergency department. ?Home meds have been ordered. Objective Vital signs are stable. Chest:? No wheezes or rhonchi Cardiovascular:? Regular rate and rhythm, no murmurs Abdomen:? Soft nondistended Extremity:? Left leg in a posterior splint with sugar-tong.? Poor perfusion to the toes and complaining of pain.? The splint is removed to the level of the padding with significant pressure released.? It is replaced, now with much better toe perfusion and decrease pain Cognitive: ?Not quite sure why he is here, what happened or where he will be going. Assessment and plan 1.? Trimalleolar fracture left ankle. ?Ankle films pre and post reduction are independently reviewed. ?Currently unable to be discharge 2nd dairy to immobility.? Working on senior living facilities.? Will contact Orthopedic surgery again today to see if we might simply fix the ankle all were continuing to work on postoperative discharge and senior living facilities 2.? Comorbid medical problems with home meds restarted Diabetes, hypothyroidism, hypertension, chronic lower extremity edema, 3.? Minor bump in creatinine, we will recheck basic metabolic panel today. 4.? Chemistries are unremarkable.? No evidence of infection.? We will recheck H&H 5.? Aguilera catheter in place, patient is currently declining any pain medications. 6. Normal pressure hydrocephalus makes mobility difficult, no diagnosis of dementia at this time 7:[address] Maradiaga, orthopedist. Reviewed inability to discharge home and he is agreed to operate on the ankle today. With the multiple medical comorbidities patient will be admitted to the medicine service with anticipation of OR later this evening. Will continue to keep him NPO at this time. 1030 OR will apparently not be able to accommodate this ankle surgery until 09/18. Currently in discussion with hospitalist. Patient will either remain in the emergency department and does need a hospitalist consult or will be admitted to the floor preoperatively. We will continue to look at SNF options however nursing facility admit for 36 hours prior to surgery is likely going to be challenging. 230pm Discussed with hospitalist, Dr Galarza. Initial note from the emergency department indicates that he is awake and oriented x4. He currently is significantly confused, believes it is March, that he injured himself skiing and he is not sure which town or hospital he is currently in. Dr. Galarza is going to contact his to see what baseline actually is, has done an ED consult and recommended additional long-acting insulin. We will talked with care management to see what other options we have with hospital admission prior to surgery. In the setting of acute delirium is were appreciating now may make the decision to admit a bit easier. Together we discussed labs, decided no additional lab work was required today. 310 will remain ER patient with medicine consult and anticipation of surgery . Medicine and care management will reveiw again tomorrow. Dr almeida overnight 09/16-09/17: Received turned over. You patient's history and physical exam and workup up to this point. Patient has remained stable overnight. We will continue to remain in the emergency department until patient can be taken to the operating room. Care turned over to Dr. Llanos to continue to observe until disposition. 09/17/22@ 08:50 I assumed care at change of shift from Dr. Almeida. The record has been reviewed. Patient has a left trimalleolar fracture that has been reduced and splinted. Multiple options were evaluated, the patient is here in the ER awaiting surgery tomorrow morning. Medicine consult has been done. It is anticipated the patient will be admitted following the surgery. He will need disposition following the admission also. Capillary refill to left foot is intact. Patient is having 7/10 pain. He is received morphine as needed. I also added the option of Wishon PRN. Anticipating surgery tomorrow, he is made NPO after midnight. -Robert ELIAS 09/17/22 Dr Almeida: Assumed care patient. Reviewed patient's daily events. He now has a leukocytosis with a left shift. Was given antibiotics. Also has an oxygen requirement. Has not been on anticoagulation. Kidney function precludes any CTA. Given his new findings today discussed the case with Dr. Hardwick with hospitalist service who will admit for further evaluation and treatment. <Roly Llanos MD - Last Filed: 09/17/22 09:00> Lab Data Labs: Lab Results 09/15/22 09/15/22 09/15/22 Range/Units 09:33 10:20 10:20 WBC 10.4 (4.5-11.0) X10^3/uL RBC 4.78 (4.5-5.9) X10^6/uL Hgb 15.6 (13.5-17.5) g/dL Hct 47.0 (41-53) % MCV 98.3 (80-100) fL MCH 32.7 (26-34) PG MCHC 33.2 (30-36) % RDW 14.2 (11.6-14.8) % Plt Count 126 L (150-400) X10^3/uL Neut % (Auto) 72.7 (50-75) % Lymph % (Auto) 14.2 L (25-40) % Ward % (Auto) 7.6 (3-14) % Eos % (Auto) 5.0 H (2-4) % Baso % (Auto) 0.5 (0-2) % Neut # (Auto) 7500 H (9877-0345) /uL Lymph # (Auto) 1500 (7184-7183) /uL Ward # (Auto) 800 (0-900) /uL Eos # (Auto) 500 H (0-450) /uL Baso # (Auto) 100 (0-100) /uL PT 13.1 H (10.1-12.7) SECONDS INR 1.1 (0.9-1.3) APTT 36 (26-36) SECONDS Sodium (137-145) mmol/L Potassium (3.4-5.1) mmol/L Chloride (98-107) mmol/L Carbon Dioxide (22-32) mmol/L BUN (9-20) mg/dL Creatinine (0.66-1.25) mg/dL Estimated GFR (>60) mL/min BUN/Creatinine Ratio (6-22) Glucose (80-110) mg/dL Hemoglobin A1c (4.0-6.0) % Lactate (0.7-2.1) mmol/L Calcium (8.4-10.2) mg/dL Total Bilirubin (0.2-1.3) mg/dL AST (17-59) IU/L ALT (<50) IU/L Alkaline Phosphatase (38-126) U/L Total Creatine Kinase (55-170) U/L CK-MB (CK-2) (<2.37) ng/mL CK-MB (CK-2) Rel Index (1.5-5.0) % Troponin I (0.01-0.034) ng/mL NT-Pro-B Natriuret Pep (<450) pg/mL Total Protein (6.3-8.2) g/dL Albumin (3.5-5.0) g/dL Globulin (1.7-4.1) g/dL Albumin/Globulin Ratio (1.0-2.8) Lipase (23-300) U/L Procalcitonin (<0.5) ng/mL TSH (0.47-4.68) uIU/mL Urine Color Urine Appearance Urine pH (4.5-8.0) Ur Specific [place] (1.000-1.035) Urine Protein (Negative) Urine Glucose (UA) (Negative) g/dL Urine Ketones (NEGATIVE) Urine Occult Blood (Negative) Urine Nitrate (Negative) Urine Bilirubin (NEGATIVE) Urine Urobilinogen (0.2) E.U./dL Ur Leukocyte Esterase (NEGATIVE) Urine RBC (0-5/HPF) Urine WBC (0-5/HPF) Ur Squamous Epith Cells (0-5/HPF) Urine Bacteria (None) Hyaline Casts (None) Ur Culture Indicated? A. baumannii (PCR) (Not Detect) Lindsey albicans (PCR) (Not Detect) C. glabrata (PCR) (Not Detect) C. krusei (PCR) (Not Detect) C. parapsilosis (PCR) (Not Detect) C. tropicalis (PCR) (Not Detect) SARS-CoV-2 (PCR) Negative (Negative) Enterobacteriac sp PCR (Not Detect) E. cloacae complex PCR (Not Detect) Enterococcus sp PCR (Not Detect) E. coli (PCR) (Not Detect) H. influenzae (PCR) (Not Detect) Influenza A (RT-PCR) (NEGATIVE) Influenza B (RT-PCR) (NEGATIVE) Klebsiella oxytoca PCR (Not Detect) Klebsiella pneumoniae (Not Detect) List. monocytogenes PCR (Not Detect) N. meningitidis (PCR) (Not Detect) Proteus species (PCR) (Not Detect) RSV (PCR) (Negative) Serratia marcescens PCR (Not Detect) Staphylococcus sp PCR (Not Detect) Staph aureus (PCR) (Not Detect) mecA-Methicil Res Gene Streptococcus sp PCR (Not Detect) Group A Strep (PCR) (Not Detect) Strep agalactiae (PCR) (Not Detect) Strep pneumoniae (PCR) (Not Detect) P. aeruginosa (PCR) (Not Detect) John Paul/B-Vanco Res Genes KPC-Carbap Res Gene PCR 09/15/22 09/15/22 09/15/22 Range/Units 10:20 10:20 10:20 WBC (4.5-11.0) X10^3/uL RBC (4.5-5.9) X10^6/uL Hgb (13.5-17.5) g/dL Hct (41-53) % MCV (80-100) fL MCH (26-34) PG MCHC (30-36) % RDW (11.6-14.8) % Plt Count (150-400) X10^3/uL Neut % (Auto) (50-75) % Lymph % (Auto) (25-40) % Ward % (Auto) (3-14) % Eos % (Auto) (2-4) % Baso % (Auto) (0-2) % Neut # (Auto) (2959-8853) /uL Lymph # (Auto) (3592-8394) /uL Ward # (Auto) (0-900) /uL Eos # (Auto) (0-450) /uL Baso # (Auto) (0-100) /uL PT (10.1-12.7) SECONDS INR (0.9-1.3) APTT (26-36) SECONDS Sodium 139 (137-145) mmol/L Potassium 4.7 (3.4-5.1) mmol/L Chloride 100 (98-107) mmol/L Carbon Dioxide 32 (22-32) mmol/L BUN 46 H (9-20) mg/dL Creatinine 1.37 H (0.66-1.25) mg/dL Estimated GFR 52 L (>60) mL/min BUN/Creatinine Ratio 33.6 H (6-22) Glucose 204 H (80-110) mg/dL Hemoglobin A1c 8.3 H (4.0-6.0) % Lactate (0.7-2.1) mmol/L Calcium 8.8 (8.4-10.2) mg/dL Total Bilirubin 1.0 (0.2-1.3) mg/dL AST 24 (17-59) IU/L ALT 22 (<50) IU/L Alkaline Phosphatase 94 (38-126) U/L Total Creatine Kinase (55-170) U/L CK-MB (CK-2) (<2.37) ng/mL CK-MB (CK-2) Rel Index (1.5-5.0) % Troponin I (0.01-0.034) ng/mL NT-Pro-B Natriuret Pep (<450) pg/mL Total Protein 7.9 (6.3-8.2) g/dL Albumin 3.7 (3.5-5.0) g/dL Globulin 4.2 H (1.7-4.1) g/dL Albumin/Globulin Ratio 0.9 L (1.0-2.8) Lipase (23-300) U/L Procalcitonin (<0.5) ng/mL TSH 4.49 (0.47-4.68) uIU/mL Urine Color Urine Appearance Urine pH (4.5-8.0) Ur Specific [place] (1.000-1.035) Urine Protein (Negative) Urine Glucose (UA) (Negative) g/dL Urine Ketones (NEGATIVE) Urine Occult Blood (Negative) Urine Nitrate (Negative) Urine Bilirubin (NEGATIVE) Urine Urobilinogen (0.2) E.U./dL Ur Leukocyte Esterase (NEGATIVE) Urine RBC (0-5/HPF) Urine WBC (0-5/HPF) Ur Squamous Epith Cells (0-5/HPF) Urine Bacteria (None) Hyaline Casts (None) Ur Culture Indicated? A. baumannii (PCR) (Not Detect) Lindsey albicans (PCR) (Not Detect) C. glabrata (PCR) (Not Detect) C. krusei (PCR) (Not Detect) C. parapsilosis (PCR) (Not Detect) C. tropicalis (PCR) (Not Detect) SARS-CoV-2 (PCR) (Negative) Enterobacteriac sp PCR (Not Detect) E. cloacae complex PCR (Not Detect) Enterococcus sp PCR (Not Detect) E. coli (PCR) (Not Detect) H. influenzae (PCR) (Not Detect) Influenza A (RT-PCR) (NEGATIVE) Influenza B (RT-PCR) (NEGATIVE) Klebsiella oxytoca PCR (Not Detect) Klebsiella pneumoniae (Not Detect) List. monocytogenes PCR (Not Detect) N. meningitidis (PCR) (Not Detect) Proteus species (PCR) (Not Detect) RSV (PCR) (Negative) Serratia marcescens PCR (Not Detect) Staphylococcus sp PCR (Not Detect) Staph aureus (PCR) (Not Detect) mecA-Methicil Res Gene Streptococcus sp PCR (Not Detect) Group A Strep (PCR) (Not Detect) Strep agalactiae (PCR) (Not Detect) Strep pneumoniae (PCR) (Not Detect) P. aeruginosa (PCR) (Not Detect) John Paul/B-Vanco Res Genes KPC-Carbap Res Gene PCR 09/17/22 09/17/22 09/17/22 Range/Units 12:53 13:00 13:35 WBC 13.3 H (4.5-11.0) X10^3/uL RBC 4.16 L (4.5-5.9) X10^6/uL Hgb 13.6 (13.5-17.5) g/dL Hct 41.4 (41-53) % MCV 99.6 (80-100) fL MCH 32.7 (26-34) PG MCHC 32.8 (30-36) % RDW 14.4 (11.6-14.8) % Plt Count 119 L (150-400) X10^3/uL Neut % (Auto) 75.2 H (50-75) % Lymph % (Auto) 14.3 L (25-40) % Ward % (Auto) 9.1 (3-14) % Eos % (Auto) 0.9 L (2-4) % Baso % (Auto) 0.5 (0-2) % Neut # (Auto) 79224 H (4010-2323) /uL Lymph # (Auto) 1900 (0986-0103) /uL Ward # (Auto) 1200 H (0-900) /uL Eos # (Auto) 100 (0-450) /uL Baso # (Auto) 100 (0-100) /uL PT (10.1-12.7) SECONDS INR (0.9-1.3) APTT (26-36) SECONDS Sodium (137-145) mmol/L Potassium (3.4-5.1) mmol/L Chloride (98-107) mmol/L Carbon Dioxide (22-32) mmol/L BUN (9-20) mg/dL Creatinine (0.66-1.25) mg/dL Estimated GFR (>60) mL/min BUN/Creatinine Ratio (6-22) Glucose (80-110) mg/dL Hemoglobin A1c (4.0-6.0) % Lactate (0.7-2.1) mmol/L Calcium (8.4-10.2) mg/dL Total Bilirubin (0.2-1.3) mg/dL AST (17-59) IU/L ALT (<50) IU/L Alkaline Phosphatase (38-126) U/L Total Creatine Kinase 289 H (55-170) U/L CK-MB (CK-2) 0.63 (<2.37) ng/mL CK-MB (CK-2) Rel Index 0.2 L (1.5-5.0) % Troponin I < 0.012 (0.01-0.034) ng/mL NT-Pro-B Natriuret Pep 284 (<450) pg/mL Total Protein (6.3-8.2) g/dL Albumin (3.5-5.0) g/dL Globulin (1.7-4.1) g/dL Albumin/Globulin Ratio (1.0-2.8) Lipase (23-300) U/L Procalcitonin (<0.5) ng/mL TSH (0.47-4.68) uIU/mL Urine Color Urine Appearance Urine pH (4.5-8.0) Ur Specific [place] (1.000-1.035) Urine Protein (Negative) Urine Glucose (UA) (Negative) g/dL Urine Ketones (NEGATIVE) Urine Occult Blood (Negative) Urine Nitrate (Negative) Urine Bilirubin (NEGATIVE) Urine Urobilinogen (0.2) E.U./dL Ur Leukocyte Esterase (NEGATIVE) Urine RBC (0-5/HPF) Urine WBC (0-5/HPF) Ur Squamous Epith Cells (0-5/HPF) Urine Bacteria (None) Hyaline Casts (None) Ur Culture Indicated? A. baumannii (PCR) (Not Detect) Lindsey albicans (PCR) (Not Detect) C. glabrata (PCR) (Not Detect) C. krusei (PCR) (Not Detect) C. parapsilosis (PCR) (Not Detect) C. tropicalis (PCR) (Not Detect) SARS-CoV-2 (PCR) Negative (Negative) Enterobacteriac sp PCR (Not Detect) E. cloacae complex PCR (Not Detect) Enterococcus sp PCR (Not Detect) E. coli (PCR) (Not Detect) H. influenzae (PCR) (Not Detect) Influenza A (RT-PCR) Flu a negative (NEGATIVE) Influenza B (RT-PCR) Flu b negative (NEGATIVE) Klebsiella oxytoca PCR (Not Detect) Klebsiella pneumoniae (Not Detect) List. monocytogenes PCR (Not Detect) N. meningitidis (PCR) (Not Detect) Proteus species (PCR) (Not Detect) RSV (PCR) Negative (Negative) Serratia marcescens PCR (Not Detect) Staphylococcus sp PCR (Not Detect) Staph aureus (PCR) (Not Detect) mecA-Methicil Res Gene Streptococcus sp PCR (Not Detect) Group A Strep (PCR) (Not Detect) Strep agalactiae (PCR) (Not Detect) Strep pneumoniae (PCR) (Not Detect) P. aeruginosa (PCR) (Not Detect) John Paul/B-Vanco Res Genes KPC-Carbap Res Gene PCR 09/17/22 09/17/22 09/17/22 Range/Units 13:35 13:35 13:35 WBC (4.5-11.0) X10^3/uL RBC (4.5-5.9) X10^6/uL Hgb (13.5-17.5) g/dL Hct (41-53) % MCV (80-100) fL MCH (26-34) PG MCHC (30-36) % RDW (11.6-14.8) % Plt Count (150-400) X10^3/uL Neut % (Auto) (50-75) % Lymph % (Auto) (25-40) % Ward % (Auto) (3-14) % Eos % (Auto) (2-4) % Baso % (Auto) (0-2) % Neut # (Auto) (7010-0894) /uL Lymph # (Auto) (0002-6485) /uL Ward # (Auto) (0-900) /uL Eos # (Auto) (0-450) /uL Baso # (Auto) (0-100) /uL PT 15.4 H (10.1-12.7) SECONDS INR 1.3 (0.9-1.3) APTT 34 (26-36) SECONDS Sodium 139 (137-145) mmol/L Potassium 4.5 (3.4-5.1) mmol/L Chloride 101 (98-107) mmol/L Carbon Dioxide 30 (22-32) mmol/L BUN 59 H (9-20) mg/dL Creatinine 2.49 H (0.66-1.25) mg/dL Estimated GFR 25 L (>60) mL/min BUN/Creatinine Ratio 23.7 H (6-22) Glucose 250 H (80-110) mg/dL Hemoglobin A1c (4.0-6.0) % Lactate 2.1 (0.7-2.1) mmol/L Calcium 8.4 (8.4-10.2) mg/dL Total Bilirubin 1.2 (0.2-1.3) mg/dL AST 22 (17-59) IU/L ALT 19 (<50) IU/L Alkaline Phosphatase 73 (38-126) U/L Total Creatine Kinase (55-170) U/L CK-MB (CK-2) (<2.37) ng/mL CK-MB (CK-2) Rel Index (1.5-5.0) % Troponin I (0.01-0.034) ng/mL NT-Pro-B Natriuret Pep (<450) pg/mL Total Protein 7.2 (6.3-8.2) g/dL Albumin 3.4 L (3.5-5.0) g/dL Globulin 3.8 (1.7-4.1) g/dL Albumin/Globulin Ratio 0.9 L (1.0-2.8) Lipase 31 (23-300) U/L Procalcitonin 0.58 H (<0.5) ng/mL TSH (0.47-4.68) uIU/mL Urine Color Urine Appearance Urine pH (4.5-8.0) Ur Specific [place] (1.000-1.035) Urine Protein (Negative) Urine Glucose (UA) (Negative) g/dL Urine Ketones (NEGATIVE) Urine Occult Blood (Negative) Urine Nitrate (Negative) Urine Bilirubin (NEGATIVE) Urine Urobilinogen (0.2) E.U./dL Ur Leukocyte Esterase (NEGATIVE) Urine RBC (0-5/HPF) Urine WBC (0-5/HPF) Ur Squamous Epith Cells (0-5/HPF) Urine Bacteria (None) Hyaline Casts (None) Ur Culture Indicated? A. baumannii (PCR) (Not Detect) Lindsey albicans (PCR) (Not Detect) C. glabrata (PCR) (Not Detect) C. krusei (PCR) (Not Detect) C. parapsilosis (PCR) (Not Detect) C. tropicalis (PCR) (Not Detect) SARS-CoV-2 (PCR) (Negative) Enterobacteriac sp PCR (Not Detect) E. cloacae complex PCR (Not Detect) Enterococcus sp PCR (Not Detect) E. coli (PCR) (Not Detect) H. influenzae (PCR) (Not Detect) Influenza A (RT-PCR) (NEGATIVE) Influenza B (RT-PCR) (NEGATIVE) Klebsiella oxytoca PCR (Not Detect) Klebsiella pneumoniae (Not Detect) List. monocytogenes PCR (Not Detect) N. meningitidis (PCR) (Not Detect) Proteus species (PCR) (Not Detect) RSV (PCR) (Negative) Serratia marcescens PCR (Not Detect) Staphylococcus sp PCR (Not Detect) Staph aureus (PCR) (Not Detect) mecA-Methicil Res Gene Streptococcus sp PCR (Not Detect) Group A Strep (PCR) (Not Detect) Strep agalactiae (PCR) (Not Detect) Strep pneumoniae (PCR) (Not Detect) P. aeruginosa (PCR) (Not Detect) John Paul/B-Vanco Res Genes KPC-Carbap Res Gene PCR 09/17/22 09/17/22 09/17/22 Range/Units 14:16 14:53 18:00 WBC (4.5-11.0) X10^3/uL RBC (4.5-5.9) X10^6/uL Hgb (13.5-17.5) g/dL Hct (41-53) % MCV (80-100) fL MCH (26-34) PG MCHC (30-36) % RDW (11.6-14.8) % Plt Count (150-400) X10^3/uL Neut % (Auto) (50-75) % Lymph % (Auto) (25-40) % Ward % (Auto) (3-14) % Eos % (Auto) (2-4) % Baso % (Auto) (0-2) % Neut # (Auto) (6688-6806) /uL Lymph # (Auto) (7005-1842) /uL Ward # (Auto) (0-900) /uL Eos # (Auto) (0-450) /uL Baso # (Auto) (0-100) /uL PT (10.1-12.7) SECONDS INR (0.9-1.3) APTT (26-36) SECONDS Sodium (137-145) mmol/L Potassium (3.4-5.1) mmol/L Chloride (98-107) mmol/L Carbon Dioxide (22-32) mmol/L BUN (9-20) mg/dL Creatinine (0.66-1.25) mg/dL Estimated GFR (>60) mL/min BUN/Creatinine Ratio (6-22) Glucose (80-110) mg/dL Hemoglobin A1c (4.0-6.0) % Lactate 1.5 (0.7-2.1) mmol/L Calcium (8.4-10.2) mg/dL Total Bilirubin (0.2-1.3) mg/dL AST (17-59) IU/L ALT (<50) IU/L Alkaline Phosphatase (38-126) U/L Total Creatine Kinase (55-170) U/L CK-MB (CK-2) (<2.37) ng/mL CK-MB (CK-2) Rel Index (1.5-5.0) % Troponin I (0.01-0.034) ng/mL NT-Pro-B Natriuret Pep (<450) pg/mL Total Protein (6.3-8.2) g/dL Albumin (3.5-5.0) g/dL Globulin (1.7-4.1) g/dL Albumin/Globulin Ratio (1.0-2.8) Lipase (23-300) U/L Procalcitonin (<0.5) ng/mL TSH (0.47-4.68) uIU/mL Urine Color Yellow Urine Appearance Clear Urine pH 5.0 (4.5-8.0) Ur Specific [place] 1.020 (1.000-1.035) Urine Protein Negative (Negative) Urine Glucose (UA) Negative (Negative) g/dL Urine Ketones Negative (NEGATIVE) Urine Occult Blood 3+ H (Negative) Urine Nitrate Negative (Negative) Urine Bilirubin Negative (NEGATIVE) Urine Urobilinogen 0.2 (0.2) E.U./dL Ur Leukocyte Esterase 1+ H (NEGATIVE) Urine RBC 5-10/hpf H (0-5/HPF) Urine WBC 1-5/hpf (0-5/HPF) Ur Squamous Epith Cells 1-5 /hpf (0-5/HPF) Urine Bacteria None seen (None) Hyaline Casts 5-10/lpf (None) Ur Culture Indicated? Specimen cultured A. baumannii (PCR) Not detected (Not Detect) Lindsey albicans (PCR) Not detected (Not Detect) C. glabrata (PCR) Not detected (Not Detect) C. krusei (PCR) Not detected (Not Detect) C. parapsilosis (PCR) Not detected (Not Detect) C. tropicalis (PCR) Not detected (Not Detect) SARS-CoV-2 (PCR) (Negative) Enterobacteriac sp PCR Not detected (Not Detect) E. cloacae complex PCR Not detected (Not Detect) Enterococcus sp PCR Not detected (Not Detect) E. coli (PCR) Not detected (Not Detect) H. influenzae (PCR) Not detected (Not Detect) Influenza A (RT-PCR) (NEGATIVE) Influenza B (RT-PCR) (NEGATIVE) Klebsiella oxytoca PCR Not detected (Not Detect) Klebsiella pneumoniae Not detected (Not Detect) List. monocytogenes PCR Not detected (Not Detect) N. meningitidis (PCR) Not detected (Not Detect) Proteus species (PCR) Not detected (Not Detect) RSV (PCR) (Negative) Serratia marcescens PCR Not detected (Not Detect) Staphylococcus sp PCR Not detected (Not Detect) Staph aureus (PCR) Not detected (Not Detect) mecA-Methicil Res Gene TNP Streptococcus sp PCR Not detected (Not Detect) Group A Strep (PCR) Not detected (Not Detect) Strep agalactiae (PCR) Not detected (Not Detect) Strep pneumoniae (PCR) Not detected (Not Detect) P. 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 Patient was on a walker and was turning and lost his balance, has pain to the left ankle with deformity. EMS states patient received 100 mcg of fentanyl prior to arrival. He is awake alert oriented x4. Currently patient is awake alert oriented self and date of and event. Pain is controlled. Pillow splint removed. There is tenting of the skin at the medial malleolus.. Pedal pulse is palpable in the left foot. Light touch intact to foot and toes. NPO since last night Patient does have concerning presentation of left ankle injury/pain. Differential diagnosis includes but not limited to ankle fracture/ankle dislocation/vascular compromise. There is tenting of the medial malleolus. Stat x-ray ordered the ankle ordered, may need immediate reduction of the ankle, however pedal pulse is palpable and brisk cap refills is reassuring. Patient may need immediate procedural sedation with closed reduction. 10:27 a.m.. I spoke with , she is on her way here. He does have history of dementia. Uses a walker however she states he was not using his walker this morning, he turned the corner around the bedroom and twisted his ankle and fell. Is not on blood thinners other than baby aspirin. She does give verbal consent over the phone for procedural sedation and closed reduction of the right ankle. Patient is groggy from the fentanyl that was given to him this morning. Risks and benefits reviewed with . Urgently needed due to dislocation at presentation. However we do have respiratory therapy and equipment and monitoring and medications at bedside for procedure. Risk but not limited of airway compromise/vascular compromise reviewed with . Benefits of proper reduction for neurovascular protection of the foot and ankle. 10:36 a.m.. Patient being transferred into room 2 in order to have more space, respiratory therapy has been contacted. Orthopedics has been contacted as well. 10:[address] Vicente, orthopedics. He does not feel the x-ray shows dislocation but angulation, he instructs patient to be properly reduced and then placed in a posterior splint and discharge home and follow up in the office this week. 11:06 a.m.. Patient did not require procedural sedation. Patient tolerated reduction very well with 50 mcg of fentanyl IV. Patient has severe neuropathy but still had pain after EMS 100 mcg had worn off. Splint applied and post reduction films done. 12:[address] Vicente, he has reviewed postreduction film and patient can be discharged home and follow up in the office. Appropriate for discharge home. I have reviewed imaging, blood work was for possible preop if patient required surgery. I have reviewed with patient and family/ and agree for follow up with Dr. Vicente whom I spoke with as well for continued care and follow-up. Pain is controlled at time of discharge. At this time I do not feel patient needs opiate pain medication as splint has reduced patient's pain significantly. Patient has neuropathy as well. The toes were exposed for review with regarding any discoloration worsening to return. Return precautions reviewed with her and patient. They desire discharge home. 12:45 p.m.. Spoke with . We will need social work in physical therapy evaluation now. Patient requires transferring in and out of bed and to the bathroom at home even before injury today. Patient is nonweightbearing. Patient may need home health care versus senior living facility/rehabilitation Patient has failed physical therapy evaluation, unable to bear weight as to unstable as well for discharge home to be on a walker or crutches. Social work also involved in patient care to find rehab/sniff placement. 6:[address] Cervantes, social work will continue looking for placement tomorrow. Otherwise at this time orthopedics has indicated no surgery at this time. Pain medication schedule has been placed. 09/16/21 Helen: Patient signed out to myself by Dr. Garrison, ankle fracture possibly requiring surgical repair but not plan to emergently in the next 24 hours. Patient case was discussed with social work as they are seeking home health care versus senior living facility. Patient has appears to be baseline renal function, glucose was 204 initially was elevated 300 range did not have his evening medications will cover with sliding scale. Platelets are 126, otherwise normal hemoglobin. Patient is COVID negative. Patient had reduction by Dr. Garrison in the department. Attempting to obtain home med list with doses to order home meds. Patient signed out to Dr. Daiz while awaiting possible placement. + Dr Diaz 09/16/22? 7:28 ED observation/progress note 82-year-old gentleman with history of dementia, mobility impaired in use a walker at home, had a mechanical fall on the morning of September 15.? Presented to the emergency department diagnosed with a trimalleolar fracture that was reduced in the emergency department.? Discussed with orthopedist, Dr. Vicente who recommended discharge and outpatient follow-up in about a week.? Unfortunately patient is not able to physically manage with the broken ankle. ?He is failed a physical therapy evaluation and is currently 2 person assist with inadequate support at home.? Social work has contacted multiple senior living facilities please see note from September 15 at 2:19 in the afternoon. Has been voiding in the emergency department. ?Home meds have been ordered. Objective Vital signs are stable. Chest:? No wheezes or rhonchi Cardiovascular:? Regular rate and rhythm, no murmurs Abdomen:? Soft nondistended Extremity:? Left leg in a posterior splint with sugar-tong.? Poor perfusion to the toes and complaining of pain.? The splint is removed to the level of the padding with significant pressure released.? It is replaced, now with much better toe perfusion and decrease pain Cognitive: ?Not quite sure why he is here, what happened or where he will be going. Assessment and plan 1.? Trimalleolar fracture left ankle. ?Ankle films pre and post reduction are independently reviewed. ?Currently unable to be discharge dairy to immobility.? Working on senior living facilities.? Will contact Orthopedic surgery again today to see if we might simply fix the ankle all were continuing to work on postoperative discharge and senior living facilities 2.? Comorbid medical problems with home meds restarted Diabetes, hypothyroidism, hypertension, chronic lower extremity edema, 3.? Minor bump in creatinine, we will recheck basic metabolic panel today. 4.? Chemistries are unremarkable.? No evidence of infection.? We will recheck H&H 5.? Aguilera catheter in place, patient is currently declining any pain medications. 6. Normal pressure hydrocephalus makes mobility difficult, no diagnosis of dementia at this time 7:[address] Maradiaga, orthopedist. Reviewed inability to discharge home and he is agreed to operate on the ankle today. With the multiple medical comorbidities patient will be admitted to the medicine service with anticipation of OR later this evening. Will continue to keep him NPO at this time. 1030 OR will apparently not be able to accommodate this ankle surgery until 09/18. Currently in discussion with hospitalist. Patient will either remain in the emergency department and does need a hospitalist consult or will be admitted to the floor preoperatively. We will continue to look at SNF options however nursing facility admit for 36 hours prior to surgery is likely going to be challenging. 230pm Discussed with hospitalist, Dr Galarza. Initial note from the emergency department indicates that he is awake and oriented x4. He currently is significantly confused, believes it is March, that he injured himself skiing and he is not sure which town or hospital he is currently in. Dr. Galarza is going to contact his to see what baseline actually is, has done an ED consult and recommended additional long-acting insulin. We will talked with care management to see what other options we have with hospital admission prior to surgery. In the setting of acute delirium is were appreciating now may make the decision to admit a bit easier. Together we discussed labs, decided no additional lab work was required today. 310 will remain ER patient with medicine consult and anticipation of surgery . Medicine and care management will reveiw again tomorrow. Dr almeida overnight 09/16-09/17: Received turned over. You patient's history and physical exam and workup up to this point. Patient has remained stable overnight. We will continue to remain in the emergency department until patient can be taken to the operating room. Care turned over to Dr. Llanos to continue to observe until disposition. 09/17/22@ 08:50 I assumed care at change of shift from Dr. Almeida. The record has been reviewed. Patient has a left trimalleolar fracture that has been reduced and splinted. Multiple options were evaluated, the patient is here in the ER awaiting surgery tomorrow morning. Medicine consult has been done. It is anticipated the patient will be admitted following the surgery. He will need disposition following the admission also. Capillary refill to left foot is intact. Patient is having 7/10 pain. He is received morphine as needed. I also added the option of Wishon PRN. Anticipating surgery tomorrow, he is made NPO after midnight. Maikol ELIAS Discharge Plan Departure Patient Disposition: Admitted As Inpatient Clinical Impression: Diabetes, Coronary artery disease, Hypertension, Hydrocephalus, idiopathic normal pressure Closed trimalleolar fracture of ankle Qualifiers: Encounter type: initial encounter Laterality: left Qualified Code(s): S82.852A - Displaced trimalleolar fracture of left lower leg, initial encounter for closed fracture Admit Date/Time: 09/17/22 20:47 Admit Provider: Bryan Hardwick
[2022-09-15 10:09] LABS: COVID19 -Nasal RAPID Negative (Negative)
[2022-09-15 10:29] LABS: Add Manual Diff / Slide Review NO; Basophils Absolute Auto 100 /uL (0-100); Basophils Percent Auto 0.5 % (0-2); Eosinophils Absolute Auto 500 /uL (0-450); Hemoglobin 15.6 g/dL (13.5-17.5); Lymphocytes Absolute Auto 1500 /uL (1100-4500); Lymphocytes Percent Auto 14.2 % (25-40); Mean Corpuscular HGB Conc 33.2 % (30-36); Mean Corpuscular Hemoglobin 32.7 PG (26-34); Mean Corpuscular Volume 98.3 fL (80-100); Monocytes Absolute Auto 800 /uL (0-900); Monocytes Percent Auto 7.6 % (3-14); Neutrophils Absolute Auto 7500 /uL (1500-7000); Neutrophils Percent Auto 72.7 % (50-75); Platelet Count 126 X10^3/uL (150-400); Red Blood Cell Count 4.78 X10^6/uL (4.5-5.9); Red Cell Distribution Width 14.2 % (11.6-14.8); White Blood Cell Count 10.4 X10^3/uL (4.5-11.0)
[2022-09-15 10:35] LABS: INR 1.1 (0.9-1.3); Prothrombin Time 13.1 SECONDS (10.1-12.7)
[2022-09-15 10:38] LABS: PTT Partial Thromboplastin Tim 36 SECONDS (26-36)
[2022-09-15 10:41] LABS: Alanine Aminotransferase 22 IU/L (<50); Albumin 3.7 g/dL (3.5-5.0); Albumin Globulin Ratio 0.9 (1.0-2.8); Alkaline Phosphatase 94 U/L (38-126); Aspartate Aminotransferase 24 IU/L (17-59); BUN Creatinine Ratio 33.6 (6-22); Blood Urea Nitrogen 46 mg/dL (9-20); Calcium 8.8 mg/dL (8.4-10.2); Carbon Dioxide 32 mmol/L (22-32); Chloride 100 mmol/L (98-107); Estimated Glomerular Filt Rate 52 mL/min (>60); Globulin 4.2 g/dL (1.7-4.1); Glucose 204 mg/dL (80-110); HEMOLYSIS 42 (0-50); Potassium 4.7 mmol/L (3.4-5.1); Sodium 139 mmol/L (137-145); Total Protein 7.9 g/dL (6.3-8.2)
--- NOTE | 2022-09-15 10:57 | DI.RAD.S_ITS ---
PROCEDURE: XR ANKLE LT 2V INDICATIONS: post reduction TECHNIQUE: 3 views of the ankle were acquired. COMPARISON: [facility], CR, XR ANKLE LT 2V, 09/15/2022, 9:45. FINDINGS/IMPRESSION: 1. Successful interval tibiotalar reduction. 2. Trimalleolar fractures. Dictated by: Herberth Banerjee M.D. on 09/15/2022 at 11:29 Approved by: Herberth Banerjee M.D. on 09/15/2022 at 11:30
--- NOTE | 2022-09-15 10:58 | PC.NURSE ---
Pt L ankle reduced by Dr Garrison using 50 mcg fentanyl. Pt has advanced neuropathy and was able to have reduction without sedation. Tolerated well. Short leg orthoglass splint applied. Pt awaiting post reduction XR for placement.
[2022-09-15] MEDS: fentaNYL 100 MCG/2 ML INJ 50 MCG IV (11:01)
--- NOTE | 2022-09-15 13:01 | CM.DANOTE ---
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 Imaging shows complete fracture-dislocation of the ankle with fractures of the medial and lateral malleoli with suspected posterior malleolus fracture also. Pt has [facility] Medicare and Anamaria Gordon is PCP. SW consulted to assist with safe dc plan. SW discussed situation with pt and his spouse. Pt currently unclear on what his weight bearing status is. Pt's has questions about future scheduling of orthopedic surgery. SW attempts to answer questions and assess level of support at home. Pt and spouse live alone with spouse providing all support. PT has been consulted to assess pt and determine next level of care. JAYA Bermudez Discharge Planning/Care Management CM Discharge Assessment Start: 09/15/22 12:52 Freq: Status: Active Protocol: Document 09/15/22 12:53 TM (Rec: 09/15/22 12:59 TM [id number]) Discharge Planning Assessment Assigned Junior Project Coordinator JAYA Bermudez DPOA/Assigned Designee Name MARILYN SpouseMari Contact Information [phone] Advance Directives? No Advance Directives on File No History Provided By Patient,Family Member Has Patient been admitted in last 30 No days? Prior Living Arrangements House Comment Pt lives with spouse in a single story house with half step to enter. Household Members spouse Type of transporation used prior to Relies on Others admit Independent with ADL's No Is patient alert and oriented? Yes Needs Assistance With Bathing,Toileting,Home Chores / Shopping Comment At baseline, pt able to transfer in and out of bed independently. Pt's spouse assists with toileting, changing depends, and dressing . Pt uses 4WW at baseline. Caregiver for Another No Community Services used prior to Physical Therapy,Occupational admission: Therapy Comment Pt was recently referred to [facility] for OT and PT by PCP. DME Already Rented / Owned FWW / Walker Patient/Family Preference Retirement Facility,Home with Home Health Comment TBD - pending PT assessment. Discharge Plan Home Transportation Arrangement BLS Referrals Initiated Other Additional Comment referral dependent on PT recs. Whiteboard Updated in Patient Room with Yes name and ext. # of Junior Project Coordinator Please Provide Date Initial DC 09/15/22 Assessment Was Performed JAYA Bermudez
[2022-09-15] MEDS: HYDROCODONE/ACET 5/325 TABLET 1 TAB PO (13:08)
[2022-09-15] MEDS: diazePAM 5 MG TABLET PO (13:47)
--- NOTE | 2022-09-15 13:49 | PC.NURSE ---
physical therapy in room at this time for consult
--- NOTE | 2022-09-15 13:58 | PT.IIE ---
Medical History (Last Reviewed 09/15/22 @ 09:34 by Kingsley Garrison MD) Allergic rhinitis Anxiety Aortic valve sclerosis Bilateral carpal tunnel syndrome Chronic back pain DDD (degenerative disc disease), cervical DDD (degenerative disc disease), lumbar Diabetic peripheral neuropathy DMII (diabetes mellitus, type 2) Dyslipidemia Edema Erectile dysfunction Gouty arthropathy Hypertension Hypertrophy of prostate Hypothyroidism LBBB (left bundle branch block) Osteoarthritis involving multiple joints on both sides of body Peripheral neuropathy Reactive airway disease Renal insufficiency Sinus arrhythmia TIA (transient ischemic attack) Vertigo Physical Therapy Inpatient Evaluation/Re-Eval M1 PT/OT-IP Prior Functional Status Start: 09/15/22 12:48 Freq: Status: Active Protocol: Document 09/15/22 13:58 AW (Rec: 09/15/22 14:53 AW [id number]) Medical Review Prior Functional Status Medical History Reviewed Yes Diet/Fluid Consistency Dysphagia Mech. Chopped Communication Pt has history of cognitive impairment. He requires some extra processing time on this date - possibly due to pain - but is able to make his needs known. Mobility and Gait Pt uses a 4WW for household mobility. Pt states he sometimes forgets to use the walker. He has chronic neuropathy affecting bilateral feet and ankles. He and his report falls at the rate of about once per month. Spouse states she helps him in and out of bed to elevate his legs. Pt fell and fractured his pelvis > a year ago and needed SNF rehab for several weeks. Activities of Daily Living and IADL's Spouse assists with dressing and stands by during showers. Pt's spouse does all the driving. Social History Household Members spouse Living Arrangements House Number of Floors (Floors) One Floor Home Environment Standard Height Toilet,Tub/ Shower Home Equipment Front Wheel Walker,Four Wheel Walker,Hospital Bed,Grab Bars Near Toilet Employment Status Retired Additional Social History Comment Pt lives in [place] with his spouse. M2 PT-IP Current Condition Start: 09/15/22 14:06 Freq: Status: Active Protocol: Document 09/15/22 13:58 AW (Rec: 09/15/22 14:53 AW [id number]) Physical Therapy Current Condition Current Condition Evaluation Date 09/15/22 Treatment Diagnosis L trimalleolar ankle fx s/p fall; difficulty in walking Onset Date 09/15/22 M3 PT-IP Subjective Start: 09/15/22 14:06 Freq: Status: Active Protocol: Document 09/15/22 13:58 AW (Rec: 09/15/22 14:53 AW [id number]) Subjective Physical Therapy Visit Type Type Initial Evaluation Visit Start Time 13:12 Visit Stop Time 13:58 Total Visit Minutes 46 Notes Pt's spouse was present during mobility assessment. Physical Therapy Visit Comments Patient Comments Pt is willing to participate with PT Patient Goals Pt hopes to go home. Therapy Pain Assessment Pain When Pain Assessed At Rest Pain Present Pain Present Pain Reported Location L ankle Intensity 8 Scale Used Numeric (0 - 10) Description Sharp,Spasm,Stabbing Pain Behaviors Facial Grimacing,Guarding, Wincing Pain Management Techniques Modification of Treatment, Timing of Activity with Medications M4 PT-IP Mobility and Gait Start: 09/15/22 14:06 Freq: Status: Active Protocol: Document 09/15/22 13:58 AW (Rec: 09/15/22 14:53 AW [id number]) PT-Bed Mobility Assessment Supine to Sit Supine to Sit Maximum Assistance,1 Person Assistance,Bedrails Sit to Supine Sit to Supine Maximum Assistance,1 Person Assistance Scooting Scooting to Edge of Bed Maximum Assistance PT-Transfer Assessment Sit to and From Stand Sit to and from Stand Maximum Assistance,2 Person Assistance,Use of Upper Extremities Equipment Transfer Assistive Device Gait Belt,Front Wheeled Walker Orthotic/Prosthetic Devices or Brace: No Transfers Transfer Destination Bed Transfer Technique sit <> stand Comments Mobility Comments Pt was lying on the ED gurney as PT arrived. He was grimacing and reporting spasms in his left ankle. BP was 130 /69 HR 67 SpO2 99% on 3L/min O2. Pt began moving his legs toward the right edge of bed but ultimately needed max A to complete supine to sit. Pt's spouse stated she often helps him get in and out of bed but he does not typically need as much assist. Pt tolerated dangling his legs off EOB and did not note increased pain with ankle in dependent position. He did complain of some lightheadedness. Checked BP which was stable. PT educated pt on NWB LLE and techniques for sit to stand and pivoting on RLE with FWW. Pt agreed to attempt standing. On first attempt, PT cued heavily for pt to scoot forward and to pull RLE closer to gurney for more effective weight shift. With max A, pt was unable to fully stand, leaning heavily on the bed with his legs. PT called for 2nd person assist. With max A x 2, pt attempted to stand again and was able to fully extend RLE but could not keep LLE off the floor. He was fatigued and requested return to supine, requiring max A for sit to supine and repositioning on the gurney. PT updated ED MD, RN, and HEAD PASTRY CHEF. Gait Assessment Comments Gait Comments Unable to maintain NWB LLE in static stance. Unable to progress to gait. PT-Balance Assessment Sitting Balance and Reactions Static Sitting Balance Ability Fair Dynamic Sitting Balance Ability Fair Standing Balance and Reactions Static Standing Balance Ability Poor Dynamic Standing Balance Ability Poor Device Used FWW M5 PT-IP Objective Assessments Start: 09/15/22 14:06 Freq: Status: Active Protocol: Document 09/15/22 13:58 AW (Rec: 09/15/22 14:53 AW [id number]) Orientation Orientation/Cognition Level of Alertness Confusional State Orientation Name,Birthday,Place,Situation Safety Awareness Decreased Safety Awareness Memory Description Short Term Impaired Gross Range of Motion Lower Extremity ROM Assessment Left Impaired Strength Lower Extremity Strength Assessment Bilaterally Impaired Hip 4-/5 Knee 4-/5 Ankle R 4/5 Sensation Assessment Sensation Gross Sensation Right LE Impaired,Left LE Impaired Light Touch Impaired Proprioception (Position) Impaired Sensation Description Numbness M6 PT-IP Treatment Start: 09/15/22 14:06 Freq: Status: Active Protocol: Document 09/15/22 13:58 AW (Rec: 09/15/22 14:53 AW [id number]) Physical Therapy Treatment Exercises Exercises Heel Slides,Straight Leg Raises Education Education Provided Weight Bearing Status,Safety Other Treatments Other Treatment Performed Educated pt and his spouse on weightbearing status, mobility techniques, and level of assist required at this time. M7 PT-IP Assessment and Plan Start: 09/15/22 14:06 Freq: Status: Active Protocol: Document 09/15/22 13:58 AW (Rec: 09/15/22 14:53 AW [id number]) PT Summary Assessment and Plan Potential Rehabilitation Potential Good Status of Condition at Evaluation Evolving Summary Impairments Pain,ROM,Strength,Balance, Sensation,Cognition,Bed Mobility,Transfers,Gait Assessment Summary Antwon is an 82 yo man presenting to ED after a fall at home resulting in tri- malleolar left ankle fracture. Fracture was reduced and splinted at ED. Ortho recommended NWB LLE after reviewing films. At baseline, Antwon is able to walk household distances with 4WW but admits to falls at the rate of about once monthly. He has MCI/dementia and states he often forgets to use his walker. On assessment today, Antwon is limited by pain and unable to maintain NWB LLE during standing attempts. He needed max assist for bed mobility and max assist x 2 for attempts to stand with FWW . Pt is not safe for the home environment and his is unable to provide the level of assist required. PT recommends SNF rehab to assist with functional recovery and to provide 24/ assist with mobility. Goals Bed Mobility Goal Minimal Assistance Transfer Goal Minimal Assistance,Front Wheeled Walker Gait Goal Minimal Assistance,Front Wheel Walker Gait Distance 50 Days to Meet Goals 10 Frequency of Treatment Frequency Of Treatment Once a Day Treatment Plan Physical Therapy Treatment Plan Bed Mobility Training,Transfer Training,Gait Training, Therapeutic Exercise,Balance Retraining,Discharge Planning, Hot or Cold Pack,Neuromuscular Re-ed Other Recommendations and Next Treatment standing tolerance; transfers Focus as able Precautions Other Precautions falls Weight Bearing Status Weight Bearing Status Non-Weight Bearing Allowed Weight Bearing Amount (enter % NWB LLE or #) (%) Recommendations To Nursing Amount of Assist Needed Mechanical Lift Discharge Recommendations PT Discharge Recommendations SNF Rehab Transportation Needs at Discharge Wheelchair/Cabulance,Stretcher /Ambulance
--- NOTE | 2022-09-15 14:19 | CM.SWNOTE ---
ED SW Note PT was in to see pt and completed evaluation. PT is recommending SNF, as patient is two person assist and does not have adequate support at home. SW discussed with pt's , who is agreeable with referral to SNF and reports that pt was previously at [facility] in 2020. SW called [facility] and AC February is reviewing referral. SW called [facility] and left a voicemail requesting a call back. SW called [facility] and they instructed SW to fax packet. Admission Coordinator Sophia is out of office and will review referral tomorrow morning. SW called [facility] and their AC reported that they are in network with pt's insurance but do not have any beds available and do not think they will have beds until the end of the week. SW called [facility] and both the admission coordinator and sales ledger administrator are out of office today. They can review packet tomorrow if SW faxes today. RAO called [facility] and left a voicemail. SW faxed packets to [facility], [facility], and [facility]. JAYA Bermudez
[2022-09-15] MEDS: MORPHINE 4 MG/ML INJ IV (18:02)
[2022-09-16] VITALS (103 sets, daily range): BP systolic 118–190; BP diastolic 55–148; PULSE 73–104; RESP 16–24; O2SAT 89–98
--- NOTE | 2022-09-16 05:30 | DI.RAD.S_ITS ---
PROCEDURE: XR CHEST 1V INDICATIONS: fall TECHNIQUE: One view of the chest was acquired. COMPARISON: [facility], CR, XR CHEST 1V, 12/28/2019, 14:29. FINDINGS: Surgical changes and devices: A catheter projects over the right side of the neck and chest likely representing a ventriculoperitoneal shunt. Recommend clinical correlation. Lungs and pleura: Stable appearance of minimal diffuse interstitial prominence, likely chronic in etiology. No focal airspace disease. No pneumothorax. No substantial pleural effusion. Mediastinum: Mediastinal contours appear normal. Heart size is normal. Bones and chest wall: No suspicious bony lesions. Overlying soft tissues appear unremarkable. IMPRESSION: Stable radiographic evaluation of the chest without acute cardiopulmonary abnormalities or focal airspace disease. No significant discrepancy with the night assistant radiology preliminary report. Dictated by: Feng Post M.D. on 09/16/2022 at 8:15 Approved by: Feng Post M.D. on 09/16/2022 at 8:16
[2022-09-16] MEDS: PANTOPRAZOLE 40 MG VIAL IV (05:47)
--- NOTE | 2022-09-16 07:52 | PC.NURSE ---
Patient reports pain to left ankle. Splint kannan wraps loosened with Dr. Diaz at this time. Pain decreased.
[2022-09-16] MEDS: ALBUTEROL/IPRATROPIUM 3 ML AMPUL INH (08:21)
[2022-09-16] MEDS: INSULIN LISPRO 100 UNIT/ML 3ML VIAL SUBCUT ×4 (08:23→20:49)
[2022-09-16] MEDS: POTASSIUM CHLORIDE 10 MEQ TAB PO (08:34)
[2022-09-16] MEDS: allopurinoL 100 MG TABLET 200 MG PO (08:34)
[2022-09-16] MEDS: carvediloL 3.125 MG TABLET 6.25 MG PO ×2 (08:35→21:01)
[2022-09-16] MEDS: FUROSEMIDE 40 MG TABLET 80 MG PO (08:37)
[2022-09-16] MEDS: GABAPENTIN 300 MG CAPSULE PO ×3 (08:40→21:01)
--- NOTE | 2022-09-16 08:57 | PT-IP ANOTE ---
As per ER Dr. Cervantes pt will be scheduled for surgery today. Hold tx
--- NOTE | 2022-09-16 13:22 | PT.IPTN ---
Surgery Performed Operation Date: 09/18/22 10:45 <No data on this case meets the specified criteria> Physical Therapy Treatment Note M2 PT-IP Current Condition Start: 09/15/22 14:06 Freq: Status: Active Protocol: Document 09/15/22 13:58 AW (Rec: 09/15/22 14:53 AW [id number]) Physical Therapy Current Condition Current Condition Evaluation Date 09/15/22 Treatment Diagnosis L trimalleolar ankle fx s/p fall; difficulty in walking Onset Date 09/15/22 M3 PT-IP Subjective Start: 09/15/22 14:06 Freq: Status: Active Protocol: Document 09/16/22 12:54 LJ (Rec: 09/16/22 13:22 LJ [id number]) Subjective Physical Therapy Visit Type Type Treatment Note Visit Start Time 12:37 Visit Stop Time 12:52 Total Visit Minutes 15 Physical Therapy Visit Comments Patient Comments Pt is willing to participate with PT Therapy Pain Assessment Pain When Pain Assessed At Rest Pain Present Pain Present Pain Reported M4 PT-IP Mobility and Gait Start: 09/15/22 14:06 Freq: Status: Active Protocol: Document 09/16/22 12:54 LJ (Rec: 09/16/22 13:22 LJ [id number]) PT-Bed Mobility Assessment Rolling Type of Rolling Roll to Left Supine to Sit Supine to Sit Maximum Assistance,2 Person Assistance,Head of Bed Elevated Sit to Supine Sit to Supine Maximum Assistance,2 Person Assistance,Head of Bed Elevated Scooting Scooting to Edge of Bed Dependent PT-Transfer Assessment Comments Mobility Comments Pt MaxA x2 to pivot to side of bed using bed pad and lifting bilateral LEs. Pt unable to lift either LE to clear matress. Pt instructed to use right UE to assist himself to sitting square on the side of bed but unable to grasp bed railing. Pt sat on side of bed with UEs supporting and CGA from therapist. Attempted ankle pumps and knee flex/ext with delayed response and incomplete knee extension L>R. Pt called out in pain x3 during movement but tolerated dangling legs off side of bed. Pt instructed to scoot closer to side of bed but unable. Pt instructed to put right foot on floor but unable. Processing of information very delayed or no response. Pt unable to make any attempt to stand for several minutes so he was asked if he waanted to return to lying down. He indicated that he did . He was pivoted with overhead door technician behind him and therapist lifting LEs onto the bed. Pt was then positioned in bed properly. Pt left in room with overhead door technician. Gait Assessment Comments Gait Comments Unable to stand PT-Balance Assessment Sitting Balance and Reactions Static Sitting Balance Ability Fair Dynamic Sitting Balance Ability Fair Standing Balance and Reactions Static Standing Balance Ability Poor Dynamic Standing Balance Ability Poor Device Used FWW M5 PT-IP Objective Assessments Start: 09/15/22 14:06 Freq: Status: Active Protocol: Document 09/15/22 13:58 AW (Rec: 09/15/22 14:53 AW [id number]) Orientation Orientation/Cognition Level of Alertness Confusional State Orientation Name,Birthday,Place,Situation Safety Awareness Decreased Safety Awareness Memory Description Short Term Impaired Gross Range of Motion Lower Extremity ROM Assessment Left Impaired Strength Lower Extremity Strength Assessment Bilaterally Impaired Hip 4-/5 Knee 4-/5 Ankle R 4/5 Sensation Assessment Sensation Gross Sensation Right LE Impaired,Left LE Impaired Light Touch Impaired Proprioception (Position) Impaired Sensation Description Numbness M6 PT-IP Treatment Start: 09/15/22 14:06 Freq: Status: Active Protocol: Document 09/16/22 12:54 LJ (Rec: 09/16/22 13:22 LJ [id number]) Physical Therapy Treatment Exercises Exercises Ankle Pumps,Straight Leg Raises,Seated Knee Flexion/ Extension Education Education Provided Weight Bearing Status,Safety Other Treatments Other Treatment Performed Pt required assist with all exercises M7 PT-IP Assessment and Plan Start: 09/15/22 14:06 Freq: Status: Active Protocol: Document 09/16/22 12:54 LJ (Rec: 09/16/22 13:22 LJ [id number]) PT Summary Assessment and Plan Potential Rehabilitation Potential Good Status of Condition at Evaluation Evolving Summary Impairments Pain,ROM,Strength,Balance, Sensation,Cognition,Bed Mobility,Transfers,Gait Assessment Summary Pt groggy upon arrival. Willing to work with PT. Unable to communicate more than one or two words at a time. Did not really answer questions. Pt requiring MaxAx2 with all bed mobility. CGAx1 to sit on side of bed. Unable to stand with MaxA x2. Pt appears confused and is very slow processing simple commands. Did not attempt to make any movement toward standing at side of bed. He will need SNF rehab to improve function and mobility. Goals Bed Mobility Goal Minimal Assistance Transfer Goal Minimal Assistance,Front Wheeled Walker Gait Goal Minimal Assistance,Front Wheel Walker Gait Distance 50 Days to Meet Goals 10 Frequency of Treatment Frequency Of Treatment Once a Day Treatment Plan Physical Therapy Treatment Plan Bed Mobility Training,Transfer Training,Gait Training, Therapeutic Exercise,Balance Retraining,Discharge Planning, Hot or Cold Pack,Neuromuscular Re-ed Other Recommendations and Next Treatment standing tolerance; transfers Focus as able Precautions Other Precautions falls Weight Bearing Status Weight Bearing Status Non-Weight Bearing Allowed Weight Bearing Amount (enter % NWB LLE or #) (%) Discharge Recommendations PT Discharge Recommendations SNF Rehab Transportation Needs at Discharge Wheelchair/Cabulance,Stretcher /Ambulance
--- NOTE | 2022-09-16 15:10 | PM.CN ---
History of Present Illness Consult details Chief complaint: mechanical fall +deform ankle Reason for consult: diabetes, HTN Requesting provider: Radha Diaz Narrative: Patient is 82-year-old male with history of normal pressure hydrocephalus, significant cognitive impairment related to NPH, type 2 diabetes insulin requiring, mild aortic stenosis, mild mitral stenosis and regurgitation, LBBB, hypertension, hypothyroidism, peripheral neuropathy transported by ambulance to ED after a ground level fall at home. Patient lives with his who is primary caregiver. He was apparently using walker and lost his balance and was complaining of pain in the left ankle. X-rays revealed a trimalleolar fracture dislocation which was successfully reduced in the ED. patient himself has significant cognitive impairment and is unable to recall recent events. His spouse has not noticed recent fever, respiratory symptoms or other acute illness. As far as his NPH, patient had a shuntogram at the end of May 2022 which showed that the FLORICULTURE PROFESSOR shunt is functioning well. In regards to diabetes, his blood sugars in the ED have been elevated with last CBG 360. Labs were unremarkable. Meds Home Medications and Allergies Home Medications Medication Instructions Recorded Confirmed Type allopurinol 100 mg tablet 200 mg PO DAILY 09/16/22 09/16/22 History carvedilol 6.25 mg tablet 6.25 mg PO BID 09/16/22 09/16/22 History furosemide 40 mg tablet 80 mg PO DAILY 09/16/22 09/16/22 History gabapentin 300 mg capsule 300 mg PO TID 09/16/22 09/16/22 History insulin human U-100 NPH-regulr 10 unit SUBCUT BID 09/16/22 09/16/22 History 70-30 mix 100 unit/mL subcutaneous susp (Humulin 70/30 U-100 Insulin) levothyroxine 100 mcg tablet 100 mcg PO DAILY 09/16/22 09/16/22 History loperamide 2 mg tablet 2 mg PO QID PRN Diarrhea 09/16/22 09/16/22 History lovastatin 20 mg tablet 20 mg PO QPM 09/16/22 09/16/22 History montelukast 10 mg tablet 10 mg PO DAILY 09/16/22 09/16/22 History potassium chloride 10 mEq 10 meq PO DAILY 09/16/22 09/16/22 History tablet,extended release telmisartan 80 mg tablet 80 mg PO DAILY 09/16/22 09/16/22 History Allergies Allergy/AdvReac Type Severity Reaction Status Date / Time No Known Drug Allergies Allergy Verified 11/24/18 09:08 Review of Systems Review of Systems Narrative: Complete 10 point ROS otherwise limited due to patient's cognitive impairment. Exam Vital Signs (past 8 hours): - 09/16/22 07:30 09/16/22 08:35 09/16/22 08:21 Pulse Rate 83 97 H 92 H Respiratory Rate 16 Blood Pressure 127/81 Pulse Oximetry 92 97 Oxygen Delivery Method Oxygen Flow Rate 0 Fraction of Inspired Oxygen 21 09/16/22 08:00 09/16/22 08:00 09/16/22 08:30 Pulse Rate 85 97 H Respiratory Rate Blood Pressure 190/148 H Pulse Oximetry 94 93 Oxygen Delivery Method Room Air Oxygen Flow Rate Fraction of Inspired Oxygen 09/16/22 08:37 09/16/22 08:37 09/16/22 09:00 Pulse Rate 98 H 100 H Respiratory Rate 22 Blood Pressure 127/81 Pulse Oximetry 93 93 Oxygen Delivery Method Oxygen Flow Rate Fraction of Inspired Oxygen 09/16/22 09:01 09/16/22 09:01 09/16/22 09:30 Pulse Rate 104 H 102 H Respiratory Rate Blood Pressure 145/92 H Pulse Oximetry 93 93 Oxygen Delivery Method Oxygen Flow Rate Fraction of Inspired Oxygen 09/16/22 10:00 09/16/22 10:30 09/16/22 11:00 Pulse Rate 99 H 93 H 94 H Respiratory Rate Blood Pressure Pulse Oximetry 94 92 94 Oxygen Delivery Method Oxygen Flow Rate Fraction of Inspired Oxygen 09/16/22 11:30 09/16/22 12:00 09/16/22 12:30 Pulse Rate 87 86 88 Respiratory Rate Blood Pressure Pulse Oximetry 94 95 92 Oxygen Delivery Method Oxygen Flow Rate Fraction of Inspired Oxygen 09/16/22 13:45 09/16/22 13:50 09/16/22 13:50 Pulse Rate 88 87 Respiratory Rate 24 Blood Pressure 133/67 Pulse Oximetry 98 92 Oxygen Delivery Method Oxygen Flow Rate Fraction of Inspired Oxygen 09/16/22 14:00 09/16/22 14:00 Pulse Rate 86 Respiratory Rate 24 Blood Pressure 142/85 H Pulse Oximetry 94 Oxygen Delivery Method Oxygen Flow Rate Fraction of Inspired Oxygen Fraction of Inspired Oxygen 21 SaO2/FiO2 Ratio 461 Oxygen Delivery Method Room Air Oxygen Flow Rate 0 Narrative Exam Narrative: General: He is alert male lying in ER bed, not in acute distress HEENT: Port noted for FL[employer]OR shunt, pupils equal, EOMI Neck: No lymphadenopathy Lungs: Clear to auscultation Heart: Normal S1 and S2, regular rate and rhythm, 3/6 aortic systolic murmur, 2/6 mitral diastolic murmur Abdomen: Soft, no abdominal bruit, no HSM Extremities: Chronic LE venous stasis changes, left lower leg is in splint Neurological: Patient oriented to self only Objective Labs Result Diagrams: 09/15/22 10:20 09/15/22 10:20 [facility] Medical History (Updated 09/16/22 @ 15:13 by Radha Diaz MD) Allergic rhinitis Anxiety Aortic valve sclerosis Bilateral carpal tunnel syndrome Chronic back pain DDD (degenerative disc disease), cervical DDD (degenerative disc disease), lumbar DMII (diabetes mellitus, type 2) Dyslipidemia Erectile dysfunction Gouty arthropathy Hypertension Hypertrophy of prostate Hypothyroidism LBBB (left bundle branch block) Normal pressure hydrocephalus Osteoarthritis involving multiple joints on both sides of body Reactive airway disease Renal insufficiency Sinus arrhythmia TIA (transient ischemic attack) Vertigo Surgical History (Updated 09/16/22 @ 15:16 by [place] Barnes MD) S/P FLORIC[employer] PROF[employer]OR shunt Social History household members: spouse Tobacco & Substance Use Smoking Status: Unknown if ever smoked Assessment & Plan Assessment & Plan narrative: 1. Ground level fall, status post left trimalleolar fracture displacement -status post reduction in the ED and awaiting surgical repair 2. Type 2 diabetes, insulin requiring, with neuropathy -significant elevated glucose, >300 in ED -patient on insulin 730 at home -ordered Lantus 10 units b.i.d., insulin med-dose sliding scale -carb controlled diet -check A1c 3. Normal pressure hydrocephalus status post FL[employer]IC[employer]URE PROFESSOR shunt -likely significant contributor to fall -had normal shuntogram in and May 2022 4. Significant cognitive impairment -patient does not have dementia diagnosis, states memory impairment has been attributed to NPH -monitor for delirium 5. Hypertension -continue home medication routine 6. Hypothyroidism -continue levothyroxine home dose -check TSH 7. History of aortic stenosis and mitral stenosis -echo in 2018 noted EF 55-60%, MS, mild MR, mild -patient on significant furosemide dose at home though does not carry diagnosis CHF Patient was seen and evaluated in the emergency department as ER consult. Time Spent With Patient Critical Care time: I spent a total of [] minutes of critical care time on this patient's care today; this time is exclusive of procedural time.
[2022-09-16] MEDS: MORPHINE 4 MG/ML INJ IV (16:33)
[2022-09-16 17:57] LABS: Hemoglobin A1C% w Est Avg Glu 8.3 % (4.0-6.0)
[2022-09-16 18:27] LABS: Thyroid Stimulating Hormone 4.49 uIU/mL (0.47-4.68)
--- NOTE | 2022-09-16 18:43 | CM.DPC ---
Addendum entered by Cate Hudson 09/17/22 18:08: *ASSEMBLER MECHANICAL ORDNANCE faxes clinicals for review to [facility]. DODIE Browning Original Note: ED DCP Note continued It is reported by ED provider that patient is not scheduled for surgery until . ASSEMBLER MECHANICAL ORDNANCE calls [facility] SNF and it is reported that patient is not likely to get auth and get accepted to SNF prior to surgery. Eufemia, ASSEMBLER MECHANICAL ORDNANCE states that she will contact [facility] to see if patient's surgery can be rescheduled to an earlier date and time. ASSEMBLER MECHANICAL ORDNANCE calls Gisselle at [facility] back and requests to consider patient for review after surgery. ASSEMBLER MECHANICAL ORDNANCE calls who endorses SNF preferences for [facility], [facility] and [facility]. denies preference for [facility] or [facility]. ASSEMBLER MECHANICAL ORDNANCE calls [facility], leaves VM requesting return call and faxes clinicals for review. ASSEMBLER MECHANICAL ORDNANCE calls [facility], leaves VM requesting return call and faxes clinicals for review. Mignon at [facility] calls back and reports that the fax number for facility admissions has changed to [phone] and that united insurance auth should take 24-48 hours. ASSEMBLER MECHANICAL ORDNANCE faxes clinicals and calls and leaves VM. ASSEMBLER MECHANICAL ORDNANCE calls [facility], leaves VM and requests return call. Plan:Patient pending surgery, patient to board in ED, ASSEMBLER MECHANICAL ORDNANCE to continue to f/u with SNF rehab placement for post surgery. Plan B home with HH and spouse after surgery. DODIE Browning
[2022-09-16] MEDS: INSULIN GLARGINE 100 UNIT/ML 3ML PEN 10 UNIT SUBCUT (20:53)
[2022-09-16] MEDS: ATORVASTATIN 20 MG TABLET PO (21:02)
[2022-09-17] VITALS (137 sets, daily range): BP systolic 86–160; BP diastolic 42–78; PULSE 66–80; RESP 16–35; O2SAT 90–99
[2022-09-17] MEDS: LEVOTHYROXINE 100 MCG TABLET PO (05:45)
[2022-09-17] MEDS: ALBUTEROL/IPRATROPIUM 3 ML AMPUL INH ×2 (07:53→19:24)
[2022-09-17] MEDS: POTASSIUM CHLORIDE 10 MEQ TAB PO (07:58)
[2022-09-17] MEDS: allopurinoL 100 MG TABLET 200 MG PO (07:59)
[2022-09-17] MEDS: carvediloL 3.125 MG TABLET 6.25 MG PO (07:59)
[2022-09-17] MEDS: GABAPENTIN 300 MG CAPSULE PO ×2 (07:59→14:25)
[2022-09-17] MEDS: FUROSEMIDE 40 MG TABLET 80 MG PO (07:59)
[2022-09-17] MEDS: lisinopriL 20 MG TABLET 40 MG PO (08:00)
[2022-09-17] MEDS: INSULIN GLARGINE 100 UNIT/ML 3ML PEN 10 UNIT SUBCUT ×2 (08:15→22:19)
[2022-09-17] MEDS: INSULIN LISPRO 100 UNIT/ML 3ML VIAL SUBCUT ×4 (08:16→21:26)
--- NOTE | 2022-09-17 12:52 | DI.RAD.S_ITS ---
PROCEDURE: XR CHEST 1V INDICATIONS: suspected sepsis TECHNIQUE: One view of the chest was acquired. COMPARISON: [facility], CR, XR CHEST 1V, 09/16/2022, 5:40. FINDINGS: Surgical changes and devices: Ventriculoperitoneal shunt catheter is redemonstrated. Lungs and pleura: Lung volumes are low. There are diffuse interstitial radiopacities bilaterally. Linear basilar radiopacities suggest basilar atelectasis. Mediastinum: Mediastinal contours appear normal. Heart size is enlarged, as before. Bones and chest wall: No suspicious bony lesions. Overlying soft tissues appear unremarkable. IMPRESSION: Low lung volumes. Interstitial radiopacities suggesting pulmonary edema. Dictated by: Gloria Hoyt M.D. on 09/17/2022 at 13:35 Approved by: Gloria Hoyt M.D. on 09/17/2022 at 13:39
--- NOTE | 2022-09-17 13:02 | PT-IP ANOTE ---
Per evaluating PT, pt is to be discharged due to pending surgery. Will be reevaluated post surgery.
[2022-09-17] MEDS: SODIUM CHLORIDE 0.9% 1,000 ML 1000 ML IV (13:17)
[2022-09-17 14:00] LABS: Add Manual Diff / Slide Review NO; Basophils Absolute Auto 100 /uL (0-100); Basophils Percent Auto 0.5 % (0-2); Eosinophils Absolute Auto 100 /uL (0-450); Eosinophils Percent Auto 0.9 % (2-4); Hematocrit 41.4 % (41-53); Hemoglobin 13.6 g/dL (13.5-17.5); Lymphocytes Absolute Auto 1900 /uL (1100-4500); Lymphocytes Percent Auto 14.3 % (25-40); Mean Corpuscular HGB Conc 32.8 % (30-36); Mean Corpuscular Hemoglobin 32.7 PG (26-34); Mean Corpuscular Volume 99.6 fL (80-100); Monocytes Absolute Auto 1200 /uL (0-900); Monocytes Percent Auto 9.1 % (3-14); Neutrophils Absolute Auto 10000 /uL (1500-7000); Neutrophils Percent Auto 75.2 % (50-75); Platelet Count 119 X10^3/uL (150-400); Red Blood Cell Count 4.16 X10^6/uL (4.5-5.9); Red Cell Distribution Width 14.4 % (11.6-14.8); White Blood Cell Count 13.3 X10^3/uL (4.5-11.0)
[2022-09-17 14:01] LABS: INR 1.3 (0.9-1.3); Prothrombin Time 15.4 SECONDS (10.1-12.7)
[2022-09-17 14:01] LABS: Influenza A - CEPHEID Flu A NEGATIVE (NEGATIVE); Influenza B - CEPHEID Flu B NEGATIVE (NEGATIVE); Respiratory Syncytial Virus Negative (Negative)
[2022-09-17 14:02] LABS: COVID-19 CEPHEID 4-PLEX PCR Negative (Negative)
[2022-09-17 14:04] LABS: PTT Partial Thromboplastin Tim 34 SECONDS (26-36)
[2022-09-17 14:06] LABS: Alanine Aminotransferase 19 IU/L (<50); Albumin 3.4 g/dL (3.5-5.0); Albumin Globulin Ratio 0.9 (1.0-2.8); Alkaline Phosphatase 73 U/L (38-126); Aspartate Aminotransferase 22 IU/L (17-59); BUN Creatinine Ratio 23.7 (6-22); Bilirubin Total 1.2 mg/dL (0.2-1.3); Blood Urea Nitrogen 59 mg/dL (9-20); Calcium 8.4 mg/dL (8.4-10.2); Carbon Dioxide 30 mmol/L (22-32); Chloride 101 mmol/L (98-107); Estimated Glomerular Filt Rate 25 mL/min (>60); Globulin 3.8 g/dL (1.7-4.1); Glucose 250 mg/dL (80-110); HEMOLYSIS < 15 (0-50); Lactate (Lactic Acid) 2.1 mmol/L (0.7-2.1); Lipase 31 U/L (23-300); Potassium 4.5 mmol/L (3.4-5.1); Sodium 139 mmol/L (137-145); Total Protein 7.2 g/dL (6.3-8.2)
[2022-09-17 14:23] LABS: Procalcitonin 0.58 ng/mL (<0.5)
[2022-09-17] MEDS: HYDROCODONE/ACET 5/325 TABLET 1 TAB PO (14:25)
[2022-09-17 14:53] LABS: Creatine Kinase 289 U/L (55-170)
[2022-09-17 15:00] LABS: Appearance Urine UA CLEAR; Bilirubin Urine UA NEGATIVE (NEGATIVE); Color Urine UA YELLOW; Glucose Urine UA NEGATIVE (Negative); Ketones Urine UA NEGATIVE (NEGATIVE); Leukocyte Esterase Urine UA 1+ (NEGATIVE); Nitrite Urine UA NEGATIVE (Negative); Occult Blood Urine UA 3+ (Negative); Protein Urine UA NEGATIVE (Negative); Urobilinogen Urine UA 0.2 E.U./dL (0.2)
[2022-09-17 15:06] LABS: NT-proBNP (BNP-Adult 18+) 284 pg/mL (<450); Troponin I < 0.012 ng/mL (0.01-0.034)
[2022-09-17 15:06] LABS: Bacteria Urine None Seen; Culture Indicated Urine Specimen Cultured; Hyaline Casts Urine 5-10/LPF; RBC Urine 5-10/HPF (0-5/HPF); Squamous Epithelial Cell Urine 1-5 /HPF (0-5/HPF); WBC Urine 1-5/HPF (0-5/HPF)
[2022-09-17 15:09] LABS: CKMB % Relative Index 0.2 % (1.5-5.0); Creatine Kinase MB 0.63 ng/mL (<2.37)
[2022-09-17] MEDS: cefTRIAXone 1,000 MG in SODIUM CHLORIDE 0.9% 100 ML 200 MG IV (15:38)
[2022-09-17 15:50] LABS: Reflexed Lactate in 2 Hours Y
[2022-09-17] MEDS: LACTATED RINGERS 1,000 ML 1000 ML IV (15:54)
--- NOTE | 2022-09-17 16:21 | PC.NURSE ---
Pt a&ox2, pt lethargic throughout shift MD aware, left lower leg splint in place and intact. Able to wiggle toes. SBP improving with IV fluids. Pt having decreased PO intake, encouraging PO intake. Continuing to monitor pt and interventions.
--- NOTE | 2022-09-17 17:58 | CM.DPC ---
ED DCP Note Continued Patient continues to board in ED awaiting left trimalleolar fracture surgery scheduled for tomorrow 09/18/21. Patient had chest x ray today which shows interstitial radiopacities suggesting pulmonary edema. BUSINESS DEVELOPMENT SPECIALIST calls [facility] and leaves VM requesting return call. BUSINESS DEVELOPMENT SPECIALIST calls [facility] and leaves VM requesting return call. BUSINESS DEVELOPMENT SPECIALIST calls [facility] and leaves VM requesting return call. Plan: Patient to go to surgery tomorrow 09/18, continue to f/u with SNFs for [facility] for SNF rehab post surgery. Cate Hudson, CARDIOLOGY PHYSICIAN ASSISTANT
[2022-09-17 18:21] LABS: Lactate 2HR (Lactic Acid Rflx) 1.5 mmol/L (0.7-2.1)
--- NOTE | 2022-09-17 18:34 | PM.PN.1 ---
Exam Vital Signs (past 8 hours): - 09/17/22 11:00 09/17/22 11:01 09/17/22 11:01 Pulse Rate 70 71 Respiratory Rate 22 22 Blood Pressure 100/63 Pulse Oximetry 94 93 Oxygen Delivery Method Oxygen Flow Rate 09/17/22 11:30 09/17/22 11:30 09/17/22 12:00 Pulse Rate 71 Respiratory Rate 22 Blood Pressure 108/57 L 107/67 Pulse Oximetry 92 Oxygen Delivery Method Oxygen Flow Rate 09/17/22 12:00 09/17/22 12:15 09/17/22 12:30 Pulse Rate 69 68 70 Respiratory Rate 20 21 18 Blood Pressure Pulse Oximetry 95 92 94 Oxygen Delivery Method Oxygen Flow Rate 09/17/22 12:31 09/17/22 12:31 09/17/22 12:39 Pulse Rate 71 Respiratory Rate 29 H Blood Pressure 89/59 L 100/55 L Pulse Oximetry 95 Oxygen Delivery Method Oxygen Flow Rate 09/17/22 12:39 09/17/22 12:45 09/17/22 13:00 Pulse Rate 72 69 73 Respiratory Rate 22 22 21 Blood Pressure Pulse Oximetry 93 94 93 Oxygen Delivery Method Oxygen Flow Rate 09/17/22 13:15 09/17/22 13:30 09/17/22 13:43 Pulse Rate 73 74 Respiratory Rate 23 22 Blood Pressure 97/53 L Pulse Oximetry 93 94 Oxygen Delivery Method Oxygen Flow Rate 09/17/22 13:43 09/17/22 13:45 09/17/22 14:00 Pulse Rate 72 72 Respiratory Rate 21 22 Blood Pressure 111/55 L Pulse Oximetry 94 96 Oxygen Delivery Method Oxygen Flow Rate 09/17/22 14:00 09/17/22 14:15 09/17/22 14:30 Pulse Rate 71 70 78 Respiratory Rate 27 H 21 20 Blood Pressure Pulse Oximetry 98 96 94 Oxygen Delivery Method Oxygen Flow Rate 09/17/22 14:38 09/17/22 14:38 09/17/22 14:45 Pulse Rate 74 73 Respiratory Rate 22 28 H Blood Pressure 100/70 Pulse Oximetry 94 93 Oxygen Delivery Method Oxygen Flow Rate 09/17/22 15:00 09/17/22 15:01 09/17/22 15:01 Pulse Rate 71 72 Respiratory Rate 21 21 Blood Pressure 92/56 L Pulse Oximetry 92 91 Oxygen Delivery Method Oxygen Flow Rate 09/17/22 15:15 09/17/22 15:30 09/17/22 15:30 Pulse Rate 70 68 Respiratory Rate 21 20 Blood Pressure 88/49 L Pulse Oximetry 92 91 Oxygen Delivery Method Nasal Cannula Oxygen Flow Rate 2 09/17/22 15:33 09/17/22 15:33 09/17/22 15:40 Pulse Rate 69 67 Respiratory Rate 22 19 Blood Pressure 89/53 L Pulse Oximetry 92 93 Oxygen Delivery Method Nasal Cannula Oxygen Flow Rate 2 09/17/22 15:40 09/17/22 15:45 09/17/22 15:50 Pulse Rate 68 Respiratory Rate 18 Blood Pressure 100/56 L 93/55 L Pulse Oximetry 95 Oxygen Delivery Method Oxygen Flow Rate 09/17/22 15:50 09/17/22 16:00 09/17/22 16:01 Pulse Rate 68 68 Respiratory Rate 35 H 21 Blood Pressure 109/57 L Pulse Oximetry 93 96 Oxygen Delivery Method Oxygen Flow Rate 09/17/22 16:01 09/17/22 16:10 09/17/22 16:10 Pulse Rate 68 69 Respiratory Rate 21 22 Blood Pressure 116/66 Pulse Oximetry 96 96 Oxygen Delivery Method Oxygen Flow Rate 09/17/22 16:15 09/17/22 16:20 09/17/22 16:20 Pulse Rate 69 71 Respiratory Rate 18 21 Blood Pressure 128/77 Pulse Oximetry 97 97 Oxygen Delivery Method Oxygen Flow Rate 09/17/22 16:30 09/17/22 16:30 09/17/22 16:40 Pulse Rate 70 Respiratory Rate 20 Blood Pressure 123/59 L 118/61 Pulse Oximetry 97 Oxygen Delivery Method Oxygen Flow Rate 09/17/22 16:40 09/17/22 16:45 09/17/22 16:50 Pulse Rate 70 69 Respiratory Rate 26 H 34 H Blood Pressure 115/55 L Pulse Oximetry 99 97 Oxygen Delivery Method Oxygen Flow Rate 09/17/22 16:50 09/17/22 17:00 09/17/22 17:00 Pulse Rate 70 71 Respiratory Rate 32 H 30 H Blood Pressure 118/58 L Pulse Oximetry 96 91 Oxygen Delivery Method Oxygen Flow Rate 09/17/22 17:10 09/17/22 17:10 09/17/22 17:15 Pulse Rate 72 71 Respiratory Rate 26 H 27 H Blood Pressure 121/58 L Pulse Oximetry 96 96 Oxygen Delivery Method Oxygen Flow Rate 09/17/22 17:20 09/17/22 17:20 09/17/22 17:30 Pulse Rate 72 Respiratory Rate 33 H Blood Pressure 107/55 L 95/54 L Pulse Oximetry 95 Oxygen Delivery Method Oxygen Flow Rate 09/17/22 17:30 09/17/22 17:40 09/17/22 17:40 Pulse Rate 72 70 Respiratory Rate 35 H 22 Blood Pressure 104/54 L Pulse Oximetry 93 96 Oxygen Delivery Method Oxygen Flow Rate 09/17/22 17:45 09/17/22 17:50 09/17/22 17:50 Pulse Rate 71 75 Respiratory Rate 24 17 Blood Pressure 115/62 Pulse Oximetry 94 96 Oxygen Delivery Method Nasal Cannula Oxygen Flow Rate 2 Fraction of Inspired Oxygen 21 SaO2/FiO2 Ratio 461 Oxygen Delivery Method Nasal Cannula Oxygen Flow Rate 2 Objective Labs Result Diagrams: 09/17/22 13:35 09/17/22 13:35 Labs: Laboratory Results - last 24 hr 09/15/22 09/17/22 09/17/22 10:20 12:53 13:00 WBC RBC Hgb Hct MCV MCH MCHC RDW Plt Count Neut % (Auto) Lymph % (Auto) Geary % (Auto) Eos % (Auto) Baso % (Auto) Neut # (Auto) Lymph # (Auto) Geary # (Auto) Eos # (Auto) Baso # (Auto) PT INR APTT Sodium Potassium Chloride Carbon Dioxide BUN Creatinine Estimated GFR BUN/Creatinine Ratio Glucose Lactate Calcium Total Bilirubin AST ALT Alkaline Phosphatase Total Creatine Kinase 289 H CK-MB (CK-2) 0.63 CK-MB (CK-2) Rel Index 0.2 L Troponin I < 0.012 NT-Pro-B Natriuret Pep 284 Total Protein Albumin Globulin Albumin/Globulin Ratio Lipase Procalcitonin TSH 4.49 Urine Color Urine Appearance Urine pH Ur Specific [place] Urine Protein Urine Glucose (UA) Urine Ketones Urine Occult Blood Urine Nitrate Urine Bilirubin Urine Urobilinogen Ur Leukocyte Esterase Urine RBC Urine WBC Ur Squamous Epith Cells Urine Bacteria Hyaline Casts Ur Culture Indicated? SARS-CoV-2 (PCR) Negative Influenza A (RT-PCR) Flu a negative Influenza B (RT-PCR) Flu b negative RSV (PCR) Negative 09/17/22 09/17/22 09/17/22 13:35 13:35 13:35 WBC 13.3 H RBC 4.16 L Hgb 13.6 Hct 41.4 MCV 99.6 MCH 32.7 MCHC 32.8 RDW 14.4 Plt Count 119 L Neut % (Auto) 75.2 H Lymph % (Auto) 14.3 L Geary % (Auto) 9.1 Eos % (Auto) 0.9 L Baso % (Auto) 0.5 Neut # (Auto) 74782 H Lymph # (Auto) 1900 Geary # (Auto) 1200 H Eos # (Auto) 100 Baso # (Auto) 100 PT 15.4 H INR 1.3 APTT 34 Sodium 139 Potassium 4.5 Chloride 101 Carbon Dioxide 30 BUN 59 H Creatinine 2.49 H Estimated GFR 25 L BUN/Creatinine Ratio 23.7 H Glucose 250 H Lactate Calcium 8.4 Total Bilirubin 1.2 AST 22 ALT 19 Alkaline Phosphatase 73 Total Creatine Kinase CK-MB (CK-2) CK-MB (CK-2) Rel Index Troponin I NT-Pro-B Natriuret Pep Total Protein 7.2 Albumin 3.4 L Globulin 3.8 Albumin/Globulin Ratio 0.9 L Lipase 31 Procalcitonin 0.58 H TSH Urine Color Urine Appearance Urine pH Ur Specific [place] Urine Protein Urine Glucose (UA) Urine Ketones Urine Occult Blood Urine Nitrate Urine Bilirubin Urine Urobilinogen Ur Leukocyte Esterase Urine RBC Urine WBC Ur Squamous Epith Cells Urine Bacteria Hyaline Casts Ur Culture Indicated? SARS-CoV-2 (PCR) Influenza A (RT-PCR) Influenza B (RT-PCR) RSV (PCR) 09/17/22 09/17/22 09/17/22 13:35 14:16 18:00 WBC RBC Hgb Hct MCV MCH MCHC RDW Plt Count Neut % (Auto) Lymph % (Auto) Geary % (Auto) Eos % (Auto) Baso % (Auto) Neut # (Auto) Lymph # (Auto) Geary # (Auto) Eos # (Auto) Baso # (Auto) PT INR APTT Sodium Potassium Chloride Carbon Dioxide BUN Creatinine Estimated GFR BUN/Creatinine Ratio Glucose Lactate 2.1 1.5 Calcium Total Bilirubin AST ALT Alkaline Phosphatase Total Creatine Kinase CK-MB (CK-2) CK-MB (CK-2) Rel Index Troponin I NT-Pro-B Natriuret Pep Total Protein Albumin Globulin Albumin/Globulin Ratio Lipase Procalcitonin TSH Urine Color Yellow Urine Appearance Clear Urine pH 5.0 Ur Specific [place] 1.020 Urine Protein Negative Urine Glucose (UA) Negative Urine Ketones Negative Urine Occult Blood 3+ H Urine Nitrate Negative Urine Bilirubin Negative Urine Urobilinogen 0.2 Ur Leukocyte Esterase 1+ H Urine RBC 5-10/hpf H Urine WBC 1-5/hpf Ur Squamous Epith Cells 1-5 /hpf Urine Bacteria None seen Hyaline Casts 5-10/lpf Ur Culture Indicated? Specimen cultured SARS-CoV-2 (PCR) Influenza A (RT-PCR) Influenza B (RT-PCR) RSV (PCR) COUNTS INCLUDE 234 BEDS AT THE [facility] Medical History (Updated 09/16/22 @ 15:13 by Radha Diaz MD) Allergic rhinitis Anxiety Aortic valve sclerosis Bilateral carpal tunnel syndrome Chronic back pain DDD (degenerative disc disease), cervical DDD (degenerative disc disease), lumbar DMII (diabetes mellitus, type 2) Dyslipidemia Erectile dysfunction Gouty arthropathy Hypertension Hypertrophy of prostate Hypothyroidism LBBB (left bundle branch block) Normal pressure hydrocephalus Osteoarthritis involving multiple joints on both sides of body Reactive airway disease Renal insufficiency Sinus arrhythmia TIA (transient ischemic attack) Vertigo Surgical History (Updated 09/16/22 @ 15:16 by South Barnes MD) S/P REPAIRER EVAPORATOR shunt Social History household members: spouse Smoking Status: Unknown if ever smoked Assessment & Plan Assessment & Plan narrative: 0. Septic shock with ARLIN, not present on admission -patient became hypotensive to 88/49 on 09/17, given 3L NS bolus by ED -WBC uptrending to 13, procal 0.53 -f/u blood and urine cultures, CXR with pulm edema but no infiltrates -Cr uptrending to 2.49, likely ATN given hypotension -continue cervantes -start zosyn -avoid nephrotoxic agents, dc morphine due to ARLIN and start dilaudid IV PRN 1. Ground level fall, status post left trimalleolar fracture displacement -status post reduction in the ED and awaiting surgical repair -norco and dilaudid PRN for pain 2. Type 2 diabetes, insulin requiring, with neuropathy -significant elevated glucose, >300 in ED -patient on insulin 730 at home -ordered Lantus 10 units b.i.d., insulin med-dose sliding scale -carb controlled diet -check A1c 3. Normal pressure hydrocephalus status post REPAIRER EVAPORATOR shunt -likely significant contributor to fall -had normal shuntogram in and May 2022 4. Significant cognitive impairment -patient does not have dementia diagnosis, states memory impairment has been attributed to NPH -monitor for delirium 5. Hypertension -hold home meds due to hypotension 6. Hypothyroidism -continue levothyroxine home dose -TSH 4.49 7. History of aortic stenosis and mitral stenosis -echo in 2018 noted EF 55-60%, MS, mild MR, mild -patient on significant furosemide dose at home though does not carry diagnosis CHF Dispo: Pending surgery 09/18 and resolution of sepsis. Time Spent With Patient Critical Care time: I spent a total of [] minutes of critical care time on this patient's care today; this time is exclusive of procedural time.
[2022-09-17] MEDS: PIPERACILLIN/TAZO 4.5 GM in SODIUM CHLORIDE 0.9% 100 ML IV (19:22)
--- NOTE | 2022-09-17 21:12 | PM.EVENT ---
Event Note Date Patient Seen: 09/17/22 Time Patient Seen: 21:00 Event Note (Rapid Response, Code, or fall): Patient seen and examined. Today developed leukocytosis, hypotension, ARLIN. Presumed source is a probable pneumonia. Procalcitonin is elevated. Has been appropriately ordered for fluids and given IV antibiotics. Would also consider VTE. For now will place on heparin for dvt ppx. In addition will order lower extremity dopplers to evaluate for DVT. If positive start anticoagulation. If negative may need to order CTA for PE. Initially plan was for surgery tomorrow 09/18, however given these clinical changes patient is not currently medically optimized for surgery.
[2022-09-17] MEDS: ATORVASTATIN 20 MG TABLET PO (22:23)
[2022-09-18] VITALS (20 sets, daily range): BP systolic 105–160; BP diastolic 53–100; PULSE 66–87; RESP 12–20; TEMP 36.2–37.7; O2SAT 90–97; BMI 34.0
--- NOTE | 2022-09-18 00:30 | DI.US.S_ITS ---
PROCEDURE: US PERIPH VENOUS LOW EXTREM BI INDICATIONS: EDEMA TECHNIQUE: Real-time imaging, as well as color and pulse Doppler interrogation, were performed of the deep veins of both legs from the inguinal ligament to the popliteal fossa. COMPARISON: None. FINDINGS: Right: The common femoral, femoral and popliteal veins are normally compressible, and free of intraluminal thrombus. Color and pulse Doppler demonstrate normal phasic intravascular flow. There is normal augmentation response to distal compression maneuver. Left: The common femoral, femoral and popliteal veins are normally compressible, and free of intraluminal thrombus. Color and pulse Doppler demonstrate normal phasic intravascular flow. There is normal augmentation response to distal compression maneuver. IMPRESSION: 1. No evidence of deep venous thrombosis in the right or left lower extremity. Dictated by: Ant Spencer M.D. on 09/18/2022 at 2:19 Approved by: Ant Spencer M.D. on 09/18/2022 at 2:19
[2022-09-18] MEDS: HEPARIN 5,000 UNIT/ML VIAL 5000 UNIT SUBCUT ×2 (01:41→11:00)
[2022-09-18] MEDS: HYDROMORPHONE 0.5 MG INJ IV ×4 (02:15→21:17)
[2022-09-18] MEDS: PIPERACILLIN/TAZO 3.375 GM in SODIUM CHLORIDE 0.9% 100 ML IV ×3 (02:57→18:33)
[2022-09-18 04:58] LABS: Add Manual Diff / Slide Review NO; Basophils Absolute Auto 0 /uL (0-100); Basophils Percent Auto 0.3 % (0-2); Eosinophils Absolute Auto 400 /uL (0-450); Eosinophils Percent Auto 3.3 % (2-4); Hematocrit 41.9 % (41-53); Hemoglobin 13.8 g/dL (13.5-17.5); Lymphocytes Absolute Auto 1600 /uL (1100-4500); Lymphocytes Percent Auto 12.4 % (25-40); Mean Corpuscular Hemoglobin 32.8 PG (26-34); Mean Corpuscular Volume 99.5 fL (80-100); Monocytes Absolute Auto 1200 /uL (0-900); Monocytes Percent Auto 8.9 % (3-14); Neutrophils Absolute Auto 9900 /uL (1500-7000); Neutrophils Percent Auto 75.1 % (50-75); Platelet Count 90 X10^3/uL (150-400); Red Blood Cell Count 4.21 X10^6/uL (4.5-5.9); Red Cell Distribution Width 14.2 % (11.6-14.8); White Blood Cell Count 13.2 X10^3/uL (4.5-11.0)
[2022-09-18 05:05] LABS: BUN Creatinine Ratio 29.3 (6-22); Blood Urea Nitrogen 58 mg/dL (9-20); Calcium 8.2 mg/dL (8.4-10.2); Carbon Dioxide 28 mmol/L (22-32); Chloride 106 mmol/L (98-107); Estimated Glomerular Filt Rate 33 mL/min (>60); Glucose 238 mg/dL (80-110); HEMOLYSIS 17 (0-50); Potassium 4.2 mmol/L (3.4-5.1); Sodium 141 mmol/L (137-145)
[2022-09-18] MEDS: ALBUTEROL/IPRATROPIUM 3 ML AMPUL INH ×3 (08:32→20:32)
--- NOTE | 2022-09-18 08:39 | P.PN_ITS ---
Subjective Subjective Date Patient Seen: 09/18/22 Interval history: Patient quite sleepy and answers questions but doens't open eyes. He says he isn't sure why he is so tired as he slept last night. No other complaints. Surgery put off until tomorrow due to ARLIN and O2 requirement at 2L. Exam Vital Signs (past 8 hours): - 09/18/22 00:54 09/18/22 00:40 09/18/22 00:40 Temperature Pulse Rate 67 Respiratory Rate 20 Blood Pressure 119/69 Pulse Oximetry 96 Oxygen Delivery Method Nasal Cannula Oxygen Flow Rate 2 09/18/22 00:58 09/18/22 04:15 09/18/22 08:32 Temperature 98.0 F Pulse Rate 75 68 Respiratory Rate 17 14 Blood Pressure 127/66 Pulse Oximetry 95 94 97 Oxygen Delivery Method Nasal Cannula Oxygen Flow Rate 2 2 2 Fraction of Inspired Oxygen 28 SaO2/FiO2 Ratio 339 Oxygen Delivery Method Nasal Cannula Oxygen Flow Rate 2 Narrative Exam Narrative: General: somnolent HEENT: Port noted for HAND FRETTED INSTRUMENT MAKER shunt, pupils equal, EOMI Neck: No lymphadenopathy Lungs: Clear to auscultation Heart: Normal S1 and S2, regular rate and rhythm, 3/6 aortic systolic murmur, 2/6 mitral diastolic murmur Abdomen: Soft, no abdominal bruit, no HSM Extremities: Chronic LE venous stasis changes, left lower leg is in splint Neurological: Patient oriented to self only Objective Labs Result Diagrams: 09/18/22 04:40 09/18/22 04:40 Labs: Laboratory Results - last 24 hr 09/17/22 09/17/22 09/17/22 12:53 13:00 13:35 WBC 13.3 H RBC 4.16 L Hgb 13.6 Hct 41.4 MCV 99.6 MCH 32.7 MCHC 32.8 RDW 14.4 Plt Count 119 L Neut % (Auto) 75.2 H Lymph % (Auto) 14.3 L Summers % (Auto) 9.1 Eos % (Auto) 0.9 L Baso % (Auto) 0.5 Neut # (Auto) 89987 H Lymph # (Auto) 1900 Summers # (Auto) 1200 H Eos # (Auto) 100 Baso # (Auto) 100 PT INR APTT Sodium Potassium Chloride Carbon Dioxide BUN Creatinine Estimated GFR BUN/Creatinine Ratio Glucose Lactate Calcium Total Bilirubin AST ALT Alkaline Phosphatase Total Creatine Kinase 289 H CK-MB (CK-2) 0.63 CK-MB (CK-2) Rel Index 0.2 L Troponin I < 0.012 NT-Pro-B Natriuret Pep 284 Total Protein Albumin Globulin Albumin/Globulin Ratio Lipase Procalcitonin Urine Color Urine Appearance Urine pH Ur Specific [place] Urine Protein Urine Glucose (UA) Urine Ketones Urine Occult Blood Urine Nitrate Urine Bilirubin Urine Urobilinogen Ur Leukocyte Esterase Urine RBC Urine WBC Ur Squamous Epith Cells Urine Bacteria Hyaline Casts Ur Culture Indicated? SARS-CoV-2 (PCR) Negative Influenza A (RT-PCR) Flu a negative Influenza B (RT-PCR) Flu b negative RSV (PCR) Negative 09/17/22 09/17/22 09/17/22 13:35 13:35 13:35 WBC RBC Hgb Hct MCV MCH MCHC RDW Plt Count Neut % (Auto) Lymph % (Auto) Summers % (Auto) Eos % (Auto) Baso % (Auto) Neut # (Auto) Lymph # (Auto) Summers # (Auto) Eos # (Auto) Baso # (Auto) PT 15.4 H INR 1.3 APTT 34 Sodium 139 Potassium 4.5 Chloride 101 Carbon Dioxide 30 BUN 59 H Creatinine 2.49 H Estimated GFR 25 L BUN/Creatinine Ratio 23.7 H Glucose 250 H Lactate 2.1 Calcium 8.4 Total Bilirubin 1.2 AST 22 ALT 19 Alkaline Phosphatase 73 Total Creatine Kinase CK-MB (CK-2) CK-MB (CK-2) Rel Index Troponin I NT-Pro-B Natriuret Pep Total Protein 7.2 Albumin 3.4 L Globulin 3.8 Albumin/Globulin Ratio 0.9 L Lipase 31 Procalcitonin 0.58 H Urine Color Urine Appearance Urine pH Ur Specific [place] Urine Protein Urine Glucose (UA) Urine Ketones Urine Occult Blood Urine Nitrate Urine Bilirubin Urine Urobilinogen Ur Leukocyte Esterase Urine RBC Urine WBC Ur Squamous Epith Cells Urine Bacteria Hyaline Casts Ur Culture Indicated? SARS-CoV-2 (PCR) Influenza A (RT-PCR) Influenza B (RT-PCR) RSV (PCR) 09/17/22 09/17/22 09/18/22 14:16 18:00 04:40 WBC 13.2 H RBC 4.21 L Hgb 13.8 Hct 41.9 MCV 99.5 MCH 32.8 MCHC 33.0 RDW 14.2 Plt Count 90 L Neut % (Auto) 75.1 H Lymph % (Auto) 12.4 L Summers % (Auto) 8.9 Eos % (Auto) 3.3 Baso % (Auto) 0.3 Neut # (Auto) 9900 H Lymph # (Auto) 1600 Summers # (Auto) 1200 H Eos # (Auto) 400 Baso # (Auto) 0 PT INR APTT Sodium Potassium Chloride Carbon Dioxide BUN Creatinine Estimated GFR BUN/Creatinine Ratio Glucose Lactate 1.5 Calcium Total Bilirubin AST ALT Alkaline Phosphatase Total Creatine Kinase CK-MB (CK-2) CK-MB (CK-2) Rel Index Troponin I NT-Pro-B Natriuret Pep Total Protein Albumin Globulin Albumin/Globulin Ratio Lipase Procalcitonin Urine Color Yellow Urine Appearance Clear Urine pH 5.0 Ur Specific [place] 1.020 Urine Protein Negative Urine Glucose (UA) Negative Urine Ketones Negative Urine Occult Blood 3+ H Urine Nitrate Negative Urine Bilirubin Negative Urine Urobilinogen 0.2 Ur Leukocyte Esterase 1+ H Urine RBC 5-10/hpf H Urine WBC 1-5/hpf Ur Squamous Epith Cells 1-5 /hpf Urine Bacteria None seen Hyaline Casts 5-10/lpf Ur Culture Indicated? Specimen cultured SARS-CoV-2 (PCR) Influenza A (RT-PCR) Influenza B (RT-PCR) RSV (PCR) 09/18/22 04:40 WBC RBC Hgb Hct MCV MCH MCHC RDW Plt Count Neut % (Auto) Lymph % (Auto) Summers % (Auto) Eos % (Auto) Baso % (Auto) Neut # (Auto) Lymph # (Auto) Summers # (Auto) Eos # (Auto) Baso # (Auto) PT INR APTT Sodium 141 Potassium 4.2 Chloride 106 Carbon Dioxide 28 BUN 58 H Creatinine 1.98 H Estimated GFR 33 L BUN/Creatinine Ratio 29.3 H Glucose 238 H Lactate Calcium 8.2 L Total Bilirubin AST ALT Alkaline Phosphatase Total Creatine Kinase CK-MB (CK-2) CK-MB (CK-2) Rel Index Troponin I NT-Pro-B Natriuret Pep Total Protein Albumin Globulin Albumin/Globulin Ratio Lipase Procalcitonin Urine Color Urine Appearance Urine pH Ur Specific [place] Urine Protein Urine Glucose (UA) Urine Ketones Urine Occult Blood Urine Nitrate Urine Bilirubin Urine Urobilinogen Ur Leukocyte Esterase Urine RBC Urine WBC Ur Squamous Epith Cells Urine Bacteria Hyaline Casts Ur Culture Indicated? SARS-CoV-2 (PCR) Influenza A (RT-PCR) Influenza B (RT-PCR) RSV (PCR) [facility] Medical History (Updated 09/16/22 @ 15:13 by Radha Diaz MD) Allergic rhinitis Anxiety Aortic valve sclerosis Bilateral carpal tunnel syndrome Chronic back pain DDD (degenerative disc disease), cervical DDD (degenerative disc disease), lumbar DMII (diabetes mellitus, type 2) Dyslipidemia Erectile dysfunction Gouty arthropathy Hypertension Hypertrophy of prostate Hypothyroidism LBBB (left bundle branch block) Normal pressure hydrocephalus Osteoarthritis involving multiple joints on both sides of body Reactive airway disease Renal insufficiency Sinus arrhythmia TIA (transient ischemic attack) Vertigo Surgical History (Updated 09/16/22 @ 15:16 by South Barnes MD) S/P HAND FRETTED INSTRUMENT MAKER shunt Social History household members: spouse Smoking Status: Unknown if ever smoked Assessment & Plan Assessment & Plan narrative: 0. Septic shock with ARLIN, not present on admission, improving -patient became hypotensive to 88/49 on 09/17, given 3L NS bolus by ED -WBC uptrending to 13, procal 0.53 -blood and urine cultures no growth to date, CXR with pulm edema but no infiltrates -Cr uptrending to 2.49, likely ATN given hypotension, now downtrending -continue cervantes -continue zosyn -avoid nephrotoxic agents 1. Ground level fall, status post left trimalleolar fracture displacement -status post reduction in the ED and awaiting surgical repair -norco and dilaudid PRN for pain 2. Type 2 diabetes, insulin requiring, with neuropathy -significant elevated glucose, >300 in ED -patient on insulin 730 at home -increase Lantus to 15 units b.i.d., insulin med-dose sliding scale -carb controlled diet -A1c 8.3% 3. Normal pressure hydrocephalus status post HAND FRETTED INSTRUMENT MAKER shunt -likely significant contributor to fall -had normal shuntogram in and May 2022 4. Significant cognitive impairment -patient does not have dementia diagnosis, states memory impairment has been attributed to NPH -monitor for delirium 5. Hypertension -hold home meds due to hypotension 6. Hypothyroidism -continue levothyroxine home dose -TSH 4.49 7. History of aortic stenosis and mitral stenosis -echo in 2018 noted EF 55-60%, MS, mild MR, mild -patient on significant furosemide dose at home though does not carry diagnosis CHF Dispo: Pending surgery for ankle and resolution of sepsis. Time Spent With Patient Critical Care time: I spent a total of [] minutes of critical care time on this patient's care today; this time is exclusive of procedural time.
[2022-09-18] MEDS: MONTELUKAST 10 MG TABLET PO (09:05)
[2022-09-18] MEDS: INSULIN LISPRO 100 UNIT/ML 3ML VIAL SUBCUT ×4 (09:17→21:22)
[2022-09-18] MEDS: INSULIN GLARGINE 100 UNIT/ML 3ML PEN 10 UNIT SUBCUT (09:17)
[2022-09-18] MEDS: ATORVASTATIN 20 MG TABLET PO (21:17)
[2022-09-18] MEDS: INSULIN GLARGINE 100 UNIT/ML 3ML PEN 15 UNIT SUBCUT (21:22)
[2022-09-19] VITALS (20 sets, daily range): BP systolic 129–178; BP diastolic 63–99; PULSE 72–93; RESP 12–26; TEMP 36.6–37.4; O2SAT 89–97; BMI 34.0
--- NOTE | 2022-09-19 | DI.RAD.S_ITS ---
PROCEDURE: XR ANKLE LT 2V INDICATIONS: ORIF TECHNIQUE: 3 intraoperative fluoroscopic views of the ankle were acquired. COMPARISON: [facility], , XR ANKLE LT 2V, 09/15/2022, 11:00. FINDINGS: Intraoperative fluoroscopic images shows internal fixation of distal fibular shaft and medial malleolus. Multiple surgical screws and lateral fibular shaft plate are seen. IMPRESSION: Fluoro guidance was provided intraoperatively for ORIF of left ankle. Dictated by: Cb Bennett M.D. on 09/19/2022 at 19:25 Approved by: Cb Bennett M.D. on 09/19/2022 at 19:26
[2022-09-19] MEDS: PIPERACILLIN/TAZO 3.375 GM in SODIUM CHLORIDE 0.9% 100 ML IV ×3 (03:34→18:46)
[2022-09-19 05:21] LABS: BUN Creatinine Ratio 31.6 (6-22); Blood Urea Nitrogen 49 mg/dL (9-20); Calcium 8.4 mg/dL (8.4-10.2); Carbon Dioxide 28 mmol/L (22-32); Chloride 108 mmol/L (98-107); Estimated Glomerular Filt Rate 45 mL/min (>60); Glucose 241 mg/dL (80-110); HEMOLYSIS < 15 (0-50); Potassium 3.9 mmol/L (3.4-5.1); Sodium 143 mmol/L (137-145)
[2022-09-19 05:22] LABS: Add Manual Diff / Slide Review NO; Basophils Absolute Auto 100 /uL (0-100); Basophils Percent Auto 0.6 % (0-2); Eosinophils Absolute Auto 500 /uL (0-450); Eosinophils Percent Auto 4.1 % (2-4); Hematocrit 38.9 % (41-53); Hemoglobin 13.2 g/dL (13.5-17.5); Lymphocytes Absolute Auto 1300 /uL (1100-4500); Lymphocytes Percent Auto 10.9 % (25-40); Mean Corpuscular HGB Conc 33.9 % (30-36); Mean Corpuscular Hemoglobin 33.2 PG (26-34); Monocytes Absolute Auto 900 /uL (0-900); Monocytes Percent Auto 8.2 % (3-14); Neutrophils Absolute Auto 8800 /uL (1500-7000); Neutrophils Percent Auto 76.2 % (50-75); Platelet Count 127 X10^3/uL (150-400); Red Blood Cell Count 3.97 X10^6/uL (4.5-5.9); White Blood Cell Count 11.6 X10^3/uL (4.5-11.0)
[2022-09-19] MEDS: LEVOTHYROXINE 100 MCG TABLET PO (05:40)
[2022-09-19] MEDS: ALBUTEROL/IPRATROPIUM 3 ML AMPUL INH (07:45)
[2022-09-19 08:27] LABS: Acinetobacter baumannii Not Detected (Not Detect); Candida albicans Not Detected (Not Detect); Candida glabrata Not Detected (Not Detect); Candida krusei Not Detected (Not Detect); Candida parapsilosis Not Detected (Not Detect); Candida tropicalis Not Detected (Not Detect); E. coli Not Detected (Not Detect); Enterobacter cloacae complex Not Detected (Not Detect); Enterobacteriaceae species Not Detected (Not Detect); Enterococcus species Not Detected (Not Detect); Haemophilus influenzae Not Detected (Not Detect); Listeria monocytogenes Not Detected (Not Detect); Neisseria meningitidis Not Detected (Not Detect); Proteus species Not Detected (Not Detect); Pseudomonas aeruginosa Not Detected (Not Detect); Serratia marcescens Not Detected (Not Detect); Staphylococcus species Not Detected (Not Detect); Streptococcus agalactiae (Gr B Not Detected (Not Detect); Streptococcus pneumonia Not Detected (Not Detect); Streptococcus pyogenes (Gr A) Not Detected (Not Detect); Streptococcus species Not Detected (Not Detect)
[2022-09-19] MEDS: INSULIN LISPRO 100 UNIT/ML 3ML VIAL SUBCUT ×3 (08:41→21:00)
[2022-09-19] MEDS: MONTELUKAST 10 MG TABLET PO (08:43)
--- NOTE | 2022-09-19 09:06 | PM.PN.1 ---
Subjective Subjective Date Patient Seen: 09/19/22 Time Patient Seen: 11:54 Interval history: Patient more awake and alert today. He states he is feeling better. He is awaiting left ankle fracture repair surgery today. Now off oxygen and white count is decreasing as well as ARLIN improving. Exam Vital Signs (past 8 hours): - 09/19/22 03:50 09/19/22 04:10 09/19/22 06:30 Temperature 99.3 F Pulse Rate 82 Respiratory Rate 16 Blood Pressure 168/70 H 156/76 H Pulse Oximetry 95 90 L Oxygen Delivery Method Nasal Cannula Oxygen Flow Rate 1 0 09/19/22 07:45 Temperature Pulse Rate 86 Respiratory Rate 20 Blood Pressure Pulse Oximetry 97 Oxygen Delivery Method Oxygen Flow Rate Fraction of Inspired Oxygen 21 SaO2/FiO2 Ratio 461 Oxygen Delivery Method Nasal Cannula Oxygen Flow Rate 0 Narrative Exam Narrative: General: awake and alert, grimaces intermittently due to left ankle pain HEENT: Port noted for GUITAR REPAIR 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, pupils equal, EOMI Neck: No lymphadenopathy Lungs: Clear to auscultation Heart: Normal S1 and S2, regular rate and rhythm, 3/6 aortic systolic murmur, 2/6 mitral diastolic murmur Abdomen: Soft, no abdominal bruit, no HSM Extremities: Chronic LE venous stasis changes, left lower leg is in splint Neurological: Patient oriented to self only Objective Labs Result Diagrams: 09/19/22 04:47 09/19/22 04:47 Labs: Laboratory Results - last 24 hr 09/17/22 09/19/22 09/19/22 14:53 04:47 04:47 WBC 11.6 H RBC 3.97 L Hgb 13.2 L Hct 38.9 L MCV 98.0 MCH 33.2 MCHC 33.9 RDW 14.0 Plt Count 127 L Neut % (Auto) 76.2 H Lymph % (Auto) 10.9 L [place] % (Auto) 8.2 Eos % (Auto) 4.1 H Baso % (Auto) 0.6 Neut # (Auto) 8800 H Lymph # (Auto) 1300 [place] # (Auto) 900 Eos # (Auto) 500 H Baso # (Auto) 100 Sodium 143 Potassium 3.9 Chloride 108 H Carbon Dioxide 28 BUN 49 H Creatinine 1.55 H Estimated GFR 45 L BUN/Creatinine Ratio 31.6 H Glucose 241 H Calcium 8.4 A. baumannii (PCR) Not detected Lindsey albicans (PCR) Not detected C. glabrata (PCR) Not detected C. krusei (PCR) Not detected C. parapsilosis (PCR) Not detected C. tropicalis (PCR) Not detected Enterobacteriac sp PCR Not detected E. cloacae complex PCR Not detected Enterococcus sp PCR Not detected E. coli (PCR) Not detected H. influenzae (PCR) Not detected Klebsiella oxytoca PCR Not detected Klebsiella pneumoniae Not detected List. monocytogenes PCR Not detected N. meningitidis (PCR) Not detected Proteus species (PCR) Not detected Serratia marcescens PCR Not detected Staphylococcus sp PCR Not detected Staph aureus (PCR) Not detected mecA-Methicil Res Gene TNP Streptococcus sp PCR Not detected Group A Strep (PCR) Not detected Strep agalactiae (PCR) Not detected Strep pneumoniae (PCR) Not detected P. aeruginosa (PCR) Not detected John Paul/B-Vanco Res Genes TNP KPC-Carbap Res Gene PCR TNP PFSH Medical History (Updated 09/16/22 @ 15:13 by Radha Diaz MD) Allergic rhinitis Anxiety Aortic valve sclerosis Bilateral carpal tunnel syndrome Chronic back pain DDD (degenerative disc disease), cervical DDD (degenerative disc disease), lumbar DMII (diabetes mellitus, type 2) Dyslipidemia Erectile dysfunction Gouty arthropathy Hypertension Hypertrophy of prostate Hypothyroidism LBBB (left bundle branch block) Normal pressure hydrocephalus Osteoarthritis involving multiple joints on both sides of body Reactive airway disease Renal insufficiency Sinus arrhythmia TIA (transient ischemic attack) Vertigo Surgical History (Updated 09/16/22 @ 15:16 by South Barnes MD) S/P GUITAR REPAIR 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 Social History household members: spouse Smoking Status: Unknown if ever smoked Assessment & Plan Assessment & Plan narrative: # Septic shock with ARLIN, not present on admission, septic shock resolved and ARLIN improving -patient became hypotensive to 88/49 on 09/17, given 3L NS bolus by ED -WBC uptrending to 13, procal 0.53, now downtrending -blood and urine cultures no growth to date, CXR with pulm edema but no infiltrates -Cr uptrending to 2.49, likely ATN given hypotension, now downtrending to 1.66, baseline around 1.4 -continue cervantes -continue zosyn for now, can likely deescalate -blood culture with 1/4 bottles gram pos bacilli, likely contaminant -should be cleared for surgery now # Ground level fall, status post left trimalleolar fracture displacement -status post reduction in the ED and awaiting surgical repair, Dr. Ashwini fam will take on 09/19 -norco and dilaudid PRN for pain # Type 2 diabetes, insulin requiring, with neuropathy -significant elevated glucose, >300 in ED -patient on insulin 730 at home -increase Lantus to 20 units b.i.d., insulin high-dose sliding scale -carb controlled diet -A1c 8.3% # Normal pressure hydrocephalus status post GUITAR REPAIR 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 -likely significant contributor to fall -had normal shuntogram in and May 2022 # Significant cognitive impairment -patient does not have dementia diagnosis, states memory impairment has been attributed to NPH -monitor for delirium # Hypertension -hold home meds due to hypotension # Hypothyroidism -continue levothyroxine home dose -TSH 4.49 # History of aortic stenosis and mitral stenosis -echo in 2018 noted EF 55-60%, MS, mild MR, mild -patient on significant furosemide dose at home though does not carry diagnosis CHF -repeat echo ordered to assess valves Dispo: Plan for surgery 09/19, TBD on home vs SNF afterward. Time Spent With Patient Critical Care time: I spent a total of [] minutes of critical care time on this patient's care today; this time is exclusive of procedural time.
[2022-09-19] MEDS: HYDROMORPHONE 0.5 MG INJ IV (10:00)
[2022-09-19] MEDS: INSULIN GLARGINE 100 UNIT/ML 3ML PEN 20 UNIT SUBCUT ×2 (11:52→21:01)
--- NOTE | 2022-09-19 11:56 | DI.ECHO.S_ITS ---
[facility]---------+ [facility] +---------+ : : [address] [place] : : : : [id number] : : : : Phone: [phone] Echocardiogram Report + + :Name: MARY ADAN Study Date: 09/19/2022 Height: 69 in : :[facility] ReadingLocation: Weight: 230 lb : : Gender: Male BSA: 2.2 m2 : :: 1940 Age: 82 yrs BP: 156/76 mmHg: :Reason For Study: ASSESS VALVE, HX AORTIC AND MITRAL STENOSIS : :Ordering Physician: FRAN, : :SONIA Flyod D.O Performed By: Clare Huff : :Referring: SONIA PETERS D.O : + + Interpretation Summary The left ventricular cavity is small. The ejection fraction is estimated to be 65-70%. The right ventricle is normal in size and function. There is moderate mitral annular calcification. Mitral valve leaflets appear thickened with moderate calcification of tip of the both leaflets. Posterior mitral leaflet has some restricted movement. The mitral valve mean gradient is 4.4 mmHg. Previously gradient about 4 mmHg. Overall mild mitral stenosis. No severe mitral stenosis. The aortic valve is heavily calcified. The aortic valve is trileaflet. There is severely reduced leaflet mobility. The peak aortic velocity is 4.0 m/sec. The aortic valve mean gradient is 44 mmHg. The calculated aortic valve area is 0.82 cm2. There is severe aortic stenosis. The peak aortic velocity on the previous exam was 2.7 m/sec. Compared to the prior echo study, there has been an increase in the severity of aortic stenosis. There is mild aortic regurgitation. There is mild luminal irregularity and echogenicity in the abdominal aorta, suggestive of aortic atherosclerotic disease. Mild atherosclerotic plaque(s) in the aortic arch. Procedure: A two-dimensional transthoracic echocardiogram with color flow and Doppler was performed. The study quality was technically difficult. Comparison is made with the echocardiogram of 04/01/2018. The patient was in sinus rhythm with heart rates between 69-73 bpm during the exam. Left Ventricle: The left ventricular cavity is small. There is mild-moderate concentric left ventricular hypertrophy. Proximal septal thickening is noted. There is no echo evidence for significant left ventricular outflow tract obstruction. There is no thrombus. The ejection fraction is estimated to be 65-70%. There are no focal wall motion abnormalities. MV E/A: 0.59 Med Peak E' Mahendra: 5.8 cm/sec E/E' med: 15.5. Right Ventricle: The right ventricle is normal in size and function. Atria: The left atrial size is normal. Right atrial size is normal. There is no Doppler evidence for an interatrial shunt. Mitral Valve: There is moderate mitral annular calcification. Mitral valve leaflets appear thickened with moderate calcification of tip of the both leaflets. Posterior mitral leaflet has some restricted movement. There is mild mitral stenosis. The mitral valve mean gradient is 4.4 mmHg. Posterior mitral leaflet has some restricted movement. There is trace mitral regurgitation. Aortic Valve: The aortic valve is trileaflet. The aortic valve is heavily calcified. There is severely reduced leaflet mobility. There is severe aortic stenosis. The peak aortic velocity is 4.0 m/sec. The aortic valve mean gradient is 44 mmHg. The calculated aortic valve area is 0.82 cm2. The peak aortic velocity on the previous exam was 2.7 m/sec. Compared to the prior echo study, there has been an increase in the severity of aortic stenosis. There is mild aortic regurgitation. Tricuspid Valve: The tricuspid valve is not well visualized, but is grossly normal. Pulmonary artery pressures cannot be estimated because of the lack of a measurable TR jet velocity. There is trace tricuspid regurgitation. Pulmonic Valve: The pulmonic valve is not well seen, but is grossly normal. There is no pulmonic valvular regurgitation. Great Vessels: The aortic root is normal size. There is aortic root sclerosis/calcification. The dimensions of the ascending aorta are normal. There is mild luminal irregularity and echogenicity in the abdominal aorta, suggestive of aortic atherosclerotic disease. Mild atherosclerotic plaque(s) in the aortic arch. The IVC is of normal diameter and collapses greater than 50% with a sniff. This suggests a low right atrial pressure of 3 mm Hg. Pericardium/ Pleura There is a trivial pericardial effusion noted. There are no echocardiographic indications of cardiac tamponade. There is no pleural effusion. MMode/2D Measurements & Calculations LVIDd: 3.7 cm LVOT diam: 2.0 cm LVIDs: 2.1 cm Ao root diam: 3.5 cm FS: 42.6 % asc Aorta Diam: 3.5 cm IVSd: 1.5 cm Ao Arch Diam (Prox Trans): 3.7 cm LVPWd: 1.1 cm LV fletcher. diameter/BSA (cm/m^2): 1.7 LV sys. diameter/BSA (cm/m^2): 0.98 LA A2 area: 22.3 cm2 RA long axis: 6.5 cm LA A4 area: 21.5 cm2 RA area: 17.8 cm2 LA length (vol): 7.0 cm RA vol: 41.5 ml LA vol: 57.6 ml RA : 18.9 ml/m2 LA vol index: 26.3 ml/m2 IVC diam: 1.3 cm RVD1 (basal): 2.9 cm RVD2 (mid): 3.0 cm TAPSE: 2.3 cm Doppler Measurements & Calculations Ao V2 max: 400.4 cm/sec LVOT Max Mahendra: 105.2 cm/sec Ao V2 mean: 302.6 cm/sec LV V1 max P.4 mmHg Ao max P.2 mmHg LV V1 VTI: 24.9 cm Ao mean P.7 mmHg VALENTINA(I,D): 0.88 cm2 Ao V2 VTI: 89.1 cm VALENTINA(V,D): 0.82 cm2 sev ratio: 0.28 VALENTINA indexed to BSA (cm^2/m^2): 0.40 AI P1/2t: 630.7 msec AI dec slope: 223.6 cm/sec2 MV E max mahendra: 89.9 cm/sec PA V2 max: 119.4 cm/sec MV A max mahendra: 152.5 cm/sec PA V2 mean: 84.9 cm/sec MV E/A: 0.59 PA mean P.2 mmHg Med Peak E' Mahendra: 5.8 cm/sec E/E' med: 15.5 Lat Peak E' Mahendra: 5.3 cm/sec E/E' lat: 16.9 E/e' average: 16.2 MV dec time: 0.27 sec MVA(VTI): 2.0 cm2 MV V2 mean: 91.2 cm/sec SV(LVOT): 78.0 ml MV mean P.4 mmHg MV V2 VTI: 39.1 cm Reading Physician:01:46 PM
--- NOTE | 2022-09-19 14:15 | SUR.HOLD ---
Patient confused on arrival to pre-op, pleasant. Denies any or SOB; repeat blood sugar on arrival is 196; notified Dr Maradiaga and anesthesia of patient's confusion. Mari Rodríguez called to provide verbal consent for procedure and anesthesia.
--- NOTE | 2022-09-19 14:17 | P.HP_ITS ---
History of Present Illness History of Present Illness Date Patient Seen: 09/19/22 Time Patient Seen: 14:17 Chief complaint: mechanical fall +deform ankle Narrative: Antwon is a pleasant 82-year-old male with dementia here for operative fixation of his left ankle. He had mechanical fall, ground level and was seen at our emergency department. He developed pneumonia in the post injury days and was treated on the floor. He is doing much better today and ready for surgery. He is difficulty answering questions or giving a good narrative. He denies any distal numbness or tingling. Has no other complaints at this time. Patient History Medical History Allergic rhinitis Anxiety Aortic valve sclerosis Bilateral carpal tunnel syndrome Chronic back pain DDD (degenerative disc disease), cervical DDD (degenerative disc disease), lumbar DMII (diabetes mellitus, type 2) Dyslipidemia Erectile dysfunction Gouty arthropathy Hypertension Hypertrophy of prostate Hypothyroidism LBBB (left bundle branch block) Normal pressure hydrocephalus Osteoarthritis involving multiple joints on both sides of body Reactive airway disease Renal insufficiency Sinus arrhythmia TIA (transient ischemic attack) Vertigo Surgical History (Updated 09/16/22 @ 15:16 by South Barnes MD) 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 Family & Social History Family history unavailable: Yes Social History: household members spouse Prior Living Arrangements House Safety & Behavioral: Feels Safe in Current Yes Environment Been Physically Hurt or No Threatened By a Person Tobacco & Substance use: Smoking Status Unknown if ever smoked alcohol intake frequency 0-2 drinks per day Substance Use Type does not use Meds Home Medications and Allergies Home Medications Medication Instructions Recorded Confirmed Type allopurinol 100 mg tablet 200 mg PO DAILY 09/16/22 09/16/22 History carvedilol 6.25 mg tablet 6.25 mg PO BID 09/16/22 09/16/22 History furosemide 40 mg tablet 80 mg PO DAILY 09/16/22 09/16/22 History gabapentin 300 mg capsule 300 mg PO TID 09/16/22 09/16/22 History insulin human U-100 NPH-regulr 10 unit SUBCUT BID 09/16/22 09/16/22 History 70-30 mix 100 unit/mL subcutaneous susp (Humulin 70/30 U-100 Insulin) levothyroxine 100 mcg tablet 100 mcg PO DAILY 09/16/22 09/16/22 History loperamide 2 mg tablet 2 mg PO QID PRN Diarrhea 09/16/22 09/16/22 History lovastatin 20 mg tablet 20 mg PO QPM 09/16/22 09/16/22 History montelukast 10 mg tablet 10 mg PO DAILY 09/16/22 09/16/22 History potassium chloride 10 mEq 10 meq PO DAILY 09/16/22 09/16/22 History tablet,extended release telmisartan 80 mg tablet 80 mg PO DAILY 09/16/22 09/16/22 History Allergies Allergy/AdvReac Type Severity Reaction Status Date / Time No Known Drug Allergies Allergy Verified 11/24/18 09:08 Review of Systems Review of Systems ROS: Yes All systems reviewed with the patient and are negative except as otherwise documented Exam Vital Signs (past 8 hours): - 09/19/22 06:30 09/19/22 07:45 09/19/22 07:00 Temperature Pulse Rate 86 Respiratory Rate 20 Blood Pressure 156/76 H Pulse Oximetry 97 95 Oxygen Delivery Method Room Air Oxygen Flow Rate 09/19/22 08:20 09/19/22 14:11 Temperature 97.9 F 98.9 F Pulse Rate 78 78 Respiratory Rate 18 20 Blood Pressure 133/67 178/90 H Pulse Oximetry 94 96 Oxygen Delivery Method Room Air Oxygen Flow Rate 0 Fraction of Inspired Oxygen 21 SaO2/FiO2 Ratio 461 Oxygen Delivery Method Room Air Oxygen Flow Rate 0 Narrative Exam Narrative: HEENT: Head atraumatic eyes anicteric moist mucous membranes Cardiovascular: Palpable peripheral pulses warm and well-perfused extremities Respiratory: Breathing on room air Psychiatric: Pleasant demeanor, although confused Neuro: No acute deficits Musculoskeletal: Focused exam of left lower extremity, splint in place, toes are warm and well-perfused with brisk capillary refill less than 2 seconds. Able to wiggle toes and has sensation over his digits. Objective Labs Result Diagrams: 09/19/22 04:47 09/19/22 04:47 Labs: Laboratory Results - last 24 hr 09/17/22 09/19/22 09/19/22 14:53 04:47 04:47 WBC 11.6 H RBC 3.97 L Hgb 13.2 L Hct 38.9 L MCV 98.0 MCH 33.2 MCHC 33.9 RDW 14.0 Plt Count 127 L Neut % (Auto) 76.2 H Lymph % (Auto) 10.9 L [place] % (Auto) 8.2 Eos % (Auto) 4.1 H Baso % (Auto) 0.6 Neut # (Auto) 8800 H Lymph # (Auto) 1300 [place] # (Auto) 900 Eos # (Auto) 500 H Baso # (Auto) 100 Sodium 143 Potassium 3.9 Chloride 108 H Carbon Dioxide 28 BUN 49 H Creatinine 1.55 H Estimated GFR 45 L BUN/Creatinine Ratio 31.6 H Glucose 241 H Calcium 8.4 A. baumannii (PCR) Not detected Lindsey albicans (PCR) Not detected C. glabrata (PCR) Not detected C. krusei (PCR) Not detected C. parapsilosis (PCR) Not detected C. tropicalis (PCR) Not detected Enterobacteriac sp PCR Not detected E. cloacae complex PCR Not detected Enterococcus sp PCR Not detected E. coli (PCR) Not detected H. influenzae (PCR) Not detected Klebsiella oxytoca PCR Not detected Klebsiella pneumoniae Not detected List. monocytogenes PCR Not detected N. meningitidis (PCR) Not detected Proteus species (PCR) Not detected Serratia marcescens PCR Not detected Staphylococcus sp PCR Not detected Staph aureus (PCR) Not detected mecA-Methicil Res Gene TNP Streptococcus sp PCR Not detected Group A Strep (PCR) Not detected Strep agalactiae (PCR) Not detected Strep pneumoniae (PCR) Not detected P. aeruginosa (PCR) Not detected John Paul/B-Vanco Res Genes TNP KPC-Carbap Res Gene PCR TNP Assessment & Plan Assessment & Plan narrative: Assessment: Left trimalleolar ankle fracture Plan: Discussed exam and imaging with patient and then with his by phone. He has a unstable ankle fracture which will require operative treatment. The risks and benefits of surgery including the risk of infection, bleeding, damage to internal structures, failure of the hardware, need for revision surgery, anesthesia and were explained and patient and his expressed understanding wished to go forward with surgery. Time Spent With Patient Critical Care time: I spent a total of [] minutes of critical care time on this patient's care today; this time is exclusive of procedural time.
[2022-09-19] MEDS: TRANEXAMIC ACID 1,000 MG in SODIUM CHLORIDE 0.9% 100 ML 200 MG IV (15:18)
--- NOTE | 2022-09-19 15:36 | SUR.OPER ---
Supine on padded OR bed, head on pillow, arms secured on padded arm boards at <90 degrees abduction, legs uncrossed, blanket bump under left hip and thigh, safety belt at hips, tape over blanket over lower and mid right leg.
[2022-09-19] MEDS: BUPIVACAINE 0.5% W/ EPI (PF) 30 ML VIAL INJ (15:44)
--- NOTE | 2022-09-19 16:01 | SUR.OPER ---
Verbal consent obtained by Dr. Maradiaga and anesthesia (DONOR SERVICES TEAM LEADER) prior to going in to the OR from the patient's .
--- NOTE | 2022-09-19 16:40 | P.OP_ITS ---
Operative Date/Time/Diagnoses Date of procedure: 09/19/22 Time of procedure: 16:40 Pre-op diagnosis: Left trimalleolar ankle fracture Procedure & Clinicians Procedure: Operative fixation of medial and lateral malleolus left ankle Same procedure as scheduled: Yes Indications: Indications: This is a 82-year-old male who sustained a fall resulting in a unstable trimalleolar ankle fracture. In order to restore stability and allow early mobilization and weight-bearing as well as ensure decreased risk of nonunion and malunion we discussed operative fixation. The risks and benefits of surgery including the risk of infection, damage to internal structures, bleeding, failure of hardware, need for revision surgery and ankle arthritis as well as the risk of anesthesia were discussed with the patient's . She agreed with these risks and wished to go forward with surgery. Surgeon: Wilbur Maradiaga Flight Hostess: Bev Benoit Click Yes if Unassisted: No Anesthesia Type: General Operative Notes Findings: Unstable trimalleolar ankle fracture as seen on imaging, fluoroscopy and under direct visualization Closure Type: primary Prosthetic devices, grafts, tissues, transplants, or devices: [place] and Nephew straight 8 hole fibular plate 2 medial malleolar partially-threaded cannulated screws Estimated Blood Loss (mL): 25 Blood products transfused: none Tourniquet time (min): 65 Procedure in detail: Procedure: The patient was met in the preoperative holding area and we again discussed the risks and benefits of surgery. As he has dementia, I spoke with his over the phone and obtained consent. My initials were marked on the correct left lower extremity. The patient was brought back to the operating room and transferred to the operating table. Smooth induction of anesthesia was performed. A time-out was then performed confirming the correct operative extremity with my initials. A tourniquet was applied to the upper thigh. Standard sterile prep was done with chlorhexidine. Appropriate dry time was observed. An Esmarch was used and the tourniquet was inflated to 250 mmHg. A standard lateral approach to the fibula was made using a 10 blade. We looked for the sural nerve at the proximal portion of the incision and this was protected throughout the case. Dissection was carried down to the bone and the fracture was encountered. This was a Arteaga C above the syndesmosis. The fracture was irrigated and cleaned using a curette. A [place] and Nephew 8 hole straight plate was fashioned and placed on the fibula. The most proximal hole was filled 1st, followed by 3 Quadricortical syndesmotic screws. The final 2 proximal holes were filled. Final fluoroscopy confirmed screw length and plate position as well as fracture reduction. We then turned our attention to the medial malleolus. A direct medial approach was taken to the medial malleolus. A transverse fracture was encountered. The fracture edges were cleaned. The posterior tibialis tendon was noted to be posteriorly along the posterior border of the tibia. This was protected throughout the remainder of the case. A small test pilot hole was drilled proximal to the fracture. This was used along with a pointed reduction clamp to obtain good reduction of the fracture. Two separate K-wires were used and confirmed on fluoroscopy to be in the correct position and trajectory. These were over- drilled and 2 separate 4-0 cannulated partially threaded screws were placed. Stress radiographs were then performed which demonstrated no widening of the mortise. Final fluoroscopy demonstrated appropriate screw lengths and hardware position as well as fracture reduction throughout. Wounds were closed with 2-0 Vicryl and 2-0 nylon and dressed with Xeroform, 4x4s cast padding and then placed into a well-padded splint the patient awoke from anesthesia and was transported to the postoperative recovery unit without any issues the medial malleolus wound was treated with a negative pressure dressing. Assisting participation: This operation could not have been safely performed (without compromising the technical results or length of the procedure) without the assistance of a skilled surgical elastic knitter hand frame. The surgical elastic knitter hand frame was medically necessary for proper positioning, retraction and manipulation of instruments, proper exposure, graft prep, and manipulation of tissue. Complications: none Post-operative Plan for aftercare: Postoperative care is going to be non op weight-bearing for 3 months. Dressings will come off in 2 weeks.
--- NOTE | 2022-09-19 19:48 | PC.NURSE ---
Pt is A&Ox1, pleasantly confused. He follows simple commands and is interactive. he denies pain except with movement of LLE. recieved call from micro that x1 blood culture bottle + for growth. notified. VSS, afebrile, tolerating RA in low 90's on pulse oximeter. He has some scattered expiratory wheezes and SOB with exertion. He is NPO for surgery today. He is taken to PREOP at approximately 1330 and returns this evening at 1830. Family at bedside. He is tolerating po intake well and +cms to L toes, currently denies pain.
[2022-09-19] MEDS: ATORVASTATIN 20 MG TABLET 10 MG PO (20:53)
[2022-09-19] MEDS: GABAPENTIN 300 MG CAPSULE PO (20:54)
[2022-09-19] MEDS: carvediloL 3.125 MG TABLET 6.25 MG PO (20:54)
[2022-09-20] VITALS (13 sets, daily range): BP systolic 127–182; BP diastolic 66–91; PULSE 67–79; RESP 16–18; TEMP 36.3–36.9; O2SAT 92–97
[2022-09-20] MEDS: ONDANSETRON 4 MG/2 ML INJ IV ×2 (00:28→20:56)
[2022-09-20] MEDS: HYDROMORPHONE 0.5 MG INJ IV ×2 (00:28→05:43)
[2022-09-20] MEDS: PIPERACILLIN/TAZO 3.375 GM in SODIUM CHLORIDE 0.9% 100 ML IV (03:12)
[2022-09-20 05:08] LABS: Add Manual Diff / Slide Review NO; Basophils Absolute Auto 0 /uL (0-100); Basophils Percent Auto 0.1 % (0-2); Eosinophils Absolute Auto 0 /uL (0-450); Hematocrit 38.7 % (41-53); Hemoglobin 13.1 g/dL (13.5-17.5); Lymphocytes Absolute Auto 800 /uL (1100-4500); Lymphocytes Percent Auto 6.5 % (25-40); Mean Corpuscular HGB Conc 33.8 % (30-36); Mean Corpuscular Hemoglobin 33.4 PG (26-34); Mean Corpuscular Volume 98.7 fL (80-100); Monocytes Absolute Auto 500 /uL (0-900); Monocytes Percent Auto 4.2 % (3-14); Neutrophils Absolute Auto 10900 /uL (1500-7000); Neutrophils Percent Auto 89.2 % (50-75); Platelet Count 135 X10^3/uL (150-400); Red Blood Cell Count 3.92 X10^6/uL (4.5-5.9); Red Cell Distribution Width 13.9 % (11.6-14.8); White Blood Cell Count 12.3 X10^3/uL (4.5-11.0)
[2022-09-20 05:12] LABS: BUN Creatinine Ratio 28.1 (6-22); Blood Urea Nitrogen 39 mg/dL (9-20); Calcium 8.4 mg/dL (8.4-10.2); Carbon Dioxide 26 mmol/L (22-32); Chloride 105 mmol/L (98-107); Estimated Glomerular Filt Rate 51 mL/min (>60); Glucose 289 mg/dL (80-110); HEMOLYSIS < 15 (0-50); Potassium 4.4 mmol/L (3.4-5.1); Sodium 139 mmol/L (137-145)
[2022-09-20] MEDS: LEVOTHYROXINE 100 MCG TABLET PO (05:58)
[2022-09-20] MEDS: INSULIN LISPRO 100 UNIT/ML 3ML VIAL SUBCUT ×6 (08:54→20:58)
--- NOTE | 2022-09-20 08:55 | PM.PN.1 ---
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 He was found to have displaced left trimalleolar ankle fracture. Patient is status post ORIF on September 19. He was more confused last night pulling on lines. He is oriented only to self this morning. He denies pain. He has significant baseline cognitive impairment consistent with dementia. Blood sugars have been persistently elevated most recently in mid 200 range. Echo here did show severe aortic stenosis. Exam Vital Signs (past 8 hours): - 09/20/22 03:21 09/20/22 04:00 Temperature 97.4 F L Pulse Rate 68 Respiratory Rate 16 Blood Pressure 182/91 H Pulse Oximetry 97 93 Oxygen Delivery Method Room Air Fraction of Inspired Oxygen 21 SaO2/FiO2 Ratio 461 Oxygen Delivery Method Room Air Oxygen Flow Rate 0 Narrative Exam Narrative: General: Patient is sleeping but does easily awaken, no acute distress Lungs: Clear to auscultation Heart: Regular with systolic murmur Abdomen: Soft Extremities: Left leg postop splint, no edema Neurological: Affect flat, oriented to self only Objective Labs Result Diagrams: 09/20/22 04:16 09/20/22 04:16 Labs: Laboratory Results - last 24 hr 09/20/22 09/20/22 04:16 04:16 WBC 12.3 H RBC 3.92 L Hgb 13.1 L Hct 38.7 L MCV 98.7 MCH 33.4 MCHC 33.8 RDW 13.9 Plt Count 135 L Neut % (Auto) 89.2 H Lymph % (Auto) 6.5 L [place] % (Auto) 4.2 Eos % (Auto) 0.0 L Baso % (Auto) 0.1 Neut # (Auto) 21130 H Lymph # (Auto) 800 L [place] # (Auto) 500 Eos # (Auto) 0 Baso # (Auto) 0 Sodium 139 Potassium 4.4 Chloride 105 Carbon Dioxide 26 BUN 39 H Creatinine 1.39 H Estimated GFR 51 L BUN/Creatinine Ratio 28.1 H Glucose 289 H Calcium 8.4 PFSH Medical History Allergic rhinitis Anxiety Aortic valve sclerosis Bilateral carpal tunnel syndrome Chronic back pain DDD (degenerative disc disease), cervical DDD (degenerative disc disease), lumbar DMII (diabetes mellitus, type 2) Dyslipidemia Erectile dysfunction Gouty arthropathy Hypertension Hypertrophy of prostate Hypothyroidism LBBB (left bundle branch block) Normal pressure hydrocephalus Osteoarthritis involving multiple joints on both sides of body Reactive airway disease Renal insufficiency Sinus arrhythmia TIA (transient ischemic attack) Vertigo Surgical History (Updated 09/16/22 @ 15:16 by South Barnes MD) S/P ABRASIVE WATER JET CUTTER OPERATOR shunt Social History household members: spouse Smoking Status: Unknown if ever smoked Assessment & Plan Assessment & Plan narrative: 1. Ground level fall, status post left trimalleolar fracture displacement -status post reduction in the ED -status post ORIF 09/19/2022 -cont PT/OT 2. Type 2 diabetes, insulin requiring, with neuropathy -significant elevated glucose, >300 in ED -patient on insulin 70/30 at home -currently on Lantus 20 units b.i.d. and lispro high-dose sliding scale -added lispro 5 units with meals 3. Acute kidney injury, prerenal -likely volume depletion, responded to IV fluids -he is back to baseline creatinine of around 1.4 -encourage p.o. fluid intake 4. Acute volume depletion, preop, resolved -septic shock diagnosis ruled out due to absence of source of infection -has mild leukocytosis likely stress related -blood culture 1/4 growing Gram-positive rods, likely contaminant -discontinued antibiotic 5. Normal pressure hydrocephalus status post ABRASIVE WATER JET CUTTER OPERATOR shunt -likely significant contributor to fall -had normal shuntogram in and May 2022 6. Significant cognitive impairment -patient does not have dementia: diagnosis, states memory impairment has been attributed to NPH -unclear whether patient is at his baseline or having more confusion 7.? Hypertension -continue home medication routine 8.? Hypothyroidism -continue levothyroxine home dose -TSH 4.49 9. History of aortic stenosis and mitral stenosis -echo in 2018 noted EF 55-60%, MS, mild MR, mild -echo shows LVEF 65-70%, severe , mild MS -patient will need outpatient cardiology consultation for his severe -continue furosemide 80 mg daily perhome routine Time Spent With Patient Critical Care time: I spent a total of [] minutes of critical care time on this patient's care today; this time is exclusive of procedural time.
[2022-09-20] MEDS: INSULIN GLARGINE 100 UNIT/ML 3ML PEN 20 UNIT SUBCUT ×2 (09:21→20:59)
[2022-09-20] MEDS: LOSARTAN 50 MG TABLET 100 MG PO (09:23)
[2022-09-20] MEDS: allopurinoL 100 MG TABLET 200 MG PO (09:23)
[2022-09-20] MEDS: GABAPENTIN 300 MG CAPSULE PO ×3 (09:24→20:56)
[2022-09-20] MEDS: carvediloL 3.125 MG TABLET 6.25 MG PO ×2 (09:24→20:56)
[2022-09-20] MEDS: MONTELUKAST 10 MG TABLET PO (09:24)
[2022-09-20] MEDS: POTASSIUM CHLORIDE 10 MEQ TAB PO (09:24)
[2022-09-20] MEDS: FUROSEMIDE 40 MG TABLET 80 MG PO (09:24)
--- NOTE | 2022-09-20 09:45 | P.PN_ITS ---
Subjective Subjective Date Patient Seen: 09/20/22 Time Patient Seen: 09:46 Interval history: Antwon is awake and alert and pleasant, answers all questions immediately and with confidence, but sometimes incorrectly. He appears to be comfortable and denies pain. Exam Vital Signs (past 8 hours): - 09/20/22 03:21 09/20/22 04:00 09/20/22 09:23 Temperature 97.4 F L Pulse Rate 68 68 Respiratory Rate 16 Blood Pressure 182/91 H 182/91 H Pulse Oximetry 97 93 Oxygen Delivery Method Room Air Oxygen Flow Rate 09/20/22 09:24 09/20/22 09:00 Temperature Pulse Rate 68 Respiratory Rate Blood Pressure 182/91 H Pulse Oximetry 92 Oxygen Delivery Method Room Air Oxygen Flow Rate 0 Fraction of Inspired Oxygen 21 SaO2/FiO2 Ratio 461 Oxygen Delivery Method Room Air Oxygen Flow Rate 0 Narrative Exam Narrative: Wiggles toes, bends knee on left. At first denies that he can feel me touching his toes and leg, but then says he can. Dressing is intact, FRANCO is functioning. Objective Labs Result Diagrams: 09/20/22 04:16 09/20/22 04:16 Labs: Laboratory Results - last 24 hr 09/20/22 09/20/22 04:16 04:16 WBC 12.3 H RBC 3.92 L Hgb 13.1 L Hct 38.7 L MCV 98.7 MCH 33.4 MCHC 33.8 RDW 13.9 Plt Count 135 L Neut % (Auto) 89.2 H Lymph % (Auto) 6.5 L [place] % (Auto) 4.2 Eos % (Auto) 0.0 L Baso % (Auto) 0.1 Neut # (Auto) 22784 H Lymph # (Auto) 800 L [place] # (Auto) 500 Eos # (Auto) 0 Baso # (Auto) 0 Sodium 139 Potassium 4.4 Chloride 105 Carbon Dioxide 26 BUN 39 H Creatinine 1.39 H Estimated GFR 51 L BUN/Creatinine Ratio 28.1 H Glucose 289 H Calcium 8.4 PFSH Medical History Allergic rhinitis Anxiety Aortic valve sclerosis Bilateral carpal tunnel syndrome Chronic back pain DDD (degenerative disc disease), cervical DDD (degenerative disc disease), lumbar DMII (diabetes mellitus, type 2) Dyslipidemia Erectile dysfunction Gouty arthropathy Hypertension Hypertrophy of prostate Hypothyroidism LBBB (left bundle branch block) Normal pressure hydrocephalus Osteoarthritis involving multiple joints on both sides of body Reactive airway disease Renal insufficiency Sinus arrhythmia TIA (transient ischemic attack) Vertigo Surgical History (Updated 09/20/22 @ 09:48 by SIMON Burk-C) S/P FREELANCE PATTERNMAKER shunt Social History household members: spouse Smoking Status: Unknown if ever smoked Assessment & Plan Post-op Assessment and plan (1) Status post open reduction with internal fixation (ORIF) of fracture of ankle: Assessment and Plan narrative: Pt has a fracture blister at the medial incision. This incision was closed with nylon and a FRANCO dressing was applied over. Lateral incision was closed with nylon and soft dressing was applied. All dressings should remain in place until follow up in office in 2 weeks. At that time, dressings should be removed and incisions evaluated by a PA; the nylon sutures may not be appropriate for removal at that time. The pt should be placed in a fracture boot once dressings are removed. He should remain NWB on the left leg for 3 mos. He is at high risk for VTE d/t fx, diabetes, and obesity and should remain on ASA 81 mg BID for that period. Postoperative Procedures: Procedures Operation Date: 09/19/22 14:00 Actual Procedure Side Surgeon p ORIF Ankle Fracture Left Wilbur Maradiaga MD Postoperative day: 1
[2022-09-20] MEDS: ASPIRIN EC 81 MG TABLET PO ×2 (10:41→20:56)
--- NOTE | 2022-09-20 15:34 | CM.DPNOTE ---
Addendum entered by JAYA Guillermo 09/20/22 15:37: PASRR Completed. According to Gisselle at [facility]: It is documented that patient is non weight bearing for 3 months and will likely only be authorized by [employer] for 20 days of rehab. February reviewing w/her staff. Original Note: DCP Note Faxed referral to [facility] for review Contacted Lindy at [facility] who explained Mignon is reviewing this referral and will return on Thursday to discuss w/this CM team [facility] is no longer a SNF and [facility] will not be considering referrals until next Thursday. SNF search continues, may need to broaden SNF search, need to review DCP efforts w/spouse. Patient is POD 1 from ankle repair, awaiting updated PT notes from therapies post operatively JW
[2022-09-20] MEDS: HYDROCODONE/ACET 5/325 TABLET 1 TAB PO (20:55)
[2022-09-20] MEDS: ATORVASTATIN 20 MG TABLET 10 MG PO (20:56)
[2022-09-21] VITALS (12 sets, daily range): BP systolic 93–135; BP diastolic 51–78; PULSE 65–84; RESP 16–23; TEMP 35.8–36.7; O2SAT 91–96
[2022-09-21] MEDS: LEVOTHYROXINE 100 MCG TABLET PO (05:07)
[2022-09-21 07:03] LABS: BUN Creatinine Ratio 31.5 (6-22); Blood Urea Nitrogen 51 mg/dL (9-20); Calcium 8.3 mg/dL (8.4-10.2); Carbon Dioxide 29 mmol/L (22-32); Chloride 104 mmol/L (98-107); Estimated Glomerular Filt Rate 42 mL/min (>60); Glucose 158 mg/dL (80-110); HEMOLYSIS < 15 (0-50); Potassium 3.9 mmol/L (3.4-5.1); Sodium 141 mmol/L (137-145)
[2022-09-21 07:07] LABS: Add Manual Diff / Slide Review NO; Basophils Absolute Auto 100 /uL (0-100); Basophils Percent Auto 0.7 % (0-2); Eosinophils Absolute Auto 300 /uL (0-450); Eosinophils Percent Auto 2.4 % (2-4); Hematocrit 40.7 % (41-53); Hemoglobin 13.6 g/dL (13.5-17.5); Lymphocytes Absolute Auto 1900 /uL (1100-4500); Lymphocytes Percent Auto 15.8 % (25-40); Mean Corpuscular HGB Conc 33.4 % (30-36); Mean Corpuscular Hemoglobin 33.1 PG (26-34); Mean Corpuscular Volume 98.9 fL (80-100); Monocytes Absolute Auto 1100 /uL (0-900); Neutrophils Absolute Auto 8800 /uL (1500-7000); Neutrophils Percent Auto 72.1 % (50-75); Platelet Count 145 X10^3/uL (150-400); Red Blood Cell Count 4.11 X10^6/uL (4.5-5.9); Red Cell Distribution Width 14.1 % (11.6-14.8); White Blood Cell Count 12.2 X10^3/uL (4.5-11.0)
[2022-09-21] MEDS: ALBUTEROL/IPRATROPIUM 3 ML AMPUL INH (07:45)
[2022-09-21] MEDS: INSULIN GLARGINE 100 UNIT/ML 3ML PEN 20 UNIT SUBCUT ×2 (08:35→23:05)
[2022-09-21] MEDS: INSULIN LISPRO 100 UNIT/ML 3ML VIAL SUBCUT ×7 (08:37→23:05)
[2022-09-21] MEDS: allopurinoL 100 MG TABLET 200 MG PO (08:44)
[2022-09-21] MEDS: GABAPENTIN 300 MG CAPSULE PO ×3 (08:44→23:05)
[2022-09-21] MEDS: LOSARTAN 50 MG TABLET 100 MG PO (08:44)
[2022-09-21] MEDS: MONTELUKAST 10 MG TABLET PO (08:44)
[2022-09-21] MEDS: POTASSIUM CHLORIDE 10 MEQ TAB PO (08:44)
[2022-09-21] MEDS: ASPIRIN EC 81 MG TABLET PO ×2 (08:44→23:05)
[2022-09-21] MEDS: carvediloL 3.125 MG TABLET 6.25 MG PO ×2 (08:44→23:05)
[2022-09-21] MEDS: FUROSEMIDE 40 MG TABLET 80 MG PO (08:45)
--- NOTE | 2022-09-21 11:37 | PM.PN.1 ---
Subjective Subjective Date Patient Seen: 09/21/22 Interval history: He is seen in his room here to follow-up his fall and left ankle injury. He is pending insurance authorization for a care home facility admission tomorrow. Exam Vital Signs (past 8 hours): - 09/21/22 05:01 09/21/22 05:33 09/21/22 08:04 Temperature 97.6 F Pulse Rate 65 68 Respiratory Rate 16 18 Blood Pressure 135/59 L Pulse Oximetry 96 93 92 Oxygen Delivery Method Room Air Oxygen Flow Rate 09/21/22 09:27 09/21/22 09:00 Temperature 96.4 F L Pulse Rate 76 Respiratory Rate 20 Blood Pressure 112/63 Pulse Oximetry 96 96 Oxygen Delivery Method Room Air Oxygen Flow Rate 0 Fraction of Inspired Oxygen 21 SaO2/FiO2 Ratio 461 Oxygen Delivery Method Room Air Oxygen Flow Rate 0 Narrative Exam Narrative: He does not wake up or interact with me despite attempts to speak to him and get his attention through gentle touch. No apparent distress Heart is regular rate and rhythm without murmur Lungs are clear to auscultation bilaterally Right leg has no ankle edema Left leg is in a long cast. Objective Labs Result Diagrams: 09/21/22 07:02 09/21/22 06:40 Labs: Laboratory Results - last 24 hr 09/21/22 09/21/22 06:40 07:02 WBC 12.2 H RBC 4.11 L Hgb 13.6 Hct 40.7 L MCV 98.9 MCH 33.1 MCHC 33.4 RDW 14.1 Plt Count 145 L Neut % (Auto) 72.1 Lymph % (Auto) 15.8 L [place] % (Auto) 9.0 Eos % (Auto) 2.4 Baso % (Auto) 0.7 Neut # (Auto) 8800 H Lymph # (Auto) 1900 [place] # (Auto) 1100 H Eos # (Auto) 300 Baso # (Auto) 100 Sodium 141 Potassium 3.9 Chloride 104 Carbon Dioxide 29 BUN 51 H Creatinine 1.62 H Estimated GFR 42 L BUN/Creatinine Ratio 31.5 H Glucose 158 H D Calcium 8.3 L PFSH Medical History Allergic rhinitis Anxiety Aortic valve sclerosis Bilateral carpal tunnel syndrome Chronic back pain DDD (degenerative disc disease), cervical DDD (degenerative disc disease), lumbar DMII (diabetes mellitus, type 2) Dyslipidemia Erectile dysfunction Gouty arthropathy Hypertension Hypertrophy of prostate Hypothyroidism LBBB (left bundle branch block) Normal pressure hydrocephalus Osteoarthritis involving multiple joints on both sides of body Reactive airway disease Renal insufficiency Sinus arrhythmia TIA (transient ischemic attack) Vertigo Surgical History (Updated 09/20/22 @ 09:48 by Bev Benoit PA-C) S/P COMEDIAN shunt Social History household members: spouse Smoking Status: Unknown if ever smoked Assessment & Plan Assessment & Plan narrative: 1. Ground level fall, status post left trimalleolar fracture displacement -status post reduction in the ED -status post ORIF 09/19/2022 -cont PT/OT -09/21/2022 now pending insurance authorization expected tomorrow for care home facility 2. Type 2 diabetes, insulin requiring, with neuropathy -significant elevated glucose, >300 in ED -patient on insulin 70/30 at home -currently on Lantus 20 units b.i.d. and lispro high-dose sliding scale -added lispro 5 units with meals 3.? Acute kidney injury, prerenal -likely volume depletion, responded to IV fluids -he is back to baseline creatinine of around 1.4 -encourage p.o. fluid intake 4. Acute volume depletion, preop, resolved -septic shock diagnosis ruled out due to absence of source of infection -has mild leukocytosis likely stress related -blood culture 09/17 growing Gram-positive rods, likely contaminant -discontinued antibiotic 5. Normal pressure hydrocephalus status post COMEDIAN shunt -likely significant contributor to fall -had normal shuntogram May 2022 6. Significant cognitive impairment -patient does not have dementia: diagnosis, states memory impairment has been attributed to NPH -unclear whether patient is at his baseline or having more confusion 7.? Hypertension -continue home medication routine 8.? Hypothyroidism -continue levothyroxine home dose -TSH 4.49 9. History of aortic stenosis and mitral stenosis -echo in 2018 noted EF 55-60%, MS, mild MR, mild -echo shows LVEF 65-70%, severe , mild MS -patient will need outpatient cardiology consultation for his severe -continue furosemide 80 mg daily per home routine Disposition pending insurance authorization for care home facility rehab on 09/22. Time Spent With Patient Critical Care time: I spent a total of [] minutes of critical care time on this patient's care today; this time is exclusive of procedural time.
[2022-09-21] MEDS: ACETAMINOPHEN 325 MG TABLET 650 MG PO (12:44)
--- NOTE | 2022-09-21 13:24 | PM.PNPO.1 ---
Subjective Subjective Date Patient Seen: 09/21/22 Time Patient Seen: 13:24 Interval history: Pt sleeping w/ , Mari, at bedside. She reports he had a much better night last night. Plan is for SNF rehab. Exam Vital Signs (past 8 hours): - 09/21/22 05:33 09/21/22 08:04 09/21/22 09:27 Temperature 97.6 F Pulse Rate 65 68 Respiratory Rate 16 18 Blood Pressure 135/59 L Pulse Oximetry 93 92 96 Oxygen Delivery Method Room Air Oxygen Flow Rate 09/21/22 09:00 09/21/22 13:01 Temperature 96.4 F L Pulse Rate 76 Respiratory Rate 20 Blood Pressure 112/63 Pulse Oximetry 96 95 Oxygen Delivery Method Room Air Oxygen Flow Rate 0 Fraction of Inspired Oxygen 21 SaO2/FiO2 Ratio 461 Oxygen Delivery Method Room Air Oxygen Flow Rate 0 Narrative Exam Narrative: Pt is difficult to wake but does wiggle toes, otherwise not answering questions today. FRANCO dressing functioning. Objective Labs Result Diagrams: 09/21/22 07:02 09/21/22 06:40 Labs: Laboratory Results - last 24 hr 09/21/22 09/21/22 06:40 07:02 WBC 12.2 H RBC 4.11 L Hgb 13.6 Hct 40.7 L MCV 98.9 MCH 33.1 MCHC 33.4 RDW 14.1 Plt Count 145 L Neut % (Auto) 72.1 Lymph % (Auto) 15.8 L [place] % (Auto) 9.0 Eos % (Auto) 2.4 Baso % (Auto) 0.7 Neut # (Auto) 8800 H Lymph # (Auto) 1900 [place] # (Auto) 1100 H Eos # (Auto) 300 Baso # (Auto) 100 Sodium 141 Potassium 3.9 Chloride 104 Carbon Dioxide 29 BUN 51 H Creatinine 1.62 H Estimated GFR 42 L BUN/Creatinine Ratio 31.5 H Glucose 158 H D Calcium 8.3 L PFSH Medical History Allergic rhinitis Anxiety Aortic valve sclerosis Bilateral carpal tunnel syndrome Chronic back pain DDD (degenerative disc disease), cervical DDD (degenerative disc disease), lumbar DMII (diabetes mellitus, type 2) Dyslipidemia Erectile dysfunction Gouty arthropathy Hypertension Hypertrophy of prostate Hypothyroidism LBBB (left bundle branch block) Normal pressure hydrocephalus Osteoarthritis involving multiple joints on both sides of body Reactive airway disease Renal insufficiency Sinus arrhythmia TIA (transient ischemic attack) Vertigo Surgical History (Updated 09/20/22 @ 09:48 by CUONG BurkC) S/P INSIDE SALES 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 Pt has a fracture blister at the medial incision.? This incision was closed with nylon and a FRANCO dressing was applied over.? Lateral incision was closed with nylon and soft dressing was applied.? All dressings should remain in place until follow up in office in 2 weeks.? At that time, dressings should be removed and incisions evaluated by a PA; the nylon sutures may not be appropriate for removal at that time.? The pt should be placed in a fracture boot once dressings are removed.? He should remain NWB on the left leg for 3 mos.? He is at high risk for VTE d/t fx, diabetes, and obesity and should remain on ASA 81 mg BID for that period. Postoperative Procedures: Procedures Operation Date: 09/19/22 14:00 Actual Procedure Side Surgeon p ORIF Ankle Fracture Left Wilbur Maradiaga MD Postoperative day: 2
--- NOTE | 2022-09-21 14:28 | PT.IIE ---
Current Diagnoses Displaced trimalleolar fracture of left lower leg, initial encounter for closed fracture (09/17/22) Personal history of (healed) traumatic fracture (09/17/22) Other specified postprocedural states (09/17/22) Surgery Performed Operation Date: 09/19/22 14:00 Actual Procedures p ORIF Ankle Fracture(Left) - Wilbur Maradiaga MD Surgical History (Last Updated 09/16/22 @ 15:16 by [place] Barnes MD) S/P GU[employer] FAMILY MEMBER shunt Medical History (Last Reviewed 09/19/22 @ 14:18 by Wilbur Maradiaga MD) Allergic rhinitis Anxiety Aortic valve sclerosis Bilateral carpal tunnel syndrome Chronic back pain DDD (degenerative disc disease), cervical DDD (degenerative disc disease), lumbar DMII (diabetes mellitus, type 2) Dyslipidemia Erectile dysfunction Gouty arthropathy Hypertension Hypertrophy of prostate Hypothyroidism LBBB (left bundle branch block) Normal pressure hydrocephalus Osteoarthritis involving multiple joints on both sides of body Reactive airway disease Renal insufficiency Sinus arrhythmia TIA (transient ischemic attack) Vertigo Physical Therapy Inpatient Evaluation/Re-Eval M1 PT/OT-IP Prior Functional Status Start: 09/15/22 12:48 Freq: Status: Active Protocol: Document 09/21/22 14:28 AW (Rec: 09/21/22 16:41 AW [id number]) Medical Review Prior Functional Status Medical History Reviewed Yes Diet/Fluid Consistency Dysphagia Mech. Chopped Communication Pt has history of cognitive impairment. He requires some extra processing time on this date - possibly due to pain - but is able to make his needs known. Mobility and Gait Pt uses a 4WW for household mobility. Pt states he sometimes forgets to use the walker. He has chronic neuropathy affecting bilateral feet and ankles. He and his report falls at the rate of about once per month. Spouse states she helps him in and out of bed to elevate his legs. Pt fell and fractured his pelvis > a year ago and needed SNF rehab for several weeks. Activities of Daily Living and IADL's Spouse assists with dressing and stands by during showers. Pt's spouse does all the driving. Social History Household Members spouse Living Arrangements House Number of Floors (Floors) One Floor Home Environment Standard Height Toilet,Tub/ Shower Home Equipment Front Wheel Walker,Four Wheel Walker,Hospital Bed,Grab Bars Near Toilet Employment Status Retired Additional Social History Comment Short threshhold to enter. M2 PT-IP Current Condition Start: 09/15/22 14:06 Freq: Status: Active Protocol: Document 09/21/22 14:28 AW (Rec: 09/21/22 16:41 AW [id number]) Physical Therapy Current Condition Current Condition Evaluation Date 09/21/22 Treatment Diagnosis L trimalleoloar ankle fx s/p ORIF; impaired mobility Onset Date 09/15/22 M3 PT-IP Subjective Start: 09/15/22 14:06 Freq: Status: Active Protocol: Document 09/21/22 14:28 AW (Rec: 09/21/22 16:41 AW [id number]) Subjective Physical Therapy Visit Type Type Initial Evaluation Visit Start Time 13:52 Visit Stop Time 14:28 Total Visit Minutes 36 Notes Pt was originally seen at ED Thursday09/15/22. He was NWB and unable to participate meaningfully with PT. He boarded in the ED and was finally admitted on Thursday while awaiting surgery. PT orders were completed at that time until after surgery. Pt did not go to OR until 09/19/22. New PT orders were received today. Pt's spouse, Mari, was present throughout this re- evaluation. Physical Therapy Visit Comments Patient Comments Pt wonders if he could go to the toilet Patient Goals Pt and his spouse are open to SNF rehab Therapy Pain Assessment Pain When Pain Assessed During Mobility Pain Present Pain Present Pain Reported Location L ankle Scale Used not quantified Pain Behaviors Facial Grimacing,Wincing M4 PT-IP Mobility and Gait Start: 09/15/22 14:06 Freq: Status: Active Protocol: Document 09/21/22 14:28 AW (Rec: 09/21/22 16:41 AW [id number]) PT-Bed Mobility Assessment Rolling Type of Rolling Roll to Right,Roll to Left Level of Assist Maximal Assistance,1 Person Assistance,2 Person Assistance Supine to Sit Supine to Sit Maximum Assistance,2 Person Assistance,Head of Bed Elevated,Bedrails Sit to Supine Sit to Supine Maximum Assistance,2 Person Assistance Scooting Scooting to Edge of Bed Maximum Assistance,Dependent PT-Transfer Assessment Comments Mobility Comments Pt was lying in bed as PT arrived. He agreed to attempt sitting up EOB and asked if he could use the commode. PT arranged commode at bedside. Pt and his spouse were well- aware of NWB LLE. Pt needed max A x 1-2 to complete supine to sit. In sitting, he required mod/max A for sitting balance as he tended to lean toward the right side without support. While sitting, stool was noted on the draw pad. RN arrived to provide 2nd person assist. Pt had poor trunk control in sitting and was deemed unsafe for attempt to stand. He needed max A x 2 for sit to supine and was dependent for repositioning. He needed max A x 2 to roll side to side for pericare and to replace all bed linens. Pt was left lying on the bed with call light in reach. Gait Assessment Comments Gait Comments Pt unable to stand at this time. PT-Balance Assessment Sitting Balance and Reactions Static Sitting Balance Ability Poor Dynamic Sitting Balance Ability Poor M5 PT-IP Objective Assessments Start: 09/15/22 14:06 Freq: Status: Active Protocol: Document 09/21/22 14:28 AW (Rec: 09/21/22 16:41 AW [id number]) Orientation Orientation/Cognition Level of Alertness Confusional State Orientation Name,Situation Safety Awareness Decreased Safety Awareness Memory Description Short Term Impaired Gross Range of Motion Lower Extremity ROM Assessment Left Impaired Strength Lower Extremity Strength Assessment Bilaterally Impaired Hip 3/5 Knee 3+/5 Ankle R 3-/5; L NT Sensation Assessment Sensation Gross Sensation Right LE Impaired,Left LE Impaired Light Touch Impaired Proprioception (Position) Impaired Sensation Description Numbness M6 PT-IP Treatment Start: 09/15/22 14:06 Freq: Status: Active Protocol: Document 09/21/22 14:28 AW (Rec: 09/21/22 16:41 AW [id number]) Physical Therapy Treatment Education Education Provided Weight Bearing Status,Safety M7 PT-IP Assessment and Plan Start: 09/15/22 14:06 Freq: Status: Active Protocol: Document 09/21/22 14:28 AW (Rec: 09/21/22 16:41 AW [id number]) PT Summary Assessment and Plan Potential Rehabilitation Potential Fair Status of Condition at Evaluation Evolving Summary Impairments Pain,ROM,Strength,Balance, Sensation,Cognition,Bed Mobility,Transfers,Gait, Activity Tolerance Assessment Summary Antwon is post-op day two following ORIF left ankle. He was able to participate in re- assessment today, following simple commands with some confusion. He needed max assist x 2 for bed mobility. Sitting balance was poor. Strength has diminished since initial evaluation 6 days ago. Pt was deemed unsafe for attempts to stand today. In this PT's opinion, he would not be able to maintain NWB LLE for standing or transfers. PT strongly recommends SNF rehab for strengthening to assist with functional recovery. Goals Bed Mobility Goal Minimal Assistance Transfer Goal Minimal Assistance,Front Wheeled Walker Gait Goal Minimal Assistance,Front Wheel Walker Gait Distance 10 Days to Meet Goals 10 Frequency of Treatment Frequency Of Treatment Once a Day Treatment Plan Physical Therapy Treatment Plan Bed Mobility Training,Transfer Training,Gait Training, Therapeutic Exercise,Balance Retraining,Discharge Planning, Hot or Cold Pack,Neuromuscular Re-ed Other Recommendations and Next Treatment bed mobility, sitting balance. Focus consider slide board transfer ? Precautions Other Precautions falls Weight Bearing Status Weight Bearing Status Non-Weight Bearing Allowed Weight Bearing Amount (enter % NWB LLE or #) (%) Recommendations To Nursing Amount of Assist Needed Mechanical Lift Discharge Recommendations PT Discharge Recommendations SNF Rehab Transportation Needs at Discharge Wheelchair/Cabulance,Stretcher /Ambulance
--- NOTE | 2022-09-21 15:39 | CM.DPC ---
DCP/continued: Reviewed chart. Patient underwent ankle surgery on 09-18-22. FINANCIAL OPERATIONS CONSULTANT did not see any therapy orders for after surgery. Therefore, obtained PT order to be done today. Patient is inpatient status and medically very close to discharge. Met with patient and spouse at bedside explained role. Patient agreeable to SNF. First SNF choice is [facility] second SNF choice is [facility]. Faxed clinicals to both facilities. Awaiting PT to complete their note. Authorization will need to be obtained from [facility] for SNF. Other facilities that have been faxed are [facility]. Spouse does not want patient to go to [facility]. P: Anticipate SNF as soon as one can accept. JAYA Serrano
[2022-09-21 22:39] LABS: PCO2 ABG 39.5 mmHg (35-45); pH ABG 7.43 (7.35-7.45)
[2022-09-21 22:40] LABS: HCO3 ABG 26 mmol/L (22-26); Oxygen Saturation ABG 92 % (95-100); PO2 ABG 62 mmHg (80-100); TCO2 ABG 27 mmol/L (21-31)
[2022-09-21 22:41] LABS: Fractionated Inspired Oxygen 21
[2022-09-21] MEDS: ATORVASTATIN 20 MG TABLET 10 MG PO (23:05)
[2022-09-22] VITALS (11 sets, daily range): BP systolic 113–147; BP diastolic 53–72; PULSE 66–75; RESP 18–21; TEMP 36.4–36.7; O2SAT 91–96
--- NOTE | 2022-09-22 07:51 | P.PN_ITS ---
Subjective Subjective Date Patient Seen: 09/22/22 Time Patient Seen: 07:51 Interval history: Patient denies pain. Denies fever or chills. No nausea or vomiting. Patient is aware he is in the hospital however believes he is in the hospital in [place]. Exam Vital Signs (past 8 hours): - 09/22/22 01:00 09/22/22 05:00 09/22/22 01:00 Temperature 97.8 F Pulse Rate 75 Respiratory Rate 18 Blood Pressure 147/62 H Pulse Oximetry 91 92 94 Oxygen Delivery Method Room Air Room Air Oxygen Flow Rate 2 09/22/22 05:00 Temperature 97.6 F Pulse Rate 67 Respiratory Rate 18 Blood Pressure 113/62 Pulse Oximetry 95 Oxygen Delivery Method Oxygen Flow Rate 0 Fraction of Inspired Oxygen 21 SaO2/FiO2 Ratio 461 Oxygen Delivery Method Room Air Oxygen Flow Rate 0 Narrative Exam Narrative: Left ankle splint is in place. Patient has good capillary refill. Sensation grossly intact to light touch. Patient able to wiggle his toes. Const General: comfortable Nutritional Appearance: average body habitus Orientation: alert and oriented to person Resp Effort & Inspection: normal respiratory effort and able to speak in complete sentences Objective Labs Result Diagrams: 09/21/22 07:02 09/21/22 06:40 Labs: Laboratory Results - last 24 hr 09/21/22 22:22 ABG pH 7.43 ABG pCO2 39.5 ABG pO2 62 L ABG HCO3 26 ABG Total CO2 27 ABG O2 Saturation 92 L ABG Base Excess 2.0 FiO2 21 PFSH Medical History Allergic rhinitis Anxiety Aortic valve sclerosis Bilateral carpal tunnel syndrome Chronic back pain DDD (degenerative disc disease), cervical DDD (degenerative disc disease), lumbar DMII (diabetes mellitus, type 2) Dyslipidemia Erectile dysfunction Gouty arthropathy Hypertension Hypertrophy of prostate Hypothyroidism LBBB (left bundle branch block) Normal pressure hydrocephalus Osteoarthritis involving multiple joints on both sides of body Reactive airway disease Renal insufficiency Sinus arrhythmia TIA (transient ischemic attack) Vertigo Surgical History S/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 This incision was closed with nylon and a FRANCO dressing was applied over. Lateral incision was closed with nylon and soft dressing was applied. All dressings should remain in place until follow up in office in 2 weeks. At that time, dressings should be removed and incisions evaluated by a PA; the nylon sutures may not be appropriate for removal at that time. The pt should be placed in a fracture boot once dressings are removed. He should remain NWB on t he left leg for 3 mos. He is at high risk for VTE d/t fx, diabetes, and obesity and should remain on ASA 81 mg BID for that period.
[2022-09-22] MEDS: INSULIN LISPRO 100 UNIT/ML 3ML VIAL SUBCUT ×7 (08:41→20:20)
[2022-09-22] MEDS: INSULIN GLARGINE 100 UNIT/ML 3ML PEN 20 UNIT SUBCUT ×2 (08:45→20:22)
[2022-09-22] MEDS: FUROSEMIDE 40 MG TABLET 80 MG PO (08:47)
[2022-09-22] MEDS: allopurinoL 100 MG TABLET 200 MG PO (08:47)
[2022-09-22] MEDS: ASPIRIN EC 81 MG TABLET PO ×2 (08:47→20:19)
[2022-09-22] MEDS: GABAPENTIN 300 MG CAPSULE PO ×3 (08:47→20:19)
[2022-09-22] MEDS: MONTELUKAST 10 MG TABLET PO (08:47)
[2022-09-22] MEDS: POTASSIUM CHLORIDE 10 MEQ TAB PO (08:47)
[2022-09-22] MEDS: carvediloL 3.125 MG TABLET 6.25 MG PO ×2 (08:59→20:18)
[2022-09-22] MEDS: LOSARTAN 50 MG TABLET 100 MG PO (08:59)
--- NOTE | 2022-09-22 12:06 | PT.IPTN ---
Current Diagnoses Displaced trimalleolar fracture of left lower leg, initial encounter for closed fracture (09/17/22) Personal history of (healed) traumatic fracture (09/17/22) Other specified postprocedural states (09/17/22) Surgery Performed Operation Date: 09/19/22 14:00 Actual Procedures p ORIF Ankle Fracture(Left) - Wilbur Maradiaga MD Physical Therapy Treatment Note M2 PT-IP Current Condition Start: 09/15/22 14:06 Freq: Status: Active Protocol: Document 09/21/22 14:28 AW (Rec: 09/21/22 16:41 AW [id number]) Physical Therapy Current Condition Current Condition Evaluation Date 09/21/22 Treatment Diagnosis L trimalleoloar ankle fx s/p ORIF; impaired mobility Onset Date 09/15/22 M3 PT-IP Subjective Start: 09/15/22 14:06 Freq: Status: Active Protocol: Document 09/22/22 12:06 AW (Rec: 09/22/22 13:25 AW [id number]) Subjective Physical Therapy Visit Type Type Treatment Note Visit Start Time 11:27 Visit Stop Time 12:06 Total Visit Minutes 39 Notes Co-tx with OT. Physical Therapy Visit Comments Patient Comments Pt is willing to attempt transfer today. Patient Goals Hoping to go to rehab to get stronger for eventual return home. Therapy Pain Assessment Pain When Pain Assessed During Mobility Pain Present Pain Present Denied Pain Location L ankle Scale Used not quantified Pain Behaviors Facial Grimacing,Wincing M4 PT-IP Mobility and Gait Start: 09/15/22 14:06 Freq: Status: Active Protocol: Document 09/22/22 12:06 AW (Rec: 09/22/22 13:25 AW [id number]) PT-Bed Mobility Assessment Supine to Sit Supine to Sit Maximum Assistance,2 Person Assistance,Head of Bed Elevated,Bedrails Sit to Supine Sit to Supine Total Assistance,2 Person Assistance Scooting Scooting to Edge of Bed Dependent PT-Transfer Assessment Comments Mobility Comments Pt was lying in bed as PT and OT arrived. Discussed slide board transfer to chair with pt who agreed to attempt. He needed max A x 2 to sit up EOB . Sitting balance required mod A initially but improved to min A once positioned closer to EOB. Pt was able to lean toward his left side for placement of slide board but in the process, noted pt was mid-bowel movement. Called RN. Pt was dependent for scooting sideways toward HOB and needed total A x 2 for sit to supine and scooting up on bed. To facilitate pericare, pt was able to follow commands for rolling side to side with heavy use of bed tilt feature. He was dependent for boosting toward HOB. RN felt pt was still passing stool and preferred pt remain in bed at this time. Discussed recommendation for waffle cushion and for steve transfer to chair later in the day. Gait Assessment Comments Gait Comments Pt unable to stand at this time. Would not be able to maintain NWB LLE in standing. PT-Balance Assessment Sitting Balance and Reactions Static Sitting Balance Ability Fair Dynamic Sitting Balance Ability Fair M5 PT-IP Objective Assessments Start: 09/15/22 14:06 Freq: Status: Active Protocol: Document 09/21/22 14:28 AW (Rec: 09/21/22 16:41 AW [id number]) Orientation Orientation/Cognition Level of Alertness Confusional State Orientation Name,Situation Safety Awareness Decreased Safety Awareness Memory Description Short Term Impaired Gross Range of Motion Lower Extremity ROM Assessment Left Impaired Strength Lower Extremity Strength Assessment Bilaterally Impaired Hip 3/5 Knee 3+/5 Ankle R 3-/5; L NT Sensation Assessment Sensation Gross Sensation Right LE Impaired,Left LE Impaired Light Touch Impaired Proprioception (Position) Impaired Sensation Description Numbness M6 PT-IP Treatment Start: 09/15/22 14:06 Freq: Status: Active Protocol: Document 09/22/22 12:06 AW (Rec: 09/22/22 13:25 AW [id number]) Physical Therapy Treatment Education Education Provided Weight Bearing Status,Safety M7 PT-IP Assessment and Plan Start: 09/15/22 14:06 Freq: Status: Active Protocol: Document 09/22/22 12:06 AW (Rec: 09/22/22 13:25 AW [id number]) PT Summary Assessment and Plan Potential Rehabilitation Potential Fair Status of Condition at Evaluation Evolving Summary Impairments Pain,ROM,Strength,Balance, Sensation,Cognition,Bed Mobility,Transfers,Gait, Activity Tolerance Progress Towards Goals Slow Progress due to Medical Issues,Slow Progress due to Activity Tolerance Assessment Summary Antwon is following simple directions today and is more alert. He continues to require max to total assist x 2 for bed mobility. He was able to lean sideways for placement of slide board but could not complete transfer due to toileting needs. He had a great deal of difficulty coordinating lateral scoot on the bed with max A x 2. Sitting balance, however, has improved and PT feels pt would benefit from sitting up in the chair later today. Discussed steve transfer with RN in the context of improved sitting balance. PT strongly recommends SNF rehab for strengthening to assist with functional recovery. Goals Bed Mobility Goal Minimal Assistance Transfer Goal Minimal Assistance,Front Wheeled Walker Gait Goal Minimal Assistance,Front Wheel Walker Gait Distance 10 Days to Meet Goals 10 Frequency of Treatment Frequency Of Treatment Once a Day Treatment Plan Physical Therapy Treatment Plan Bed Mobility Training,Transfer Training,Gait Training, Therapeutic Exercise,Balance Retraining,Discharge Planning, Hot or Cold Pack,Neuromuscular Re-ed Other Recommendations and Next Treatment bed mobility, sitting balance. Focus consider slide board transfer ? Precautions Other Precautions falls Weight Bearing Status Weight Bearing Status Non-Weight Bearing Allowed Weight Bearing Amount (enter % NWB LLE or #) (%) Recommendations To Nursing Amount of Assist Needed Mechanical Lift Discharge Recommendations PT Discharge Recommendations SNF Rehab Transportation Needs at Discharge Wheelchair/Cabulance,Stretcher /Ambulance
[2022-09-22] MEDS: ENOXAPARIN 40 MG/0.4 ML SYRINGE SUBCUT (12:17)
--- NOTE | 2022-09-22 12:17 | OT.IP.EVAL ---
Current Diagnoses Displaced trimalleolar fracture of left lower leg, initial encounter for closed fracture (09/17/22) Personal history of (healed) traumatic fracture (09/17/22) Other specified postprocedural states (09/17/22) Surgery Performed Operation Date: 09/19/22 14:00 Actual Procedures p ORIF Ankle Fracture(Left) - Wilbur Maradiaga MD Past Medical History (Last Reviewed 09/22/22 @ 07:53 by Bora Winston PA-C) Allergic rhinitis Anxiety Aortic valve sclerosis Bilateral carpal tunnel syndrome Chronic back pain DDD (degenerative disc disease), cervical DDD (degenerative disc disease), lumbar DMII (diabetes mellitus, type 2) Dyslipidemia Erectile dysfunction Gouty arthropathy Hypertension Hypertrophy of prostate Hypothyroidism LBBB (left bundle branch block) Normal pressure hydrocephalus Osteoarthritis involving multiple joints on both sides of body Reactive airway disease Renal insufficiency Sinus arrhythmia TIA (transient ischemic attack) Vertigo Surgical History (Last Reviewed 09/22/22 @ 07:53 by Bora Winston PA-C) S/P CHEF UNDER shunt Occupational Therapy Inpatient Evaluation/Re-Eval M1 PT/OT-IP Prior Functional Status Start: 09/15/22 12:48 Freq: Status: Active Protocol: Document 09/22/22 12:17 [facility] (Rec: 09/22/22 13:44 [facility] [id number]) Medical Review Prior Functional Status Medical History Reviewed Yes Diet/Fluid Consistency Dysphagia Mech. Chopped Communication Pt has history of cognitive impairment. He requires some extra processing time on this date - possibly due to pain - but is able to make his needs known. Mobility and Gait Pt uses a 4WW for household mobility. Pt states he sometimes forgets to use the walker. He has chronic neuropathy affecting bilateral feet and ankles. He and his report falls at the rate of about once per month. Spouse states she helps him in and out of bed to elevate his legs. Pt fell and fractured his pelvis > a year ago and needed SNF rehab for several weeks. Activities of Daily Living and IADL's Spouse assists with dressing and stands by during showers. Pt's spouse does all the driving. Social History Household Members spouse Living Arrangements House Number of Floors (Floors) One Floor Home Environment Standard Height Toilet,Tub/ Shower Home Equipment Front Wheel Walker,Four Wheel Walker,Hospital Bed,Grab Bars Near Toilet Employment Status Retired Additional Social History Comment Short threshhold to enter. M2 OT-IP Current Condition Start: 09/22/22 13:22 Freq: Status: Active Protocol: Document 09/22/22 12:17 [facility] (Rec: 09/22/22 13:44 [facility] [id number]) Occupational Therapy Current Condition Current Condition Evaluation Date 09/22/22 Treatment Diagnosis S/p L ORIF ankle sx Diagnosis Onset Date 09/17/22 Weight Bearing Status Weight Bearing Status Non-Weight Bearing Allowed Weight Bearing Amount (enter % NWB to LLE for 3 months or #) (%) M3 OT- IP Subjective and Pain Start: 09/22/22 13:22 Freq: Status: Active Protocol: Document 09/22/22 12:17 [facility] (Rec: 09/22/22 13:44 [facility] [id number]) OT- Subjective Occupational Therapy Visit Type Type Initial Evaluation Visit Start Time 11:26 Visit Stop Time 12:17 Total Visit Minutes 51 Occupational Therapy Visit Comments Patient Comments Pt agreed to try to get up. PT present as pt needing extensive assist for mobility needs. Patient/Caregiver Goals to get better OT Pain Assessment Pain When Pain Assessed During Mobility Pain Present Pain Present Pain Reported M4 OT- IP ADL's Start: 09/22/22 13:22 Freq: Status: Active Protocol: Document 09/22/22 12:17 [facility] (Rec: 09/22/22 13:44 [facility] [id number]) OT [id number] Comments OT Self-Feeding Comments NOt at meal time. OT ADL-Grooming General Evaluation Grooming Ability Standby Assistance Areas Needing Assistance Retrieving/Set-up of Grooming Items Comments OT Grooming Comments Pt able to do after set-up while sitting up in the bed. OT ADL-Oral Care General Eval Oral Care Ability Standby Assistance Areas of Assistance Retrieving/Set-Up of Items Comments Oral Care Comments Pt able to do after set-up of items on tray table while seated in bed. OT ADL-Dressing General Eval Lower Body Dressing Ability Total Assistance Areas Needing Assistance Underpants/Brief Comments OT Dressing Comments Total assist x2 for brief change while in supine. OT ADL-Toileting General Evaluation Toileting Ability Total Assistance Areas Needing Assistance Manage Clothing,Perform Perineal Hygiene Comments OT Toileting Comments Total assist after a bowel movement incontinence in brief OT ADL-Bathing Comments OT Bathing Comments Sponge bathing more appropriate at this time due to limited mobility as pt is NWB to LLE. M5 OT- IP IADL's Start: 09/22/22 13:22 Freq: Status: Active Protocol: Document 09/22/22 12:17 [facility] (Rec: 09/22/22 13:44 [facility] [id number]) OT-Instrumental Activities of Daily Living Home Safety Awareness Home Safety Comments Pt needing increased time to process commands. Pt states his assist with his IADL needs. Medication Management Medication Management Caregiver Administers Money Management Money Management Caregiver Provides Assistance Meal Preparation Meal Preparation Caregiver Provides Assist Exercise Rider Exercise Rider Caregiver Provides Assist M6 OT- IP Functional Cognition Start: 09/22/22 13:22 Freq: Status: Active Protocol: Document 09/22/22 12:17 [facility] (Rec: 09/22/22 13:44 [facility] [id number]) Cognitive Factors Limiting Selfcare Function Cognitive Ability Level of Alertness Alert Patient Orientation Name,Situation Attention Span Ability Capable of Focused Attention, Capable of Sustained Attention Ability to Follow Commands Able to Follow One Step Commands Memory Description Short Term Impaired Cognitive Comments Cognitive Assessment Comments Pt able to follow simple commands with step by step directions for ADl and mobility needs. At times pt needs increased time to follow commands. M7 OT- IP Mobility and Balance Start: 09/22/22 13:22 Freq: Status: Active Protocol: Document 09/22/22 12:17 [facility] (Rec: 09/22/22 13:44 [facility] [id number]) OT- Bed Mobility Assessment Supine to Sit Supine to Sit Assist Maximum Assistance,2 Person Assistance Sit to Supine Sit to Supine Assist Total Assistance,2 Person Assistance Scooting Scooting to Edge of Bed Maximum Assistance,2 Person Assistance Scooting Up and Down in Bed Total Assistance,2 Person Assistance OT-Transfer Assessment Comments Mobility Comments MAXA X2 to help get pt to the edge of the bed, assist to move his LLE and get his trunk upright and heavy use of green pad to assist. Attempted to try sliding board however noted pt incontinent of brief and therefore assisting pt TOTAL A x2 to supine and nursing came in to assist with hygiene needs. It was passed along to pt's nurse that pt may benefit from a waffle cushion especially if able to steve him later to the recliner . OT- Balance Assessment Sitting Balance and Reactions Static Sitting Balance Ability Fair Dynamic Sitting Balance Ability Poor Standing Balance and Reactions Static Standing Balance Ability Poor Dynamic Standing Balance Ability Poor Comments Other Balance Tests/Deviations/Treatment Initially pt needing MOA for : balance and then able to sit with LUCITA. M8 OT- IP Objective Assessments Start: 09/22/22 13:22 Freq: Status: Active Protocol: Document 09/22/22 12:17 [facility] (Rec: 09/22/22 13:44 [facility] [id number]) OT Gross Range of Motion Upper Extremity Range of Motion Assessment Bilaterally Impaired OT Strength Upper Extremity Strength Assessment Bilaterally Impaired Comments Strength Comments BUE strength 3-/5 to 4-/5 M9 OT- IP Assessment and Plan Start: 09/22/22 13:22 Freq: Status: Active Protocol: Document 09/22/22 12:17 [facility] (Rec: 09/22/22 13:44 [facility] [id number]) OT Summary Assessment and Plan Potential Rehabilitation Potential Fair Analytic Complexity at Evaluation Moderate Summary OT Impairments Strength,Balance,Functional Cognition,Functional Mobility, Self-Feeding,Grooming,Dressing ,Toileting,Bathing,Toilet Transfers,Shower Transfers, Activity Tolerance Progress Towards Goals Slow Progress due to Pain,Slow Progress due to Medical Issues,Slow Progress due to Activity Tolerance Assessment Summary Pt MOD complexity and now is NWB to LLE for 3 month due to s/p fall and have history of NPH. Pt currently MAXAx2 to total a x2 for bed mobility needs. Pt will benefit from skilled rehab prior to going home as pt's current level to great for his to assist. Goals Self-Feeding Goal Independent Grooming Goal Independent Dressing Goal Moderate Assistance Toileting Goal Moderate Assistance Bathing Goal Moderate Assistance Toilet Transfer Goal Moderate Assistance Shower Transfer Goal Moderate Assistance Days to Meet Goals 25 Frequency of Treatment Frequency Of Treatment Once a Day Treatment Plan OT Treatment Plan ADL Training,Functional Cognition Training,Functional Mobility,Patient/Family Education,Discharge Planning Other Treatment Recommendations and Next Slidig board transfer to drop Treatment Focus arm commode with MAX AX 2. Discharge Recommendations OT Discharge Recommendations SNF Rehab Transportation Needs at Discharge Wheelchair/Cabulance
[2022-09-22] MEDS: ALBUTEROL/IPRATROPIUM 3 ML AMPUL INH (12:56)
--- NOTE | 2022-09-22 13:23 | CM.DPC ---
Addendum entered by JAYA Hall 09/22/22 14:37: ADD: Per [facility] they received insurance auth for SNF and will work on setting up transport via cabulance for around 1100 tomorrow 09/23/22. BF Original Note: DCP SNF Planning: Per MD, pt making progress but will be nonweight bearing for 3 months. SW called spouse's SNF preferences and faxed updated PT notes to review: [facility]- cannot accept as pt's insurance likely will not approve for long and too many insurance auths right now and not willing to work on another. [facility]- left couple msgs with admissions and faxed updated clinicals [facility]- willing to accept and initiated insurance auth for [facility]. SW called pt's spouse due to pt's confusion and updated her on above and she was hopeful for [facility] but aware if no answer from [facility] soon today then plan will be [facility] who can start auth process today. [facility] previously completed. Plan: SW to follow for likely [facility] once [facility] auth obtained and determined. JAYA Hall
--- NOTE | 2022-09-22 15:35 | P.PN_ITS ---
Subjective Subjective Date Patient Seen: 09/22/22 Interval history: ?Patient is seen in his room here to follow-up his fall and left ankle fracture with open reduction internal fixation.? He received insurance authorization for a halfway facility admission this afternoon and will be transferred tomorrow to a halfway facility. Patient has no new complaints. Control of pain is adequate. Exam Vital Signs (past 8 hours): - 09/22/22 08:59 09/22/22 08:59 09/22/22 09:00 Temperature 97.8 F Pulse Rate 66 66 69 Respiratory Rate 20 Blood Pressure 117/65 117/65 120/60 Pulse Oximetry 94 Oxygen Delivery Method Oxygen Flow Rate 0 09/22/22 13:02 09/22/22 09:00 09/22/22 13:37 Temperature Pulse Rate Respiratory Rate Blood Pressure Pulse Oximetry 96 94 96 Oxygen Delivery Method Room Air Room Air Oxygen Flow Rate 0 0 09/22/22 13:00 Temperature 98.1 F Pulse Rate 72 Respiratory Rate 21 Blood Pressure 119/57 L Pulse Oximetry 96 Oxygen Delivery Method Oxygen Flow Rate 0 Fraction of Inspired Oxygen 21 SaO2/FiO2 Ratio 461 Oxygen Delivery Method Room Air Oxygen Flow Rate 0 Narrative Exam Narrative: Patient is alert however just would like to have an afternoon nap. No apparent distress Heart is regular rate and rhythm without murmur Lungs are clear to auscultation bilaterally Right leg has no ankle edema Left leg in postop dressing with slab for support. Objective Labs Result Diagrams: 09/21/22 07:02 09/21/22 06:40 Labs: Laboratory Results - last 24 hr 09/21/22 22:22 ABG pH 7.43 ABG pCO2 39.5 ABG pO2 62 L ABG HCO3 26 ABG Total CO2 27 ABG O2 Saturation 92 L ABG Base Excess 2.0 FiO2 21 PFS Medical History Allergic rhinitis Anxiety Aortic valve sclerosis Bilateral carpal tunnel syndrome Chronic back pain DDD (degenerative disc disease), cervical DDD (degenerative disc disease), lumbar DMII (diabetes mellitus, type 2) Dyslipidemia Erectile dysfunction Gouty arthropathy Hypertension Hypertrophy of prostate Hypothyroidism LBBB (left bundle branch block) Normal pressure hydrocephalus Osteoarthritis involving multiple joints on both sides of body Reactive airway disease Renal insufficiency Sinus arrhythmia TIA (transient ischemic attack) Vertigo Surgical History S/P CLAIMS REPRESENTATIVE shunt Social History household members: spouse Smoking Status: Unknown if ever smoked Assessment & Plan Assessment & Plan narrative: [address] [address] Progress Note Patient: Antwon Rodríguez MR#: [id number] : 1940 Acct:[id number] Age/Sex: 82 / M ? Date of Service: 09/17/22 Provider:?Mary Ann Perez MD Subjective Subjective Date Patient Seen: 09/21/22 Interval history: He is seen in his room here to follow-up his fall and left ankle injury.? He is pending insurance authorization for a halfway facility admission tomorrow. Exam Vital Signs (past 8 hours): - ? 09/21/22 05:01 09/21/22 05:33 09/21/22 08:04 Temperature ? 97.6 F ? Pulse Rate ? 65 68 Respiratory Rate ? 16 18 Blood Pressure ? 135/59 L ? Pulse Oximetry 96 93 92 Oxygen Delivery Method Room Air ? ? Oxygen Flow Rate ? 09/21/22 09:27 09/21/22 09:00 Temperature ? 96.4 F L Pulse Rate ? 76 Respiratory Rate ? 20 Blood Pressure ? 112/63 Pulse Oximetry 96 96 Oxygen Delivery Method Room Air ? Oxygen Flow Rate ? 0 Fraction of Inspired Oxygen ? 21? SaO2/FiO2 Ratio ? 461 ? Oxygen Delivery Method? Room Air? Oxygen Flow Rate? 0 ? Narrative Exam Narrative: He does not wake up or interact with me despite attempts to speak to him and get his attention through gentle touch. No apparent distress Heart is regular rate and rhythm without murmur Lungs are clear to auscultation bilaterally Right leg has no ankle edema Left leg is in a long cast. Objective Labs Result Diagrams: 09/21/22 07:02? 09/21/22 06:40? Labs: Laboratory Results - last 24 hr ? 09/21/22 09/21/22 ? 06:40 07:02 WBC ? ?12.2 H RBC ? ?4.11 L Hgb ? ?13.6 Hct ? ?40.7 L MCV ? ?98.9 MCH ? ?33.1 MCHC ? ?33.4 RDW ? ?14.1 Plt Count ? ?145 L Neut % (Auto) ? ?72.1 Lymph % (Auto) ? ?15.8 L [place] % (Auto) ? ?9.0 Eos % (Auto) ?B ?2.4 Baso % (Auto) ? ?0.7 Neut # (Auto) ? ?8800 H Lymph # (Auto) ? ?1900 [place] # (Auto) ? ?1100 H Eos # (Auto) ? ?300 Baso # (Auto) ? ?100 Sodium ?141 ? Potassium ?3.9 ? Chloride ?104 ? Carbon Dioxide ?29 ? BUN ?51 H ? Creatinine ?1.62 H ? Estimated GFR ?42 L ? BUN/Creatinine Ratio ?31.5 H ? Glucose ?158 H D ? Calcium ?8.3 L ? PFSH Medical History? Allergic rhinitis Anxiety Aortic valve sclerosis Bilateral carpal tunnel syndrome Chronic back pain DDD (degenerative disc disease), cervical DDD (degenerative disc disease), lumbar DMII (diabetes mellitus, type 2) Dyslipidemia Erectile dysfunction Gouty arthropathy Hypertension Hypertrophy of prostate Hypothyroidism LBBB (left bundle branch block) Normal pressure hydrocephalus Osteoarthritis involving multiple joints on both sides of body Reactive airway disease Renal insufficiency Sinus arrhythmia TIA (transient ischemic attack) Vertigo Surgical History?(Updated 09/20/22 @ 09:48 by Bev Benoit PA-C) S/P CLAIMS REPRESENTATIVE shunt Social History? household members:? spouse Smoking Status:? Unknown if ever smoked Assessment & Plan 1. Ground level fall, status post left trimalleolar fracture displacement requiring surgery -status post reduction in the ED -status post ORIF 09/19/2022 -cont PT/OT -09/22/2022 insurance authorization receive for halfway facility, will discharge tomorrow 2. Type 2 diabetes, insulin requiring, with neuropathy -significant elevated glucose, >300 in ED -patient on insulin 70/30 at home -currently on Lantus 20 units b.i.d. and lispro high-dose sliding scale -added lispro 5 units with meals 3.? Acute kidney injury, prerenal -likely volume depletion, responded to IV fluids -he is back to baseline creatinine of around 1.4 -encourage p.o. fluid intake, no labs were taken today 4. Acute volume depletion, preop, resolved -septic shock diagnosis ruled out due to absence of source of infection -has mild leukocytosis likely stress related -blood culture 09/17 growing Gram-positive rods, likely contaminant -discontinued antibiotic 5. Normal pressure hydrocephalus status post CLAIMS REPRESENTATIVE shunt -likely significant contributor to fall -had normal shuntogram May 2022 6. Significant cognitive impairment -patient does not have dementia: diagnosis, states memory impairment has been attributed to NPH -unclear whether patient is at his baseline or having more confusion 7.? Hypertension -continue home medication routine, hypertension control is good 8.? Hypothyroidism -continue levothyroxine home dose -TSH 4.49 9. History of aortic stenosis and mitral stenosis -echo in 2018 noted EF 55-60%, MS, mild MR, mild -echo shows LVEF 65-70%, severe , mild MS -patient will need outpatient cardiology consultation for his severe -continue furosemide 80 mg daily per home routine Disposition: insurance authorization has been obtained for halfway facility rehab in expect discharge on September 23, 2022. Time Spent With Patient Critical Care time: I spent a total of [] minutes of critical care time on this patient's care tod ay; this time is exclusive of procedural time.
[2022-09-22] MEDS: ATORVASTATIN 20 MG TABLET 10 MG PO (20:19)
[2022-09-23 01:30] VITALS: BP 110/65; PULSE 70; RESP 18; TEMP 36.8; O2SAT 94
[2022-09-23] MEDS: ALBUTEROL/IPRATROPIUM 3 ML AMPUL INH (07:29)
[2022-09-23 07:31] VITALS: O2SAT 95
[2022-09-23 08:00] VITALS: BP 106/67; PULSE 65; RESP 18; TEMP 36.8; O2SAT 92
--- NOTE | 2022-09-23 08:11 | CM.DPC ---
DCP Discharge to SNF Per MD, pt is medically stable to d/c to SNF today. [facility] confirms they can provide transport around 1030 today and SW updated RN, mixer attendant, and VOCATIONAL TEACHER and RN to get updated COVID swab this morning. RAO called pt's spouse and provided update and she is agreeable with d/c to [facility] today and will call and f/u with them after discharge regarding her spouse's care and needs. RADHA Bowen kindly faxing d/c packet to [facility] to review. Plan: Patient to d/c to [facility] today via facility van at 1030 before safe return home with spouse. JAYA Hall
--- NOTE | 2022-09-23 09:27 | P.DS_ITS ---
History of Present Illness History of Present Illness Chief complaint: mechanical fall +deform ankle Narrative: 82-year-old male with history of normal pressure hydrocephalus, significant cognitive impairment related to NPH, type 2 diabetes insulin requiring, mild aortic stenosis, mild mitral stenosis and regurgitation, LBBB, hypertension, hypothyroidism, peripheral neuropathy transported by ambulance to ED after a ground level fall at home.? Patient lives with his who is primary caregiver.? He was apparently using walker and lost his balance and was complaining of pain in the left ankle.? X-rays revealed a trimalleolar fracture dislocation which was successfully reduced in the ED. patient himself has significant cognitive impairment and is unable to recall recent events.? His spouse has not noticed recent fever, respiratory symptoms or other acute illness.? As far as his NPH, patient had a shuntogram at the end of May 2022 which showed that the MARKETING PROGRAM COORDINATOR shunt is functioning well.? In regards to diabetes, his blood sugars in the ED have been elevated with last CBG 360.? Labs were unremarkable. 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 Status post left trimalleolar fracture displacement 2. Type 2 diabetes insulin requiring 3. Acute kidney injury 4. Severe aortic stenosis and mild mitral stenosis 5. Normal pressure hydrocephalus 6. Status post MARKETING PROGRAM COORDINATOR shunt 7. Severe cognitive impairment 8. Hypertension 9. Hypothyroidism 09/19/2022: ORIF displaced left trimalleolar fracture ECHO:The left ventricular cavity is small. The ejection fraction is estimated to be 65-70%. ? The right ventricle is normal in size and function. ? There is moderate mitral annular calcification. Mitral valve leaflets appear thickened with moderate calcification of tip of the both leaflets. Posterior mitral leaflet has some restricted movement. The mitral valve mean gradient is 4.4 mmHg. Previously gradient about 4 mmHg. Overall mild mitral stenosis. No severe mitral stenosis. ? The aortic valve is heavily calcified. The aortic valve is trileaflet. There is severely reduced leaflet mobility. The peak aortic velocity is 4.0 m/sec. The aortic valve mean gradient is 44 mmHg. The calculated aortic valve area is 0.82 cm2. There is severe aortic stenosis. The peak aortic velocity on the previous exam was 2.7 m/sec. Compared to the prior echo study, there has been an increase in the severity of aortic stenosis. There is mild aortic regurgitation. ? There is mild luminal irregularity and echogenicity in the abdominal aorta, suggestive of aortic atherosclerotic disease. ? Mild atherosclerotic plaque(s) in the aortic arch. Hospital Course: As noted patient presented after a fall which resulted in a displaced left trimalleolar fracture. He had fracture reduction in the ED. He later had surgical repair with ORIF. He had acute renal injury due to volume depletion on admission which has resolved. His baseline creatinine is around 1.4. An echo was done which showed progression of aortic stenosis to where he now has severe and also mild MS with preserved LVEF. Patient's spouse was made aware of ech o findings and to pursue cardiology consultation as outpatient. Blood sugars have been adequately controlled. Patient has significant memory loss associated with NPH but does not carry prior diagnosis of dementia. Nevertheless his orientation is limited to self but he is able to participate in care. He will need to be nonweightbearing on the left leg for 3 months. During this time ortho recommends he stay on b.i.d. aspirin for DVT prophylaxis. He has ortho follow-up in 2 weeks as well. Status at Discharge Cognitive/behavioral status at discharge: at baseline, oriented (self only) Functional status at discharge: bed bound Overall status at discharge: patient is not back to baseline Time Spent with Patient Time spent: Greater than 30 minutes Exam Vital Signs (past 8 hours): - 09/23/22 01:30 09/23/22 07:31 09/23/22 08:00 Temperature 98.3 F 98.2 F Pulse Rate 70 65 Respiratory Rate 18 18 Blood Pressure 110/65 106/67 Pulse Oximetry 94 95 92 Oxygen Flow Rate 0 0 Fraction of Inspired Oxygen 21 SaO2/FiO2 Ratio 461 Oxygen Delivery Method Room Air Oxygen Flow Rate 0 Narrative Exam Narrative: General: He is alert very pleasant male who appears comfortable Lungs: Clear to auscultation Heart: Regular rhythm with a loud systolic murmur Abdomen: Obese, soft Extremities: Chronic venous stasis changes on non operative leg Neurological: Affect normal, speech normal, oriented to self only Objective Labs Result Diagrams: 09/21/22 07:02 09/21/22 06:40 [facility] Medical History Allergic rhinitis Anxiety Aortic valve sclerosis Bilateral carpal tunnel syndrome Chronic back pain DDD (degenerative disc disease), cervical DDD (degenerative disc disease), lumbar DMII (diabetes mellitus, type 2) Dyslipidemia Erectile dysfunction Gouty arthropathy Hypertension Hypertrophy of prostate Hypothyroidism LBBB (left bundle branch block) Normal pressure hydrocephalus Osteoarthritis involving multiple joints on both sides of body Reactive airway disease Renal insufficiency Sinus arrhythmia TIA (transient ischemic attack) Vertigo Surgical History S/P MARKETING PROGRAM COORDINATOR shunt Social History household members: spouse Smoking Status: Unknown if ever smoked Discharge Plan Discharge Plan Patient Disposition: SNF Transfer to: [facility], [place] Consult as needed: Dental, Hearing, Mental health, Podiatry and Vision Provider Discharge Comment: 82 yo hx NPH, IDDM s/p ORIF lt trimalleolar fx. Per orhto he is non-weight bearing on lt leg x 3 months. Keep on bid ASA during this time for DVT prophylaxis. Check CBG 2x daily, notify provider if < 100 or > 200 Discharge orders & Medications Prescriptions: New acetaminophen 325 mg Tablet 650 mg PO Q6H PRN (Reason: Fever/Mild Pain (1-3)) Qty: 60 0RF aspirin 81 mg Tablet,Delayed Release (Dr/Ec) 81 mg PO BID Qty: 60 0RF Rx Instructions: Continue bid aspirin while patient is non-weight bearing on LLE (about 3 months) Continued furosemide 40 mg Tablet 80 mg PO DAILY carvedilol 6.25 mg Tablet 6.25 mg PO BID Rx Instructions: must administer with a meal/food loperamide 2 mg Tablet 2 mg PO QID PRN (Reason: Diarrhea) Humulin 70/30 U-100 Insulin 100 unit/mL (70-30) Suspension See Rx Instructions .ROUTE .COMPLEX Rx Instructions: 44 units in the morning 32 units at night potassium chloride 10 mEq Tablet Extended Release 10 meq PO DAILY allopurinol 100 mg Tablet 200 mg PO DAILY levothyroxine 100 mcg Tablet 100 mcg PO DAILY telmisartan 80 mg Tablet 80 mg PO DAILY gabapentin 300 mg Capsule 300 mg PO TID montelukast 10 mg Tablet 10 mg PO DAILY lovastatin 20 mg Tablet 20 mg PO QPM Follow up/Referrals: Wilbur Maradiaga MD [Physician] - 2 Weeks (Follow up in office in 2 weeks. At that time, dressings should be removed and incisions evaluated by a PA; the nylon sutures may not be appropriate for removal at that time. The pt should be placed in a fracture boot once dressings are removed. ) Anamaria Gordon DO [Primary Care Provider] - Discharge Health Status Multidrug resistant organism: No MDRO Precautions: Mittie Diet/Activity/Treatments Diet: Carb-consistent/Diabetic Liquid consistency: Normal/Thin Food texture: Regular Activity: Nonweightbearing on the left leg for 3 mos. Catheter: 2-way Cervantes Catheter comment: Remove cervantes at SNF! Other treatments: ASA BID x 3 months Skin/Wound/Dressing Care Dressing: All dressings should remain in place until follow up in office in 2 weeks. The medial incision has a FRANCO dressing. In 5-7 days, the batteries will ; at that time, the battery pack may be cut off and disposed of. [facility] Reason for rehabilitation: Post-operative therapy Rehab type: Physical therapy and Occupational therapy Visit Report/Discharge Packet Instructions: DI for Open Reduction Internal Fixation Surgery Stand Alone Forms: Patient Portal/API, Surgery Discharge Discharge Data Primary Care Provider: Anamaria Gordon
[2022-09-23] MEDS: ENOXAPARIN 40 MG/0.4 ML SYRINGE SUBCUT (09:37)
[2022-09-23 09:38] VITALS: BP 133/69; PULSE 68
[2022-09-23] MEDS: LOSARTAN 50 MG TABLET 100 MG PO (09:38)
[2022-09-23 09:41] VITALS: BP 133/69; PULSE 69
[2022-09-23] MEDS: MONTELUKAST 10 MG TABLET PO (09:41)
[2022-09-23] MEDS: carvediloL 3.125 MG TABLET 6.25 MG PO (09:41)
[2022-09-23] MEDS: POTASSIUM CHLORIDE 10 MEQ TAB PO (09:41)
[2022-09-23] MEDS: ASPIRIN EC 81 MG TABLET PO (09:42)
[2022-09-23] MEDS: GABAPENTIN 300 MG CAPSULE PO (09:42)
[2022-09-23] MEDS: FUROSEMIDE 40 MG TABLET 80 MG PO (09:42)
[2022-09-23] MEDS: allopurinoL 100 MG TABLET 200 MG PO (09:42)
[2022-09-23] MEDS: INSULIN GLARGINE 100 UNIT/ML 3ML PEN 20 UNIT SUBCUT (09:49)
[2022-09-23] MEDS: INSULIN LISPRO 100 UNIT/ML 3ML VIAL SUBCUT ×2 (09:50)
[2022-09-23 10:00] VITALS: O2SAT 96
[2022-09-23 10:00] LABS: COVID19 -Nasal RAPID Negative (Negative)
--- NOTE | 2022-09-23 11:30 | PC.NURSE ---
Discharge note: Patient discharged to [facility] in stable condition. Discharged via cabulance/[facility]. Report given to receiving nurse at [facility], all questions answered. Discharge packet with patient, including medications.
== END 2022-09-23 10:30 | DRG 493 ==
LOC: ED 09-16 18:05 → AC 09-17 20:48
PROVIDERS: Emergency Medicine; Internal Medicine; Orthopaedic Surgery; Student in an Organized Health Care Education/Training Program; Admitting Provider Internal Medicine; Emergency Provider Emergency Medicine; PCP Family Medicine; Referring Provider Emergency Medicine; Visit Provider Internal Medicine
PROC: 0QHK04Z Insertion of Internal Fixation Device into Left Fibula, Open Approach (ICD-10-PCS; principal; 2022-09-19 14:00)
DX: S82.852A Displaced trimalleolar fracture of left lower leg, initial encounter for closed fracture (principal); G91.2 (Idiopathic) normal pressure hydrocephalus; N17.9 Acute kidney failure, unspecified; E11.40 Type 2 diabetes mellitus with diabetic neuropathy, unspecified; I10 Essential (primary) hypertension; E03.9 Hypothyroidism, unspecified; I35.0 Nonrheumatic aortic (valve) stenosis; I05.0 Rheumatic mitral stenosis; M10.9 Gout, unspecified; G31.84 Mild cognitive impairment of uncertain or unknown etiology; W18.30XA Fall on same level, unspecified, initial encounter; Z20.822 Contact with and (suspected) exposure to COVID-19; Z79.4 Long term (current) use of insulin; Z98.2 Presence of cerebrospinal fluid drainage device
CPT/HCPCS: 0241U; 27818; 36415; 36600; 71045; 73600; 76000; 80048; 80053; 81001; 81003; 82550; 82553; 82805; 82962; 83036; 83605; 83690; 83880; 84145; 84443; 84484; 85025; 85610; 85730; 87040; 87077; 87086; 87150; 87635; 93005; 93010; 93306; 93970; 94640; 94760; 96365; 96367; 96375; 97162; 97164; 97166; 97530; 99285; C9803; C9113; J0696; J1100; J1170; J1644; J1650; J1815; J2270; J2405; J2543; J2704; J3010